=== PATIENT | male | born 1950 | race Caucasian/White ===

== ENCOUNTER → 2016-12-01 | Outpatient (CLI) | payer OTHER ==
[2016-12-01 12:42] LABS: INR 1.1 (0.9-1.1); PARTIAL THROMBOPLASTIN RATIO 1.2; PROTHROMBIN TIME (PATIENT) 11.6 SECONDS (9.0-12.0)
[2016-12-01 12:46] LABS: BLOOD UREA NITROGEN 18 mg/dl (7-18); BUN/CREATININE RATIO 24.2 (10-20); CALCIUM 9.4 mg/dl (8.5-10.1); CARBON DIOXIDE 26 mmol/L (21-32); CHLORIDE 107 mmol/L (98-107); COMPLETE YES; CREATININE 0.76 mg/dl (0.60-1.40); EOS % 2.8 %; GLUCOSE 109 mg/dl (70-99); HEMATOCRIT 41.5 % (42-52); IG% 0.4 %; LYMPH % 29.9 %; LYMPH ABS # 1.52 K/uL (1.2-3.4); MEAN CELL VOLUME 89.8 fL (80-100); MEAN CORPUSCULAR HEMOGLOBIN 29.4 pg (25-34); MEAN CORPUSCULAR HGB CONC 32.8 g/dl (32-36); MEAN PLATELET VOLUME 10.6 fL (7.4-10.4); MONO % 11.8 %; NEUT % 55.1 %; PLATELET COUNT 138 K/uL (130-400); POTASSIUM 4.2 mmol/L (3.5-5.1); RED BLOOD COUNT 4.62 M/uL (4.7-6.1); SODIUM 140 mmol/L (136-145); WHITE BLOOD COUNT 5.09 K/uL (4.8-10.8)
== END | disposition home or self-care (01) ==
LOC: C.LABPBG 07:42
PROVIDERS: ATTEND Internal Medicine Cardiovascular Disease
DX: Z01.818 Encounter for other preprocedural examination (principal); R94.30 Abnormal result of cardiovascular function study, unspecified; R06.02 Shortness of breath; I10 Essential (primary) hypertension; Z79.899 Other long term (current) drug therapy

== ENCOUNTER 2022-09-03 12:51 | Observation (INO) ==
--- NOTE | 2022-09-03 12:57 | Emergency Department Note ---
Impression & Plan Altered mental status, Stroke-like symptoms, Atrial fibrillation with RVR ED Provider Note NAME: YOSI MITTAL AGE: 72 SEX: M ARRIVES VIA: Ambulance INFORMANT: Patient ED PROVIDER(S): Hector Bertrand MD CHIEF COMPLAINT: Confusion PLAN: Disposition: Admit MEDICAL DECISION MAKING: The patient is a pleasant 72-year-old gentleman with a past medical history of CAD, hypertension, hyperlipidemia, atrial fibrillation on Eliquis who presents emergency department via EMS and accompanied by his director of dance for evaluation of symptoms of confusion with concern for possible stroke which the patient had communicated to his director of dance that he thought occurred sometime between last night and this morning. The patient's past reports that he saw the patient last night around 9 PM last night and he was in his normal state of health but when he went to pick him up this morning to go to [facility] he notes that the patient reported that he did not feel well and was not going to go to service today. However he then reports that he then contacted the director of dance again for help and asked him to contact 911 to come to the hospital. He reports that patient could not explain in a detail what he was feeling or what was going on. He simply describes that he did not feel well and thought his left hand was weak and worried he could have a stroke. Per records the patient does have history of alcohol abuse but the patient reports that he no longer drinks alcohol regularly. Additionally, records show that he had requested from his PCP to obtain a medical marijuana card which she was informed of cannot be provided by our office. The patient reports that he is still interested in this but has not smoked marijuana. On arrival the patient is in no acute distress, afebrile with stable vital signs. He appears clinically dry. He exhibits mild confusion with word finding difficulty. He has no dysarthria. He has no focal's objective sensory or motor deficits. EKG demonstrates atrial fibrillation with RVR in the 140s without overt acute ischemia. Chest x-ray negative for acute cardiopulmonary process. WBC, H/H and platelets within normal limits. Chemistry without metabolic acidosis. Electrolytes and LFTs without significant abnormality. High- sensitivity troponin 5.4, within normal limits. TSH within normal limits. UA without evidence of infection. Drug screen was negative. COVID-19 RNA, YRN test negative. CT of the head and CT of the head neck were performed and were negative for acute CVA or ICH. There is note made of carotid artery disease. Upon reevaluation patient did have some improvement following IV fluid hydration and was able to speak more fluently though still with confusion from his baseline. He still reported some numbness and tingling of his left hand but had no focal weakness. Given the persistence of his symptoms we did agree to procee d with admission for further management. Case was discussed with Ming Alvarado, with [facility] who will evaluate the patient for admission. Triage Nursing notes reviewed and agree them. Prior/outside medical records reviewed Vital Signs: reviewed Differential diagnosis: Infection, dehydration, metabolic abnormality, hypo/hyperglycemia, electrolyte disturbance, anemia, hypoxia, cardiac sources, intracerebral event, toxicologic, neurologic, as well as other pathologies. ER treatment provided: See below. Diagnostics interpreted by me: ECG: Atrial fibrillation with RVR, 142 bpm, no ectopy, no overt ST elevation or depression, QTC 446, QRS 76 Cardiac Monitoring: An order for continuous cardiac monitoring was placed and demonstrated Atrial fibrillation with RVR, 142 bpm, no ectopy. Laboratory studies: See below Imaging studies: See below Consultation(s): Case was discussed with Ming Alvarado, with [facility] who will evaluate the patient for admission. HPI: The patient is a pleasant 72-year-old gentleman with a past medical history of CAD, hypertension, hyperlipidemia, atrial fibrillation on Eliquis who presents emergency department via EMS and accompanied by his director of dance for evaluation of symptoms of confusion with concern for possible stroke which the patient had communicated to his director of dance that he thought occurred sometime between last night and this morning. The patient's past reports that he saw the patient last night around 9 PM last night and he was in his normal state of health but when he went to pick him up this morning to go to [facility] he notes that the patient reported that he did not feel well and was not going to go to service today. However he then reports that he then contacted the director of dance again for help and asked him to contact 911 to come to the hospital. He reports that patient could not explain in a detail what he was feeling or what was going on. He simply describes that he did not feel well and thought his left hand was weak and worried he could have a stroke. Per records the patient does have history of alcohol abuse but the patient reports that he no longer drinks alcohol regularly. Additionally, records show that he had requested from his PCP to obtain a medical marijuana card which she was informed of cannot be provided by our office. The patient reports that he is still interested in this but has not smoked marijuana. ROS: See above HPI for pertinent positives & negatives. A total of 10 systems reviewed and were otherwise negative. VITALS:See Below PHYSICAL EXAMINATION: GENERAL: Awake, alert, fatigued-appearing, in no distress HENT: Normocephalic, atraumatic. Oropharynx with dry mucous membranes and otherwise unremarkable. EYES: Normal conjunctiva. Sclera non-icteric. EOMI. No nystamgus. PEARRL. NECK: Supple. No nuchal rigidity. FROM. No JVD. RESPIRATORY: Clear to auscultation. CARDIAC: Tachycardic rate, irregular rhythm. Extremities warm and well perfused. Pulses equal. ABDOMEN: Soft, non-distended. No tenderness to palpation. No rebound or guarding. No masses. RECTAL: Deferred. MUSCULOSKELETAL: Chest examination reveals no tenderness. The back is symmetrical on inspection without obvious abnormality. There is no CVA tenderness to palpation. No joint edema. LOWER EXTREMITIES: Calves are equal size bilaterally and non-tender. No edema. No discoloration. NEURO: Confused. Word finding difficulty. No dysarthria. No sensory or motor deficits noted. 5/5 strength and SILT x 4 extremities. Cerebellar function intact including [id number], alternating palms, [id number]. SKIN: No rash or jaundice noted. ED COURSE: Critical Care: I have personally spent greater than 35 minutes of critical care time in the direct management of this patient. This includes bedside care, interpretation of diagnostic studies, and testing, discussion with consultants, patient, and family members, and other required patient management activities. This 35 minutes is in excess of all separately billable procedures. Hector Bertrand MD Past Med/Surg History Medical History (Updated 09/04/22 @ 01:23 by Hector Bertrand MD) Altered mental status Atrial fibrillation with RVR CAD (coronary artery disease) Depression HTN (hypertension) Stroke-like symptoms Surgical History (Updated 09/03/22 @ 17:52 by MARÍA Huff) No pertinent past surgical history Family History (Updated 09/03/22 @ 17:52 by MARÍA Huff) Other Dyslipidemia Heart disease Social History Smoking Status: Unknown if ever smoked Preferred Language: Mongolian Feels Safe at Home: Yes Allergies Allergies Allergy/AdvReac Type Severity Reaction Status Date / Time vitamin b AdvReac Severe b12 and B6 Uncoded 09/03/22 16:28 makes nose bleed Home Meds Home Medications Medication Instructions Recorded Confirmed apixaban 5 mg tablet (Eliquis) 5 mg PO BID 09/03/22 09/03/22 arginine (L-arginine) 500 mg tablet 1,000 mg PO AMHS 09/03/22 09/03/22 atorvastatin 80 mg tablet 80 mg PO DAILY 09/03/22 09/03/22 duloxetine 30 mg capsule,delayed 30 mg PO DAILY 09/03/22 09/03/22 release metoprolol tartrate 25 mg tablet 25 mg PO BID 09/03/22 09/03/22 saw palmetto 450 mg capsule 1,800 mg PO DAILY 09/03/22 09/03/22 vitamin K2 100 mcg capsule 100 mcg PO DAILY 09/03/22 09/03/22 Results & Data (ED) Vital Signs Vital Signs - 24 hr 09/03/22 12:56 09/03/22 13:03 09/03/22 12:55 Temperature 36.7 C Temperature Source Oral Pulse Rate 146 H 137 H Pulse Rate [Apical] Pulse Rate from SpO2 Sensor Respiratory Rate 20 Respiratory Effort / Characteristics Non-Labored Spontaneous Respiratory Depth Normal Respiratory Pattern Regular Blood Pressure 148/88 H Blood Pressure [Right Arm] Blood Pressure Mean 108 Blood Pressure Mean [Right Arm] Blood Pressure Position Sitting Pulse Oximetry 96 96 Oxygen Delivery Method Room Air Room Air Sepsis Recent Fever Within 48 Hours No Sepsis New/Unexplained Change in Mental Status No Sepsis Action Taken by Nursing No Action Required 09/03/22 13:01 09/03/22 13:52 09/03/22 14:07 Temperature Temperature Source Pulse Rate 129 H 117 H 97 H Pulse Rate [Apical] Pulse Rate from SpO2 Sensor 96 H 89 Respiratory Rate 22 15 20 Respiratory Effort / Characteristics Respiratory Depth Respiratory Pattern Blood Pressure 152/103 H 151/103 H 133/107 H Blood Pressure [Right Arm] Blood Pressure Mean 119 119 115 Blood Pressure Mean [Right Arm] Blood Pressure Position Pulse Oximetry 95 97 Oxygen Delivery Method Sepsis Recent Fever Within 48 Hours Sepsis New/Unexplained Change in Mental Status Sepsis Action Taken by Nursing 09/03/22 14:30 09/03/22 15:33 09/03/22 16:00 Temperature Temperature Source Pulse Rate 93 H 89 Pulse Rate [Apical] 93 H Pulse Rate from SpO2 Sensor 97 H 96 H Respiratory Rate 18 14 14 Respiratory Effort / Characteristics Non-Labored Spontaneous Respiratory Depth Normal Respiratory Pattern Blood Pressure 140/102 H 134/98 Blood Pressure [Right Arm] 149/98 H Blood Pressure Mean 114 110 Blood Pressure Mean [Right Arm] 115 Blood Pressure Position Pulse Oximetry 97 97 96 Oxygen Delivery Method Room Air Sepsis Recent Fever Within 48 Hours Sepsis New/Unexplained Change in Mental Status Sepsis Action Taken by Nursing Laboratory Data Attestation: I reviewed the patient's lab results. 09/03/22 12:55 09/03/22 12:55 Lab Results 09/03/22 09/03/22 09/03/22 Range/Units 12:55 12:55 12:55 WBC 5.53 (4.8-10.8) K/ul RBC 4.89 (4.70-6.10) M/uL Hgb 15.0 (14.0-18.0) g/dl Hct 43.7 (42.0-52.0) % MCV 89.4 (80.0-100.0) fL MCH 30.7 (25.0-34.0) pg MCHC 34.3 (32.0-36.0) g/dL RDW Std Deviation 43.9 (36.4-46.3) fL RDW Coeff of Shayy 13.4 (11.5-14.5) % Plt Count 148 (130-400) K/uL MPV 9.9 (9.4-12.4) fL Immature Gran % (Auto) 0.5 % Neut % (Auto) 55.5 % Lymph % (Auto) 29.7 % Canadian % (Auto) 12.5 % Eos % (Auto) 1.6 % Baso % (Auto) 0.2 % Neut # (Auto) 3.07 (1.40-6.50) K/uL Lymph # (Auto) 1.64 (1.2-3.4) K/uL Canadian # (Auto) 0.69 H (0.11-0.59) K/uL Eos # (Auto) 0.09 (0-0.50) K/uL Baso # (Auto) 0.01 (0-0.2) K/uL Immature Gran # (Auto) 0.03 (0.01-0.20) K/uL PT (9.0-12.0) Seconds INR (0.9-1.1) Sodium 138 (136-145) mmol/L Potassium 4.3 (3.5-5.1) mmol/L Chloride 107 (98-107) mmol/L Carbon Dioxide 22 (21-32) mmol/L Anion Gap 9 (3-11) BUN 13 (6-23) mg/dl Creatinine 0.92 (0.6-1.4) mg/dl Est Cr Clr Drug Dosing 96.1 ml/min Est GFR ( Amer) 94.6 ml/min Est GFR (Non-Af Amer) 81.6 ml/min BUN/Creatinine Ratio 14.1 (10-20) Glucose 114 H (70-99(Fasting)) mg/dl Calcium 9.8 (8.6-10.3) mg/dl Phosphorus 2.7 (2.5-4.9) mg/dl Magnesium 1.7 (1.7-2.4) mg/dl Total Bilirubin 0.7 (0.2-1.0) mg/dl AST 20 (13-39) U/L ALT 12 (7-52) U/L Alkaline Phosphatase 63 (34-104) U/L Troponin I High Sens 5.4 (0-20) pg/ml Total Protein 7.3 (6.0-8.3) gm/dl Albumin 4.2 (3.4-5.0) gm/dl Globulin 3.1 (2.5-4.0) gm/dl Albumin/Globulin Ratio 1.4 (0.9-2) Lipase 7 L (11-82) U/L TSH 1.967 (0.300-4.500) uIu/ml Urine Color Urine Appearance (Clear) Urine pH (4.5-7.5) Ur Specific Bethany (1.000-1.030) Urine Protein (Negative) Urine Glucose (UA) (Negative) Urine Ketones (Negative) Urine Blood (Negative) Urine Nitrite (Negative) Urine Bilirubin (Negative) Urine Urobilinogen (Negative) Ur Leukocyte Esterase (Negative) Urine Opiates Screen (Neg) Ur Methadone, Qual (Neg) Urine Barbiturates (Neg) Ur Phencyclidine (PCP) (Neg) U Amphetamin/Meth Scrn (Neg) MDMA (Ecstasy) Screen (Neg) U Benzodiazepines Scrn (Neg) Ur Cocaine Metabolite (Neg) U Marijuana (THC) Screen (Neg) Ethyl Alcohol mg/dL (<10.0) mg/dl SARS-CoV-2, RNA, NAAT (NEGATIVE) 09/03/22 09/03/22 09/03/22 Range/Units 12:55 13:14 13:53 WBC (4.8-10.8) K/ul RBC (4.70-6.10) M/uL Hgb (14.0-18.0) g/dl Hct (42.0-52.0) % MCV (80.0-100.0) fL MCH (25.0-34.0) pg MCHC (32.0-36.0) g/dL RDW Std Deviation (36.4-46.3) fL RDW Coeff of Shayy (11.5-14.5) % Plt Count (130-400) K/uL MPV (9.4-12.4) fL Immature Gran % (Auto) % Neut % (Auto) % Lymph % (Auto) % Canadian % (Auto) % Eos % (Auto) % Baso % (Auto) % Neut # (Auto) (1.40-6.50) K/uL Lymph # (Auto) (1.2-3.4) K/uL Canadian # (Auto) (0.11-0.59) K/uL Eos # (Auto) (0-0.50) K/uL Baso # (Auto) (0-0.2) K/uL Immature Gran # (Auto) (0.01-0.20) K/uL PT 11.7 (9.0-12.0) Seconds INR 1.1 (0.9-1.1) Sodium (136-145) mmol/L Potassium (3.5-5.1) mmol/L Chloride (98-107) mmol/L Carbon Dioxide (21-32) mmol/L Anion Gap (3-11) BUN (6-23) mg/dl Creatinine (0.6-1.4) mg/dl Est Cr Clr Drug Dosing ml/min Est GFR ( Amer) ml/min Est GFR (Non-Af Amer) ml/min BUN/Creatinine Ratio (10-20) Glucose (70-99(Fasting)) mg/dl Calcium (8.6-10.3) mg/dl Phosphorus (2.5-4.9) mg/dl Magnesium (1.7-2.4) mg/dl Total Bilirubin (0.2-1.0) mg/dl AST (13-39) U/L ALT (7-52) U/L Alkaline Phosphatase (34-104) U/L Troponin I High Sens (0-20) pg/ml Total Protein (6.0-8.3) gm/dl Albumin (3.4-5.0) gm/dl Globulin (2.5-4.0) gm/dl Albumin/Globulin Ratio (0.9-2) Lipase (11-82) U/L TSH (0.300-4.500) uIu/ml Urine Color Urine Appearance (Clear) Urine pH (4.5-7.5) Ur Specific Bethany (1.000-1.030) Urine Protein (Negative) Urine Glucose (UA) (Negative) Urine Ketones (Negative) Urine Blood (Negative) Urine Nitrite (Negative) Urine Bilirubin (Negative) Urine Urobilinogen (Negative) Ur Leukocyte Esterase (Negative) Urine Opiates Screen (Neg) Ur Methadone, Qual (Neg) Urine Barbiturates (Neg) Ur Phencyclidine (PCP) (Neg) U Amphetamin/Meth Scrn (Neg) MDMA (Ecstasy) Screen (Neg) U Benzodiazepines Scrn (Neg) Ur Cocaine Metabolite (Neg) U Marijuana (THC) Screen (Neg) Ethyl Alcohol mg/dL < 10.0 (<10.0) mg/dl SARS-CoV-2, RNA, NAAT NEGATIVE (NEGATIVE) 09/03/22 09/03/22 Range/Units 15:32 15:32 WBC (4.8-10.8) K/ul RBC (4.70-6.10) M/uL Hgb (14.0-18.0) g/dl Hct (42.0-52.0) % MCV (80.0-100.0) fL MCH (25.0-34.0) pg MCHC (32.0-36.0) g/dL RDW Std Deviation (36.4-46.3) fL RDW Coeff of Shayy (11.5-14.5) % Plt Count (130-400) K/uL MPV (9.4-12.4) fL Immature Gran % (Auto) % Neut % (Auto) % Lymph % (Auto) % Canadian % (Auto) % Eos % (Auto) % Baso % (Auto) % Neut # (Auto) (1.40-6.50) K/uL Lymph # (Auto) (1.2-3.4) K/uL Canadian # (Auto) (0.11-0.59) K/uL Eos # (Auto) (0-0.50) K/uL Baso # (Auto) (0-0.2) K/uL Immature Gran # (Auto) (0.01-0.20) K/uL PT (9.0-12.0) Seconds INR (0.9-1.1) Sodium (136-145) mmol/L Potassium (3.5-5.1) mmol/L Chloride (98-107) mmol/L Carbon Dioxide (21-32) mmol/L Anion Gap (3-11) BUN (6-23) mg/dl Creatinine (0.6-1.4) mg/dl Est Cr Clr Drug Dosing ml/min Est GFR ( Amer) ml/min Est GFR (Non-Af Amer) ml/min BUN/Creatinine Ratio (10-20) Glucose (70-99(Fasting)) mg/dl Calcium (8.6-10.3) mg/dl Phosphorus (2.5-4.9) mg/dl Magnesium (1.7-2.4) mg/dl Total Bilirubin (0.2-1.0) mg/dl AST (13-39) U/L ALT (7-52) U/L Alkaline Phosphatase (34-104) U/L Troponin I High Sens (0-20) pg/ml Total Protein (6.0-8.3) gm/dl Albumin (3.4-5.0) gm/dl Globulin (2.5-4.0) gm/dl Albumin/Globulin Ratio (0.9-2) Lipase (11-82) U/L TSH (0.300-4.500) uIu/ml Urine Color Yellow Urine Appearance Clear (Clear) Urine pH 6.5 (4.5-7.5) Ur Specific Bethany > 1.045 H (1.000-1.030) Urine Protein Negative (Negative) Urine Glucose (UA) Negative (Negative) Urine Ketones Negative (Negative) Urine Blood Negative (Negative) Urine Nitrite Negative (Negative) Urine Bilirubin Negative (Negative) Urine Urobilinogen Negative (Negative) Ur Leukocyte Esterase Negative (Negative) Urine Opiates Screen Neg (Neg) Ur Methadone, Qual Neg (Neg) Urine Barbiturates Neg (Neg) Ur Phencyclidine (PCP) Neg (Neg) U Amphetamin/Meth Scrn Neg (Neg) MDMA (Ecstasy) Screen Neg (Neg) U Benzodiazepines Scrn Neg (Neg) Ur Cocaine Metabolite Neg (Neg) U Marijuana (THC) Screen Neg (Neg) Ethyl Alcohol mg/dL (<10.0) mg/dl SARS-CoV-2, RNA, NAAT (NEGATIVE) Administered Medications Apixaban (Apixaban 5 Mg Tablet) 5 mg PO BID LOLIS Stop: 10/03/22 20:59 Last Admin: 09/03/22 21:34 Dose: 5 mg Documented By: EUSEBIO Metoprolol Tartrate (Metoprolol Tartrate 25 Mg Tab) 25 mg PO BID LOLIS Stop: 10/03/22 20:59 Last Admin: 09/03/22 21:34 Dose: 25 mg Documented By: EUSEBIO Discontinued Medications Sodium Chloride (Nss 1000ml) 1,000 mls @ 999 mls/hr IV .Q1H1M ONE Stop: 09/03/22 14:07 Last Infusion: 09/03/22 15:47 Dose: 0 mls/hr Documented By: Admin: 09/03/22 13:12 Dose: 999 mls/hr Documented By: MAYRA Sodium Chloride (Nss 1000ml) 1,000 mls @ 999 mls/hr IV .Q1H1M ONE Stop: 09/03/22 16:53 Last Infusion: 09/03/22 17:21 Dose: 0 mls/hr Documented By: Admin: 09/03/22 16:15 Dose: 999 mls/hr Documented By: ELLY Magnesium Sulfate/Dextrose (Magnesium Sulfate / D5w) 1 gm in 100 mls @ 100 mls/hr IV NOW STA Stop: 09/03/22 16:53 Last Infusion: 09/03/22 17:21 Dose: 0 mls/hr Documented By: Admin: 09/03/22 16:14 Dose: 100 mls/hr Documented By: ELLY Ioversol (Optiray 320 500ml) 117 ml IV ONCE ONE Stop: 09/03/22 13:29 Last Admin: 09/03/22 13:28 Dose: 117 ml Documented By: CYNTHIA Imaging Data Radiologist's Impression: Chest X-Ray 09/03/22 12:55 XR chest 1V portable HISTORY: 72 years-old Male Chest pain, nonspecific acute strokelike symptoms w ith chest pain COMPARISON: None TECHNIQUE: AP view of the chest FINDINGS: Cardiac silhouette is upper limits of normal in size. No pneumothorax, pleural effusion, airspace consolidation or overt pulmonary edema. Mild interstitial coarsening is likely chronic. Degenerative changes of the shoulders and spine. IMPRESSION: No acute process. ACT 112: Negative or not required by law. The above report was generated using voice recognition software. It may contain grammatical, syntax or spelling errors. Electronically signed by: Elijah Puente M.D. 09/03/2022 1:[address] 09/03/22 13:08 CT angio head w con, CT angio neck with con, CT head/brain wo con CLINICAL HISTORY: 72 years-old Male with stroke sx. Acute strokelike symptoms COMPARISON STUDY: None TECHNIQUE: Unenhanced axial CT scan of the brain is performed. Subsequently, following the IV administration of 115 cc of Optiray, CT angiogram of the head and neck was performed from the aortic arch to the skull apex. Images are reviewed in the axial, sagittal, and coronal planes. 3-D MIPS images are created and assessed. IV contrast was administered without complication. All measurements were obtained according to NASCET criteria. A dose lowering bernardo hnique was utilized adhering to the principles of ALARA. CT DOSE: 1681.03 mGy.cm FINDINGS: Motion degraded exam. CT BRAIN: There is no acute intracranial hemorrhage, midline shift, hydrocephalus, intracranial mass, territorial ischemia or abnormal extra-axial collections. No abnormal intra-axial or extra-axial enhancement. Involutional changes with chronic microvascular ischemic disease. Cerebrovascular calcifications. Small right mastoid effusion. No calvarial fracture. Prior bilateral lens repair. Paranasal sinuses are clear. CT ANGIOGRAM OF THE HEAD AND NECK: Mediastinal lymph nodes measure up to 1.6 cm the paratracheal distribution. Three-vessel morphology of the thoracic arch. Patency of the innominate and images including arteries. Common carotid arteries are patent. Atherosclerotic plaque in the left carotid bulb and proximal left ICA results in less than 50% stenosis. Less than 50% stenosis of the proximal right ICA. The bilateral anterior and middle cerebral arteries are also patent. Atherosclerotic plaques in the V4 segment left vertebral artery results in 60% stenosis. The right vertebral artery is widely patent. The basilar and posterior cerebral arteries are patent. There is no aneurysm, high-grade stenosis, or proximal branch occlusion identified. Dural sinuses appear patent. No pneumothorax. Unremarkable soft tissues. Degenerative changes of the cervical spine. IMPRESSION: 1. Motion degraded exam without acute intracranial abnormality identified. 2. Atherosclerotic plaque results in less than 50% stenosis within the right greater than left carotid bulbs. 3. 60% stenosis of the V4 segment left vertebral artery. 4. Mild nonspecific paratracheal lymphadenopathy. ACT 112: Negative or not required by law. The above report was generated using voice recognition software. It may contain grammatical, syntax or spelling errors. Electronically signed by: Elijah Puente M.D. 09/03/2022 2:20 PM Head CTA 09/03/22 13:08 CT angio head w con, CT angio neck with con, CT head/brain wo con CLINICAL HISTORY: 72 years-old Male with stroke sx. Acute strokelike symptoms COMPARISON STUDY: None TECHNIQUE: Unenhanced axial CT scan of the brain is performed. Subsequently, following the IV administration of 115 cc of Optiray, CT angiogram of the head and neck was performed from the aortic arch to the skull apex. Images are reviewed in the axial, sagittal, and coronal planes. 3-D MIPS images are created and assessed. IV contrast was administered without complication. All measurements were obtained according to NASCET criteria. A dose lowering technique was utilized adhering to the principles of ALARA. CT DOSE: 1681.03 mGy.cm FINDINGS: Motion degraded exam. CT BRAIN: There is no acute intracranial hemorrhage, midline shift, hydrocephalus, intracranial mass, territorial ischemia or abnormal extra-axial collections. No abnormal intra-axial or extra-axial enhancement. Involutional changes with chronic microvascular ischemic disease. Cerebrovascular calcifications. Small right mastoid effusion. No calvarial fracture. Prior bilateral lens repair. Paranasal sinuses are clear. CT ANGIOGRAM OF THE HEAD AND NECK: Mediastinal lymph nodes measure up to 1.6 cm the paratracheal distribution. Three-vessel morphology of the thoracic arch. Patency of the innominate and images including arteries. Common carotid arteries are patent. Atherosclerotic plaque in the left carotid bulb and proximal left ICA results in less than 50% s tenosis. Less than 50% stenosis of the proximal right ICA. The bilateral anterior and middle cerebral arteries are also patent. Atherosclerotic plaques in the V4 segment left vertebral artery results in 60% stenosis. The right vertebral artery is widely patent. The basilar and posterior cerebral arteries are patent. There is no aneurysm, high-grade stenosis, or proximal branch occlusion identified. Dural sinuses appear patent. No pneumothorax. Unremarkable soft tissues. Degenerative changes of the cervical spine. IMPRESSION: 1. Motion degraded exam without acute intracranial abnormality identified. 2. Atherosclerotic plaque results in less than 50% stenosis within the right greater than left carotid bulbs. 3. 60% stenosis of the V4 segment left vertebral artery. 4. Mild nonspecific paratracheal lymphadenopathy. ACT 112: Negative or not required by law. The above report was generated using voice recognition software. It may contain grammatical, syntax or spelling errors. Electronically signed by: Elijah Puente M.D. 09/03/2022 2:20 PM Neck CTA 09/03/22 13:08 CT angio head w con, CT angio neck with con, CT head/brain wo con CLINICAL HISTORY: 72 years-old Male with stroke sx. Acute strokelike symptoms COMPARISON STUDY: None TECHNIQUE: Unenhanced axial CT scan of the brain is performed. Subsequently, following the IV administration of 115 cc of Optiray, CT angiogram of the head and neck was performed from the aortic arch to the skull apex. Images are reviewed in the axial, sagittal, and coronal planes. 3-D MIPS images are created and assessed. IV contrast was administered without complication. All measurements were obtained according to NASCET criteria. A dose lowering techniq ue was utilized adhering to the principles of ALARA. CT DOSE: 1681.03 mGy.cm FINDINGS: Motion degraded exam. CT BRAIN: There is no acute intracranial hemorrhage, midline shift, hydrocephalus, intracranial mass, territorial ischemia or abnormal extra-axial collections. No abnormal intra-axial or extra-axial enhancement. Involutional changes with chronic microvascular ischemic disease. Cerebrovascular calcifications. Small right mastoid effusion. No calvarial fracture. Prior bilateral lens repair. Paranasal sinuses are clear. CT ANGIOGRAM OF THE HEAD AND NECK: Mediastinal lymph nodes measure up to 1.6 cm the paratracheal distribution. Three-vessel morphology of the thoracic arch. Patency of the innominate and images including arteries. Common carotid arteries are patent. Atherosclerotic plaque in the left carotid bulb and proximal left ICA results in less than 50% stenosis. Less than 50% stenosis of the proximal right ICA. The bilateral anterior and middle cerebral arteries are also patent. Atherosclerotic plaques in the V4 segment left vertebral artery results in 60% stenosis. The right vertebral artery is widely patent. The basilar and posterior cerebral arteries are patent. There is no aneurysm, high-grade stenosis, or proximal branch occlusion identified. Dural sinuses appear patent. No pneumothorax. Unremarkable soft tissues. Degenerative changes of the cervical spine. IMPRESSION: 1. Motion degraded exam without acute intracranial abnormality identified. 2. Atherosclerotic plaque results in less than 50% stenosis within the right greater than left carotid bulbs. 3. 60% stenosis of the V4 segment left vertebral artery. 4. Mild nonspecific paratracheal lymphadenopathy. ACT 112: Negative or not required by law. The above report was generated using voice recognition software. It may contain grammatical, syntax or spelling errors. Electronically signed by: Elijah Puente M.D. 09/03/2022 2:20 PM Discharge Plan Visit Data Chief Complaint: Altered Mental Status ED Provider: Hector Bertrand Discharge Problem: Altered mental status, Stroke-like symptoms, Atrial fibrillation with RVR Patient Disposition: Admitted As Inpatient Discharge Instructions Interventions: ED Discharge Assessment Last Done: 09/03/22 18:08
[2022-09-03] MEDS ORDERED: SODIUM CHLORIDE 0.9% 1000ML 1,000 ML IV ONE ×2 (13:07→15:53)
[2022-09-03 13:16] LABS: Basophils # (auto) 0.01 K/uL (0-0.2); Basophils % (auto) 0.2 %; Eosinophils # (auto) 0.09 K/uL (0-0.50); Eosinophils % (auto) 1.6 %; Hematocrit (blood only) 43.7 % (42.0-52.0); Immature Granulocytes # (auto) 0.03 K/uL (0.01-0.20); Immature Granulocytes % (auto) 0.5 %; Lymphocytes # (auto) 1.64 K/uL (1.2-3.4); Lymphocytes % (auto) 29.7 %; Mean Corpuscular Hemoglobin 30.7 pg (25.0-34.0); Mean Corpuscular Hgb Conc 34.3 g/dL (32.0-36.0); Mean Corpuscular Volume 89.4 fL (80.0-100.0); Mean Platelet Volume 9.9 fL (9.4-12.4); Monocytes # (auto) 0.69 K/uL (0.11-0.59); Monocytes % (auto) 12.5 %; Neutrophils # (auto) 3.07 K/uL (1.40-6.50); Neutrophils % (auto) 55.5 %; Platelet Count 148 K/uL (130-400); RDW Coefficient of Variation 13.4 % (11.5-14.5); RDW Standard Deviation 43.9 fL (36.4-46.3); Red Blood Count 4.89 M/uL (4.70-6.10); White Blood Count 5.53 K/ul (4.8-10.8)
[2022-09-03] MEDS ORDERED: OPTIRAY 320 500ml IV ONE (13:28)
[2022-09-03 13:34] LABS: Albumin Globulin Ratio 1.4 (0.9-2); Albumin Level 4.2 gm/dl (3.4-5.0); BUN Creatinine Ratio 14.1 (10-20); Bilirubin,Total 0.7 mg/dl (0.2-1.0); Calcium 9.8 mg/dl (8.6-10.3); Creatinine Clr Calc Pharmacy 96.1 ml/min; Est GFR (African American) 94.6 ml/min; Est GFR (Non-African American) 81.6 ml/min; Globulin 3.1 gm/dl (2.5-4.0); Magnesium 1.7 mg/dl (1.7-2.4); Phosphorus 2.7 mg/dl (2.5-4.9); Potassium 4.3 mmol/L (3.5-5.1); Total Protein 7.3 gm/dl (6.0-8.3)
[2022-09-03 13:40] LABS: Troponin I High Sensitivity 5.4 pg/ml (0-20)
--- NOTE | 2022-09-03 13:58 | XRay Report ---
XR chest 1V portable HISTORY: 72 years-old Male Chest pain, nonspecific acute strokelike symptoms with chest pain COMPARISON: None TECHNIQUE: AP view of the chest FINDINGS: Cardiac silhouette is upper limits of normal in size. No pneumothorax, pleural effusion, airspace con solidation or overt pulmonary edema. Mild interstitial coarsening is likely chronic. Degenerative mannie nges of the shoulders and spine. IMPRESSION: No acute process. ACT 112: Negative or not required by law. The above report was generated using voice recognition software. It may contain grammatical, syntax o r spelling errors. Electronically signed by: Elijah Puente M.D. 09/03/2022 1:57 PM
[2022-09-03 14:11] LABS: INR 1.1 (0.9-1.1); Prothrombin Time 11.7 Seconds (9.0-12.0)
--- NOTE | 2022-09-03 14:22 | CT Scan Report ---
CT angio head w con, CT angio neck with con, CT head/brain wo con CLINICAL HISTORY: 72 years-old Male with stroke sx. Acute strokelike symptoms COMPARISON STUDY: None TECHNIQUE: Unenhanced axial CT scan of the brain is performed. Subsequently, following the IV adminis tration of 115 cc of Optiray, CT angiogram of the head and neck was performed from the aortic arch to the skull apex. Images are reviewed in the axial, sagittal, and coronal planes. 3-D MIPS images are created and assessed. IV contrast was administered without complication. All measurements were obtain ed according to NASCET criteria. A dose lowering technique was utilized adhering to the principles of ALARA. CT DOSE: 1681.03 mGy.cm FINDINGS: Motion degraded exam. CT BRAIN: There is no acute intracranial hemorrhage, midline shift, hydrocephalus, intracranial mass, territori al ischemia or abnormal extra-axial collections. No abnormal intra-axial or extra-axial enhancement. Involutional changes with chronic microvascular ischemic disease. Cerebrovascular calcifications. Sm all right mastoid effusion. No calvarial fracture. Prior bilateral lens repair. Paranasal sinuses are clear. CT ANGIOGRAM OF THE HEAD AND NECK: Mediastinal lymph nodes measure up to 1.6 cm the paratracheal distribution. Three-vessel morphology o f the thoracic arch. Patency of the innominate and images including arteries. Common carotid arteries are patent. Atherosclerotic plaque in the left carotid bulb and proximal left ICA results in less th an 50% stenosis. Less than 50% stenosis of the proximal right ICA. The bilateral anterior and middle cerebral arteries are also patent. Atherosclerotic plaques in the V4 segment left vertebral artery re sults in 60% stenosis. The right vertebral artery is widely patent. The basilar and posterior cerebra l arteries are patent. There is no aneurysm, high-grade stenosis, or proximal branch occlusion identi fied. Dural sinuses appear patent. No pneumothorax. Unremarkable soft tissues. Degenerative changes of the cervical spine. IMPRESSION: 1. Motion degraded exam without acute intracranial abnormality identified. 2. Atherosclerotic plaque results in less than 50% stenosis within the right greater than left caroti d bulbs. 3. 60% stenosis of the V4 segment left vertebral artery. 4. Mild nonspecific paratracheal lymphadenopathy. ACT 112: Negative or not required by law. The above report was generated using voice recognition software. It may contain grammatical, syntax o r spelling errors. Electronically signed by: Elijah Puente M.D. 09/03/2022 2:20 PM
[2022-09-03 15:42] LABS: Appearance Urine Clear (Clear); Bilirubin Urine Negative (Negative); Blood Urine Negative (Negative); Color Urine Yellow; Glucose Urine UA Negative (Negative); Ketones Urine Negative (Negative); Leukocyte Esterase Urine Negative (Negative); Nitrite Urine Negative (Negative); Protein Urine Negative (Negative); Specific Gravity Urine > 1.045 (1.000-1.030); Urobilinogen Urine Negative (Negative); pH Urine 6.5 (4.5-7.5)
[2022-09-03] MEDS ORDERED: MAGNESIUM SULFATE / D5W 1 GM/100 ML BAG IV STA (15:54)
--- NOTE | 2022-09-03 15:57 | Electrocardiogram Report ---
Test Reason : Blood Pressure : / mmHG Vent. Rate : 142 BPM Atrial Rate : 000 BPM P-R Int : 000 ms QRS Dur : 076 ms QT Int : 290 ms P-R-T Axes : 000 023 010 degrees QTc Int : 446 ms Atrial fibrillation with rapid ventricular response with premature ventricular or aberrantly conducte d complexes Abnormal ECG No previous ECGs available Confirmed by Skyler Ramos ([id number]) on 09/03/2022 3:57:25 PM Referred By: REFERRED SELF Confirmed By:Ramy Ramos
[2022-09-03] MEDS ORDERED: POLYETHYLENE (MIRALAX) 17 GM PACK PO PRN (16:14)
[2022-09-03] MEDS ORDERED: ALUMINUM/MAGNESIUM SUSP 30 ML UDC PO PRN (16:14)
[2022-09-03] MEDS ORDERED: MAGNESIUM HYDROXIDE SUSP 30 ML UDC PO PRN (16:14)
[2022-09-03] MEDS ORDERED: ONDANSETRON INJ 2 MG/ML 2 ML VIAL IV PRN (16:14)
[2022-09-03 16:20] LABS: Amphetamines+Metham, Urine Neg (Neg); Barbiturates, Urine Neg (Neg); Benzodiazepine, Urine Neg (Neg); Cocaine, Urine Neg (Neg); MDMA (Ecstacy), Urine Neg (Neg); Methadone, Urine Neg (Neg); Opiate, Urine Neg (Neg); Phencyclidine, Urine Neg (Neg)
--- NOTE | 2022-09-03 16:26 | History & Physical Report ---
Date of Service September 03, 2022 Assessment & Plan (1) Stroke-like symptoms: (2) Altered mental status: (3) CAD (coronary artery disease): (4) Atrial fibrillation with RVR: (5) HTN (hypertension): (6) Depression: Plan 72 y/o presents with AMS and AF with RVR and AMS. On Eliquis. Last known well 09/02 @ 2100. Symptoms presented at 09/03/529. Head CT negative for ICH, SDH, or midline shift. Obtain MRI brain for stroke work up. Already on anticoagulation and high dose statin. AF with RVR Dilt 10 mg IV given by EMS. 2 LNSB given and HR now rate controlled. Atrial fibrillation with RVR: 140-170 via EMS: Received 10 mg IV Diltiazem via EMS 2L NSB in ED; HR 90-100 Obtain ECHO; did not find one as outpatient Takes Eliquis and Metoprolol; continue Consider cardiology involvement based on ECHO results or symptoms persist. Stroke like symptoms: Altered mental status: Last known well 09/02 @ [address] negative for ICH, SDH, or midline shift Obtain MRI brain for stroke work up Already on anticoagulation and high dose statin UA negative UDS pending H/O alcohol use; does not appear tremulous PT/OT Dysphagia screening; if cleared, ok for diet Neuro consult placed HLD: Takes Atorvastatin; continue Last lipid panel: 06/27: TG 120, HDL 32, LDL 50 Depression: Takes Cymbalta; continue Disposition: PCP: Dr. Sonal Puckett CODE STATUS: Full code VTE prophylaxis: On Eliquis I spent a total of 87 minutes coordinating, documenting, and providing care for this patient excluding time spent in the performance of separately billed services. All of the aforementioned completed while collaborating with the assigned attending physician for a full treatment plan. Please see their addendum for further details. History of Present Illness Chief Complaint: AMS and AF with RVR Primary Care Provider: Brennan Ro Ms. Castrejon presented to the ED via EMS from home after being observed with AMS. He is last well known last night at 2100. When his salesperson women's hats came to pick him up this morning he was unable to grasp his left hand and felt 'weak'. Per his salesperson women's hats who accompanied him he was having a difficult time with word finding. He has reported falls at home, about 3 over the last calender year. No dysarthria. No prior history of CVA or TIA. Last known well time outside of stroke alert protocol or TNK consideration. HR 140-170 via EMS. Diltiazem given by EMS. EKG AF with RVR. Patient rate responded with 2 L NSB and has remained rate controlled AF since. He did take his medications this morning. Reports being compliant with medications. Chest x-ray negative for acute cardiopulmonary disease. . Head CT negative. Head and Neck CTA revealed atheroplaques less than 50% stenosis and 60% stenosis left vertebral artery. No leukocytosis. Troponin -5.4. TSH 1.9. UA negative for infection. UDS pending. Hemodynamically stable otherwise afebrile. Most recent A1C 5.8 06/27. Outpatient records reviewed. Patient did request a medical marijuana card in July for his arthritis, but has not gotten it yet. Pt does not use tobacco products but does have a history of alcohol abuse. He apparently has not had a drink in over two weeks. Not tremulous on exam. Patient denies headache, dizziness, chest pain, abdominal pain, nausea, vomiting, diarrhea, visual or auditory changes, urinary changes, bowel changes, hematochezia, recent illness, recent falls or trauma. In his hospital room, he is AAOx3 and has returned to his baseline per his salesperson women's hatsHarsh. He is able to follow all commands and answer questions appropriately. NIH 0. CN II-XII intact. He uses a can intermittently at baseline. He is able to complete all of his own ADL's at baseline. He lives alone in an apartment that is accessible by 4 steps and has a handrail. He does not have any close family. Reports having one sister in [place]. Patient will be admitted for further evaluation and management. Please see A/P for further details. Allergies Allergy/AdvReac Type Severity Reaction Status Date / Time vitamin b AdvReac Severe b12 and B6 Uncoded 09/03/22 16:28 makes nose bleed Home Medications Medication Instructions Recorded Confirmed Type apixaban 5 mg tablet (Eliquis) 5 mg PO BID 09/03/22 09/03/22 History arginine (L-arginine) 500 mg tablet 1,000 mg PO AMHS 09/03/22 09/03/22 History atorvastatin 80 mg tablet 80 mg PO DAILY 09/03/22 09/03/22 History duloxetine 30 mg capsule,delayed 30 mg PO DAILY 09/03/22 09/03/22 History release metoprolol tartrate 25 mg tablet 25 mg PO BID 09/03/22 09/03/22 History saw palmetto 450 mg capsule 1,800 mg PO DAILY 09/03/22 09/03/22 History vitamin K2 100 mcg capsule 100 mcg PO DAILY 09/03/22 09/03/22 History Past Med/Surg History Medical History (Updated 09/03/22 @ 18:40 by MARÍA Huff) Altered mental status Atrial fibrillation with RVR CAD (coronary artery disease) Depression HTN (hypertension) Stroke-like symptoms Surgical History (Updated 09/03/22 @ 17:52 by MARÍA Huff) No pertinent past surgical history Family History (Updated 09/03/22 @ 17:52 by MARÍA Huff) Other Dyslipidemia Heart disease Social History Smoking Status: Unknown if ever smoked Preferred Language: Finnish Feels Safe at Home: Yes Review of Systems Review of Systems: Neuro: (-) Falls, trauma, slurred speech HEENT: (-) ESTEVES, dizziness, dysphagia, visual or auditory changes CV: (-) CP, palpitations, swelling Resp: (-) SOB GI: (-) appetite changes, N/V/D, bowel changes : (-) urinary changes Skin: (-) rashes Psych: (-) anxiety, depression Physical Exam Physical Exam: Neuro: AAOx4, PERRLA, no aphagia, memory changes, CNII-XII grossly intact HEENT: head normocephalic, moist mucus membranes CV: S1/S2, (-) M/G/R, (-) edema, cap refill < 3 seconds Resp: Lungs CTA in all [place]. On RA GI: Abdomen S/NT/ND, Ax4 bowel sounds, (-) CVA tenderness Musculoskeletal: 5/5 B/L UE strength, 5/5 B/L LE strength. No gait disturbance. Uses a cane Skin: (-) rashes , (-) erythema. Psych: euthymic mood Results & Data Results & Data Vital Signs (Past 12 Hours) Vital Signs Temp Pulse Pulse Resp BP BP Pulse Ox 09/03/22 15:33 93 H 14 149/98 H 97 09/03/22 14:30 93 H 18 140/102 H 97 09/03/22 14:07 97 H 20 133/107 H 97 09/03/22 13:52 117 H 15 151/103 H 09/03/22 13:01 129 H 22 152/103 H 95 09/03/22 12:55 96 09/03/22 13:03 36.7 C 137 H 20 148/88 H 96 09/03/22 12:56 146 H O2 Del Method 09/03/22 15:33 Room Air 09/03/22 14:30 09/03/22 14:07 09/03/22 13:52 09/03/22 13:01 09/03/22 12:55 Room Air 09/03/22 13:03 Room Air 09/03/22 12:56 Laboratory Results Short CBC 09/03/22 Range/Units 12:55 WBC 5.53 (4.8-10.8) K/ul Hgb 15.0 (14.0-18.0) g/dl Hct 43.7 (42.0-52.0) % Plt Count 148 (130-400) K/uL BMP 09/03/22 12:55 Sodium 138 Potassium 4.3 Chloride 107 Carbon Dioxide 22 BUN 13 Creatinine 0.92 Glucose 114 H Calcium 9.8 Liver Function 09/03/22 Range/Units 12:55 Total Bilirubin 0.7 (0.2-1.0) mg/dl AST 20 (13-39) U/L ALT 12 (7-52) U/L Alkaline Phosphatase 63 (34-104) U/L Albumin 4.2 (3.4-5.0) gm/dl Urine 09/03/22 Range/Units 15:32 Urine Color Yellow Urine Appearance Clear (Clear) Urine pH 6.5 (4.5-7.5) Ur Specific Ranger > 1.045 H (1.000-1.030) Urine Protein Negative (Negative) Urine Glucose (UA) Negative (Negative) Diagnostic Findings Chest X-Ray 09/03/22 12:55 XR chest 1V portable HISTORY: 72 years-old Male Chest pain, nonspecific acute strokelike symptoms with chest pain COMPARISON: None TECHNIQUE: AP view of the chest FINDINGS: Cardiac silhouette is upper limits of normal in size. No pneumothorax, pleural effusion, airspace consolidation or overt pulmonary edema. Mild interstitial coarsening is likely chronic. Degenerative changes of the shoulders and spine. IMPRESSION: No acute process. ACT 112: Negative or not required by law. The above report was generated using voice recognition software. It may contain grammatical, syntax or spelling errors. Electronically signed by: Elijah Puente M.D. 09/03/2022 1:[address] 09/03/22 13:08 CT angio head w con, CT angio neck with con, CT head/brain wo con CLINICAL HISTORY: 72 years-old Male with stroke sx. Acute strokelike symptoms COMPARISON STUDY: None TECHNIQUE: Unenhanced axial CT scan of the brain is performed. Subsequently, following the IV administration of 115 cc of Optiray, CT angiogram of the head and neck was performed from the aortic arch to the skull apex. Images are reviewed in the axial, sagittal, and coronal planes. 3-D MIPS images are created and assessed. IV contrast was administered without complication. All measurements were obtained according to NASCET criteria. A dose lowering technique was utilized adhering to the principles of ALARA. CT DOSE: 1681.03 mGy.cm FINDINGS: Motion degraded exam. CT BRAIN: There is no acute intracranial hemorrhage, midline shift, hydrocephalus, intracranial mass, territorial ischemia or abnormal extra-axial collections. No abnormal intra-axial or extra-axial enhancement. Involutional changes with chronic microvascular ischemic disease. Cerebrovascular calcifications. Small right mastoid effusion. No calvarial fracture. Prior bilateral lens repair. Paranasal sinuses are clear. CT ANGIOGRAM OF THE HEAD AND NECK: Mediastinal lymph nodes measure up to 1.6 cm the paratracheal distribution. Three-vessel morphology of the thoracic arch. Patency of the innominate and images including arteries. Common carotid arteries are patent. Atherosclerotic plaque in the left carotid bulb and proximal left ICA results in less than 50% stenosis. Less than 50% stenosis of the proximal right ICA. The bilateral anterior and middle cerebral arteries are also patent. Atherosclerotic plaques in the V4 segment left vertebral artery results in 60% stenosis. The right vertebral artery is widely patent. The basilar and posterior cerebral arteries are patent. There is no aneurysm, high-grade stenosis, or proximal branch occlusion identified. Dural sinuses appear patent. No pneumothorax. Unremarkable soft tissues. Degenerative changes of the cervical spine. IMPRESSION: 1. Motion degraded exam without acute intracranial abnormality identified. 2. Atherosclerotic plaque results in less than 50% stenosis within the right greater than left carotid bulbs. 3. 60% stenosis of the V4 segment left vertebral artery. 4. Mild nonspecific paratracheal lymphadenopathy. ACT 112: Negative or not required by law. The above report was generated using voice recognition software. It may contain grammatical, syntax or spelling errors. Electronically signed by: Elijah Puente M.D. 09/03/2022 2:20 PM Head CTA 09/03/22 13:08 CT angio head w con, CT angio neck with con, CT head/brain wo con CLINICAL HISTORY: 72 years-old Male with stroke sx. Acute strokelike symptoms COMPARISON STUDY: None TECHNIQUE: Unenhanced axial CT scan of the brain is performed. Subsequently, following the IV administration of 115 cc of Optiray, CT angiogram of the head and neck was performed from the aortic arch to the skull apex. Images are reviewed in the axial, sagittal, and coronal planes. 3-D MIPS images are created and assessed. IV contrast was administered without complication. All measurements were obtained according to NASCET criteria. A dose lowering technique was utilized adhering to the principles of ALARA. CT DOSE: 1681.03 mGy.cm FINDINGS: Motion degraded exam. CT BRAIN: There is no acute intracranial hemorrhage, midline shift, hydrocephalus, intracranial mass, territorial ischemia or abnormal extra-axial collections. No abnormal intra-axial or extra-axial enhancement. Involutional changes with chronic microvascular ischemic disease. Cerebrovascular calcifications. Small right mastoid effusion. No calvarial fracture. Prior bilateral lens repair. Paranasal sinuses are clear. CT ANGIOGRAM OF THE HEAD AND NECK: Mediastinal lymph nodes measure up to 1.6 cm the paratracheal distribution. Three-vessel morphology of the thoracic arch. Patency of the innominate and images including arteries. Common carotid arteries are patent. Atherosclerotic plaque in the left carotid bulb and proximal left ICA results in less than 50% stenosis. Less than 50% stenosis of the proximal right ICA. The bilateral anterior and middle cerebral arteries are also patent. Atherosclerotic plaques in the V4 segment left vertebral artery results in 60% stenosis. The right vertebral artery is widely patent. The basilar and posterior cerebral arteries are patent. There is no aneurysm, high-grade stenosis, or proximal branch occlusion identified. Dural sinuses appear patent. No pneumothorax. Unremarkable soft tissues. Degenerative changes of the cervical spine. IMPRESSION: 1. Motion degraded exam without acute intracranial abnormality identified. 2. Atherosclerotic plaque results in less than 50% stenosis within the right greater than left carotid bulbs. 3. 60% stenosis of the V4 segment left vertebral artery. 4. Mild nonspecific paratracheal lymphadenopathy. ACT 112: Negative or not required by law. The above report was generated using voice recognition software. It may contain grammatical, syntax or spelling errors. Electronically signed by: Elijah Puente M.D. 09/03/2022 2:20 PM Neck CTA 09/03/22 13:08 CT angio head w con, CT angio neck with con, CT head/brain wo con CLINICAL HISTORY: 72 years-old Male with stroke sx. Acute strokelike symptoms COMPARISON STUDY: None TECHNIQUE: Unenhanced axial CT scan of the brain is performed. Subsequently, following the IV administration of 115 cc of Optiray, CT angiogram of the head and neck was performed from the aortic arch to the skull apex. Images are reviewed in the axial, sagittal, and coronal planes. 3-D MIPS images are created and assessed. IV contrast was administered without complication. All measurements were obtained according to NASCET criteria. A dose lowering technique was utilized adhering to the principles of ALARA. CT DOSE: 1681.03 mGy.cm FINDINGS: Motion degraded exam. CT BRAIN: There is no acute intracranial hemorrhage, midline shift, hydrocephalus, intracranial mass, territorial ischemia or abnormal extra-axial collections. No abnormal intra-axial or extra-axial enhancement. Involutional changes with chronic microvascular ischemic disease. Cerebrovascular calcifications. Small right mastoid effusion. No calvarial fracture. Prior bilateral lens repair. Paranasal sinuses are clear. CT ANGIOGRAM OF THE HEAD AND NECK: Mediastinal lymph nodes measure up to 1.6 cm the paratracheal distribution. Three-vessel morphology of the thoracic arch. Patency of the innominate and images including arteries. Common carotid arteries are patent. Atherosclerotic plaque in the left carotid bulb and proximal left ICA results in less than 50% stenosis. Less than 50% stenosis of the proximal right ICA. The bilateral anterior and middle cerebral arteries are also patent. Atherosclerotic plaques in the V4 segment left vertebral artery results in 60% stenosis. The right vertebral artery is widely patent. The basilar and posterior cerebral arteries are patent. There is no aneurysm, high-grade stenosis, or proximal branch occlusion identified. Dural sinuses appear patent. No pneumothorax. Unremarkable soft tissues. Degenerative changes of the cervical spine. IMPRESSION: 1. Motion degraded exam without acute intracranial abnormality identified. 2. Atherosclerotic plaque results in less than 50% stenosis within the right greater than left carotid bulbs. 3. 60% stenosis of the V4 segment left vertebral artery. 4. Mild nonspecific paratracheal lymphadenopathy. ACT 112: Negative or not required by law. The above report was generated using voice recognition software. It may contain grammatical, syntax or spelling errors. Electronically signed by: Elijah Puente M.D. 09/03/2022 2:20 PM Code Status & VTE Plan Code Status Full Code in the event of cardiac or respiratory arrest VTE Prophylaxis Plan VTE Prophylaxis will be ordered: Yes Supervising Physician Co-Signing Physician Notes Pt seen and examined by myself, Alison Palacios MD on the day of service. Care was coordinated with MARÍA Alvarado. Please refer to her note for additional information. 72yo with PMHx significant for atrial fibrillation, compliant with Eliquis anticoagulation who was admitted for stroke work up after having left hand weakness and aphasia. CT head grossly unremarkable, MRI brain pending Neurology consult, speech/dysphagia screen, echo, PT/OT Continue home statin, metoprolol, Eliquis otherwise as above
[2022-09-03] MEDS: METOPROLOL TARTRATE 25 MG TAB PO SCH (21:34)
[2022-09-03] MEDS: APIXABAN 5 MG TABLET PO SCH (21:34)
[2022-09-04 07:19] LABS: Hematocrit (blood only) 42.6 % (42.0-52.0); Hemoglobin 14.4 g/dl (14.0-18.0); Mean Corpuscular Hemoglobin 30.8 pg (25.0-34.0); Mean Corpuscular Hgb Conc 33.8 g/dL (32.0-36.0); Mean Platelet Volume 10.2 fL (9.4-12.4); Platelet Count 144 K/uL (130-400); RDW Coefficient of Variation 13.2 % (11.5-14.5); RDW Standard Deviation 44.1 fL (36.4-46.3); Red Blood Count 4.68 M/uL (4.70-6.10); White Blood Count 5.84 K/ul (4.8-10.8)
[2022-09-04 07:42] LABS: Albumin Globulin Ratio 1.4 (0.9-2); Albumin Level 3.9 gm/dl (3.4-5.0); BUN Creatinine Ratio 17.3 (10-20); Bilirubin,Total 0.6 mg/dl (0.2-1.0); Creatinine Clr Calc Pharmacy 98.2 ml/min; Est GFR (African American) 101.5 ml/min; Est GFR (Non-African American) 87.6 ml/min; Globulin 2.7 gm/dl (2.5-4.0); Magnesium 1.8 mg/dl (1.7-2.4); Phosphorus 3.2 mg/dl (2.5-4.9); Potassium 3.8 mmol/L (3.5-5.1); Total Protein 6.6 gm/dl (6.0-8.3)
[2022-09-04] MEDS: METOPROLOL TARTRATE 25 MG TAB PO SCH ×2 (08:16→21:07)
[2022-09-04] MEDS: APIXABAN 5 MG TABLET PO SCH ×2 (08:16→21:07)
[2022-09-04] MEDS: ATORVASTATIN 40 MG TAB PO SCH (08:16)
[2022-09-04] MEDS: DULoxetine HCL 30 MG CAP PO SCH (08:16)
[2022-09-04] MEDS ORDERED: TAMSULOSIN HCL 0.4 MG CAP PO ONE (08:23)
[2022-09-04] MEDS ORDERED: NON-FORMULARY MEDICATION (Vitamin K2 100 mcg capsule) PO SCH (09:00)
--- NOTE | 2022-09-04 10:43 | Neurology Consultation ---
Date of Consultation September 04, 2022 Assessment & Plan (1) Acute right MCA stroke: 72 yo M with borderzone R hemispheric stroke despite maximal medical therapy for afib with eliquis and lipitor 80. Suspect this is due to the mixed density ulcerated R ICA plaque. Recommend adding 81mg aspirin to his regimen and r eferring to vascular surgery as this is a symptomatic carotid which requires further monitoring. -- Add aspirin 81mg daily -- Continue eliquis 5mg BID and lipitor 80mg daily -- Vascular surgery referral -- Please contact us with any further questions. Telehealth Consultation Telehealth Information Telehealth Information: I performed this visit using a real-time telehealth connection between my location and the patients location ([facility]). After connecting through interactive tele-video, patient was identified by name and date of and/or wristband check.Patient (or authorized healthcare human resources representative) was informed that this was a telemedicine visit and it was being conducted confidentially over secure lines. My office door was closed and no one else was present in the room with me.Patient (or authorized healthcare human resources representative) provided consent to proceed with the visit, expressed an understanding of privacy and security of the telemedicine visit, and gave permission to have a hospital human resources representative in the room in order to assist with the visit and to conduct portions of the visit, as needed. I informed the patient (or authorized healthcare human resources representative) that I reviewed their record and presented the opportunity for them to ask any questions regarding the visit today. The patient agreed to participate. History of Present Illness Reason for Consultation: AMS, L arm numbness Requesting Physician: Dr. Syed Attending Physician: Sha Syed MD History of Present Illness Yair Castrejon is a 72 yo F presenting with altered mental status and left sided numbness. 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 On arrival he was found to be in RVR. He has never had a stroke in the past and feels nearly back to normal currently except for mild numbness of the left hand, which is much better than yesterday. He reports compliance with his eliquis and lipitor and lives alone in an apartment. Allergies Allergy/AdvReac Type Severity Reaction Status Date / Time vitamin b AdvReac Severe b12 and B6 Uncoded 09/03/22 16:28 makes nose bleed Home Medications Medication Instructions Recorded Confirmed Type apixaban 5 mg tablet (Eliquis) 5 mg PO BID 09/03/22 09/03/22 History arginine (L-arginine) 500 mg tablet 1,000 mg PO AMHS 09/03/22 09/03/22 History atorvastatin 80 mg tablet 80 mg PO DAILY 09/03/22 09/03/22 History duloxetine 30 mg capsule,delayed 30 mg PO DAILY 09/03/22 09/03/22 History release metoprolol tartrate 25 mg tablet 25 mg PO BID 09/03/22 09/03/22 History saw palmetto 450 mg capsule 1,800 mg PO DAILY 09/03/22 09/03/22 History vitamin K2 100 mcg capsule 100 mcg PO DAILY 09/03/22 09/03/22 History Patient History Medical History (Updated 09/04/22 @ 10:55 by Manny Loyd MD) Altered mental status Atrial fibrillation with RVR CAD (coronary artery disease) Depression HTN (hypertension) Stroke-like symptoms Surgical History (Updated 09/03/22 @ 17:52 by MARÍA Huff) No pertinent past surgical history Family History (Updated 09/03/22 @ 17:52 by MARÍA Huff) Other Dyslipidemia Heart disease Social History Smoking Status: Unknown if ever smoked Preferred Language: Samoan Feels Safe at Home: Yes Review of Systems +left arm numbness Physical Exam Neurological Examination: Mental Status: Awake and alert. Oriented to person, place, and time. Fluent. Comprehension intact. Affect appropriate. Cranial Nerves: II: Reads NIHSS cards, dunham grossly intact. III/IV/: Versions intact without nystagmus, no gaze preference. VII: Facial expression symmetric VIII: Hearing intact to voice IX/X: Palate elevates symmetrically XI: Shoulder shrug symmetric XII: Tongue midline Motor: Strength was symmetric and antigravity throughout. Pronator drift was absent. There were no abnormal movements. Coordination: Movements were non-ataxic Reflexes: Unable to assess over telemedicine Results & Data Vital Signs (Past 12 Hours) Vital Signs Temp Pulse Pulse Resp BP Pulse Ox O2 Del Method 09/04/22 08:12 36.9 C 79 18 142/84 H 96 Room Air 09/04/22 07:06 89 09/04/22 04:00 36.5 C 65 22 133/84 96 Room Air 06/03/23 23:00 36.7 C 79 20 134/89 94 Room Air Laboratory Results Abnormal lab results 09/03/22 09/03/22 09/03/22 Range/Units 12:55 12:55 15:32 RBC (4.70-6.10) M/uL [place] # (Auto) 0.69 H (0.11-0.59) K/uL Glucose 114 H (70-99(Fasting)) mg/dl Lipase 7 L (11-82) U/L Ur Specific [place] > 1.045 H (1.000-1.030) 09/04/22 Range/Units 06:43 RBC 4.68 L (4.70-6.10) M/uL [place] # (Auto) (0.11-0.59) K/uL Glucose (70-99(Fasting)) mg/dl Lipase (11-82) U/L Ur Specific [place] (1.000-1.030) Diagnostic Findings CTA - mixed density plaque in the bilateral carotid arteries, worse on the R MRI Brain - borderzone territory punctate infarcts in the R hemisphere
--- NOTE | 2022-09-04 10:51 | Magnetic Resonance Report ---
MR brain wo con HISTORY: 72 years-old Male stroke like symptoms acute strokelike symptoms COMPARISON: 09/03/2022 TECHNIQUE: Multiplanar multisequence MRI of the brain was obtained without the use of IV contrast. FINDINGS: Motion degraded exam. There are numerous punctate foci of restricted diffusion present within the sup erior right frontal and parietal lobes which is predominantly involving the subcortical white matter of the centrum semiovale measuring up to 11 mm on image 16 series 6. Additional punctate focus is pre sent within the posterior right temporal lobe on image 12 series 6. No acute or subacute territorial infarct. Visualized midline structures are unremarkable. Partially empty sella. Degenerative changes of the cervical spine. 9 mm focus of pathologic [place] artifact is noted within the periventricular right parietal lobe on image 15 series 7 without correlate on the CT images, possibly hemosiderin. P atient was unable to complete the study. Involutional changes with probable chronic microvascular isc hemic disease. No midline shift or definite acute intracranial hemorrhage. No hydrocephalus is seen. IMPRESSION: 1. Motion degraded exam. The patient was unable to finish the study. 2. The completed diffusion weighted images demonstrate numerous small punctate likely acute lacunar i nfarcts within the right cerebral hemisphere, notably within the superior right frontal and parietal lobes. ACT 112: Negative or not required by law. The above report was generated using voice recognition software. It may contain grammatical, syntax o r spelling errors. Electronically signed by: Elijah Puente M.D. 09/04/2022 10:48 AM
--- NOTE | 2022-09-04 13:34 | Hospitalist Progress Note ---
Date of Service September 04, 2022 Assessment & Plan (1) Stroke-like symptoms: (2) Altered mental status: (3) CAD (coronary artery disease): (4) Atrial fibrillation with RVR: (5) HTN (hypertension): (6) Depression: Plan 72 y/o presents with AMS and AF with RVR and AMS. On Eliquis. Last known well 09/02 @ 2100. Symptoms presented at 09/03/529. Head CT negative for ICH, SDH, or midline shift. AF with RVR Dilt 10 mg IV given by EMS. 2 LNSB given and HR got controlled. He is being managed for the following: Atrial fibrillation with RVR: resolved. 140-170 via EMS: Received 10 mg IV Diltiazem via EMS and 2L NS Bolus at ED --> rate conrolled. Trop neg at presentation. ECHO reviewed - EF of 50-55%, Afib w/ controlled VR. Takes Eliquis and Metoprolol; continue Acute Right MCA Stroke: Metabolic encephalopathy: no signs of infection, UA/CXR/Utox negative. resolved. Last known well 09/02 @ [address] negative for ICH, SDH, or midline shift Admitting CTA head and neck: Atherosclerotic plaque results in less than 50% stenosis within the right greater than left carotid bulbs. 60% stenosis of the V4 segment left vertebral artery. 09/04 Brain MRI: s/o acute lacunar infarcts within the right cerebral hemisphere, notably within the superior right frontal and parietal lobes. Stroke likely 2/2 mixed density ulcerated DUKE plaque. Already on anticoagulation and high dose statin, neuro evaled, will add aspirin. PT/OT, CM to assist w/ DC plan Pt will need OP vascular f/u for monitoring of his Rt carotid bulb atherosclerotic plaque. Pt w/ resolution of his left hand symptoms. HLD: Takes Atorvastatin; continue Last lipid panel: 06/27: TG 120, HDL 32, LDL 50 Depression: Takes Cymbalta; continue Disposition: PCP: Dr. Sonal Puckett CODE STATUS: Full code VTE prophylaxis: Already On Eliquis Admission and Anticipated Discharge Date Admission Date: September 03, 2022 Subjective Patient seen and examined at bedside as a follow-up of stroke, A-fib with RVR, metabolic encephalopathy. Patient was lying in bed, on room air, NAD, reports no new acute event overnight, reports no further numbness or weakness of his left hand, denies head ache or dizziness or chest pain or palpitation, reports eating okay. Has tremors of the extremities. Physical Exam Physical Exam: GENERAL: Alert and oriented x3. NAD, on RA. HEENT: No pallor, no icterus. Pupils equal, round and reactive to light. Oral mucosa moist. NECK: No JVD, no neck masses. HEART: S1 and S2 heard. Regular rate and rhythm. No murmur, no gallop. RESPIRATORY SYSTEM: Normal AP diameter. No accessory muscle use. No wheezing, no crackles. ABDOMEN: Soft, bowel sounds present, nontender, no distention. CENTRAL NERVOUS SYSTEM: No facial droop. Speech is clear. Obeys simple commands. Moves extremities. strenght nl all extremities. EXTREMITIES: No edema, no erythema seen. Tremors + all extremities. Results & Data Results & Data Vital Signs (Past 12 Hours) Vital Signs Temp Pulse Pulse Resp BP Pulse Ox O2 Del Method 09/04/22 11:58 36.6 C 73 18 129/73 97 Room Air 09/04/22 08:12 36.9 C 79 18 142/84 H 96 Room Air 09/04/22 07:06 89 09/04/22 04:00 36.5 C 65 22 133/84 96 Room Air
[2022-09-04] MEDS: ASPIRIN 81 MG ECTAB PO SCH (15:36)
[2022-09-04] MEDS ORDERED: NICOTINE POLACRILEX 2 MG GUM MT PRN (20:25)
[2022-09-05 07:54] LABS: BUN Creatinine Ratio 19.3 (10-20); Calcium 9.3 mg/dl (8.6-10.3); Creatinine Clr Calc Pharmacy 95.9 ml/min; Est GFR (African American) 100.5 ml/min; Est GFR (Non-African American) 86.7 ml/min; Magnesium 1.9 mg/dl (1.7-2.4)
[2022-09-05] MEDS: APIXABAN 5 MG TABLET PO SCH ×2 (09:37→20:59)
[2022-09-05] MEDS: ATORVASTATIN 40 MG TAB PO SCH (09:37)
[2022-09-05] MEDS: ASPIRIN 81 MG ECTAB PO SCH (09:37)
[2022-09-05] MEDS: DULoxetine HCL 30 MG CAP PO SCH (09:37)
[2022-09-05] MEDS: METOPROLOL TARTRATE 25 MG TAB PO SCH ×2 (09:37→20:59)
[2022-09-05] MEDS: ACETAMINOPHEN 325 MG TAB PO PRN (09:39)
--- NOTE | 2022-09-05 14:39 | Hospitalist Progress Note ---
Date of Service September 05, 2022 Assessment & Plan (1) Stroke-like symptoms: (2) Altered mental status: (3) CAD (coronary artery disease): (4) Atrial fibrillation with RVR: (5) HTN (hypertension): (6) Depression: Plan 72 y/o presents with AMS and AF with RVR and AMS. On Eliquis. Last known well 09/02 @ 2100. Symptoms presented at 09/03/529. Head [address] negative for ICH, SDH, or midline shift. AF with RVR Dilt 10 mg IV given by EMS. 2 LNSB given and HR got controlled. He is being managed for the following: Atrial fibrillation with RVR: resolved. 140-170 via EMS: Received 10 mg IV Diltiazem via EMS and 2L NS Bolus at ED --> rate conrolled. Trop neg at presentation. ECHO reviewed - EF of 50-55%, Afib w/ controlled VR. Takes Eliquis and Metoprolol; continue Rate under control. Acute Right MCA Stroke: Metabolic encephalopathy: no signs of infection, UA/CXR/Utox negative. resolved. Last known well 09/02 @ [address] negative for ICH, SDH, or midline shift Admitting CTA head and neck: Atherosclerotic plaque results in less than 50% stenosis within the right greater than left carotid bulbs. 60% stenosis of the V4 segment left vertebral artery. 09/04 Brain MRI: s/o acute lacunar infarcts within the right cerebral hemisphere, notably within the superior right frontal and parietal lobes. Stroke likely 2/2 mixed density ulcerated [place]KE plaque. Already on anticoagulation and high dose statin, neuro evaled, will add aspirin. PT/OT, CM to assist w/ DC plan Pt will need OP vascular f/u for monitoring of his Rt carotid bulb atherosclerotic plaque. Pt w/ resolution of his left hand symptoms. HLD: Takes Atorvastatin; continue Last lipid panel: 06/27: TG 120, HDL 32, LDL 50 Depression: Takes Cymbalta; continue Disposition: PCP: Dr. Sonal Puckett CODE STATUS: Full code VTE prophylaxis: Already On Eliquis Dispo: awaiting placement, med/surg. Admission and Anticipated Discharge Date Admission Date: September 03, 2022 Subjective Patient seen and examined at bedside as a follow-up of stroke, A-fib with RVR, metabolic encephalopathy. Patient was lying in bed, on room air, NAD, reports no new acute event overnight, reports no neurological symptoms, denies headache or dizziness or chest pain or palpitation, reports eating okay. Has tremors of the extremities. He was getting ready to work w/ PT. Physical Exam Physical Exam: GENERAL: Alert and oriented x3. NAD, on RA. HEENT: No pallor, no icterus. Pupils equal, round and reactive to light. Oral mucosa moist. NECK: No JVD, no neck masses. HEART: S1 and S2 heard. Regular rate and rhythm. No murmur, no gallop. RESPIRATORY SYSTEM: Normal AP diameter. No accessory muscle use. No wheezing, no crackles. ABDOMEN: Soft, bowel sounds present, nontender, no distention. CENTRAL NERVOUS SYSTEM: No facial droop. Speech is clear. Obeys simple co mmands. Moves extremities. strenght nl all extremities. EXTREMITIES: No edema, no erythema seen. Tremors + all extremities. Results & Data Results & Data Vital Signs (Past 12 Hours) Vital Signs Temp Pulse Pulse Resp BP BP Pulse Ox 09/05/22 11:07 36.8 C 74 16 122/83 92 09/05/22 09:59 67 09/05/22 07:27 36.6 C 73 18 148/78 H 99 09/05/22 04:54 36.4 C L 86 20 152/87 H 97 O2 Del Method 09/05/22 11:07 Room Air 09/05/22 09:59 09/05/22 07:27 Room Air 09/05/22 04:54 Room Air
[2022-09-06] MEDS: APIXABAN 5 MG TABLET PO SCH ×2 (08:41→19:35)
[2022-09-06] MEDS: DULoxetine HCL 30 MG CAP PO SCH (08:41)
[2022-09-06] MEDS: METOPROLOL TARTRATE 25 MG TAB PO SCH ×2 (08:41→19:35)
[2022-09-06] MEDS: ATORVASTATIN 40 MG TAB PO SCH (08:41)
[2022-09-06] MEDS: ASPIRIN 81 MG ECTAB PO SCH (08:42)
[2022-09-06] MEDS: ACETAMINOPHEN 325 MG TAB PO PRN (08:45)
--- NOTE | 2022-09-06 15:08 | Hospitalist Progress Note ---
Date of Service September 06, 2022 Assessment & Plan (1) Stroke-like symptoms: (2) Altered mental status: (3) CAD (coronary artery disease): (4) Atrial fibrillation with RVR: (5) HTN (hypertension): (6) Depression: Plan 72 y/o presents with AMS and AF with RVR and AMS. On Eliquis. Last known well 09/02 @ 2100. Symptoms presented at 09/03/529. [address] negative for ICH, SDH, or midline shift. AF with RVR Dilt 10 mg IV given by EMS. 2 LNSB given and HR got controlled. He is being managed for the following: Atrial fibrillation with RVR: resolved. 140-170 via EMS: Received 10 mg IV Diltiazem via EMS and 2L NS Bolus at ED --> rate conrolled. Trop neg at presentation. ECHO reviewed - EF of 50-55%, Afib w/ controlled VR. Takes Eliquis and Metoprolol; continue Rate under control. Acute Right MCA Stroke: Metabolic encephalopathy: no signs of infection, UA/CXR/Utox negative. resolved. Last known well 09/02 @ [address] negative for ICH, SDH, or midline shift Admitting CTA head and neck: Atherosclerotic plaque results in less than 50% stenosis within the right greater than left carotid bulbs. 60% stenosis of the V4 segment left vertebral artery. 09/04 Brain MRI: s/o acute lacunar infarcts within the right cerebral hemisphere, notably within the superior right frontal and parietal lobes. Stroke likely 2/2 mixed density ulcerated [place] plaque. Already on anticoagulation and high dose statin, neuro evaled, added aspirin. PT/OT, CM to assist w/ DC plan Pt will need OP vascular f/u for monitoring of his Rt carotid bulb atherosclerotic plaque. Pt w/ resolution of his left hand symptoms. HLD: Takes Atorvastatin; continue Last lipid panel: 06/27: TG 120, HDL 32, LDL 50 Depression: Takes Cymbalta; continue Disposition: PCP: Dr. Sonal Puckett CODE STATUS: Full code VTE prophylaxis: Already On Eliquis Dispo: pt/ot, cm to assist, awaiting placement, med/surg. Admission and Anticipated Discharge Date Admission Date: September 03, 2022 Subjective Patient seen and examined at bedside as a follow-up of stroke, A-fib with RVR, metabolic encephalopathy. Patient was working w/ PT, on room air, NAD, reports no new acute event overnight, reports no neurological symptoms, denies headache or dizziness or chest pain or palpitation, reports eating okay. Has tremors of the extremities. Physical Exam Physical Exam: GENERAL: Alert and oriented x3. NAD, on RA. HEENT: No pallor, no icterus. Pupils equal, round and reactive to light. Oral mucosa moist. NECK: No JVD, no neck masses. HEART: S1 and S2 heard. Regular rate and rhythm. No murmur, no gallop. RESPIRATORY SYSTEM: Normal AP diameter. No accessory muscle use. No wheezing, no crackles. ABDOMEN: Soft, bowel sounds present, nontender, no distention. CENTRAL NERVOUS SYSTEM: No facial droop. Speech is clear. Obeys simple commands. Moves extremities. strenght nl all extremities. EXTREMITIES: No edema, no erythema seen. Tremors + all extremities. Results & Data Results & Data Vital Signs (Past 12 Hours) Vital Signs Temp Pulse Resp BP BP Pulse Ox O2 Del Method 09/06/22 15:05 36.4 C L 89 18 138/64 97 Room Air 09/06/22 08:18 Room Air 09/06/22 07:06 36.6 C 59 L 18 128/84 96 Room Air
[2022-09-07] MEDS: METOPROLOL TARTRATE 25 MG TAB PO SCH (08:23)
[2022-09-07] MEDS: DULoxetine HCL 30 MG CAP PO SCH (08:23)
[2022-09-07] MEDS: ATORVASTATIN 40 MG TAB PO SCH (08:23)
[2022-09-07] MEDS: APIXABAN 5 MG TABLET PO SCH (08:23)
[2022-09-07] MEDS: ASPIRIN 81 MG ECTAB PO SCH (08:23)
[2022-09-07] MEDS: ACETAMINOPHEN 325 MG TAB PO PRN (08:24)
--- NOTE | 2022-09-07 10:29 | Hospitalist Progress Note ---
Date of Service September 07, 2022 Assessment & Plan (1) Stroke-like symptoms: (2) Altered mental status: (3) CAD (coronary artery disease): (4) Atrial fibrillation with RVR: (5) HTN (hypertension): (6) Depression: Plan 72 y/o presents with AMS and AF with RVR and AMS. On Eliquis. Last known well 09/02 @ 2100. Symptoms presented at 09/03/[address]. [address] negative for ICH, SDH, or midline shift. AF with RVR Dilt 10 mg IV given by EMS. 2 LNSB given and HR got controlled. He is being managed for the following: Atrial fibrillation with RVR:. 140-170 via EMS: Received 10 mg IV Diltiazem via EMS and 2L NS Bolus at ED --> rate controlled. Trop neg at presentation. ECHO reviewed - EF of 50-55%, Afib w/ controlled VR. Control Eliquis and Metoprolol Acute Right MCA Stroke: Metabolic encephalopathy: no signs of infection, UA/CXR/Utox negative. resolved. Last known well 09/02/22 @ [address] negative for ICH, SDH, or midline shift Admitting CTA head and neck: Atherosclerotic plaque results in less than 50% stenosis within the right greater than left carotid bulbs.60% stenosis of the V4 segment left vertebral artery. 09/04/22 Brain MRI: s/o acute lacunar infarcts within the right cerebral hemisphere, notably within the superior right frontal and parietal lobes. Stroke likely 2/2 mixed density ulcerated [place] plaque. Already on anticoagulation and high dose statin Neuro eval noted Continue ASA that was added this admission. Continue PT/OT Pt will need Outpatient vascular follow up for his Rt carotid bulb ath erosclerotic plaque. HLD: Takes Atorvastatin; continue Last lipid panel: 06/27: TG 120, HDL 32, LDL 50 Depression: Takes Cymbalta; continue Disposition: PCP: Dr. Sonal Puckett CODE STATUS: Full code VTE prophylaxis: Eliquis Dispo:Patient declined rehab. Once CM confirms date of start of HHPT, will plan to dc close to date Admission and Anticipated Discharge Date Admission Date: September 03, 2022 Subjective Patient seen and examined Reports some Left hand numbness Denied any focal weakness at this time Denied any headache, dizziness, cough, chest pain, SOB Walking with PT Physical Exam Constitutional: + well hydrated; no acute distress Eyes: PERRL, conjunctivae normal, anicteric sclerae ENMT: external ear and nose normal, oropharynx normal Respiratory: normal respiratory effort, lungs clear to auscultation Cardiovascular: Rate/Rhythm: regular rate and regular rhythm S1 S2 Gastrointestinal (Abdomen): normal bowel sounds, soft, nontender, no hepatosplenomegaly Musculoskeletal: No pedal edema Neurologic: PERRL, EOMI, accommodation nl, no face palsy, no dysarthria +tremors in UE (reports this is chronic) Symmetric power Psychiatric: A+Ox3, euthymic affect Results & Data Results & Data Vital Signs (Past 12 Hours) Vital Signs Temp Pulse Resp BP Pulse Ox O2 Del Method 09/07/22 05:02 36.7 C 74 18 111/73 97 Room Air 09/06/22 23:30 36.7 C 64 16 155/82 H 96 Room Air
--- NOTE | 2022-09-07 13:45 | Discharge Summary ---
Date of Service September 07, 2022 Admission HPI Per Admitting Provider Ms. Castrejon presented to the ED via EMS from home after being observed with AMS. He is last well known last night at 2100. When his as400 programmer came to pick him up this morning he was unable to grasp his left hand and felt 'weak'. Per his as400 programmer who accompanied him he was having a difficult time with word finding. He has reported falls at home, about 3 over the last calender year. No dysarthria. No prior history of CVA or TIA. Last known well time outside of stroke alert protocol or TNK consideration. HR 140-170 via EMS. Diltiazem given by EMS. EKG AF with RVR. Patient rate responded with 2 L NSB and has remained rate controlled AF since. He did take his medications this morning. Reports being compliant with medications. Chest x-ray negative for acute cardiopulmonary disease. . Head CT negative. Head and Neck CTA revealed atheroplaques less than 50% stenosis and 60% stenosis left vertebral artery. No leukocytosis. Troponin -5.4. TSH 1.9. UA negative for infection. UDS pending. Hemodynamically stable otherwise afebrile. Most recent A1C 5.8 06/27. Outpatient records reviewed. Patient did request a medical marijuana card in July for his arthritis, but has not gotten it yet. Pt does not use tobacco pr oducts but does have a history of alcohol abuse. He apparently has not had a drink in over two weeks. Not tremulous on exam. Patient denies headache, dizziness, chest pain, abdominal pain, nausea, v omiting, diarrhea, visual or auditory changes, urinary changes, bowel changes, hematochezia, recent illness, recent falls or trauma. In his hospital room, he is AAOx3 and has returned to his baseline per his as400 programmerHarsh. He is able to follow all commands and answer questions appropriately. NIH 0. CN II-XII intact. He uses a can intermittently at baseline. He is able to complete all of his own ADL's at baseline. He lives alone in an apartment that is accessible by 4 steps and has a handrail. He does not have any close family. Reports having one sister in [place]. Patient will be admitted for further evaluation and management. Please see A/P for further details. Admission Exam Per Admitting Provider Neuro: AAOx4, PERRLA, no aphagia, memory changes, CNII-XII grossly intact HEENT: head normocephalic, moist mucus membranes CV: S1/S2, (-) M/G/R, (-) edema, cap refill < 3 seconds Resp: Lungs CTA in all dunham. On RA GI: Abdomen S/NT/ND, Ax4 bowel sounds, (-) CVA tenderness Musculoskeletal: 5/5 B/L UE strength, 5/5 B/L LE strength. No gait disturbance. Uses a cane Skin: (-) rashes , (-) erythema. Psych: euthymic mood Principal Diagnosis Stroke Atrial fibrillation Discharge Exam Constitutional + well hydrated; no acute distress Eyes PERRL, conjunctivae normal, anicteric sclerae ENMT external ear and nose normal, oropharynx normal Respiratory normal respiratory effort, lungs clear to auscultation Cardiovascular Rate/Rhythm: regular rate and regular rhythm S1 S2 Gastrointestinal (Abdomen) normal bowel sounds, soft, nontender, no hepatosplenomegaly Musculoskeletal PERRL, EOMI, accommodation nl, no face palsy, no dysarthria +tremors in UE (reports this is chronic) Symmetric power Neurologic PERRL, EOMI, accommodation nl, no face palsy, no dysarthria Psychiatric A+Ox3, euthymic affect Discharge Data Allergies Allergy/AdvReac Type Severity Reaction Status Date / Time vitamin b AdvReac Severe b12 and B6 Uncoded 09/03/22 16:28 makes nose bleed Consultations 09/03/22 16:11 ED Decision to Admit Stat 09/04/22 08:00 Consult Neurology Routine Ordered Studies 09/03/22 13:08 CT angio head w con Stat CT angio neck with con Stat CT head/brain wo con Stat 09/03/22 17:46 MR brain wo con Routine Hospital Course (1) Stroke-like symptoms: (2) Altered mental status: (3) CAD (coronary artery disease): (4) Atrial fibrillation with RVR: (5) HTN (hypertension): (6) Depression: Plan 72 y/o presents with AMS and AF with RVR and AMS. On Eliquis. Last known well 09/02 @ 2100. Symptoms presented at 09/03/529. Head CT negative for ICH, SDH, or midline shift. AF with RVR Dilt 10 mg IV given by EMS. 2 LNSB given and HR got controlled. He is being managed for the following: Atrial fibrillation with RVR:. 140-170 via EMS: Received 10 mg IV Diltiazem via EMS and 2L NS Bolus at ED --> rate controlled. Trop neg at presentation. ECHO reviewed - EF of 50-55%, Afib w/ controlled VR. Control Eliquis and Metoprolol Acute Right MCA Stroke: Metabolic encephalopathy: no signs of infection, UA/CXR/Utox negative. resolved. Last known well 09/02/22 @ [address] negative for ICH, SDH, or midline shift Admitting CTA head and neck: Atherosclerotic plaque results in less than 50% stenosis within the right greater than left carotid bulbs.60% stenosis of the V4 segment left vertebral artery. 09/04/22 Brain MRI: showed acute lacunar infarcts within the right cerebral hemisphere, notably within the superior right frontal and parietal lobes. Stroke likely 2/2 mixed density ulcerated DUKE plaque. Already on anticoagulation and high dose statin Was evaluated by Neurology Started on ASA 81mg daily I discussed with patient about need for Vascular evaluation. He stated he wants to be discharged home today Pt will need Outpatient vascular follow up for his Rt carotid bulb atherosclerotic plaque. Coordinator Tr to leave message with PCP to ensure Vascular surgery referral PT/OT recommended rehab. Patient declined and wants PT at home. CM arranged HH/PT to start within 24-48h if discharged today Hyperlipidemia Takes Atorvastatin 80mg daily Depression: Takes Cymbalta; continue Total Time Total Time Spent Total Time Spent (In Minutes): 50 Total Time Includes: Examination of the Patient, Discharge Planning, Medication Reconciliation and Other Discharge Plan Discharge Items Patient Disposition: Home - Home Health Services Reason For Visit: AMS Discharge Diagnosis: Stroke Atrial fibrillation Activity: As commented below Activity Comment: As recommended by physical therapist Non-emergency contact: Primary Care Provider Call non-emergency contact if: you have any medication questions Follow-up/Referrals: Berta Benavides MD [Hospitalist] - (Date & Time 09/12/2022 11:20 AM Provider Berat Benavides MD Department Family Medicine [facility] ) Diet: Heart Healthy Addtl Attending Provider Instructions: Mr Castrejon You were brought to the hospital with change in mental status and word finding difficulty. You were extensively evaluated and noted to have a stroke Rehab was recommended which you declined. You are being discharged home with home physical therapy You were started on Aspirin 81mg daily in addition to your eliquis, atorvastatin and your other home medications. Please ensure you follow up with Vascular surgeon outpatient. Please follow up with your Primary Doctor for referral to Vascular surgery It was a pleasure taking care of you. Pending Studies at Discharge: No Stand-Alone Forms: My [facility], Smoking Cessation Medications and DC Order Prescriptions: New aspirin 81 mg Tablet,Delayed Release (Dr/Ec) 81 mg PO QAM Qty: 90 0RF Continued metoprolol tartrate 25 mg tablet 25 mg PO BID duloxetine 30 mg capsule,delayed release(DR/EC) 30 mg PO DAILY Eliquis 5 mg tablet 5 mg PO BID atorvastatin 80 mg tablet 80 mg PO DAILY arginine (L-arginine) 500 mg tablet 1,000 mg PO AMHS saw palmetto 450 mg Capsule 1,800 mg PO DAILY Rx Instructions: give with food (meal/snack) pt is taking 4 tablet dose per [facility] vitamin K2 100 mcg capsule 100 mcg PO DAILY Discharge Orders: Discharge Order (Routine); Ordered 09/07/22 Ordered By: Amber Bolden Admission Data Admit Date/Time: 09/03/22 16:14 Attending Provider: Amber Bolden I. Admit Provider: Alison Palacios Primary Care Provider: Brennan Ro Other Providers: Alison Palacios ; Alex Blackwood [facility] ; Sha Syed Other Interventions: Discharge Summary Assessment (RN) Last Done: 09/07/22 13:45
== END 2022-09-07 14:57 | disposition home health service (06) | DRG 64 ==
LOC: ED 12:51 → 2N 16:14 → INTOOBSV 16:14 → SUATTDRO 16:14 → 2N 18:08

== ENCOUNTER 2022-09-08 23:51 | Observation (INO) ==
--- NOTE | 2022-09-09 00:15 | Emergency Department Note ---
History of Present Illness General Chief complaint: TIA Symptoms Stated complaint: NUMBNESS IN HANDS/FEET,HX STROKE Time Seen by Provider: 09/08/22 23:59 History of Present Illness 72-year-old male presents emergency department reportedly was admitted 3 days ago for a TIA and was started on aspirin. Patient was discharged yesterday at 3 PM and the past 24 hours she started to have tingling described as numbness to the hands and feet bilaterally. Patient denies any slurred speech denies headache states that he is jumpy at times which reportedly started 3 years ago. Patient denies any nausea vomiting diarrhea denies chest pain denies shortness of breath. Patient returns to the emergency department due to increased numbness in the bilateral upper and lower extremities specifically in the hands and feet. Home Medications Medication Instructions Recorded Confirmed Type apixaban 5 mg tablet (Eliquis) 5 mg PO BID 09/03/22 09/09/22 History arginine (L-arginine) 500 mg tablet 1,000 mg PO AMHS 09/03/22 09/09/22 History atorvastatin 80 mg tablet 80 mg PO DAILY 09/03/22 09/09/22 History duloxetine 30 mg capsule,delayed 30 mg PO DAILY 09/03/22 09/09/22 History release metoprolol tartrate 25 mg tablet 25 mg PO BID 09/03/22 09/09/22 History saw palmetto 450 mg capsule 1,800 mg PO DAILY 09/03/22 09/09/22 History aspirin 325 mg tablet 162.5 mg PO DAILY 09/09/22 09/09/22 History Allergies Allergy/AdvReac Type Severity Reaction Status Date / Time vitamin b AdvReac Severe b12 and B6 Uncoded 09/09/22 02:06 makes nose bleed Past Med/Surg History Medical History Altered mental status Atrial fibrillation with RVR CAD (coronary artery disease) Depression HTN (hypertension) Stroke-like symptoms Surgical History No pertinent past surgical history Family History Other Dyslipidemia Heart disease Social History Smoking Status: Never smoker Preferred Language: Macedonian Communication Ability: Impaired Feels Safe at Home: Yes Assistive Devices: Cane Review of Systems A total of 10 systems reviewed and were otherwise negative Neurologic: + tingling Physical Exam Vital Signs Vital Signs - 24 hr 09/08/22 23:55 09/08/22 23:52 09/09/22 00:23 Pulse Rate 100 H 92 H Pulse Rate [Apical] 97 H Pulse Rate from SpO2 Sensor 87 Respiratory Rate 18 19 20 Respiratory Effort / Characteristics Non-Labored Non-Labored Spontaneous Respiratory Depth Normal Normal Blood Pressure 171/98 H Blood Pressure [Right Arm] 163/112 H Blood Pressure Mean 122 Blood Pressure Mean [Right Arm] 129 Pulse Oximetry 97 99 99 Oxygen Delivery Method Room Air Room Air Sepsis Recent Fever Within 48 Hours No Sepsis New/Unexplained Change in Mental Status No Sepsis Action Taken by Nursing No Action Required 09/09/22 00:30 09/09/22 00:40 09/09/22 00:54 Pulse Rate 96 H 96 H 93 H Pulse Rate [Apical] Pulse Rate from SpO2 Sensor 92 H 96 H 92 H Respiratory Rate 19 20 24 Respiratory Effort / Characteristics Respiratory Depth Blood Pressure Blood Pressure [Right Arm] Blood Pressure Mean Blood Pressure Mean [Right Arm] Pulse Oximetry 99 98 98 Oxygen Delivery Method Sepsis Recent Fever Within 48 Hours Sepsis New/Unexplained Change in Mental Status Sepsis Action Taken by Nursing 09/09/22 01:00 09/09/22 01:10 09/09/22 01:20 Pulse Rate 92 H 98 H 95 H Pulse Rate [Apical] Pulse Rate from SpO2 Sensor 93 H 81 Respiratory Rate 20 21 20 Respiratory Effort / Characteristics Respiratory Depth Blood Pressure Blood Pressure [Right Arm] Blood Pressure Mean Blood Pressure Mean [Right Arm] Pulse Oximetry 97 98 98 Oxygen Delivery Method Sepsis Recent Fever Within 48 Hours Sepsis New/Unexplained Change in Mental Status Sepsis Action Taken by Nursing 09/09/22 01:30 09/09/22 01:40 09/09/22 00:25 Pulse Rate 86 88 97 H Pulse Rate [Apical] Pulse Rate from SpO2 Sensor 92 H 90 Respiratory Rate 20 19 Respiratory Effort / Characteristics Respiratory Depth Blood Pressure Blood Pressure [Right Arm] Blood Pressure Mean Blood Pressure Mean [Right Arm] Pulse Oximetry 96 100 Oxygen Delivery Method Sepsis Recent Fever Within 48 Hours Sepsis New/Unexplained Change in Mental Status Sepsis Action Taken by Nursing GENERAL: Patient is awake alert in no acute distress patient is resting comfortably and showing no signs of anxiety EYES: The conjunctivae are clear. The pupils are round and reactive. EARS, NOSE, MOUTH AND THROAT: The nose is without any evidence of any deformity. Mucous membranes are moist. Tongue is midline. NECK: The neck is nontender and supple. RESPIRATORY: Normal respiratory effort is noted there is no evidence of wheezing rhonchi or rales CARDIOVASCULAR: Irregularly irregular, tachycardic noted there no murmurs rubs or gallops normal S1 normal S2. GASTROINTESTINAL: The abdomen is soft. Abdomen is nontender. BACK: No midline tenderness or or step-off noted range of motion in flexion extension as well as rotation no signs of muscle spasm noted MUSCULOSKELETAL/EXTREMITIES: There is no evidence of gross deformity full range of motion is noted in the hips and shoulders. SKIN: There is no obvious evidence of any rash. There are no petechiae, pallor or cyanosis noted. NEUROLOGIC: Patient is awake alert and oriented x3 strength is symmetric; patient has a resting tremor; NIH is 0 Course Reevaluation(s) Reevaluation #1: Patient is resting in no distress on reexamination. Has a NIH of 0. Time: 01:48 Consultations Consultation #1: [facility] Time: 01:48 Medical Decision Making Medical Records Attestation: I reviewed the patient's medical records. Home Medications Current Medication List: was personally reviewed by me Laboratory Data Attestation: I reviewed the patient's lab results. Lab results reviewed by me unremarkable 09/09/22 00:12 09/09/22 00:12 Lab Results 09/09/22 09/09/22 09/09/22 Range/Units 00:12 00:12 00:12 WBC 6.82 (4.8-10.8) K/ul RBC 5.14 (4.70-6.10) M/uL Hgb 15.8 (14.0-18.0) g/dl Hct 46.6 (42.0-52.0) % MCV 90.7 (80.0-100.0) fL MCH 30.7 (25.0-34.0) pg MCHC 33.9 (32.0-36.0) g/dL RDW Std Deviation 44.9 (36.4-46.3) fL RDW Coeff of Shayy 13.5 (11.5-14.5) % Plt Count 165 (130-400) K/uL MPV 10.2 (9.4-12.4) fL Immature Gran % (Auto) 0.7 % Neut % (Auto) 51.2 % Lymph % (Auto) 30.9 % Tripp % (Auto) 14.1 % Eos % (Auto) 2.5 % Baso % (Auto) 0.6 % Neut # (Auto) 3.49 (1.40-6.50) K/uL Lymph # (Auto) 2.11 (1.2-3.4) K/uL Tripp # (Auto) 0.96 H (0.11-0.59) K/uL Eos # (Auto) 0.17 (0-0.50) K/uL Baso # (Auto) 0.04 (0-0.2) K/uL Immature Gran # (Auto) 0.05 (0.01-0.20) K/uL PT 11.7 (9.0-12.0) Seconds INR 1.1 (0.9-1.1) APTT 27.7 (21.0-31.0) Seconds PTT Ratio 1.0 Sodium 139 (136-145) mmol/L Potassium 3.8 (3.5-5.1) mmol/L Chloride 105 (98-107) mmol/L Carbon Dioxide 25 (21-32) mmol/L Anion Gap 9 (3-11) BUN 21 (6-23) mg/dl Creatinine 0.89 (0.6-1.4) mg/dl Est Cr Clr Drug Dosing 95.2 ml/min Est GFR ( Amer) 97.6 ml/min Est GFR (Non-Af Amer) 84.2 ml/min BUN/Creatinine Ratio 23.6 H (10-20) Glucose 107 H (70-99(Fasting)) mg/dl Calcium 10.0 (8.6-10.3) mg/dl Magnesium 1.8 (1.7-2.4) mg/dl Total Bilirubin 0.5 (0.2-1.0) mg/dl AST 27 (13-39) U/L ALT 16 (7-52) U/L Alkaline Phosphatase 82 (34-104) U/L Troponin I High Sens 9.2 (0-20) pg/ml Total Protein 7.7 (6.0-8.3) gm/dl Albumin 4.5 (3.4-5.0) gm/dl Globulin 3.2 (2.5-4.0) gm/dl Albumin/Globulin Ratio 1.4 (0.9-2) SARS-CoV-2, RNA, NAAT (NEGATIVE) 09/09/22 Range/Units 01:06 WBC (4.8-10.8) K/ul RBC (4.70-6.10) M/uL Hgb (14.0-18.0) g/dl Hct (42.0-52.0) % MCV (80.0-100.0) fL MCH (25.0-34.0) pg MCHC (32.0-36.0) g/dL RDW Std Deviation (36.4-46.3) fL RDW Coeff of Shayy (11.5-14.5) % Plt Count (130-400) K/uL MPV (9.4-12.4) fL Immature Gran % (Auto) % Neut % (Auto) % Lymph % (Auto) % Tripp % (Auto) % Eos % (Auto) % Baso % (Auto) % Neut # (Auto) (1.40-6.50) K/uL Lymph # (Auto) (1.2-3.4) K/uL Tripp # (Auto) (0.11-0.59) K/uL Eos # (Auto) (0-0.50) K/uL Baso # (Auto) (0-0.2) K/uL Immature Gran # (Auto) (0.01-0.20) K/uL PT (9.0-12.0) Seconds INR (0.9-1.1) APTT (21.0-31.0) Seconds PTT Ratio Sodium (136-145) mmol/L Potassium (3.5-5.1) mmol/L Chloride (98-107) mmol/L Carbon Dioxide (21-32) mmol/L Anion Gap (3-11) BUN (6-23) mg/dl Creatinine (0.6-1.4) mg/dl Est Cr Clr Drug Dosing ml/min Est GFR ( Amer) ml/min Est GFR (Non-Af Amer) ml/min BUN/Creatinine Ratio (10-20) Glucose (70-99(Fasting)) mg/dl Calcium (8.6-10.3) mg/dl Magnesium (1.7-2.4) mg/dl Total Bilirubin (0.2-1.0) mg/dl AST (13-39) U/L ALT (7-52) U/L Alkaline Phosphatase (34-104) U/L Troponin I High Sens (0-20) pg/ml Total Protein (6.0-8.3) gm/dl Albumin (3.4-5.0) gm/dl Globulin (2.5-4.0) gm/dl Albumin/Globulin Ratio (0.9-2) SARS-CoV-2, RNA, NAAT NEGATIVE (NEGATIVE) Imaging Data Attestation: I personally reviewed and interpreted this imaging study as follows: My Impression: CT of the brain per my interpretation is negative for intracranial hemorrhage ECG Data Attestation: I personally reviewed and interpreted this ECG as follows: Additional Comments: EKG interpreted by me atrial fibrillation rate of 92, normal axis, no obvious ST segment elevation or depression, poor R wave progression the precordium Telemetry was ordered by me, interpreted by me as atrial fibrillation rate of 90 MDM Narrative Medical decision making differential diagnosis includes TIA, neuropathy, electrolyte abnormality, metabolic derangement, hypoglycemia, anxiety Plan is to check labs, CT External medical records of the patient's prior presentation and discharge summary were reviewed by me Family gave me independent history at bedside Patient will be admitted for TIA symptoms of paresthesias in the hands and legs. Patient has an NIH of 0, patient is not currently a tPA candidate. Impression & Plan Paresthesias, Transient cerebral ischemia Discharge Plan Visit Data Chief Complaint: TIA Symptoms Stated Complaint: NUMBNESS IN HANDS/FEET,HX STROKE ED Provider: Nahid Barrera Discharge Problem: Paresthesias, Transient cerebral ischemia Forms Stand Alone Forms: My [facility] Prescriptions Prescriptions: No Action metoprolol tartrate 25 mg tablet 25 mg PO BID duloxetine 30 mg capsule,delayed release(DR/EC) 30 mg PO DAILY Eliquis 5 mg tablet 5 mg PO BID atorvastatin 80 mg tablet 80 mg PO DAILY arginine (L-arginine) 500 mg tablet 1,000 mg PO AMHS saw palmetto 450 mg Capsule 1,800 mg PO DAILY Rx Instructions: give with food (meal/snack) pt is taking 4 tablet dose per brian aspirin 325 mg tablet 162.5 mg PO DAILY Referrals Referrals: Brennan Ro [Outside Practitioners] -
[2022-09-09 00:34] LABS: Basophils # (auto) 0.04 K/uL (0-0.2); Basophils % (auto) 0.6 %; Eosinophils # (auto) 0.17 K/uL (0-0.50); Eosinophils % (auto) 2.5 %; Hematocrit (blood only) 46.6 % (42.0-52.0); Hemoglobin 15.8 g/dl (14.0-18.0); Immature Granulocytes # (auto) 0.05 K/uL (0.01-0.20); Immature Granulocytes % (auto) 0.7 %; Lymphocytes # (auto) 2.11 K/uL (1.2-3.4); Lymphocytes % (auto) 30.9 %; Mean Corpuscular Hemoglobin 30.7 pg (25.0-34.0); Mean Corpuscular Hgb Conc 33.9 g/dL (32.0-36.0); Mean Corpuscular Volume 90.7 fL (80.0-100.0); Mean Platelet Volume 10.2 fL (9.4-12.4); Monocytes # (auto) 0.96 K/uL (0.11-0.59); Monocytes % (auto) 14.1 %; Neutrophils # (auto) 3.49 K/uL (1.40-6.50); Neutrophils % (auto) 51.2 %; Platelet Count 165 K/uL (130-400); RDW Coefficient of Variation 13.5 % (11.5-14.5); RDW Standard Deviation 44.9 fL (36.4-46.3); Red Blood Count 5.14 M/uL (4.70-6.10); White Blood Count 6.82 K/ul (4.8-10.8)
[2022-09-09 00:42] LABS: Albumin Globulin Ratio 1.4 (0.9-2); Albumin Level 4.5 gm/dl (3.4-5.0); BUN Creatinine Ratio 23.6 (10-20); Bilirubin,Total 0.5 mg/dl (0.2-1.0); Creatinine Clr Calc Pharmacy 95.2 ml/min; Est GFR (African American) 97.6 ml/min; Est GFR (Non-African American) 84.2 ml/min; Globulin 3.2 gm/dl (2.5-4.0); Magnesium 1.8 mg/dl (1.7-2.4); Potassium 3.8 mmol/L (3.5-5.1); Total Protein 7.7 gm/dl (6.0-8.3)
[2022-09-09 00:48] LABS: Troponin I High Sensitivity 9.2 pg/ml (0-20)
[2022-09-09 00:57] LABS: INR 1.1 (0.9-1.1); Partial Thromboplastin Time 27.7 Seconds (21.0-31.0); Prothrombin Time 11.7 Seconds (9.0-12.0)
--- NOTE | 2022-09-09 03:07 | CT Scan Report ---
Exam(s): CT HEAD Without Contrast EXAM: CT Head Without Intravenous Contrast CLINICAL HISTORY: Reason for exam: neuro deficit, acute stroke suspected. TECHNIQUE: Axial computed tomography images of the head/brain without intravenous contrast. CTDI is 78.02 mGy and DLP is 1250.21 mGy-cm. Automated exposure control was utilized for the study. A dose lowering technique was utilized adhering to the principles of ALARA. COMPARISON: Comparison made to prior head CT from September 03, 2022. FINDINGS: Brain: Unremarkable. No hemorrhage. Mild to moderate nonspecific white matter changes. No edema. Ventricles: Unremarkable. No ventriculomegaly. Bones/joints: Unremarkable. No acute fracture. Soft tissues: Bilateral lens replacements. Sinuses: Unremarkable as visualized. No acute sinusitis. Mastoid air cells: Unremarkable as visualized. No mastoid effusion. IMPRESSION: No evidence of acute intracranial pathology. Communications: Call Doctor Stroke Electronically signed by: Rose White MD 09/09/22 03:07 AM
--- NOTE | 2022-09-09 03:49 | History and Physical Report ---
DATE OF ADMISSION: 09/09/2022. CHIEF COMPLAINT: Stroke-like symptoms. HISTORY OF PRESENT ILLNESS: This is a 72-year-old male with past medical history significant for atrial fibrillation, hyperlipidemia, depression, recent acute right lacunar stroke, who was discharged on 09/07/2022, comes back with numbness in the hands and feet. The patient says since discharge, since yesterday evening he noticed numbness in his hands and legs, pins and needles. He was not getting better, that is the reason he came here. He denies any other complaints. Currently, very hard of hearing, but able to answer the questions. No facial droop seen. Speech is clear. Denies any headache. Vision is okay. No runny nose, no sore throat, no cough, no fevers. Swallowing okay. No chest pain, no shortness of breath, no nausea, no abdominal pain. Normal bowel and bladder movements. He says he is ambulating okay. Currently, resting comfortably and hemodynamically stable. ALLERGIES: VITAMIN B. PAST MEDICAL HISTORY: As mentioned above. PAST SURGICAL HISTORY: No pertinent surgical history. FAMILY HISTORY: Significant for hyperlipidemia and heart disease. SOCIAL HISTORY: Lives alone at home. Smoking history is unknown. MEDICATIONS: The patient is on arginine 1000 mg p.o. b.i.d., aspirin 162.5 mg p.o. daily, atorvastatin 80 mg p.o. daily, duloxetine 30 mg p.o. daily, Eliquis 5 mg p.o. b.i.d., metoprolol tartrate 25 mg p.o. b.i.d., saw palmetto 1800 mg p.o. daily. REVIEW OF SYSTEMS: As per HPI. Rest of the review of systems is negative. PHYSICAL EXAMINATION: GENERAL: The patient is of moderate build, not in acute distress. VITAL SIGNS: Temperature afebrile, pulse 88, respiratory rate 19, blood pressure 171/98, oxygen 100% on room air. HEENT: Pupils equal, round and reactive to light. Oral mucosa moist. NECK: No JVD, no neck masses. CARDIOVASCULAR: S1 and S2 heard. Regular rate and rhythm. No murmur, no gallop. RESPIRATORY SYSTEM: Normal AP diameter. No accessory muscle use. No wheezing or crackles. ABDOMEN: Soft, bowel sounds present, nontender, no distention. CENTRAL NERVOUS SYSTEM: Alert, awake, and oriented. Speech is clear. No facial droop. Tongue is midline. Able to close his eyes. Power seems to be 5/5 in all extremities. Hand Stonecutter of the hand is good. No pronator drift seen. Sensation is decreased in the bilateral lower extremities. EXTREMITIES: No edema, no erythema seen. LABORATORY DATA: WBC 6.8, hemoglobin 15.8, hematocrit 46.6, platelets 165. PT 11.7, INR 1.1, APTT 27.7. Sodium 139, potassium 3.8, chloride 105, bicarbonate 25, BUN 21, creatinine 0.8, serum glucose 107, calcium 10, magnesium 1.8, total bilirubin 0.5, AST 27, ALT 16, alkaline phosphatase 82. Troponin I high sensitivity 9.2. SARS-CoV-2 rapid test negative. IMAGING DATA: CT of the head, results are pending. EKG: AFib at a rate of 92. ASSESSMENT AND PLAN: This is a 72-year-old male who recently had a stroke, got discharged a couple of days ago, comes back with pins and needles in the hands and feet. 1. Stroke-like symptoms, pins and needles in the hands and feet, and also on exam decreased sensation in the bilateral lower extremities: Recently had a lacunar infarct in the right cerebellar hemisphere within the superior right frontal and parietal lobes. The patient has a history of atrial fibrillation, on aspirin, and Eliquis and high-dose statin. CT of the head, ok , will do full stroke workup with MRI scan and consult neurology in the a.m. Neuro checks per protocol. Monitor in the tele floor. 2. History of hyperlipidemia: Continue statin. 3. History of atrial fibrillation: Currently rate is under control. Continue metoprolol and Eliquis. 4. Depression: Continue Cymbalta. 5. Deep venous thrombosis prophylaxis: On Eliquis. DISPOSITION: Closely monitor in the tele floor. Level 1 full code. PT, OT prior to discharge. Social service to help with discharge planning. Job ID: [id number] [facility]
[2022-09-09] MEDS ORDERED: POLYETHYLENE (MIRALAX) 17 GM PACK PO PRN (04:24)
[2022-09-09] MEDS ORDERED: NITROGLYCERIN SL 0.4 MG/TAB TAB SL PRN (04:24)
[2022-09-09] MEDS ORDERED: PHARMACIST DISCHARGE MED REC CONSULT PRN (04:24)
[2022-09-09] MEDS ORDERED: SODIUM CHLORIDE 0.9% 1000ML 1,000 ML IV SCH (04:24)
[2022-09-09 06:37] LABS: Basophils # (auto) 0.02 K/uL (0-0.2); Basophils % (auto) 0.4 %; Eosinophils # (auto) 0.15 K/uL (0-0.50); Eosinophils % (auto) 2.8 %; Hematocrit (blood only) 41.4 % (42.0-52.0); Hemoglobin 14.6 g/dl (14.0-18.0); Immature Granulocytes # (auto) 0.04 K/uL (0.01-0.20); Immature Granulocytes % (auto) 0.7 %; Lymphocytes # (auto) 1.79 K/uL (1.2-3.4); Lymphocytes % (auto) 32.9 %; Mean Corpuscular Hemoglobin 30.9 pg (25.0-34.0); Mean Corpuscular Hgb Conc 35.3 g/dL (32.0-36.0); Mean Corpuscular Volume 87.5 fL (80.0-100.0); Mean Platelet Volume 10.2 fL (9.4-12.4); Monocytes # (auto) 0.73 K/uL (0.11-0.59); Monocytes % (auto) 13.4 %; Neutrophils # (auto) 2.71 K/uL (1.40-6.50); Neutrophils % (auto) 49.8 %; Platelet Count 144 K/uL (130-400); RDW Coefficient of Variation 13.3 % (11.5-14.5); Red Blood Count 4.73 M/uL (4.70-6.10); White Blood Count 5.44 K/ul (4.8-10.8)
[2022-09-09 06:52] LABS: BUN Creatinine Ratio 25.4 (10-20); Calcium 9.3 mg/dl (8.6-10.3); Creatinine Clr Calc Pharmacy 121.7 ml/min; Est GFR (African American) 109.7 ml/min; Est GFR (Non-African American) 94.7 ml/min; Potassium 3.6 mmol/L (3.5-5.1)
--- NOTE | 2022-09-09 08:38 | Neurology Consultation ---
Date of Consultation September 09, 2022 Assessment & Plan (1) Paresthesias: (2) Startle myoclonus: (3) Tremor: (4) HTN (hypertension): (5) Acute right MCA stroke: (6) Atrial fibrillation with RVR: Plan this patient has had multiple tiny emboli to the right hemisphere (middle cerebral artery distribution ) September 03 resulted transient left upper extremity weakness and word-finding difficulties. These symptoms have resolved. The etiology is either cardiac ( patient has a history of atrial fibrillation but had been on Eliquis ) versus a right internal carotid artery stenosis/ulceration issue. CT angiography did show less than 50 percent stenosis in the internal carotid arteries bilaterally proximally and stenosis in the left V4. He was discharged September 07 in improved condition. September 08 he developed bilaterally symmetrical, distal dysesthesias in the hands and feet of a pins and needle nature. No other new symptoms have developed and the symptoms are persistent. The etiology of the symptoms is not readily apparent but may be toxic, metabolic, or other. They have nothing to do with cerebral vascular disease, TIA, or stroke. Patient has longstanding essential tremor and startle myoclonus. He does not have any evidence of Parkinson's disease or a senile dementia of the Alzheimer's type. Cervical spine issue cannot entirely be excluded although he does not have much in the way of neck pain. the patient is a heavy tobacco user (choose) and a former very heavy alcohol user (now much less alcohol ). Chronic alcoholism could lead to tremor and startle myoclonus also. Recommendations: 1. Continue Eliquis 5 milligrams twice daily 2. Change aspirin to 81 milligrams daily. There is no reason for higher doses of aspirin from a stroke standpoint. 3. Continue atorvastatin 80 milligrams daily. 4. consider Lyme antibody titers, ESR, magnesium, CK 5. Consider MRI of the cervical spine 6. control blood pressure as you are doing 7. The patient needs a PCP for follow-up Overall, I spent a total of 75 minutes with this case including review of records, review of MRI and CT films, direct evaluation the patient at bedside, report generation, and discussion of the case with patient and RN at bedside, and Dr. Bolden including differential diagnosis treatment options. History of Present Illness Reason for Consultation: patient is a 72-year-old, was asked to see the request of Dr. Pelayo for neurologic consultation regarding new onset dysesthesias. Requesting Physician: Dr. Pelayo Attending Physician: Amber Bolden MD History of Present Illness this patient has a history of atrial fibrillation with rapid ventricular rate, coronary artery disease, hypertension, and dyslipidemia. He tells me that he has had tremor in his hands for years and staying about the same. It is worse with activity. He has also had a startle response were will have a sudden myoclonic jerk of either both legs or the arms and legs and a single time, whenever he is startled by touch or noise. This has been unchanged over the years as well. The patient was admitted September 03 with some left upper extremity weakness and word-finding difficulties. CT scan of the head was unremarkable and CT angiography of the head neck revealed 60 percent stenosis of the left V4 and less than 50 percent stenosis of the proximal ICAs bilaterally. Echocardiogram showed mild left ventricular hypertrophy and moderate aortic valve calc ification. An MRI of the brain showed multiple punctate scattered right middle cerebral artery distribution acute strokes. MRI also showed mild generalized atrophy and some old small vessel ischemic change and I reviewed these films. These were likely embolic and probably from the right carotid according to Dr. Loyd, neurologist from [facility] who did a consult on the patient via tele. By the time patient was discharged September 07 he was feeling fine without speech problems or weakness. He was discharged on aspirin, Eliquis, Lipitor, and a vascular surgery consult was recommended. On September 08, he noted the onset of pins and needles in his hands and feet bilaterally and symmetrically that came on and persisted. He had no change in strength and he had no lack of feeling or numbness. He had no confusion or speech problem. He has no cervical spine pain. He arrived to the emergency room September 08 at 23:55 with a pulse of 100, respiratory rate 18, blood pressure 171/98 ( later on 163/112) and O2 saturation 97 percent. Neurologic examination was unremarkable and "NIH stroke scale was 0". CT scan of the head was unremarkable for new events or changes. CBC and Chem profile were unremarkable. This morning he continues to have pins and needles in his hands and feet the same as he did before. He denies any weakness or pain. His tremor and startle response are the same as usual. There are no other new symptoms. Allergies Allergy/AdvReac Type Severity Reaction Status Date / Time vitamin b AdvReac Severe b12 and B6 Uncoded 09/09/22 02:06 makes nose bleed Home Medications Medication Instructions Recorded Confirmed Type apixaban 5 mg tablet (Eliquis) 5 mg PO BID 09/03/22 09/09/22 History arginine (L-arginine) 500 mg tablet 1,000 mg PO AMHS 09/03/22 09/09/22 History atorvastatin 80 mg tablet 80 mg PO DAILY 09/03/22 09/09/22 History duloxetine 30 mg capsule,delayed 30 mg PO DAILY 09/03/22 09/09/22 History release metoprolol tartrate 25 mg tablet 25 mg PO BID 09/03/22 09/09/22 History saw palmetto 450 mg capsule 1,800 mg PO DAILY 09/03/22 09/09/22 History aspirin 325 mg tablet 162.5 mg PO DAILY 09/09/22 09/09/22 History Patient History Medical History (Updated 09/09/22 @ 08:29 by Adalberto Niño MD) Altered mental status Atrial fibrillation with RVR CAD (coronary artery disease) Depression HTN (hypertension) Stroke-like symptoms Surgical History (Updated 09/09/22 @ 08:20 by Adalberto Niño MD) No pertinent past surgical history S/P cataract surgery Family History Mother , date age 93 with memory issues Dementia Father , age 51 of heart disease Heart disease Other Dyslipidemia Social History (Updated 09/09/22 @ 08:24 by Adalberto Niño MD) Smoking Status: Current every day smoker Tobacco Type: Smokeless Tobacco (Dip or Chew) Cigarettes Per Day: patient stop smoking cigarettes in his 30s.; Do You Dip or Chew Tobacco: Yes; Hx Alcohol Use: Yes Alcohol type: hard liquor Alcohol type Comment: 1 bottle or more whiskey per day for many years. 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 Feels Safe at Home: Yes Assistive Devices: Cane, Denture - Upper, Denture - Lower and Walker Review of Systems Constitutional: no fever, no fatigue and no weakness Eyes: no diplopia, no eye pain and no worsening vision Ear, Nose, Mouth, Throat: no ear pain, no tinnitus, no hearing loss, no dizziness, no snoring, no hoarseness and no dysphagia Respiratory: no cough and no dyspnea Cardiovascular: no chest pain, no palpitations and no lightheadedness Gastrointestinal: no abdominal pain, no nausea and no vomiting Musculoskeletal: no back pain, no neck pain, no radicular pain, no joint pain and no myalgia Integumentary: no rash and no lesions Neurologic: + paresthesia and + abnormal movements; no gait abnormality, no localized weakness, no generalized weakness, no tingling, no numbness, no tremor(s), no headache(s), no abnormal speech, no confusion and no memory loss Psychiatric: no depression, no irritability, no anxiety, no difficulty concentrating, no confusion and no hallucinations Endocrine: no fatigue and no flushing Hematologic / Lymphatic: no easy bleeding and no easy bruising Allergy / Immunological: no urticaria and no problem reported Exam (Neuro) Physical Exam: The patient is right-handed. The patient is awake, alert, and attentive. Speech is normal without any aphasia or dysarthria. The patient can name objects, repeat phrases, and has normal spontaneous speech. Mentation and thought processes are intact, with orientation to person, place and time, and normal fund of knowledge. Attention and concentration are normal. Mood and affect are normal and appropriate. General appearance and grooming are normal. although the patient hesitates a little bit before answering the question, Short and long-term memory are intact to conversation. Pupils are 4 mm bilaterally and reactive to light. Extraocular eye muscles are intact without nystagmus. Visual acuity and visual dunham seem normal grossly to confrontation. There are no deficits to sensation in the face in all 3 distributions of the fifth cranial nerve bilaterally. Corneal reflexes are positive bilaterally. Facial strength and symmetry was normal bilaterally. Hearing seems normal bilaterally. Palate moves well without asymmetry. There is normal sternocleidomastoid and trapezius (shoulder shrug) strength bilaterally. Tongue is midline with good strength bilaterally. Neck has a full range of motion without discomfort. There are no cervical bruits bilaterally. There are no cranial or ocular bruits. Heart is without murmur. There is a regular rhythm and rate. Cervical, thoracic, and lumbar spine are nontender to palpation. Gait was not tested, but stance sitting up in bed is. With outstretched arms there is no drift. There are no resting tremors. Patient had mild postural and action tremor bilaterally. There is no ataxia with finger to nose testing. There is good facility in the hands. Interestingly, the patient had whole-body startle type myoclonic jerks when touched or a loud noise startled him. He would either be both legs or all 4 limbs. 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 Motor strength is 5/5 diffusely in the legs bilaterally including hip flexors, quadriceps, hamstrings, gastrocnemius, tibialis anterior, tibialis posterior, and Peroneii muscles. Toe extensors are normal and there is good bulk in the extensor digitorum brevis muscles bilaterally. The limbs have good tone without rigidity or spasticity. There is no atrophy noted in the muscles. Muscle bulk is normal, there is no tenderness to palpation, no myotonia to percussion, and no fasciculations seen. despite his history of dysesthesias, Sensory examination is intact to touch and pin throughout all 4 limbs diffusely. Reflexes are 2/4 in the biceps, triceps, brachioradialis, quadriceps, and Achilles tendons bilaterally. There is no clonus bilaterally. Toes are downgoing with plantar stimulation bilaterally. Peripheral pulses are present and of normal quality distally in all 4 limbs. There is no peripheral edema noted in the limbs. Results & Data Vital Signs (Past 12 Hours) Vital Signs Temp Pulse Pulse Resp BP BP Pulse Ox 09/09/22 08:02 37.2 C 96 H 20 100 09/09/22 04:45 90 09/09/22 05:39 94 H 113/74 98 09/09/22 04:32 37.1 C 92 H 18 183/102 H 99 09/09/22 03:30 95 H 20 150/103 H 96 09/09/22 03:20 95 H 22 98 09/09/22 03:10 90 12 98 09/09/22 03:00 90 17 151/105 H 98 09/09/22 02:50 88 21 96 09/09/22 02:40 92 H 28 H 98 09/09/22 02:30 98 H 29 H 159/113 H 98 09/09/22 02:20 95 H 15 09/09/22 02:10 89 18 93 09/09/22 02:00 94 H 18 146/113 H 99 09/09/22 01:50 97 H 23 98 09/09/22 01:47 94 H 21 138/97 99 09/09/22 03:43 09/09/22 00:25 97 H 09/09/22 01:40 88 19 100 09/09/22 01:30 86 20 96 09/09/22 01:20 95 H 20 98 09/09/22 01:10 98 H 21 98 09/09/22 01:00 92 H 20 97 09/09/22 00:54 93 H 24 98 09/09/22 00:40 96 H 20 98 09/09/22 00:30 96 H 19 99 09/09/22 00:23 92 H 20 99 09/08/22 23:52 97 H 19 163/112 H 99 09/08/22 23:55 100 H 18 171/98 H 97 O2 Del Method 09/09/22 08:02 Room Air 09/09/22 04:45 09/09/22 05:39 Room Air 09/09/22 04:32 Room Air 09/09/22 03:30 09/09/22 03:20 09/09/22 03:10 09/09/22 03:00 09/09/22 02:50 09/09/22 02:40 09/09/22 02:30 09/09/22 02:20 09/09/22 02:10 09/09/22 02:00 09/09/22 01:50 09/09/22 01:47 09/09/22 03:43 Room Air 09/09/22 00:25 09/09/22 01:40 09/09/22 01:30 09/09/22 01:20 09/09/22 01:10 09/09/22 01:00 09/09/22 00:54 09/09/22 00:40 09/09/22 00:30 09/09/22 00:23 09/08/22 23:52 Room Air 09/08/22 23:55 Room Air PG Care Time/CCT Total # of Minutes Spent Total Time Spent with Patient: Total time spent is greater than 50% in coordination of care (as documented) at patient's floor/unit and/or counseling patient: Coding Level of Care Code 97340 INT INP/OBS CARE 375MIN Diagnoses Paresthesias R20.2 Startle myoclonus G25.3 Tremor R25.1 HTN (hypertension) I10 Acute right MCA stroke I63.511 Atrial fibrillation with RVR I48.91
[2022-09-09] MEDS ORDERED: ASPIRIN 81 MG ECTAB PO SCH (09:00)
[2022-09-09] MEDS: ATORVASTATIN 40 MG TAB PO SCH (09:07)
[2022-09-09] MEDS: APIXABAN 5 MG TABLET PO SCH ×2 (09:07→20:04)
[2022-09-09] MEDS: DULoxetine HCL 30 MG CAP PO SCH (09:07)
[2022-09-09] MEDS: METOPROLOL TARTRATE 25 MG TAB PO SCH ×2 (09:07→20:04)
--- NOTE | 2022-09-09 12:21 | Hospitalist Progress Note ---
Date of Service September 09, 2022 Assessment & Plan (1) Paresthesias: Plan CT brain today did not show acute abnormality MRI brain today noted numerous small foci in superior right frontal and parietal lobes, similar in distribution to 09/04/22. Patient does not have a new stroke this time Patient reporting paresthesia Per PCP note, he has DDD, OA of multiple joints, essential tremor He recently discharged on 09/07/22 after management for CVA. He had declined rehab placement at the time. Cervical MRI showed multilevel degenerative changes with up to severe bilateral neuroforaminal stenosis. Patient will benefit from rehab and eventually follow up with Ortho spine. Counselled patient regarding need for rehab considering recent CVA and his neuropathy. He stated he is open to some rehab facility at this time if its not too far from him Provided coordinator with contact no for hot strip finisher and no of sister from RN to update his records/[facility] For recent CVA, continue ASA 81mg, eliquis and atorvastatin. He still needs to follow up with Vasc surgeon for right carotid bulb atherosc lerotic plaque from recent imaging For chronic Afib which is rate controlled, continue metoprolol. Hypertension: Monitor BP and ensure optimal control Continue home duloxetin Get PT/OT eval CM to arrange placement DVT ppx: on eliquis I spent a total of 45 minutes coordinating, documenting and providing care for this patient excluding time spent in performance of separately billed services Admission and Anticipated Discharge Date Admission Date: September 09, 2022 Subjective Patient seen and examined Patient reported to me that he started having bilateral hand paresthesiae some days ago. He had reported to the neurologist that it started yesterday I had seen patient on 09/07/22 and he reported left hand numbness at the time and chronic tremors. When asked about what he recalls about his recent hospital stay from 09/03/22 to 09/07/22 and diagnoses; he stated he was not feeling well and was weak. When I reminded him that he had a stroke and had declined rehab at the time, he stated he does not recall declining rehab. He also stated that he can be quite forgetful sometimes. Per coordinator, patient's contact number in the system is not correct. Patient reported he had his home number changed recently. He stated he does not have the number but gave me his hot strip finisher's number as he stated his hot strip finisher may know it. Coordinator will look into this and updating family's contacts as well. Patient reports he lives alone and has sister who live out of state He reports chronic upper back pain Denied any headache, cough, SOB, nausea, vomiting, abd pain Physical Exam Constitutional: + well hydrated; no acute distress Elderly man Eyes: PERRL, conjunctivae normal, anicteric sclerae ENMT: external ear and nose normal, oropharynx normal Respiratory: normal respiratory effort, lungs clear to auscultation Cardiovascular: Rate/Rhythm: + irregularly irregular S1 S2 Gastrointestinal (Abdomen): normal bowel sounds, soft, nontender, no hepatosplenomegaly Musculoskeletal: Power is equal in both upper and lower extremities No spinal tenderness Neurologic: PERRL, EOMI, accommodation nl, no face palsy, no dysarthria Psychiatric: A+Ox3, euthymic affect Results & Data Results & Data Vital Signs (Past 12 Hours) Vital Signs Temp Pulse Pulse Resp BP BP Pulse Ox 09/09/22 11:38 36.8 C 75 18 166/95 H 100 09/09/22 09:09 165/95 H 09/09/22 08:02 37.2 C 96 H 20 100 09/09/22 07:00 83 09/09/22 07:00 09/09/22 04:45 90 09/09/22 05:39 94 H 113/74 98 09/09/22 04:32 37.1 C 92 H 18 183/102 H 99 09/09/22 03:30 95 H 20 150/103 H 96 09/09/22 03:20 95 H 22 98 09/09/22 03:10 90 12 98 09/09/22 03:00 90 17 151/105 H 98 09/09/22 02:50 88 21 96 09/09/22 02:40 92 H 28 H 98 09/09/22 02:30 98 H 29 H 159/113 H 98 09/09/22 02:20 95 H 15 09/09/22 02:10 89 18 93 09/09/22 02:00 94 H 18 146/113 H 99 09/09/22 01:50 97 H 23 98 09/09/22 01:47 94 H 21 138/97 99 09/09/22 03:43 09/09/22 00:25 97 H 09/09/22 01:40 88 19 100 09/09/22 01:30 86 20 96 09/09/22 01:20 95 H 20 98 09/09/22 01:10 98 H 21 98 09/09/22 01:00 92 H 20 97 09/09/22 00:54 93 H 24 98 09/09/22 00:40 96 H 20 98 09/09/22 00:30 96 H 19 99 09/09/22 00:23 92 H 20 99 O2 Del Method 09/09/22 11:38 Room Air 09/09/22 09:09 09/09/22 08:02 Room Air 09/09/22 07:00 09/09/22 07:00 Room Air 09/09/22 04:45 09/09/22 05:39 Room Air 09/09/22 04:32 Room Air 09/09/22 03:30 09/09/22 03:20 09/09/22 03:10 09/09/22 03:00 09/09/22 02:50 09/09/22 02:40 09/09/22 02:30 09/09/22 02:20 09/09/22 02:10 09/09/22 02:00 09/09/22 01:50 09/09/22 01:47 09/09/22 03:43 Room Air 09/09/22 00:25 09/09/22 01:40 09/09/22 01:30 09/09/22 01:20 09/09/22 01:10 09/09/22 01:00 09/09/22 00:54 09/09/22 00:40 09/09/22 00:30 09/09/22 00:23 Laboratory Results Abnormal lab results 09/09/22 09/09/22 09/09/22 Range/Units 00:12 00:12 06:08 Hct 41.4 L (42.0-52.0) % [place] # (Auto) 0.96 H 0.73 H (0.11-0.59) K/uL Chloride (98-107) mmol/L BUN/Creatinine Ratio 23.6 H (10-20) Glucose 107 H (70-99(Fasting)) mg/dl 09/09/22 Range/Units 06:08 Hct (42.0-52.0) % [place] # (Auto) (0.11-0.59) K/uL Chloride 108 H (98-107) mmol/L BUN/Creatinine Ratio 25.4 H (10-20) Glucose 100 H (70-99(Fasting)) mg/dl
--- NOTE | 2022-09-09 13:17 | Pharmacy Report ---
- Date of Service September 09, 2022 - Pharmacy CVA/TIA Medication Review Medications to Prevent Stroke handout has been added to the patients discharge packet. Antiplatelet(s) * Aspirin 162mg daily - neuro recommending change to only 81mg daily Cholesterol * High intensity statin: atorvastatin 80 mg daily DVT Prophylaxis * On therapeutic anticoagulation Therapeutic Anticoagulation * Hx Afib/Aflutter noted, and patient is currently receiving Apixaban 5mg PO BID Type 2 Diabetes * Patient does not have T2DM
[2022-09-09] MEDS ORDERED: GADOBUTROL 65ML VIAL IV ONE (14:02)
--- NOTE | 2022-09-09 14:30 | Magnetic Resonance Report ---
MRI OF THE BRAIN COMBO CLINICAL HISTORY: Stroke. COMPARISON STUDY: CT of the brain dated 09/09/2022. MRI of the brain dated 09/04/2022. TECHNIQUE: MRI of the brain was performed utilizing various T1 and T2-weighted sequences in the axial , sagittal, and coronal planes. Contrast-enhanced sequences were acquired following the administratio n of 10.5 cc of Gadavist. FINDINGS: Brain parenchyma: Again seen are numerous small foci of restricted diffusion throughout the superior right frontal and parietal lobes consistent with acute to subacute lacunar infarcts. These are simila r in distribution to the 09/04/2022 examination. No new foci of restricted diffusion are clearly identi fied. There is no hemorrhage or mass effect. There is age-related involutional change noting moderate subcortical and periventricular microcatheter pathic disease. A small focus of hemosiderin depositio n in the right periventricular white matter is unchanged. No enhancing mass lesion is identified on t he postcontrast images. No extra-axial fluid collection is seen. The cerebellar tonsils are normal i n configuration. Ventricles, sulci, and cisterns: Prominent secondary to involutional change. Pituitary and sella: Unremarkable. Intracranial vasculature: Normal flow voids are maintained at the skull base. Orbits: The bony orbits are grossly intact. Orbital contents are normal in appearance noting bilatera l ocular lens implants. Sinuses and mastoids: Clear. Calvarium: Unremarkable. Cervical cord: Partially visualized cervical spinal cord is normal in morphology and signal intensity . IMPRESSION: 1. Numerous small foci of restricted diffusion are again seen within the superior right frontal and p arietal lobes. These are similar in distribution to the 09/04/2022 examination and likely represent acu te to subacute lacunar infarcts. The distribution favors an embolic phenomenon. Clinical correlation required. 2. No new foci of restricted diffusion are clearly seen. Acute on subacute ischemia would be impossib le to exclude 3. There is no hemorrhage or mass effect. ACT 112: Negative or not required by law. Electronically signed by: Rodney Garcia M.D. 09/09/2022 2:28 PM
--- NOTE | 2022-09-09 14:33 | Magnetic Resonance Report ---
CLINICAL HISTORY: Workup for bilateral UE paresthesia TECHNIQUE: MRI of the cervical spine is performed utilizing various T1 and T2 sequences in the axial and sagittal planes. IV contrast was not administered for this examination. Comparison: None available at the time of this dictation. FINDINGS: The alignment is anatomical. C2-C3: Unremarkable. C3-C4: Broad-based posterior disc bulge with severe right and moderate left neural foraminal stenosis . Mild canal stenosis is seen. C4-C5: Facet arthropathy results in moderate right and mild left neuroforaminal stenosis. C5-C6: Broad-based posterior disc bulge is seen with severe left and moderate right neuroforaminal st enosis. C6-C7: Broad-based posterior disc bulge with severe left and mild right neural foraminal stenosis. C7-T1: Unremarkable. The spinal ligaments are intact, without evidence of disruption or abnormal signal intensity. The spi nal cord is normal in signal intensity and there is no evidence of cord edema. There is no evidence o f an extradural, intradural, extramedullary or intramedullary lesion. Visualized soft tissues are nor mal. Visualized brain parenchyma is normal. IMPRESSION: Multilevel degenerative changes with up to severe bilateral neuroforaminal stenosis. ACT 112: Negative or not required by law. Electronically signed by: Nguyễn Rodríguez M.D. 09/09/2022 2:32 PM
[2022-09-09] MEDS: ACETAMINOPHEN 325 MG TAB PO PRN (20:06)
[2022-09-10 05:06] LABS: Basophils # (auto) 0.02 K/uL (0-0.2); Basophils % (auto) 0.4 %; Eosinophils # (auto) 0.16 K/uL (0-0.50); Eosinophils % (auto) 3.3 %; Hematocrit (blood only) 43.7 % (42.0-52.0); Hemoglobin 14.7 g/dl (14.0-18.0); Immature Granulocytes # (auto) 0.03 K/uL (0.01-0.20); Immature Granulocytes % (auto) 0.6 %; Lymphocytes # (auto) 1.89 K/uL (1.2-3.4); Lymphocytes % (auto) 39.5 %; Mean Corpuscular Hemoglobin 30.8 pg (25.0-34.0); Mean Corpuscular Hgb Conc 33.6 g/dL (32.0-36.0); Mean Corpuscular Volume 91.6 fL (80.0-100.0); Mean Platelet Volume 10.2 fL (9.4-12.4); Monocytes # (auto) 0.55 K/uL (0.11-0.59); Monocytes % (auto) 11.5 %; Neutrophils # (auto) 2.13 K/uL (1.40-6.50); Neutrophils % (auto) 44.7 %; Platelet Count 141 K/uL (130-400); RDW Coefficient of Variation 13.3 % (11.5-14.5); RDW Standard Deviation 45.3 fL (36.4-46.3); Red Blood Count 4.77 M/uL (4.70-6.10); White Blood Count 4.78 K/ul (4.8-10.8)
[2022-09-10 05:12] LABS: BUN Creatinine Ratio 20.2 (10-20); Calcium 9.3 mg/dl (8.6-10.3); Creatinine Clr Calc Pharmacy 97.1 ml/min; Est GFR (Non-African American) 86.3 ml/min; Potassium 3.9 mmol/L (3.5-5.1)
[2022-09-10] MEDS: METOPROLOL TARTRATE 25 MG TAB PO SCH ×2 (08:38→20:37)
[2022-09-10] MEDS: ASPIRIN 81 MG ECTAB PO SCH (08:38)
[2022-09-10] MEDS: ATORVASTATIN 40 MG TAB PO SCH (08:38)
[2022-09-10] MEDS: DULoxetine HCL 30 MG CAP PO SCH (08:38)
--- NOTE | 2022-09-10 11:40 | Psychiatric Consultation ---
Date of Consultation September 10, 2022 Impression / Recommendations Impression Yair was assessed for decision making capacity given recent right MCA stroke and frequent reversals in his desired treatment/being hospitalized. In terms of decision making capacity it is foremost critical to emphasis that this assessment is task specific, dimensional and DOES NOT REPRESENT NOR CAN IT BE USED A MEANS OF ASSESSING GLOBAL LEGAL COMPETENCY OR NEED FOR GUARDIANSHIP. Assessment of Decision-Making Capacity Criterion (X=present) Patient Task NO Communicates a choice Patient is able to clearly indicate preferred treatment option in a clear and consistent manner NO Understands information provided Patient understands their condition and treatment options NO Appreciates consequences Patient shows appropriately nuanced appreciation for the risks & benefits associated with available treatment options, including no treatment NO Manipulates relevant information Patient able to rationally weigh risks & benefits, as well as offer reasons for their decision It is important to note that a patient's decision can be unwise as long as a rational process was used to arrive at it. Decision making capacity determin ations are decision and time specific. At this time he is not felt to have decision making capacity to refuse rehab, though encouragingly today is in support with his plan, nor does he have decision making capacity to leave AMA given periods of confusion and inability to communicate consistent choices, understand relevant medical information, appreciate consequences nor manipulate relevant information. The patient's decision making capacity could change in the future given that their mental status and various other factors can certainly fluctuate over time. (1) Acute right MCA stroke: (2) Encounter for assessment of decision-making capacity: (3) Impaired decision making: Plan -Currently he wants to remain in the hospital and go to subacute rehab following hospitalization however if this changes he cannot leave AMA as lacks decision making capacity and he cannot refuse subacute rehab as he lacks decision making capacity -Surrogate decision maker per his preference is his sister Tara (her nickname is Skip) Psych History Identifying Data 72 yo man with a history of recent right MCA stroke, depression, afib, HLD admitted medically for worsening numbness and tingling in his hands. Psychiatry consulted for decision making capacity regarding subacute rehab and leaving AMA. Chief Complaint "I'm going to go to rehab". History of Present Illness Yair represented to the hospital with new numbness/tingling in his hands after recent right MCA stroke and after he declined the recommendation for rehab preferring home health. Last evening he was then wanting to leave [facility] and has been changing his mind intermittently raising concern for decision making capacity. He was seen mid-morning just following his assessment by the hospitalist provider who discussed his recent stroke, MRI findings and recommendation for subacute rehab given his recent stroke. Minutes later when I see him he remains in agreement for rehab but cannot tell me about his recent stroke until prompted, is only able to discuss his health issue as "I had a plaque in my hand it wouldn't move well". He recalls missing home last night and wanting to leave but today is focused on rehab. Allergies Allergy/AdvReac Type Severity Reaction Status Date / Time vitamin b AdvReac Severe b12 and B6 Uncoded 09/09/22 02:06 makes nose bleed Home Medications Medication Instructions Recorded Confirmed Type apixaban 5 mg tablet (Eliquis) 5 mg PO BID 09/03/22 09/09/22 History arginine (L-arginine) 500 mg tablet 1,000 mg PO AMHS 09/03/22 09/09/22 History atorvastatin 80 mg tablet 80 mg PO DAILY 09/03/22 09/09/22 History duloxetine 30 mg capsule,delayed 30 mg PO DAILY 09/03/22 09/09/22 History release metoprolol tartrate 25 mg tablet 25 mg PO BID 09/03/22 09/09/22 History saw palmetto 450 mg capsule 1,800 mg PO DAILY 09/03/22 09/09/22 History aspirin 81 mg tablet 81 mg PO DAILY 09/09/22 09/09/22 History Patient History Medical History Altered mental status Atrial fibrillation with RVR CAD (coronary artery disease) Depression HTN (hypertension) Stroke-like symptoms Surgical History No pertinent past surgical history S/P cataract surgery Family History Mother , date age 93 with memory issues Dementia Father , age 51 of heart disease Heart disease Other Dyslipidemia Social History Smoking Status: Current every day smoker Tobacco Type: Smokeless Tobacco (Dip or Chew) Cigarettes Per Day: patient stop smoking cigarettes in his 30s.; Smoking End Date: chews 1 can per day since he was a teenager; Do You Dip or Chew Tobacco: Yes; Hx Alcohol Use: Yes Alcohol type: hard liquor Alcohol type Comment: 1 bottle or more whiskey per day for many years. 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 Other Information That Helps Us Care for You: No Feels Safe at Home: Yes Safety Concerns: Feels Safe At This Time Assistive Devices: Cane Physical Exam Psychiatric: Orientation: alert and oriented x 3 Apperance: appropriately dressed and appropriately groomed Eye Contact: good eye contact Motor Behavior: no abnormal motor movements Speech: normal rate/rhythm/volume of speech Affect: euthymic affect Mood: no depressed mood and no anxious mood Thought Process: linear/logical thought process Thought Content: reality based without delusions Suicidal Thoughts: denies suicidal thoughts Homicidal Thoughts: denies homicidal thoughts Hallucinations: no auditory hallucinations and no visual hallucinations Cognition: remote memory grossly intact, attention grossly intact and language grossly intact; + recent memory not intact Estimated Intelligence: consistent with education level Insight: + limited insight Judgment: + limited judgement Vital Signs (Past 24 Hours): Last Vital Signs Temp 36.6 C 09/10/22 07:50 Pulse 62 09/10/22 07:56 Resp 19 09/10/22 07:50 BP 114/65 09/10/22 07:50 Pulse Ox 97 09/10/22 07:50 O2 Del Method Room Air 09/10/22 07:50 Review of Systems All systems reviewed & are unremarkable except as noted in HPI & below Results & Data (PSY) Medications Administered Acetaminophen (Acetaminophen 325 Mg Tab) 650 mg PO Q4H PRN PRN Reason: Pain or Fever Stop: 10/09/22 04:23 Last Admin: 09/09/22 20:06 Dose: 650 mg Documented By: MERARY Apixaban (Apixaban 5 Mg Tablet) 5 mg PO BID LOLIS Stop: 10/09/22 08:59 Last Admin: 06/09/23 20:04 Dose: 5 mg Documented By: Admin: 09/09/22 09:07 Dose: 5 mg Documented By: DTT Aspirin (Aspirin 81 Mg Ectab) 81 mg PO DAILY LOLIS Stop: 10/10/22 08:59 Last Admin: 09/10/22 08:38 Dose: 81 mg Documented By: DTT Atorvastatin Calcium (Atorvastatin 40 Mg Tab) 80 mg PO DAILY LOLIS Stop: 10/09/22 08:59 Last Admin: 09/10/22 08:38 Dose: 80 mg Documented By: Admin: 09/09/22 09:07 Dose: 80 mg Documented By: DTT Duloxetine HCl (Duloxetine Hcl 30 Mg Cap) 30 mg PO DAILY LOLIS Stop: 10/09/22 08:59 Last Admin: 09/10/22 08:38 Dose: 30 mg Documented By: Admin: 09/09/22 09:07 Dose: 30 mg Documented By: DTT Metoprolol Tartrate (Metoprolol Tartrate 25 Mg Tab) 25 mg PO BID LOLIS Stop: 10/09/22 08:59 Last Admin: 09/10/22 08:38 Dose: 25 mg Documented By: Admin: 09/09/22 20:04 Dose: 25 mg Documented By: Admin: 09/09/22 09:07 Dose: 25 mg Documented By: MARBELLA Coding Level of Care Code 11630 IN/OBS CONSULT LVL 3,45M Diagnoses Acute right MCA stroke I63.511 Encounter for assessment of decision-making capacity Z01.89 Impaired decision making Z78.9 Time Spent (min) 50
--- NOTE | 2022-09-10 12:30 | Hospitalist Progress Note ---
Date of Service September 10, 2022 Assessment & Plan (1) Paresthesias: Plan CT brain did not show acute abnormality MRI brain noted numerous small foci in superior right frontal and parietal lobes, similar in distribution to 09/04/22. Patient does not have a new stroke this time Patient reporting paresthesia Per PCP note, he has DDD, OA of multiple joints, essential tremor He recently discharged on 09/07/22 after management for CVA. He had declined rehab placement at the time. Cervical MRI showed multilevel degenerative changes with up to severe bilateral neuroforaminal stenosis. Patient will benefit from rehab and eventually follow up with Ortho spine. Patient currently lacks capacity based on my evaluation I also appreciate Psych evaluation He requests that his sister be his surrogate decision maker For recent CVA, continue ASA 81mg, eliquis and atorvastatin. He still needs to follow up with Vas surgeon for right carotid bulb atherosclerotic plaque from recent imaging For chronic Afib which is rate controlled, continue metoprolol. Hypertension: Monitor BP and ensure optimal control Continue home duloxetin PT/OT eval CM to arrange placement DVT ppx: on eliquis Sister Vidhya [phone] (Primary) [phone] (Secondary) I called sister and updated her on my evaluation, findings and recommendations. She agrees with rehab placement. I spent a total of 50 minutes coordinating, documenting and providing care for this patient excluding time spent in performance of separately billed services Admission and Anticipated Discharge Date Admission Date: September 09, 2022 Subjective Patient seen and examined Patient was confused yesterday evening and this morning Patient wanted to leave the hospital and was getting agitated. By the time I came evaluate him, he had calmed down. He is AOx3. However, patient has memory deficits. He does not recall our conversations yesterday about his stroke, management and findings. His survey chief Harsh was at bedside. I went over patient recent stroke, imaging and findings with both of them. I explained the need for rehab. Patient currently lacks insight or full understanding of medical problems and m anagement His Assistant Merchandiser agrees with recommendations. His Assistant Merchandiser also spoke with him. He stated he is agreeable to go to rehab now. Currently reports only paresthesia in both hands and feet Denied other complaints in ROS Physical Exam Constitutional: + well hydrated; no acute distress Eyes: PERRL, conjunctivae normal, anicteric sclerae ENMT: external ear and nose normal, oropharynx normal Respiratory: normal respiratory effort, lungs clear to auscultation Cardiovascular: Rate/Rhythm: + irregularly irregular S1 S2 Gastrointestinal (Abdomen): normal bowel sounds, soft, nontender, no hepatosplenomegaly Musculoskeletal: No pedal edema Neurologic: PERRL, EOMI, accommodation nl, no face palsy, no dysarthria Power is equal in both hands Psychiatric: A+Ox3, euthymic affect Poor insight Results & Data Results & Data Vital Signs (Past 12 Hours) Vital Signs Temp Pulse Pulse Resp BP Pulse Ox O2 Del Method 09/10/22 12:16 36.5 C 78 20 139/89 98 Room Air 09/10/22 07:56 62 09/10/22 07:50 36.6 C 72 19 114/65 97 Room Air 09/10/22 04:13 36.9 C 73 16 146/92 H 99 Room Air 09/10/22 02:32 93 H Laboratory Results Abnormal lab results 09/10/22 09/10/22 Range/Units 04:42 04:42 WBC 4.78 L (4.8-10.8) K/ul BUN/Creatinine Ratio 20.2 H (10-20)
[2022-09-10] MEDS: APIXABAN 5 MG TABLET PO SCH ×2 (12:52→20:37)
[2022-09-11 05:19] LABS: Basophils # (auto) 0.02 K/uL (0-0.2); Basophils % (auto) 0.4 %; Eosinophils # (auto) 0.15 K/uL (0-0.50); Eosinophils % (auto) 2.7 %; Hematocrit (blood only) 43.3 % (42.0-52.0); Hemoglobin 14.9 g/dl (14.0-18.0); Immature Granulocytes # (auto) 0.03 K/uL (0.01-0.20); Immature Granulocytes % (auto) 0.5 %; Lymphocytes # (auto) 1.98 K/uL (1.2-3.4); Lymphocytes % (auto) 36.1 %; Mean Corpuscular Hemoglobin 30.7 pg (25.0-34.0); Mean Corpuscular Hgb Conc 34.4 g/dL (32.0-36.0); Mean Corpuscular Volume 89.3 fL (80.0-100.0); Mean Platelet Volume 9.9 fL (9.4-12.4); Monocytes # (auto) 0.69 K/uL (0.11-0.59); Monocytes % (auto) 12.6 %; Neutrophils # (auto) 2.62 K/uL (1.40-6.50); Neutrophils % (auto) 47.7 %; Platelet Count 141 K/uL (130-400); RDW Coefficient of Variation 13.1 % (11.5-14.5); RDW Standard Deviation 43.1 fL (36.4-46.3); Red Blood Count 4.85 M/uL (4.70-6.10); White Blood Count 5.49 K/ul (4.8-10.8)
[2022-09-11 05:36] LABS: Calcium 9.5 mg/dl (8.6-10.3); Creatinine Clr Calc Pharmacy 93.7 ml/min; Est GFR (African American) 98.5 ml/min; Potassium 3.8 mmol/L (3.5-5.1)
--- NOTE | 2022-09-11 05:46 | Electrocardiogram Report ---
Test Reason : Blood Pressure : / mmHG Vent. Rate : 092 BPM Atrial Rate : 000 BPM P-R Int : 000 ms QRS Dur : 080 ms QT Int : 348 ms P-R-T Axes : 000 016 033 degrees QTc Int : 430 ms Atrial fibrillation Abnormal ECG When compared with ECG of 03-SEP-2022 12:54, Vent. rate has decreased BY 50 BPM Confirmed by Kvng Acosta ([id number]) on 09/11/2022 5:45:57 AM Referred By: REFERRED SELF Confirmed By:Kvng Acosta
[2022-09-11] MEDS: ATORVASTATIN 40 MG TAB PO SCH (08:27)
[2022-09-11] MEDS: APIXABAN 5 MG TABLET PO SCH ×2 (08:27→20:16)
[2022-09-11] MEDS: METOPROLOL TARTRATE 25 MG TAB PO SCH ×2 (08:27→20:17)
[2022-09-11] MEDS: DULoxetine HCL 30 MG CAP PO SCH (08:27)
[2022-09-11] MEDS: ASPIRIN 81 MG ECTAB PO SCH (08:27)
[2022-09-11] MEDS: ACETAMINOPHEN 325 MG TAB PO PRN (08:36)
--- NOTE | 2022-09-11 09:46 | Neurology Progress Note ---
Date of Service September 11, 2022 Assessment & Plan (1) Paresthesias: (2) Startle myoclonus: (3) Tremor: (4) HTN (hypertension): (5) Acute right MCA stroke: (6) Atrial fibrillation with RVR: Plan The patient had multiple tiny emboli to the right hemisphere (middle cerebral artery distribution ) September 03, resulting in transient left upper extremity weakness and word-finding difficulties. These symptoms have resolved. The etiology was either cardiac ( patient has a history of atrial fibrillation but had been on Eliquis ) versus a right internal carotid artery stenosis/ulceration issue. CT angiography did show less than 50 percent stenosis in the internal carotid arteries bilaterally proximally and stenosis in the left V4. He was discharged September 07 in improved condition. Although the original history suggests that on September 08 he developed bilaterally symmetrical, distal dysesthesias in the hands and feet, of a pins and needle nature, further history points to the fact that he has had this problem for upwards to a month. It may just have been a little more prominent on September 08. He is currently the same as admission with these symptoms. No other new symptoms have developed and the symptoms are persistent. The etiology of the symptoms is not readily apparent but may be toxic, metabolic, or other. They have nothing to do with cerebral vascular disease, TIA, or stroke. He has significant degenerative changes in cervical spine. Some of the dysesth esias may be secondary to this, particularly in the upper extremities, but the spinal cord seems unaffected and there is no evidence of myelopathy on examination. Patient has longstanding essential tremor and startle myoclonus. He does not have any evidence of Parkinson's disease or a senile dementia of the Alzheimer's type. Cervical spine issue cannot entirely be excluded although he does not have much in the way of neck pain. the patient is a heavy tobacco user (choose) and a former very heavy alcohol user (now much less alcohol ). Chronic alcoholism could lead to tremor and startle myoclonus also. Recommendations: 1. Continue Eliquis 5 milligrams twice daily 2. Change aspirin to 81 milligrams daily. There is no reason for higher doses of aspirin from a stroke standpoint. 3. Continue atorvastatin 80 milligrams daily. 4. Control blood pressure as you are doing. 5. The patient needs a PCP for follow-up 6. EMG nerve conduction studies could be done on the patient, as an outpatient 7. Otherwise I have no further neurologic testing or treatment recommendations to make on this patient at this time. Please contact me if I can be of further assistance. Overall, I spent a total of 35 minutes with this case including review of records, direct evaluation the patient at bedside, report generation, and discussion of the case with patient and RN at bedside, and Dr. Bolden including differential diagnosis treatment options. Admission and Anticipated Discharge Date Admission Date: September 09, 2022 Subjective patient feels about the same with no new issues or changes. He still has numbness and tingling in his hands and feet. He states today that this is been present for several weeks to probably a month (unchanged). MRI of the cervical spine showed diffuse degenerative changes of the significant nature. The cord does not Appear impinged but there is mild spinal stenosis. In addition, there is severe foraminal stenosis diffusely bilaterally Blood pressure is 122/83 is afebrile. CBC and Chem profile were unremarkable. Results & Data Vital Signs (Past 12 Hours) Vital Signs Temp Pulse Pulse Resp BP Pulse Ox O2 Del Method 09/11/22 08:15 36.8 C 85 19 122/83 96 Room Air 09/11/22 08:00 59 L 09/11/22 03:00 36.4 C L 64 18 132/89 100 Room Air 09/10/22 23:00 36.7 C 64 17 136/88 96 Room Air Exam (Neuro) Physical Exam: He is awake and alert. Speech is without aphasia or dysarthria. Mood is quiet but affect is appropriate. He converses fairly well. Extraocular muscles are intact without nystagmus. There is no facial droop. Coordination is normal in the arms without tremor or ataxia. I noticed less startle phenomenon this morning. Strength seems symmetrical the limbs. He is sitting up in bed without difficulty. PG Care Time/CCT Total # of Minutes Spent Total Time Spent with Patient: Total time spent is greater than 50% in coordination of care (as documented) at patient's floor/unit and/or counseling patient: Coding Level of Care Code 11625 SUB INP/OBS CARE 2/35MIN Diagnoses Paresthesias R20.2 Startle myoclonus G25.3 Tremor R25.1 HTN (hypertension) I10 Acute right MCA stroke I63.511 Atrial fibrillation with RVR I48.91
--- NOTE | 2022-09-11 11:58 | Hospitalist Progress Note ---
Date of Service September 11, 2022 Assessment & Plan (1) Paresthesias: Plan CT brain did not show acute abnormality MRI brain noted numerous small foci in superior right frontal and parietal lobes, similar in distribution to 09/04/22. Patient does not have a new stroke this time Patient reporting paresthesia Per PCP note, he has DDD, OA of multiple joints, essential tremor He recently discharged on 09/07/22 after management for CVA. He had declined rehab placement at the time. Cervical MRI showed multilevel degenerative changes with up to severe bilateral neuroforaminal stenosis. Patient will benefit from rehab and eventually follow up with Ortho spine. Psych eval appreciated. Patient lacks capacity to refuse rehab Sister agreed with rehab placement For recent CVA, continue ASA 81mg, eliquis and atorvastatin. He still needs to follow up with Vasc surgeon for right carotid bulb atherosclerotic plaque from recent imaging For chronic Afib which is rate controlled, continue metoprolol. Hypertension: BP is better controlled Continue home duloxetin PT/OT eval CM to arrange placement DVT ppx: on verónicaquis Sister Vidhya [phone] (Primary) [phone] (Secondary) I spent a total of 40 minutes coordinating, documenting and providing care for this patient excluding time spent in performance of separately billed services Admission and Anticipated Discharge Date Admission Date: September 09, 2022 Subjective Patient seen and examined Reports paresthesia in hands and feet Denied any other symptoms Physical Exam Constitutional: + well hydrated; no acute distress Eyes: PERRL, conjunctivae normal, anicteric sclerae ENMT: external ear and nose normal, oropharynx normal Respiratory: normal respiratory effort, lungs clear to auscultation Cardiovascular: Rate/Rhythm: + irregularly irregular S1 S2 Gastrointestinal (Abdomen): normal bowel sounds, soft, nontender, no hepatosplenomegaly Neurologic: PERRL, EOMI, accommodation nl, no face palsy, no dysarthria Psychiatric: A+Ox3, euthymic affect Results & Data Results & Data Vital Signs (Past 12 Hours) Vital Signs Temp Pulse Pulse Resp BP Pulse Ox O2 Del Method 09/11/22 11:49 36.8 C 81 20 117/80 96 Room Air 09/11/22 08:00 Room Air 09/11/22 08:15 36.8 C 85 19 122/83 96 Room Air 09/11/22 08:00 59 L 09/11/22 03:00 36.4 C L 64 18 132/89 100 Room Air Laboratory Results Abnormal lab results 09/11/22 09/11/22 Range/Units 04:49 04:49 [place] # (Auto) 0.69 H (0.11-0.59) K/uL BUN/Creatinine Ratio 23.0 H (10-20)
[2022-09-12] MEDS: DULoxetine HCL 30 MG CAP PO SCH (08:30)
[2022-09-12] MEDS: ATORVASTATIN 40 MG TAB PO SCH (08:30)
[2022-09-12] MEDS: APIXABAN 5 MG TABLET PO SCH ×2 (08:30→20:29)
[2022-09-12] MEDS: ASPIRIN 81 MG ECTAB PO SCH (08:31)
[2022-09-12] MEDS: METOPROLOL TARTRATE 25 MG TAB PO SCH ×2 (09:26→20:29)
--- NOTE | 2022-09-12 16:49 | Hospitalist Progress Note ---
Date of Service September 12, 2022 Assessment & Plan (1) Paresthesias: Plan CT brain did not show acute abnormality MRI brain noted numerous small foci in superior right frontal and parietal lobes, similar in distribution to 09/04/22. Patient does not have a new stroke this time Patient reporting paresthesia Per PCP note, he has DDD, OA of multiple joints, essential tremor He recently discharged on 09/07/22 after management for CVA. He had declined rehab placement at the time. Cervical MRI showed multilevel degenerative changes with up to severe bilateral neuroforaminal stenosis. Patient will benefit from rehab and eventually follow up with Ortho spine. Psych eval appreciated. Patient lacks capacity to refuse rehab Sister agreed with rehab placement For recent CVA, continue ASA 81mg, eliquis and atorvastatin. He still needs to follow up with Vasc surgeon for right carotid bulb atherosclerotic plaque from recent imaging For chronic Afib which is rate controlled, continue metoprolol. Hypertension: BP is better controlled Continue home duloxetin PT/OT eval CM to arrange placement DVT ppx: on irais Kee [phone] (Primary) [phone] (Secondary) I spent a total of 35 minutes coordinating, documenting and providing care for this patient excluding time spent in performance of separately billed services Admission and Anticipated Discharge Date Admission Date: September 09, 2022 Subjective Patient seen and examined Reports paresthesia in hands and feet Has startle myoclonus Physical Exam Constitutional: + well hydrated; no acute distress Eyes: PERRL, conjunctivae normal, anicteric sclerae ENMT: external ear and nose normal, oropharynx normal Respiratory: normal respiratory effort, lungs clear to auscultation Cardiovascular: Rate/Rhythm: + irregularly irregular S1 S2 Gastrointestinal (Abdomen): normal bowel sounds, soft, nontender, no hepatosplenomegaly Musculoskeletal: No pedal edema Neurologic: PERRL, EOMI, accommodation nl, no face palsy, no dysarthria Psychiatric: A+Ox3, euthymic affect Results & Data Results & Data Vital Signs (Past 12 Hours) Vital Signs Temp Pulse Pulse Resp BP Pulse Ox O2 Del Method 09/12/22 16:12 36.2 C L 92 H 21 141/90 H 96 Room Air 09/12/22 14:53 81 09/12/22 12:23 36.6 C 80 20 108/55 L 98 Room Air 09/12/22 08:17 36.7 C 95 H 20 138/81 98 Room Air 09/12/22 07:44 Room Air 09/12/22 07:11 76
[2022-09-13] MEDS: ASPIRIN 81 MG ECTAB PO SCH (09:06)
[2022-09-13] MEDS: METOPROLOL TARTRATE 25 MG TAB PO SCH (09:06)
[2022-09-13] MEDS: ATORVASTATIN 40 MG TAB PO SCH (09:06)
[2022-09-13] MEDS: APIXABAN 5 MG TABLET PO SCH (09:06)
[2022-09-13] MEDS: DULoxetine HCL 30 MG CAP PO SCH (09:06)
--- NOTE | 2022-09-13 13:43 | Hospitalist Progress Note ---
Date of Service September 13, 2022 Assessment & Plan (1) Paresthesias: Plan CT brain did not show acute abnormality MRI brain noted numerous small foci in superior right frontal and parietal lobes, similar in distribution to 09/04/22. Patient does not have a new stroke this time Patient reporting paresthesia Per PCP note, he has DDD, OA of multiple joints, essential tremor He recently discharged on 09/07/22 after management for CVA. He had declined rehab placement at the time. Cervical MRI showed multilevel degenerative changes with up to severe bilateral neuroforaminal stenosis. Patient will benefit from rehab and eventually follow up with Ortho spine. Psych eval appreciated. Patient lacks capacity to refuse rehab Sister agreed with rehab placement For recent CVA, continue ASA 81mg, eliquis and atorvastatin. He still needs to follow up with Vasc surgeon for right carotid bulb atherosclerotic plaque from recent imaging For chronic Afib which is rate controlled, continue metoprolol. Hypertension: BP is better controlled Continue home duloxetin PT/OT eval CM to arrange placement. CM reports patient is accepted but transport is not available till 9pm. Plan for dc tomorrow morning DVT ppx: on eliqukristopher Kee [phone] (Primary) [phone] (Secondary) I spent a total of 30 minutes coordinating, documenting and providing care for this patient excluding time spent in performance of separately billed services Admission and Anticipated Discharge Date Admission Date: September 09, 2022 Subjective Patient seen and examined Reports paresthesia in hands and feet Has startle myoclonus Physical Exam Constitutional: + well hydrated; no acute distress Eyes: PERRL, conjunctivae normal, anicteric sclerae ENMT: external ear and nose normal, oropharynx normal Respiratory: normal respiratory effort, lungs clear to auscultation Cardiovascular: Rate/Rhythm: + irregularly irregular S1 S2 Gastrointestinal (Abdomen): normal bowel sounds, soft, nontender, no hepatosplenomegaly Musculoskeletal: No pedal edema Neurologic: PERRL, EOMI, accommodation nl, no face palsy, no dysarthria Psychiatric: A+Ox3, euthymic affect Results & Data Results & Data Vital Signs (Past 12 Hours) Vital Signs Temp Pulse Resp BP Pulse Ox O2 Del Method 09/13/22 12:45 36.8 C 83 18 108/70 95 09/13/22 11:06 36.8 C 83 18 108/70 95 Room Air 09/13/22 07:54 36.5 C 80 21 153/84 H 98 Room Air 09/13/22 03:00 36.5 C 84 18 141/85 H 96 Room Air
--- NOTE | 2022-09-13 16:31 | Discharge Summary ---
Date of Service September 13, 2022 Admission HPI Per Admitting Provider This is a 72-year-old male with past medical history significant for atrial fibrillation, hyperlipidemia, depression, recent acute right lacunar stroke, who was discharged on 09/07/2022, comes back with numbness in the hands and feet. The patient says since discharge, since yesterday evening he noticed numbness in his hands and legs, pins and needles. He was not getting better, that is the reason he came here. He denies any other complaints. Currently, very hard of hearing, but able to answer the questions. No facial droop seen. Speech is clear. Denies any headache. Vision is okay. No runny nose, no sore throat, no cough, no fevers. Swallowing okay. No chest pain, no shortness of breath, no nausea, no abdominal pain. Normal bowel and bladder movements. He says he is ambulating okay. Currently, resting comfortably and hemodynamically stable. Admission Exam Per Admitting Provider GENERAL: The patient is of moderate build, not in acute distress. VITAL SIGNS: Temperature afebrile, pulse 88, respiratory rate 19, blood pressure 171/98, oxygen 100% on room air. HEENT: Pupils equal, round and reactive to light. Oral mucosa moist. NECK: No JVD, no neck masses. CARDIOVASCULAR: S1 and S2 heard. Regular rate and rhythm. No murmur, no gallop. RESPIRATORY SYSTEM: Normal AP diameter. No accessory muscle use. No wheezing or crackles. ABDOMEN: Soft, bowel sounds present, nontender, no distention. CENTRAL NERVOUS SYSTEM: Alert, awake, and oriented. Speech is clear. No facial droop. Tongue is midline. Able to close his eyes. Power seems to be 5/5 in all extremities. 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 No pronator drift seen. Sensation is decreased in the bilateral lower extremities. EXTREMITIES: No edema, no erythema seen. Principal Diagnosis Paresthesia Recent stroke Cervical degenerative disc disease Discharge Exam Constitutional + well hydrated; no acute distress Eyes PERRL, conjunctivae normal, anicteric sclerae ENMT external ear and nose normal, oropharynx normal Respiratory normal respiratory effort, lungs clear to auscultation Cardiovascular Rate/Rhythm: + irregularly irregular S1 S2 Gastrointestinal (Abdomen) normal bowel sounds, soft, nontender, no hepatosplenomegaly Musculoskeletal No pedal edema Neurologic PERRL, EOMI, accommodation nl, no face palsy, no dysarthria Psychiatric A+Ox3, euthymic affect Discharge Data Allergies Allergy/AdvReac Type Severity Reaction Status Date / Time vitamin b AdvReac Severe b12 and B6 Uncoded 09/09/22 02:06 makes nose bleed Consultations 09/09/22 01:28 ED Decision to Admit Stat 09/09/22 08:00 Consult Neurology Routine 09/10/22 07:54 Consult Psychiatry Routine Ordered Studies 09/09/22 00:06 CT head/brain wo con Stat 09/09/22 04:24 MR brain wo/w con Routine 09/09/22 08:57 MRI Cervical [MR cervical spine wo con] Urgent Hospital Course (1) Paresthesias: Plan Patient was recently hospitalized for a stroke CT brain did not show acute abnormality MRI brain noted numerous small foci in superior right frontal and parietal lobes, similar in distribution to 09/04/22. Patient does not have a new stroke this time Patient reporting paresthesia Per PCP note, he has DDD, OA of multiple joints, essential tremor He recently discharged on 09/07/22 after management for CVA. He had declined rehab placement at the time. Cervical MRI showed multilevel degenerative changes with up to severe bilateral neuroforaminal stenosis. Patient will benefit from rehab and eventually follow up with Ortho spine. He had declined rehab earlier during recent admission for stroke Psych eval appreciated. Patient lacks capacity to refuse rehab Sister agreed with rehab placement For recent CVA, continue ASA 81mg, eliquis and atorvastatin. He still needs to follow up with Vasc surgeon for right carotid bulb atherosclerotic plaque from recent imaging For chronic Afib which is rate controlled, continue metoprolol. Hypertension: BP is better controlled Continue home duloxetin Total Time Total Time Spent Total Time Spent (In Minutes): 35 Total Time Includes: Examination of the Patient, Discharge Planning and Medication Reconciliation Discharge Plan Discharge Items Patient Disposition: Transfer Long Term Fac Reason For Visit: NUMBNESS IN HANDS AND FEET Discharge Diagnosis: Paresthesia Recent stroke Cervical degenerative disc disease Activity: As commented below Activity Comment: As recommended by Physical therapy Non-emergency contact: Primary Care Provider Call non-emergency contact if: you have any medication questions Follow-up/Referrals: PCP,NO [Primary Care Provider] - Diet: Heart Healthy Addtl Attending Provider Instructions: Mr Castrejon. You had come to the hospital for numbness in hands and feet. You had a recent stroke. You were evaluated and you are being discharged to nursing facility for rehab. Please ensure follow up with Vascular surgery outpatient in view of blood vessel findings during last hospital stay for stroke. Please continue Aspirin 81mg daily and eliquis 5mg twice a day. Please continue all meds as prescribed. It was a pleasure taking care of you. Pending Studies at Discharge: No Stand-Alone Forms: My [facility] Skilled Items Patient informed of condition?: Yes DNR: No Discharge Level of Care: Skilled Communicable Disease: No Discharge Prognosis: Stable Lines: None Urinary Catheter: No Medications and DC Order Prescriptions: New aspirin 81 mg Tablet,Delayed Release (Dr/Ec) 81 mg PO DAILY Qty: 30 0RF Continued saw palmetto 450 mg Capsule 1,800 mg PO DAILY Rx Instructions: give with food (meal/snack) pt is taking 4 tablet dose per [facility] atorvastatin 80 mg tablet 80 mg PO DAILY Qty: 30 0RF arginine (L-arginine) 500 mg tablet 1,000 mg PO AMHS Qty: 60 0RF metoprolol tartrate 25 mg tablet 25 mg PO BID Qty: 60 0RF duloxetine 30 mg capsule,delayed release(DR/EC) 30 mg PO DAILY Qty: 30 0RF Eliquis 5 mg tablet 5 mg PO BID Qty: 60 0RF Discontinued aspirin 81 mg Tablet 81 mg PO DAILY Discharge Orders: Discharge Order (Routine); Ordered 09/13/22 Ordered By: Amber Bolden Admission Data Admit Date/Time: 09/09/22 02:43 Attending Provider: Amber Bolden I. Admit Provider: Daniel Pelayo Primary Care Provider: PCP,NO Other Providers: Daniel Pelayo ; Oriana Jeronimo ; Vesna Esparza ; Ousmane Monge Other Interventions: Discharge Summary Assessment (RN) Last Done: 09/13/22 12:45
== END 2022-09-13 17:36 | DRG 92 ==
LOC: ED 23:51 → 4W 09-09 02:43 → INTOOBSV 09-09 02:43 → 4W 09-09 03:43

== ENCOUNTER 2023-02-09 09:15 | Observation (INO) ==
--- NOTE | 2023-02-09 09:43 | Emergency Department Note ---
Impression & Plan Atrial fibrillation with RVR, Acute exacerbation of congestive heart failure, Closed left femoral fracture ED Provider Note NAME: YOSI MITTAL AGE: 72 SEX: M : 1950 ARRIVES VIA: Ambulance INFORMANT: Patient, ED PROVIDER(S): Monty Mccoy MD CHIEF COMPLAINT: Possible fall, inability to get up MEDICAL DECISION MAKING: Patient presents due to concern for possible fall and inability to get up and associated weakness. IV was established blood work was obtained patient was ordered IV fluids sepsis protocols initiated pending blood work prior to any antibiotic administration as the patient does not complain of any infectious symptoms and does not have any fever. Patient was ordered for may have magnesium and fluids for his headache. Patient was ordered his home dose metoprolol and an IV dose of Lopressor given the patient's A-fib with RVR but do believe the patient clinically is dry. Patient's blood work shows a normal white count H&H and platelet count kidney function is unremarkable mild hypomagnesemia. Patient's urinalysis does not show evidence of obvious blood or infection. Alcohol negative. Chest x-ray shows possible concern for volume overload. Fluids were stopped patient was ordered IV Lasix and BiPAP as well as magnesium repleted. The patient did go for CT head cervical spine and abdomen and pelvis. Patient was noted to have a femur fracture on CT abdomen pelvis. CT of the cervical spine negative. Patient tolerated the BiPAP well and seemed improvement in his respiratory status. I did speak with Patricia Alvarado PA-C and the patient was admitted by Dr. Luna. Critical Care: I have personally spent 42 minutes of critical care time in direct management of this patient. This includes bedside care, interpretation of diagnostic studies, and testing, discussion with consultants, patient, and family members, and other require inpatient management activities. This 42 minutes is in excess of all separately billable procedures. Discussion w/ other healthcare providers: Michael Alvarado PA-C and Dr. Luna Prior /Outside records reviewed: I did review an echocardiogram from September 2022. Patient was noted to have A-fib with mild concentric LVH EF of 50 to 55% with no wall motion abnormality no evidence of aortic stenosis and mild mitral regurgitation was present Differential diagnosis: Infection, dehydration, metabolic abnormality, hypo/hyperglycemia, electrolyte imbalance, anemia, UTI, pneumonia, thyroid dysfunction among others were considered. Diagnostics, as interpreted by me: ECG: A-fib with RVR, rate of 124, normal axis no ST elevations. Cardiac monitoring: An order was placed for continuous cardiac monitoring. The monitor shows a rate of 122 with tachycardic and irregular rate rhythm. Patient was placed on pulse oximetry Medical decision rules: None Imaging studies: I informally interpreted the patient's chest x-ray which shows likely pulmonary edema with formal report to follow. HPI: Patient presents due to concern for possible fall and inability to get up. EMS provided some additional history conveyed to nursing that the landlord had found him on the floor. They did notice a small amount of bruising to the right lower back. The patient does take blood thinners. Patient denies any chest pain or neck pain no shortness of breath but the patient did require some supplemental nasal cannula. Patient reportedly does have a known history of Parkinson's. Patient believes that he got up to use a bath around 3 AM and fell and was unable to get up thereafter. The patient does not complain of any upper extremity or right lower extremity pain but does feel decreased range of motion secondary to pain of the left lower extremity. Patient does live by himself. PAST MEDICAL HISTORY: See Below PAST SURGICAL HISTORY: See Below SOCIAL HISTORY: See Below HOME MEDICATIONS: See Below ALLERGIES: See Below VITALS: See Below PHYSICAL EXAMINATION: GENERAL: NAD, non-toxic. EYE EXAM: Normal conjunctiva. PERRL, no anisocoria and EOM's grossly intact w/o pain. OROPHARYNX: Moist mucus membranes, grossly normal dentition. NECK: Supple, no nuchal rigidity, no adenopathy, non-tender. No signs of meningismus. FROM of the neck with good chin to chest and neck extension. No stridor. LUNGS: Clear to auscultation. Normal chest wall mechanics. HEART: Tachycardic and irregularly irregular, no MRG. ABDOMEN: Abdomen soft, non-tender, no masses, no rebound or guarding. BACK: No CVA TTP. SKIN: Bruising noted to the right lower paraspinal lumbar area without abdominal pain or midline TTP UPPER EXTREMITIES: Upper extremities are grossly normal. LOWER EXTREMITIES: No pain to palpation over the bilateral hips, decreased range of motion left lower extremity secondary to pain. NEURO EXAM: A&O x3, cranial nerves II-XII grossly intact, normal speech, moves all 4 extremities. Past Med/Surg History Medical History Stroke-like symptoms CAD (coronary artery disease) Depression Atrial fibrillation with RVR HTN (hypertension) Altered mental status Surgical History S/P cataract surgery No pertinent past surgical history Family History Mother , date age 93 with memory issues Dementia Father , age 51 of heart disease Heart disease Other Dyslipidemia Social History Smoking Status: Never smoker Tobacco Type: Smokeless Tobacco (Dip or Chew) Cigarettes Per Day: patient stop smoking cigarettes in his 30s.; Do You Dip or Chew Tobacco: Yes; Hx Alcohol Use: Yes Alcohol type: beer and wine Alcohol type Comment: 1 bottle or more whiskey per day for many years. 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 Other Information That Helps Us Care for You: No Feels Safe at Home: Yes Safety Concerns: Feels Safe At This Time Assistive Devices: Cane, Denture - Upper, Denture - Lower and Walker Allergies Allergies Allergy/AdvReac Type Severity Reaction Status Date / Time cyanocobalamin (vitamin B12) AdvReac Severe b12 and B6 Verified 02/09/23 13:52 makes nose bleed pyridoxine AdvReac Severe b12 and B6 Verified 02/09/23 13:52 makes nose bleed Home Meds Home Medications Medication Instructions Recorded Confirmed saw palmetto 450 mg capsule 1,800 mg PO DAILY 09/03/22 02/09/23 Previous Rx's Medication Instructions Recorded apixaban 5 mg tablet (Eliquis) 5 mg PO BID #60 tabs 09/13/22 arginine (L-arginine) 500 mg tablet 1,000 mg (2 x 500 mg) PO AMHS #60 09/13/22 tabs aspirin 81 mg tablet,delayed 81 mg PO DAILY #30 tabs 09/13/22 release atorvastatin 80 mg tablet 80 mg PO DAILY #30 tabs 09/13/22 duloxetine 30 mg capsule,delayed 30 mg PO DAILY #30 caps 09/13/22 release metoprolol tartrate 25 mg tablet 25 mg PO BID #60 tabs 09/13/22 Results & Data (ED) Vital Signs Vital Signs - 24 hr 02/09/23 09:30 02/09/23 09:45 02/09/23 10:23 Temperature 36.5 C Temperature Source Oral Pulse Rate 115 H 131 H 118 H Pulse Rate [Apical] Pulse Rate from SpO2 Sensor 110 H Respiratory Rate 30 H 31 H Respiratory Effort / Characteristics Spontaneous Blood Pressure 177/117 H 171/106 H Blood Pressure Mean 137 127 Pulse Oximetry 96 92 Oxygen Delivery Method Room Air Oxygen Flow Rate Fraction of Inspired Oxygen Sepsis Recent Fever Within 48 Hours No Sepsis New/Unexplained Change in Mental Status N/A Sepsis Action Taken by Nursing No Action Required 02/09/23 10:30 02/09/23 10:35 02/09/23 10:50 Temperature Temperature Source Pulse Rate 100 H 93 H Pulse Rate [Apical] 91 H Pulse Rate from SpO2 Sensor 96 H Respiratory Rate 34 H 24 Respiratory Effort / Characteristics Spontaneous Blood Pressure 160/110 H Blood Pressure Mean 126 Pulse Oximetry 91 94 Oxygen Delivery Method Nasal Cannula Oxygen Flow Rate 3 Fraction of Inspired Oxygen Sepsis Recent Fever Within 48 Hours Sepsis New/Unexplained Change in Mental Status Sepsis Action Taken by Nursing 02/09/23 11:00 02/09/23 11:33 02/09/23 11:39 Temperature Temperature Source Pulse Rate 99 H 99 H 97 H Pulse Rate [Apical] Pulse Rate from SpO2 Sensor 93 H 99 H Respiratory Rate 34 H 20 22 Respiratory Effort / Characteristics Blood Pressure 142/117 H 182/114 H Blood Pressure Mean 125 136 Pulse Oximetry 100 94 93 Oxygen Delivery Method Room Air Oxygen Flow Rate Fraction of Inspired Oxygen 30 Sepsis Recent Fever Within 48 Hours Sepsis New/Unexplained Change in Mental Status Sepsis Action Taken by Nursing 02/09/23 12:00 Temperature Temperature Source Pulse Rate 97 H Pulse Rate [Apical] Pulse Rate from SpO2 Sensor 93 H Respiratory Rate 18 Respiratory Effort / Characteristics Blood Pressure 172/121 H Blood Pressure Mean 138 Pulse Oximetry 95 Oxygen Delivery Method Nasal Cannula Oxygen Flow Rate Fraction of Inspired Oxygen Sepsis Recent Fever Within 48 Hours Sepsis New/Unexplained Change in Mental Status Sepsis Action Taken by Jail Medications Current Medication List: was personally reviewed by me Laboratory Data Attestation: I reviewed the patient's lab results. 02/10/23 06:38 02/10/23 06:38 Lab Results 02/09/23 02/09/23 02/09/23 Range/Units 09:34 09:35 10:11 WBC 7.41 (4.8-10.8) K/ul RBC 4.78 (4.70-6.10) M/uL Hgb 14.2 (14.0-18.0) g/dl Hct 43.3 (42.0-52.0) % MCV 90.6 (80.0-100.0) fL MCH 29.7 (25.0-34.0) pg MCHC 32.8 (32.0-36.0) g/dL RDW Std Deviation 46.3 (36.4-46.3) fL RDW Coeff of Shayy 14.1 (11.5-14.5) % Plt Count 120 L (130-400) K/uL MPV 10.1 (9.4-12.4) fL Immature Gran % (Auto) 0.5 % Neut % (Auto) 76.1 % Lymph % (Auto) 12.0 % Gove % (Auto) 9.3 % Eos % (Auto) 1.8 % Baso % (Auto) 0.3 % Neut # (Auto) 5.64 (1.40-6.50) K/uL Lymph # (Auto) 0.89 L (1.20-3.40) K/uL Gove # (Auto) 0.69 H (0.11-0.59) K/uL Eos # (Auto) 0.13 (0.00-0.50) K/uL Baso # (Auto) 0.02 (0.00-0.20) K/uL Immature Gran # (Auto) 0.04 (0.01-0.20) K/uL PT 11.5 (9.0-12.0) Seconds INR 1.1 (0.9-1.1) APTT 27.6 (21.0-31.0) Seconds PTT Ratio 1.0 Sodium 140 (136-145) mmol/L Potassium 4.4 (3.5-5.1) mmol/L Chloride 108 H (98-107) mmol/L Carbon Dioxide 24 (21-32) mmol/L Anion Gap 8 (3-11) BUN 14 (6-23) mg/dl Creatinine 0.87 (0.6-1.4) mg/dl Est Cr Clr Drug Dosing 94.3 ml/min Est GFR ( Amer) 98.5 ml/min Est GFR (Non-Af Amer) 85.0 ml/min BUN/Creatinine Ratio 16.1 (10-20) Glucose 107 H (70-99(Fasting)) mg/dl Lactate (0.4-2.0) mmol/L Calcium 9.5 (8.6-10.3) mg/dl Magnesium 1.6 L (1.7-2.4) mg/dl Total Bilirubin 0.8 (0.2-1.0) mg/dl Direct Bilirubin 0.1 (0-0.2) mg/dl AST 20 (13-39) U/L ALT 12 (7-52) U/L Alkaline Phosphatase 71 (34-104) U/L Troponin I High Sens (0-20) pg/ml B-Natriuretic Peptide (0-100) pg/ml Total Protein 7.1 (6.0-8.3) gm/dl Albumin 4.1 (3.4-5.0) gm/dl Globulin 3.0 (2.5-4.0) gm/dl Albumin/Globulin Ratio 1.4 (0.9-2) Procalcitonin < 0.05 (0-0.5) ng/ml Urine Color Yellow Urine Appearance Cloudy A (Clear) Urine pH 6.0 (4.5-7.5) Ur Specific [place] 1.022 (1.000-1.030) Urine Protein Trace H (Negative) Urine Glucose (UA) Negative (Negative) Urine Ketones Negative (Negative) Urine Blood Negative (Negative) Urine Nitrite Negative (Negative) Urine Bilirubin Negative (Negative) Urine Urobilinogen Negative (Negative) Ur Leukocyte Esterase Negative (Negative) Urine WBC (Auto) 1-5 (0-5) /hpf Urine RBC (Auto) 0-4 (0-4) /hpf U Hyaline Cast (Auto) 1-5 (0-5) /lpf U Epithel Cells (Auto) 10-20 H (0-5) /lpf Urine Bacteria (Auto) Negative (Negative) Ethyl Alcohol mg/dL < 10.0 (<10.0) mg/dl 02/09/23 02/09/23 Range/Units 10:43 11:34 WBC (4.8-10.8) K/ul RBC (4.70-6.10) M/uL Hgb (14.0-18.0) g/dl Hct (42.0-52.0) % MCV (80.0-100.0) fL MCH (25.0-34.0) pg MCHC (32.0-36.0) g/dL RDW Std Deviation (36.4-46.3) fL RDW Coeff of Shayy (11.5-14.5) % Plt Count (130-400) K/uL MPV (9.4-12.4) fL Immature Gran % (Auto) % Neut % (Auto) % Lymph % (Auto) % Gove % (Auto) % Eos % (Auto) % Baso % (Auto) % Neut # (Auto) (1.40-6.50) K/uL Lymph # (Auto) (1.20-3.40) K/uL Gove # (Auto) (0.11-0.59) K/uL Eos # (Auto) (0.00-0.50) K/uL Baso # (Auto) (0.00-0.20) K/uL Immature Gran # (Auto) (0.01-0.20) K/uL PT (9.0-12.0) Seconds INR (0.9-1.1) APTT (21.0-31.0) Seconds PTT Ratio Sodium (136-145) mmol/L Potassium (3.5-5.1) mmol/L Chloride (98-107) mmol/L Carbon Dioxide (21-32) mmol/L Anion Gap (3-11) BUN (6-23) mg/dl Creatinine (0.6-1.4) mg/dl Est Cr Clr Drug Dosing ml/min Est GFR ( Amer) ml/min Est GFR (Non-Af Amer) ml/min BUN/Creatinine Ratio (10-20) Glucose (70-99(Fasting)) mg/dl Lactate 1.4 (0.4-2.0) mmol/L Calcium (8.6-10.3) mg/dl Magnesium (1.7-2.4) mg/dl Total Bilirubin (0.2-1.0) mg/dl Direct Bilirubin (0-0.2) mg/dl AST (13-39) U/L ALT (7-52) U/L Alkaline Phosphatase (34-104) U/L Troponin I High Sens 9.0 (0-20) pg/ml B-Natriuretic Peptide 442 H (0-100) pg/ml Total Protein (6.0-8.3) gm/dl Albumin (3.4-5.0) gm/dl Globulin (2.5-4.0) gm/dl Albumin/Globulin Ratio (0.9-2) Procalcitonin (0-0.5) ng/ml Urine Color Urine Appearance (Clear) Urine pH (4.5-7.5) Ur Specific [place] (1.000-1.030) Urine Protein (Negative) Urine Glucose (UA) (Negative) Urine Ketones (Negative) Urine Blood (Negative) Urine Nitrite (Negative) Urine Bilirubin (Negative) Urine Urobilinogen (Negative) Ur Leukocyte Esterase (Negative) Urine WBC (Auto) (0-5) /hpf Urine RBC (Auto) (0-4) /hpf U Hyaline Cast (Auto) (0-5) /lpf U Epithel Cells (Auto) (0-5) /lpf Urine Bacteria (Auto) (Negative) Ethyl Alcohol mg/dL (<10.0) mg/dl Administered Medications Acetaminophen (Acetaminophen 500 Mg Tab) 1,000 mg PO Q8 [facility] Stop: 03/11/23 18:59 Last Admin: 02/10/23 05:28 Dose: 1,000 mg Documented By: TLElena Admin: 02/09/23 21:16 Dose: 1,000 mg Documented By: TLM Hydromorphone HCl (Hydromorphone Inj 0.5 Mg/0.5 Ml Syr) 0.5 mg IV Q4H PRN PRN Reason: Severe Pain (Scale 7, 8, 9,10) Stop: 02/24/23 06:24 Last Admin: 02/10/23 06:34 Dose: 0.5 mg Documented By: DENISSE Metoprolol Tartrate (Metoprolol Tartrate 25 Mg Tab) 25 mg PO BID [facility] Stop: 03/11/23 20:59 Last Admin: 02/09/23 21:17 Dose: 25 mg Documented By: DENISSE Nitroglycerin (Nitroglycerin 2% Ointment 30gm Tube) 0.5 inch EXT Q6H LOLIS Stop: 03/11/23 16:59 Last Admin: 02/10/23 05:25 Dose: 0.5 inch Documented By: Admin: 02/09/23 23:51 Dose: 0.5 inch Documented By: Admin: 02/09/23 17:59 Dose: 0.5 inch Documented By: RACHELLE Discontinued Medications Furosemide (Furosemide 40 Mg/4 Ml Vial) 60 mg IV ONE ONE Stop: 02/09/23 11:07 Last Admin: 02/09/23 11:26 Dose: 60 mg Documented By: ELLY Hydralazine HCl (Hydralazine Hcl 25 Mg Tab) 25 mg PO NOW STA Stop: 02/09/23 16:36 Last Admin: 02/09/23 17:03 Dose: 25 mg Documented By: RACHELLE Sodium Chloride (Nss) 1,000 mls @ 999 mls/hr IV .Q1H1M ONE Stop: 02/09/23 10:52 Last Infusion: 02/09/23 11:00 Dose: Infused Documented By: Admin: 02/09/23 10:19 Dose: 999 mls/hr Documented By: ELLY Acetaminophen (Ofirmev) 1,000 mg in 100 mls @ 400 mls/hr IV NOW STA Stop: 02/09/23 10:46 Last Infusion: 02/09/23 11:05 Dose: Infused Documented By: Admin: 02/09/23 10:44 Dose: 400 mls/hr Documented By: ELLY Magnesium Sulfate/Dextrose (Magnesium Sulfate / D5w) 1 gm in 100 mls @ 100 mls/hr IV NOW STA Stop: 02/09/23 12:08 Last Infusion: 02/09/23 12:47 Dose: Infused Documented By: Admin: 02/09/23 11:50 Dose: 100 mls/hr Documented By: ELLY Magnesium Sulfate/Dextrose (Magnesium Sulfate / D5w) 1 gm in 100 mls @ 50 mls/hr IV ONE ONE Stop: 02/09/23 15:31 Last Infusion: 02/09/23 16:04 Dose: Infused Documented By: Admin: 02/09/23 14:21 Dose: 50 mls/hr Documented By: TRISH Ioversol (Optiray 320 100ml) 92 ml IV ONCE ONE Stop: 02/09/23 11:31 Last Admin: 02/09/23 11:30 Dose: 92 ml Documented By: KRUPA Ipratropium Normanna (Ipratropium Normanna Neb Soln 0.02% 2.5 Ml Vial) 0.5 mg INH NOW STA Stop: 02/09/23 10:36 Last Admin: 02/09/23 10:50 Dose: 0.5 mg Documented By: NAKUL Levalbuterol HCl (Levalbuterol 1.25 Mg/3 Ml Neb) 1.25 mg INH NOW STA Stop: 02/09/23 10:36 Last Admin: 02/09/23 10:49 Dose: 1.25 mg Documented By: NAKUL Metoprolol Tartrate (Metoprolol Tartrate 1 Mg/Ml Vial) 5 mg IV NOW STA Stop: 02/09/23 09:53 Last Admin: 02/09/23 10:19 Dose: 5 mg Documented By: ELLY Metoprolol Tartrate (Metoprolol Tartrate 25 Mg Tab) 25 mg PO NOW STA Stop: 02/09/23 09:53 Last Admin: 02/09/23 10:20 Dose: 25 mg Documented By: ELLY Miscellaneous (Xopenex/Atrovent 1.25mg/0.5mg Neb Combo) 1 each NEB NOW STA; Protocol Stop: 02/09/23 10:33 Last Admin: 02/09/23 11:39 Dose: Not Given Documented By: ELLY Morphine Sulfate (Morphine Sulfate 4 Mg/Ml 1 Ml Carp\Vial) 4 mg IV NOW STA Stop: 02/09/23 12:57 Last Admin: 02/09/23 13:08 Dose: 4 mg Documented By: ELLY Morphine Sulfate (Morphine Sulfate 4 Mg/Ml 1 Ml Carp\Vial) 4 mg IV NOW STA Stop: 02/09/23 15:36 Last Admin: 02/09/23 17:49 Dose: Not Given Documented By: RACHELLE Tramadol HCl (Tramadol Hcl 50 Mg Tablet) 50 mg PO NOW STA Stop: 02/09/23 15:36 Last Admin: 02/09/23 17:03 Dose: 50 mg Documented By: RACHELLE Imaging Data Radiologist's Impression: Chest X-Ray 02/09/23 09:53 SINGLE VIEW CHEST CLINICAL HISTORY: Sepsis. FINDINGS: 2 AP, portable, upright chest radiographs are compared to study dated 09/03/2022. The examination is degraded by portable technique and patient rotation. The heart is enlarged noting atherosclerotic calcification of the thoracic aorta. There is pulmonary vascular congestion. Scarring/atelectasis is noted at the lung bases. There is no airspace consolidation typical for pneumonia. No large pleural effusion or pneumothorax is seen. The skeletal structures are osteopenic. The bony thorax is grossly intact. IMPRESSION: Cardiomegaly with evidence of congestive failure. ACT 112: Negative or not required by law. Electronically signed by: Rodney Garcia M.D. 02/09/2023 10:32 AM Discharge Plan Visit Data Chief Complaint: Fall ED Provider: Monty Mccoy Discharge Problem: Atrial fibrillation with RVR, Acute exacerbation of congestive heart failure, Closed left femoral fracture Patient Disposition: Admitted As Inpatient Discharge Instructions Interventions: ED Discharge Assessment Last Done: 02/09/23 15:50 Discharge Problem: Acute exacerbation of congestive heart failure Qualifiers: Heart failure type: unspecified Qualified Code(s): I50.9 - Heart failure, unspecified Closed left femoral fracture Qualifiers: Encounter type: initial encounter Femur location: unspecified portion of femur Fracture morphology: unspecified fracture morphology Qualified Code(s): S72.92XA - Unspecified fracture of left femur, initial encounter for closed fracture
[2023-02-09] MEDS ORDERED: SODIUM CHLORIDE 0.9% 1,000 ML IV ONE (09:52)
[2023-02-09] MEDS ORDERED: METOPROLOL TARTRATE 1 MG/ML VIAL IV STA (09:52)
[2023-02-09] MEDS ORDERED: METOPROLOL TARTRATE 25 MG TAB PO STA (09:52)
[2023-02-09 10:05] LABS: Basophils # (auto) 0.02 K/uL (0.00-0.20); Basophils % (auto) 0.3 %; Eosinophils # (auto) 0.13 K/uL (0.00-0.50); Eosinophils % (auto) 1.8 %; Hematocrit (blood only) 43.3 % (42.0-52.0); Hemoglobin 14.2 g/dl (14.0-18.0); Immature Granulocytes # (auto) 0.04 K/uL (0.01-0.20); Immature Granulocytes % (auto) 0.5 %; Lymphocytes # (auto) 0.89 K/uL (1.20-3.40); Mean Corpuscular Hemoglobin 29.7 pg (25.0-34.0); Mean Corpuscular Hgb Conc 32.8 g/dL (32.0-36.0); Mean Corpuscular Volume 90.6 fL (80.0-100.0); Mean Platelet Volume 10.1 fL (9.4-12.4); Monocytes # (auto) 0.69 K/uL (0.11-0.59); Monocytes % (auto) 9.3 %; Neutrophils # (auto) 5.64 K/uL (1.40-6.50); Neutrophils % (auto) 76.1 %; Platelet Count 120 K/uL (130-400); RDW Coefficient of Variation 14.1 % (11.5-14.5); RDW Standard Deviation 46.3 fL (36.4-46.3); Red Blood Count 4.78 M/uL (4.70-6.10); White Blood Count 7.41 K/ul (4.8-10.8)
[2023-02-09 10:15] LABS: Albumin Globulin Ratio 1.4 (0.9-2); Albumin Level 4.1 gm/dl (3.4-5.0); BUN Creatinine Ratio 16.1 (10-20); Bilirubin,Total 0.8 mg/dl (0.2-1.0); Calcium 9.5 mg/dl (8.6-10.3); Creatinine Clr Calc Pharmacy 94.3 ml/min; Est GFR (African American) 98.5 ml/min; Potassium 4.4 mmol/L (3.5-5.1); Total Protein 7.1 gm/dl (6.0-8.3)
[2023-02-09 10:25] LABS: INR 1.1 (0.9-1.1); Partial Thromboplastin Time 27.6 Seconds (21.0-31.0); Prothrombin Time 11.5 Seconds (9.0-12.0)
[2023-02-09 10:31] LABS: Bilirubin Direct 0.1 mg/dl (0-0.2); Magnesium 1.6 mg/dl (1.7-2.4)
[2023-02-09] MEDS ORDERED: XOPENEX/ATROVENT 1.25mg/0.5MG NEB COMBO NEB STA (10:32)
[2023-02-09] MEDS ORDERED: ACETAMINOPHEN 1,000 MG/100 ML VIAL IV STA (10:32)
--- NOTE | 2023-02-09 10:33 | XRay Report ---
SINGLE VIEW CHEST CLINICAL HISTORY: Sepsis. FINDINGS: 2 AP, portable, upright chest radiographs are compared to study dated 09/03/2022. The examina tion is degraded by portable technique and patient rotation. The heart is enlarged noting atheroscle rotic calcification of the thoracic aorta. There is pulmonary vascular congestion. Scarring/atelectas is is noted at the lung bases. There is no airspace consolidation typical for pneumonia. No large ple ural effusion or pneumothorax is seen. The skeletal structures are osteopenic. The bony thorax is mary ssly intact. IMPRESSION: Cardiomegaly with evidence of congestive failure. ACT 112: Negative or not required by law. Electronically signed by: Rodney Garcia M.D. 02/09/2023 10:32 AM
[2023-02-09] MEDS ORDERED: IPRATROPIUM BROMIDE NEB SOLN 0.02% 2.5 ML VIAL INH STA (10:35)
[2023-02-09] MEDS ORDERED: LEVALBUTEROL 1.25 MG/3 ML NEB INH STA (10:35)
[2023-02-09] MEDS ORDERED: FUROSEMIDE 40 MG/4 ML VIAL IV ONE (11:06)
[2023-02-09] MEDS ORDERED: MAGNESIUM SULFATE / D5W 1 GM/100 ML BAG IV STA (11:09)
[2023-02-09 11:15] LABS: Appearance Urine Cloudy (Clear); Bacteria Urine Automated Negative (Negative); Bilirubin Urine Negative (Negative); Blood Urine Negative (Negative); Color Urine Yellow; Glucose Urine UA Negative (Negative); Ketones Urine Negative (Negative); Leukocyte Esterase Urine Negative (Negative); Nitrite Urine Negative (Negative); Protein Urine Trace (Negative); RBC Urine Automated 0-4 /hpf (0-4); Specific Gravity Urine 1.022 (1.000-1.030); Urobilinogen Urine Negative (Negative)
[2023-02-09] MEDS ORDERED: OPTIRAY 320 100ml IV ONE (11:30)
--- NOTE | 2023-02-09 11:40 | CT Scan Report ---
CT head/brain wo con CLINICAL HISTORY: fall Technique: Contiguous axial CT images of the head were acquired from the base of the skull to the norma guillermina without intravenous contrast administration. Images were viewed in brain, subdural and bone [facility]. Automated dose lowering techniques and/or adjustment according to patient size were utilized for this exam. Comparison: Comparison is made to CT head 09/09/2022 Findings: Areas of decreased attenuation are present in the periventricular and subcortical white matter bilate rally consistent with small vessel ischemic disease. Generalized cerebral atrophy with commensurate e nlargement of the ventricles, sulci, and cisterns is also present. There is no acute intracranial hem orrhage or evidence of acute territorial infarction. No shift of the midline structures, mass effect, or extra-axial abnormalities are shown. Atherosclerotic calcifications are present in the intracran ial segments of the internal carotid arteries. Imaged portions of the paranasal sinuses and mastoid air cells are clear. The orbits appear normal. There are no acute fractures of the calvaria or scalp swelling. Impression: No acute intracranial hemorrhage, no evidence of acute territorial infarction or other acute intracra nial disease process. ACT 112: Negative or not required by law. Electronically signed by: Nguyễn Rodríguez M.D. 02/09/2023 11:39 AM
--- NOTE | 2023-02-09 11:46 | CT Scan Report ---
CT cervical spine wo con CLINICAL HISTORY: fall TECHNIQUE: Multidetector row helical CT of the cervical spine was performed without administration of intravenous contrast. Coronal and sagittal reformations were obtained. Automated dose lowering techn iques and/or adjustment according to patient size were utilized for this exam. Comparison: Comparison is made to CTA neck 09/03/2022 FINDINGS: No acute fractures or subluxations are identified. Degenerative changes are seen in the visualized sp ine. Extensive lordosis is noted, unchanged. Soft tissues are unremarkable. IMPRESSION: Degenerative changes without evidence of acute bony injury. ACT 112: Negative or not required by law. Electronically signed by: Nguyễn Rodríguez M.D. 02/09/2023 11:44 AM
--- NOTE | 2023-02-09 12:03 | CT Scan Report ---
CT abd pelvis IV con only CLINICAL HISTORY: R sided lower paraspinal pain and bruising on eliq TECHNIQUE: Helical axial images of the abdomen and pelvis were obtained and displayed. Automated dose lowering techniques and/or adjustment according to patient size were utilized for this exam. This e xam was performed with intravenous contrast. COMPARISON: None available at the time of this dictation. FINDINGS: Lower chest: Small bilateral pleural effusions are seen with underlying atelectasis. Biatrial enlarg ement is seen and there is atherosclerotic disease. Liver: Unremarkable. No focal lesions are seen. Gallbladder and biliary tree: No calcified gallstones. Normal caliber wall. No intra- or extrahepatic biliary ductal dilation. Pancreas: Fatty replacement of the pancreas is seen. Spleen: Unremarkable. Adrenals: Unremarkable. Kidneys and ureters: Exophytic cyst arises from the left kidney. Bladder: Unremarkable. Reproductive organs: Unremarkable. Bowel: Diverticulosis is seen without diverticulitis. The appendix is normal. Lymph nodes Retroperitoneal: Unremarkable. Pelvic: Unremarkable. Mesenteric: Unremarkable. Peritoneum: Normal. Vessels: Atherosclerotic calcifications are seen. Abdominal wall: Unremarkable. Bones: There is an acute fracture of the left femoral neck with overriding and apex lateral angulatio n. Mild surrounding soft tissue stranding is seen. IMPRESSION: Acute fracture of the left femoral neck. No spinal fractures are seen. No acute intra-abdominal injur ies. ACT 112: Negative or not required by law. Electronically signed by: Nguyễn Rodríguez M.D. 02/09/2023 12:01 PM
--- NOTE | 2023-02-09 12:32 | History & Physical Report ---
Date of Service February 09, 2023 Assessment & Plan (1) Left displaced femoral neck fracture: Plan: - Admit to tele - Hip fx order set completed - Consult orthopedics-Dr. Claudio - Holding eliquis, last dose ?? Patient is poor historian and cannot recall last time he took his meds, thinks it was several days ago-if patient is unable to manage his home medications/rehab status post left hip fracture, he may require placement - Pain control with tylenol around the clock, tramadol 50 mg Q4H prn moderate pain, IV morphine 4 mg now for severe pain -Bowel regimen ordered -PT/OT consults (2) Atrial fibrillation with RVR: Plan: -Initially rates are in the 130s on presentation -Patient was given metoprolol 25 mg p.o. x1, Lopressor 5 mg IV x1 with rate improvement into the 90s -Noncompliance with home medication possibly led to A-fib RVR episode, causing pulmonary congestion/volume overload -Echo from September 2022 reviewed without any systolic dysfunction, EF of 50%, recheck -Consult cardiology for preop clearance as well as A-fib control (3) CAD (coronary artery disease): Plan: -History of such, chronic, stable -Check lipid panel and A1c with a.m. labs -Encourage continuation of beta-cierra and rosuvastatin-medication compliance will need to be encouraged upon discharge (4) HTN (hypertension): Plan: - Chronic, BP elevated at 172/121-likely due to not taking medication, metoprolol given as above, improvement of BP well conducting exam at bedside, continue to monitor - Cont Metoprolol 25 mg BID (5) Depression: Plan: -Continue Cymbalta -Chronic, stable (6) Parkinsonism: Plan: -Noted as per [facility] outpatient chart, pill-rolling with the left hand throughout exam -PT OT consults, uses walker/cane at baseline DVT PPx: teds, scds, holding Eliquis Lines 2 PIV FEN/GI: HH diet, n.p.o. at midnight in case of surgical procedure CODE: Full code Dispo: From home, likely to remain in the hospital x 2 days, CM to assist with discharge planning as patient will likely require rehab/permanent SNF History of Present Illness Chief Complaint: Fall Primary Care Provider: NO PCP This is a 72 yo M with PMHx of Paroxysmal atrial fibrillation on Eliquis, Parkinsonism, HTN, HLD, CAD, s/p angioplasty with stent, mitral regurg, prediabetes and osteoarthritis, hx of alcohol abuse who presents to the hospital after acute fall sustained this morning. Pt states his breathing has been bad for a couple of months, and has noticed wheezing and has a nonproductive cough. He denies any chest pain, heaviness, flutter or palpitation. Pt reports that he fell sometimes in the middle of the night, maybe around 3am, and couldnt get up. He uses a walker at baseline and was using it this time. His landlord called 911 after somebody in the apartment building called for him. He was getting up to use the bathroom in the middle of the night. Denies any hitting of his head. He was unable to stand up himself at home. Pt is unable to name his home medications to me, and reports that he was taking Eliquis once per day, and states that the last time he took his meds may have been a few days ago. He admits to chews can of snuff every 2-3 days, and smokes cigarettes maybe 1-2 a day, for his whole life. He admits to drinking alcohol, once every 2 weeks and then may have a bottle of wine in one night and then another the next, but then goes another two weeks without it. CT abd/pelvis was obtained and shows congestive failure with atelectasis in the lungs, as well as a Left femoral neck fracture. In the ER the patient was noted to be tachycardic with HR in the 130s and was administered his home dose of metoprolol 25 mg p.o., and 1 dose of Lopressor 5 mg IV with improvement in the 90s. The patient was initially given a total of 600 mL NSS, but upon imaging results of congestion, was given lasix 60 mg IV in the ER. His urine outs are not nearly 1 L total since Lasix given. He was also initially placed on BiPAP for short period of time and is off of it now on 2L via NC with O2 sats at 96%. Patient does not wear any supplemental O2 at baseline. Magnesium was found to be 1.6 and was replaced with 1 g IV. Allergies Allergy/AdvReac Type Severity Reaction Status Date / Time cyanocobalamin (vitamin B12) AdvReac Severe b12 and B6 Verified 02/09/23 13:52 makes nose bleed pyridoxine AdvReac Severe b12 and B6 Verified 02/09/23 13:52 makes nose bleed Home Medications Medication Instructions Recorded Confirmed Type saw palmetto 450 mg capsule 1,800 mg PO DAILY 09/03/22 02/09/23 History apixaban 5 mg tablet (Eliquis) 5 mg PO BID #60 tabs 09/13/22 02/09/23 Rx arginine (L-arginine) 500 mg tablet 1,000 mg (2 x 500 mg) PO AMHS #60 09/13/22 02/09/23 Rx tabs aspirin 81 mg tablet,delayed 81 mg PO DAILY #30 tabs 09/13/22 02/09/23 Rx release atorvastatin 80 mg tablet 80 mg PO DAILY #30 tabs 09/13/22 02/09/23 Rx duloxetine 30 mg capsule,delayed 30 mg PO DAILY #30 caps 09/13/22 02/09/23 Rx release metoprolol tartrate 25 mg tablet 25 mg PO BID #60 tabs 09/13/22 02/09/23 Rx Past Med/Surg History Medical History Stroke-like symptoms CAD (coronary artery disease) Depression Atrial fibrillation with RVR HTN (hypertension) Altered mental status Surgical History S/P cataract surgery No pertinent past surgical history Family History Mother , date age 93 with memory issues Dementia Father , age 51 of heart disease Heart disease Other Dyslipidemia Social History Smoking Status: Unknown if ever smoked Tobacco Type: Smokeless Tobacco (Dip or Chew) Cigarettes Per Day: patient stop smoking cigarettes in his 30s.; Do You Dip or Chew Tobacco: Yes; Hx Alcohol Use: Yes Alcohol type: hard liquor Alcohol type Comment: 1 bottle or more whiskey per day for many years. 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[employer] Feels Safe at Home: Yes Assistive Devices: Cane Review of Systems Review of Systems: Constitutional: No fever, sweats or chills Eyes: No diplopia, no worsening or blurred vision ENT: normal hearing, no trouble swallowing Respiratory: As per HPI Cardiovascular: No chest pain, tightness or palpitations Abdomen: No pain, nausea, vomiting, diarrhea or constipation Musculoskeletal: Left hip pain, significant, otherwise no joint pain, calf pain, swelling Neurologic: No weakness, numbness/tingling, + uses a walker/cane at baseline, + balance problems Psychiatric: No anxiety or depression Skin: No rash or itch Physical Exam Physical Exam: General: awake, alert, no apparent distress, white male BMI 32.1 Head: Normocephalic, atraumatic ENT: PERRL, EOMI, no pharyngeal exudate, mucous membranes moist Chest: + Crackles present at bases bilaterally, on 2 LPM NC, 96% O2 sat, dry cough Cardiac: Regular rate and rhythm, no murmur, no JVD, normal peripheral pulses, sluggish capillary refill and + skin is cool on the left lower extremity, no mottling Abdominal: NABS x 4 quadrants, soft, nondistended, nontender to palpation, no rebound or guarding Extremities: Left leg externally rotated and shortened, otherwise normal inspection, no peripheral edema or erythema, calfs nontender to palpation Psych: Normal mood and affect Neuro: AAO x 3, has difficulty explaining chronological events of what happened overnight, fair to poor historian, + pill rolling with left hand, strength intact bilaterally and rated 4/5, no motor deficits, speech is clear, no peripheral sensory deficits Results & Data Results & Data Vital Signs (Past 12 Hours) Vital Signs Temp Pulse Pulse Resp BP Pulse Ox O2 Del Method 02/09/23 11:33 99 H 20 94 02/09/23 11:00 99 H 34 H 142/117 H 100 02/09/23 10:50 91 H 24 94 Nasal Cannula 02/09/23 10:35 93 H 02/09/23 10:30 100 H 34 H 160/110 H 91 02/09/23 10:23 118 H 31 H 171/106 H 92 02/09/23 09:45 131 H 02/09/23 09:30 36.5 C 115 H 30 H 177/117 H 96 Room Air O2 Flow Rate FiO2 02/09/23 11:33 30 02/09/23 11:00 02/09/23 10:50 3 02/09/23 10:35 02/09/23 10:30 02/09/23 10:23 02/09/23 09:45 02/09/23 09:30 Laboratory Results 02/09/23 10:44 Aerobic Blood Culture - Pending Blood Anaerobic Blood Culture - Pending 02/09/23 10:43 Aerobic Blood Culture - Pending Blood Anaerobic Blood Culture - Pending 02/09/23 02/09/23 02/09/23 10:43 10:11 09:35 WBC RBC Hgb Hct MCV MCH MCHC RDW Std Deviation RDW Coeff of Shayy Plt Count MPV Immature Gran % (Auto) Neut % (Auto) Lymph % (Auto) Plumas % (Auto) Eos % (Auto) Baso % (Auto) Neut # (Auto) Lymph # (Auto) [place] # (Auto) Eos # (Auto) Baso # (Auto) Immature Gran # (Auto) PT INR APTT PTT Ratio Sodium Potassium Chloride Carbon Dioxide Anion Gap BUN Creatinine Est Cr Clr Drug Dosing Est GFR ( Amer) Est GFR (Non-Af Amer) BUN/Creatinine Ratio Glucose Lactate 1.4 Calcium Magnesium Total Bilirubin Direct Bilirubin AST ALT Alkaline Phosphatase Total Protein Albumin Globulin Albumin/Globulin Ratio Procalcitonin < 0.05 Urine Color Yellow Urine Appearance Cloudy A Urine pH 6.0 Ur Specific Clayton 1.022 Urine Protein Trace H Urine Glucose (UA) Negative Urine Ketones Negative Urine Blood Negative Urine Nitrite Negative Urine Bilirubin Negative Urine Urobilinogen Negative Ur Leukocyte Esterase Negative Urine WBC (Auto) 1-5 Urine RBC (Auto) 0-4 U Hyaline Cast (Auto) 1-5 U Epithel Cells (Auto) 10-20 H Urine Bacteria (Auto) Negative Ethyl Alcohol mg/dL 02/09/23 09:34 WBC 7.41 RBC 4.78 Hgb 14.2 Hct 43.3 MCV 90.6 MCH 29.7 MCHC 32.8 RDW Std Deviation 46.3 RDW Coeff of Shayy 14.1 Plt Count 120 L MPV 10.1 Immature Gran % (Auto) 0.5 Neut % (Auto) 76.1 Lymph % (Auto) 12.0 Plumas % (Auto) 9.3 Eos % (Auto) 1.8 Baso % (Auto) 0.3 Neut # (Auto) 5.64 Lymph # (Auto) 0.89 L [place] # (Auto) 0.69 H Eos # (Auto) 0.13 Baso # (Auto) 0.02 Immature Gran # (Auto) 0.04 PT 11.5 INR 1.1 APTT 27.6 PTT Ratio 1.0 Sodium 140 Potassium 4.4 Chloride 108 H Carbon Dioxide 24 Anion Gap 8 BUN 14 Creatinine 0.87 Est Cr Clr Drug Dosing 94.3 Est GFR ( Amer) 98.5 Est GFR (Non-Af Amer) 85.0 BUN/Creatinine Ratio 16.1 Glucose 107 H Lactate Calcium 9.5 Magnesium 1.6 L Total Bilirubin 0.8 Direct Bilirubin 0.1 AST 20 ALT 12 Alkaline Phosphatase 71 Total Protein 7.1 Albumin 4.1 Globulin 3.0 Albumin/Globulin Ratio 1.4 Procalcitonin Urine Color Urine Appearance Urine pH Ur Specific Clayton Urine Protein Urine Glucose (UA) Urine Ketones Urine Blood Urine Nitrite Urine Bilirubin Urine Urobilinogen Ur Leukocyte Esterase Urine WBC (Auto) Urine RBC (Auto) U Hyaline Cast (Auto) U Epithel Cells (Auto) Urine Bacteria (Auto) Ethyl Alcohol mg/dL < 10.0 Diagnostic Findings Cervical Spine CT 02/09/23 09:52 CT cervical spine wo con CLINICAL HISTORY: fall TECHNIQUE: Multidetector row helical CT of the cervical spine was performed without administration of intravenous contrast. Coronal and sagittal reformations were obtained. Automated dose lowering techniques and/or adjustment according to patient size were utilized for this exam. Comparison: Comparison is made to CTA neck 09/03/2022 FINDINGS: No acute fractures or subluxations are identified. Degenerative changes are seen in the visualized spine. Extensive lordosis is noted, unchanged. Soft tissues are unremarkable. IMPRESSION: Degenerative changes without evidence of acute bony injury. ACT 112: Negative or not required by law. Electronically signed by: Nguyễn Rodríguez M.D. 02/09/2023 11:[address] 02/09/23 09:52 CT head/brain wo con CLINICAL HISTORY: fall Technique: Contiguous axial CT images of the head were acquired from the base of the skull to the vertex without intravenous contrast administration. Images were viewed in brain, subdural and bone windows. Automated dose lowering techniques and/or adjustment according to patient size were utilized for this exam. Comparison: Comparison is made to CT head 09/09/2022 Findings: Areas of decreased attenuation are present in the periventricular and subcortical white matter bilaterally consistent with small vessel ischemic disease. Generalized cerebral atrophy with commensurate enlargement of the ventricles, sulci, and cisterns is also present. There is no acute intracranial hemorrhage or evidence of acute territorial infarction. No shift of the midline structures, mass effect, or extra-axial abnormalities are shown. Atherosclerotic calcifications are present in the intracranial segments of the internal carotid arteries. Imaged portions of the paranasal sinuses and mastoid air cells are clear. The orbits appear normal. There are no acute fractures of the calvaria or scalp swelling. Impression: No acute intracranial hemorrhage, no evidence of acute territorial infarction or other acute intracranial disease process. ACT 112: Negative or not required by law. Electronically signed by: Nguyễn Rodríguez M.D. 02/09/2023 11:39 AM Chest X-Ray 02/09/23 09:53 SINGLE VIEW CHEST CLINICAL HISTORY: Sepsis. FINDINGS: 2 AP, portable, upright chest radiographs are compared to study dated 09/03/2022. The examination is degraded by portable technique and patient rotation. The heart is enlarged noting atherosclerotic calcification of the thoracic aorta. There is pulmonary vascular congestion. Scarring/atelectasis is noted at the lung bases. There is no airspace consolidation typical for pneumonia. No large pleural effusion or pneumothorax is seen. The skeletal structures are osteopenic. The bony thorax is grossly intact. IMPRESSION: Cardiomegaly with evidence of congestive failure. ACT 112: Negative or not required by law. Electronically signed by: Rodney Garcia M.D. 02/09/2023 10:32 AM Abdomen/Pelvis CT 02/09/23 09:54 CT abd pelvis IV con only CLINICAL HISTORY: R sided lower paraspinal pain and bruising on eliq TECHNIQUE: Helical axial images of the abdomen and pelvis were obtained and displayed. Automated dose lowering techniques and/or adjustment according to patient size were utilized for this exam. This exam was performed with intravenous contrast. COMPARISON: None available at the time of this dictation. FINDINGS: Lower chest: Small bilateral pleural effusions are seen with underlying atelectasis. Biatrial enlargement is seen and there is atherosclerotic disease. Liver: Unremarkable. No focal lesions are seen. Gallbladder and biliary tree: No calcified gallstones. Normal caliber wall. No intra- or extrahepatic biliary ductal dilation. Pancreas: Fatty replacement of the pancreas is seen. Spleen: Unremarkable. Adrenals: Unremarkable. Kidneys and ureters: Exophytic cyst arises from the left kidney. Bladder: Unremarkable. Reproductive organs: Unremarkable. Bowel: Diverticulosis is seen without diverticulitis. The appendix is normal. Lymph nodes Retroperitoneal: Unremarkable. Pelvic: Unremarkable. Mesenteric: Unremarkable. Peritoneum: Normal. Vessels: Atherosclerotic calcifications are seen. Abdominal wall: Unremarkable. Bones: There is an acute fracture of the left femoral neck with overriding and apex lateral angulation. Mild surrounding soft tissue stranding is seen. IMPRESSION: Acute fracture of the left femoral neck. No spinal fractures are seen. No acute intra-abdominal injuries. ACT 112: Negative or not required by law. Electronically signed by: Nguyễn Rodríguez M.D. 02/09/2023 12:01 PM Code Status & VTE Plan Code Status Full code-discussed with patient at bedside Supervising Physician Co-Signing Physician Notes Pt seen and examined by me, care coordinated w/ Ashish Alvarado PA-C, pls refer to her note above for further detail. Pt is a 72 yo M w/ hx of Paroxysmal atrial fibrillation on Eliquis, Parkinsonism, HTN, HLD, CAD, s/p angioplasty with stent, mitral regurg, prediabetes and osteoarthritis, hx of alcohol abuse who presents to the hospital after acute fall sustained this morning. Found to have femoral fx. Also found to be in afib w/ RVR in the ED and hypoxic, with some pulmonary vasc. congestion (received fluids on route). Currently laying in bed in NAD. Awake alert able to answer simple questions appropriately. However patient is not clear about how he takes his medications. He says that he lives by himself. At this time it is not clear if anybody is helping him with his medications. We will try to reach out to his family to clarify. Patient is bradycardic, irregular. Faint crackles noted on lung exam no wheezing. Using 2l of suppl. O2. Abdomen soft nondistended, positive bowel shani nds. Seems mildly tender to palpation in the lower quadrants. Patient moves extremities, left lower extremity / left hip not moved due to known fracture, however patient is able to move ankle and toes w/o any difficulty. Orthopedics consulted. Will also discuss w/ cardiology given afib w/ RVR on presentation, and pulm. vasc. congestion. MD Jeremy
--- NOTE | 2023-02-09 12:52 | XRay Report ---
XR hip LT 2V w pelvis CLINICAL HISTORY: femur frx TECHNIQUE: 2 views of the right hip and single frontal view of the pelvis were obtained. Comparison: Comparison is made to CT abdomen pelvis 02/09/2023 FINDINGS: Fracture of the left femoral neck is seen with overriding. There is overriding of fragments. Degenera tive changes are noted. Soft tissue swelling is seen. IMPRESSION: Acute fracture of the left femoral neck with associated soft tissue swelling. ACT 112: Negative or not required by law. Electronically signed by: Nguyễn Rodríguez M.D. 02/09/2023 12:51 PM
[2023-02-09] MEDS ORDERED: MoRPHine SULFATE 4 MG/ML 1 ML CARP\\VIAL IV STA ×2 (12:56→15:35)
--- NOTE | 2023-02-09 13:16 | Electrocardiogram Report ---
Test Reason : Blood Pressure : / mmHG Vent. Rate : 124 BPM Atrial Rate : 000 BPM P-R Int : 000 ms QRS Dur : 066 ms QT Int : 294 ms P-R-T Axes : 000 050 070 degrees QTc Int : 422 ms Atrial fibrillation with rapid ventricular response Septal infarct , age undetermined Abnormal ECG When compared with ECG of 09-SEP-2022 00:21, Septal infarct is now Present Nonspecific T wave abnormality, worse in Inferior leads Nonspecific T wave abnormality now evident in Lateral leads Confirmed by Clay Berger ([id number]) on 02/09/2023 1:15:53 PM Referred By: REFERRED SELF Confirmed By:Clay Berger
[2023-02-09] MEDS ORDERED: MAGNESIUM SULFATE / D5W 1 GM/100 ML BAG IV ONE (13:32)
--- NOTE | 2023-02-09 13:53 | Orthopedic Consultation ---
Date of Consultation February 09, 2023 Assessment & Plan (1) Left displaced femoral neck fracture: Admit to medicine service Plan on left hip demarcus arthroplasty versus total hip arthroplasty with Dr. Sanchez tomorrow afternoon. NPO after midnight Hold Eliquis Case management consult placed. Will need placement. Will obtain consent tomorrow Supervising Physician Co-Signing Physician Notes I saw and examined the patient, reviewed his x-rays, labs, and physician consult notes, and formulated the above plan constituting the substantive portion of the visit. Patient is high risk for post-operative dislocation given his Parki nsonism and history of falls. Reviewed diagnosis and treatment options with patient, risks/benefits of surgery and expected outcomes. He would like to proceed with surgery. Will plan on surgery tomorrow afternoon given his Eliquis medication. NPO after midnight tonight. History of Present Illness Reason for Consultation: Left femoral neck fracture Requesting Physician: Dr. Titi Sanchez History of Present Illness This is a 72 yo M with PMHx of Paroxysmal atrial fibrillation on Eliquis, Parkinsonism, HTN, HLD, CAD, s/p angioplasty with stent, mitral regurg, prediabetes and osteoarthritis, hx of alcohol abuse who presents to the hospital after acute fall sustained this morning. Pt states his breathing has been bad for a couple of months, and has noticed wheezing and has a nonproductive cough. He denies any chest pain, heaviness, flutter or palpitation. Pt reports that he fell sometimes in the middle of the night, maybe around 3am, and couldnt get up. He uses a walker at baseline and was using it this time. His landlord called 911 after somebody in the apartment building called for him. He was getting up to use the bathroom in the middle of the night. Denies any hitting of his head. He was unable to stand up himself at home. Pt is unable to name his home medications to me, and reports that he was taking Eliquis once per day, and states that the last time he took his meds may have been a few days ago. He admits to chews can of snuff every 2-3 days, and smokes cigarettes maybe 1-2 a day, for his whole life. He admits to drinking alcohol, once every 2 weeks and then may have a bottle of wine in one night and then another the next, but then goes another two weeks without it. CT abd/pelvis was obtained and shows congestive failure with atelectasis in the lungs, as well as a Left femoral neck fracture. In the ER the patient was noted to be tachycardic with HR in the 130s and was administered his home dose of metoprolol 25 mg p.o., and 1 dose of Lopressor 5 mg IV with improvement in the 90s. The patient was initially given a total of 600 mL NSS, but upon imaging results of congestion, was given lasix 60 mg IV in the ER. His urine outs are not nearly 1 L total since Lasix given. He was also initially placed on BiPAP for short period of time and is off of it now on 2L via NC with O2 sats at 96%. Patient does not wear any supplemental O2 at baseline. Magnesium was found to be 1.6 and was replaced with 1 g IV. Allergies Allergy/AdvReac Type Severity Reaction Status Date / Time cyanocobalamin (vitamin B12) AdvReac Severe b12 and B6 Verified 02/09/23 13:52 makes nose bleed pyridoxine AdvReac Severe b12 and B6 Verified 02/09/23 13:52 makes nose bleed Home Medications Medication Instructions Recorded Confirmed Type saw palmetto 450 mg capsule 1,800 mg PO DAILY 09/03/22 02/09/23 History apixaban 5 mg tablet (Eliquis) 5 mg PO BID #60 tabs 09/13/22 02/09/23 Rx arginine (L-arginine) 500 mg tablet 1,000 mg (2 x 500 mg) PO AMHS #60 09/13/22 02/09/23 Rx tabs aspirin 81 mg tablet,delayed 81 mg PO DAILY #30 tabs 09/13/22 02/09/23 Rx release atorvastatin 80 mg tablet 80 mg PO DAILY #30 tabs 09/13/22 02/09/23 Rx duloxetine 30 mg capsule,delayed 30 mg PO DAILY #30 caps 09/13/22 02/09/23 Rx release metoprolol tartrate 25 mg tablet 25 mg PO BID #60 tabs 09/13/22 02/09/23 Rx Patient History Medical History Stroke-like symptoms CAD (coronary artery disease) Depression Atrial fibrillation with RVR HTN (hypertension) Altered mental status Surgical History S/P cataract surgery No pertinent past surgical history Family History Mother , date age 93 with memory issues Dementia Father , age 51 of heart disease Heart disease Other Dyslipidemia Social History Smoking Status: Unknown if ever smoked Tobacco Type: Smokeless Tobacco (Dip or Chew) Cigarettes Per Day: patient stop smoking cigarettes in his 30s.; Do You Dip or Chew Tobacco: Yes; Hx Alcohol Use: Yes Alcohol type: hard liquor Alcohol type Comment: 1 bottle or more whiskey per day for many years. 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 Bruising noted in posterolateral hip but no skin abrasion. + log roll. Unalble to SLR. able to actively dorsi/plantar flex foot. Does not tolerated flexion of knee. Shortened and externally rotated. NV intact. Results & Data Vital Signs (Past 12 Hours) Vital Signs Temp Pulse Pulse Resp BP Pulse Ox O2 Del Method 02/09/23 13:00 99 H 24 165/114 H 96 Nasal Cannula 02/09/23 12:46 104 H 23 154/126 H 97 Nasal Cannula 02/09/23 12:00 97 H 18 172/121 H 95 Nasal Cannula 02/09/23 11:39 97 H 22 182/114 H 93 Room Air 02/09/23 11:33 99 H 20 94 02/09/23 11:00 99 H 34 H 142/117 H 100 02/09/23 10:50 91 H 24 94 Nasal Cannula 02/09/23 10:35 93 H 02/09/23 10:30 100 H 34 H 160/110 H 91 02/09/23 10:23 118 H 31 H 171/106 H 92 02/09/23 09:45 131 H 02/09/23 09:30 36.5 C 115 H 30 H 177/117 H 96 Room Air O2 Flow Rate FiO2 02/09/23 13:00 2 02/09/23 12:46 2 02/09/23 12:00 02/09/23 11:39 02/09/23 11:33 30 02/09/23 11:00 02/09/23 10:50 3 02/09/23 10:35 02/09/23 10:30 02/09/23 10:23 02/09/23 09:45 02/09/23 09:30 Diagnostic Findings Laboratory Results WBC 7.41 K/ul (4.8-10.8) 02/09/23 09:34 RBC 4.78 M/uL (4.70-6.10) 02/09/23 09:34 Hgb 14.2 g/dl (14.0-18.0) 02/09/23 09:34 Hct 43.3 % (42.0-52.0) 02/09/23 09:34 MCV 90.6 fL (80.0-100.0) 02/09/23 09:34 MCH 29.7 pg (25.0-34.0) 02/09/23 09:34 MCHC 32.8 g/dL (32.0-36.0) 02/09/23 09:34 RDW Std Deviation 46.3 fL (36.4-46.3) 02/09/23 09:34 RDW Coeff of Shayy 14.1 % (11.5-14.5) 02/09/23 09:34 Plt Count 120 K/uL (130-400) L 02/09/23 09:34 MPV 10.1 fL (9.4-12.4) 02/09/23 09:34 Immature Gran % (Auto) 0.5 % 02/09/23 09:34 Neut % (Auto) 76.1 % 02/09/23 09:34 Lymph % (Auto) 12.0 % 02/09/23 09:34 [place] % (Auto) 9.3 % 02/09/23 09:34 Eos % (Auto) 1.8 % 02/09/23 09:34 Baso % (Auto) 0.3 % 02/09/23 09:34 Neut # (Auto) 5.64 K/uL (1.40-6.50) 02/09/23 09:34 Lymph # (Auto) 0.89 K/uL (1.20-3.40) L 02/09/23 09:34 [place] # (Auto) 0.69 K/uL (0.11-0.59) H 02/09/23 09:34 Eos # (Auto) 0.13 K/uL (0.00-0.50) 02/09/23 09:34 Baso # (Auto) 0.02 K/uL (0.00-0.20) 02/09/23 09:34 Immature Gran # (Auto) 0.04 K/uL (0.01-0.20) 02/09/23 09:34 PT 11.5 Seconds (9.0-12.0) 02/09/23 09:34 INR 1.1 (0.9-1.1) 02/09/23 09:34 APTT 27.6 Seconds (21.0-31.0) 02/09/23 09:34 PTT Ratio 1.0 02/09/23 09:34 Sodium 140 mmol/L (136-145) 02/09/23 09:34 Potassium 4.4 mmol/L (3.5-5.1) 02/09/23 09:34 Chloride 108 mmol/L (98-107) H 02/09/23 09:34 Carbon Dioxide 24 mmol/L (21-32) 02/09/23 09:34 Anion Gap 8 (3-11) 02/09/23 09:34 BUN 14 mg/dl (6-23) 02/09/23 09:34 Creatinine 0.87 mg/dl (0.6-1.4) 02/09/23 09:34 Est Cr Clr Drug Dosing 94.3 ml/min 02/09/23 09:34 Est GFR ( Amer) 98.5 ml/min 02/09/23 09:34 Est GFR (Non-Af Amer) 85.0 ml/min 02/09/23 09:34 BUN/Creatinine Ratio 16.1 (10-20) 02/09/23 09:34 Glucose 107 mg/dl (70-99(Fasting)) H 02/09/23 09:34 Lactate 1.4 mmol/L (0.4-2.0) 02/09/23 10:43 Calcium 9.5 mg/dl (8.6-10.3) 02/09/23 09:34 Magnesium 1.6 mg/dl (1.7-2.4) L 02/09/23 09:34 Total Bilirubin 0.8 mg/dl (0.2-1.0) 02/09/23 09:34 Direct Bilirubin 0.1 mg/dl (0-0.2) 02/09/23 09:34 AST 20 U/L (13-39) 02/09/23 09:34 ALT 12 U/L (7-52) 02/09/23 09:34 Alkaline Phosphatase 71 U/L (34-104) 02/09/23 09:34 Troponin I High Sens 9.0 pg/ml (0-20) 02/09/23 11:34 B-Natriuretic Peptide 442 pg/ml (0-100) H 02/09/23 11:34 Total Protein 7.1 gm/dl (6.0-8.3) 02/09/23 09:34 Albumin 4.1 gm/dl (3.4-5.0) 02/09/23 09:34 Globulin 3.0 gm/dl (2.5-4.0) 02/09/23 09:34 Albumin/Globulin Ratio 1.4 (0.9-2) 02/09/23 09:34 Procalcitonin < 0.05 ng/ml (0-0.5) 02/09/23 09:35 Urine Color Yellow 02/09/23 10:11 Urine Appearance Cloudy (Clear) A 02/09/23 10:11 Urine pH 6.0 (4.5-7.5) 02/09/23 10:11 Ur Specific [place] 1.022 (1.000-1.030) 02/09/23 10:11 Urine Protein Trace (Negative) H 02/09/23 10:11 Urine Glucose (UA) Negative (Negative) 02/09/23 10:11 Urine Ketones Negative (Negative) 02/09/23 10:11 Urine Blood Negative (Negative) 02/09/23 10:11 Urine Nitrite Negative (Negative) 02/09/23 10:11 Urine Bilirubin Negative (Negative) 02/09/23 10:11 Urine Urobilinogen Negative (Negative) 02/09/23 10:11 Ur Leukocyte Esterase Negative (Negative) 02/09/23 10:11 Urine WBC (Auto) 1-5 /hpf (0-5) 02/09/23 10:11 Urine RBC (Auto) 0-4 /hpf (0-4) 02/09/23 10:11 U Hyaline Cast (Auto) 1-5 /lpf (0-5) 02/09/23 10:11 U Epithel Cells (Auto) 10-20 /lpf (0-5) H 02/09/23 10:11 Urine Bacteria (Auto) Negative (Negative) 02/09/23 10:11 Ethyl Alcohol mg/dL < 10.0 mg/dl (<10.0) 02/09/23 09:[address] 02/09/23 09:52 CT cervical spine wo con CLINICAL HISTORY: fall TECHNIQUE: Multidetector row helical CT of the cervical spine was performed without administration of intravenous contrast. Coronal and sagittal reformations were obtained. Automated dose lowering techniques and/or adjustment according to patient size were utilized for this exam. Comparison: Comparison is made to CTA neck 09/03/2022 FINDINGS: No acute fractures or subluxations are identified. Degenerative changes are seen in the visualized spine. Extensive lordosis is noted, unchanged. Soft tissues are unremarkable. IMPRESSION: Degenerative changes without evidence of acute bony injury. ACT 112: Negative or not required by law. Electronically signed by: Nguyễn Rodríguez M.D. 02/09/2023 11:[address] 02/09/23 09:52 CT head/brain wo con CLINICAL HISTORY: fall Technique: Contiguous axial CT images of the head were acquired from the base of the skull to the vertex without intravenous contrast administration. Images were viewed in brain, subdural and bone windows. Automated dose lowering techniques and/or adjustment according to patient size were utilized for this exam. Comparison: Comparison is made to CT head 09/09/2022 Findings: Areas of decreased attenuation are present in the periventricular and subcortical white matter bilaterally consistent with small vessel ischemic disease. Generalized cerebral atrophy with commensurate enlargement of the ventricles, sulci, and cisterns is also present. There is no acute intracranial hemorrhage or evidence of acute territorial infarction. No shift of the midline structures, mass effect, or extra-axial abnormalities are shown. Athe rosclerotic calcifications are present in the intracranial segments of the internal carotid arteries. Imaged portions of the paranasal sinuses and mastoid air cells are clear. The orbits appear normal. There are no acute fractures of the calvaria or scalp swelling. Impression: No acute intracranial hemorrhage, no evidence of acute territorial infarction or other acute intracranial disease process. ACT 112: Negative or not required by law. Electronically signed by: Nguyễn Rodríguez M.D. 02/09/2023 11:39 AM Chest X-Ray 02/09/23 09:53 SINGLE VIEW CHEST CLINICAL HISTORY: Sepsis. FINDINGS: 2 AP, portable, upright chest radiographs are compared to study dated 09/03/2022. The examination is degraded by portable technique and patient rotation. The heart is enlarged noting atherosclerotic calcification of the thoracic aorta. There is pulmonary vascular congestion. Scarring/atelectasis is noted at the lung bases. There is no airspace consolidation typical for pneumonia. No large pleural effusion or pneumothorax is seen. The skeletal structures are osteopenic. The bony thorax is grossly intact. IMPRESSION: Cardiomegaly with evidence of congestive failure. ACT 112: Negative or not required by law. Electronically signed by: Rodney Garcia M.D. 02/09/2023 10:32 AM Abdomen/Pelvis CT 02/09/23 09:54 CT abd pelvis IV con only CLINICAL HISTORY: R sided lower paraspinal pain and bruising on eliq TECHNIQUE: Helical axial images of the abdomen and pelvis were obtained and displayed. Automated dose lowering techniques and/or adjustment according to patient size were utilized for this exam. This exam was performed with intravenous contrast. COMPARISON: None available at the time of this dictation. FINDINGS: Lower chest: Small bilateral pleural effusions are seen with underlying atelectasis. Biatrial enlargement is seen and there is atherosclerotic disease. Liver: Unremarkable. No focal lesions are seen. Gallbladder and biliary tree: No calcified gallstones. Normal caliber wall. No intra- or extrahepatic biliary ductal dilation. Pancreas: Fatty replacement of the pancreas is seen. Spleen: Unremarkable. Adrenals: Unremarkable. Kidneys and ureters: Exophytic cyst arises from the left kidney. Bladder: Unremarkable. Reproductive organs: Unremarkable. Bowel: Diverticulosis is seen without diverticulitis. The appendix is normal. Lymph nodes Retroperitoneal: Unremarkable. Pelvic: Unremarkable. Mesenteric: Unremarkable. Peritoneum: Normal. Vessels: Atherosclerotic calcifications are seen. Abdominal wall: Unremarkable. Bones: There is an acute fracture of the left femoral neck with overriding and apex lateral angulation. Mild surrounding soft tissue stranding is seen. IMPRESSION: Acute fracture of the left femoral neck. No spinal fractures are seen. No acute intra-abdominal injuries. ACT 112: Negative or not required by law. Electronically signed by: Nguyễn Rodríguez M.D. 02/09/2023 12:01 PM Hip/Pelvis X-Ray 02/09/23 12:09 XR hip LT 2V w pelvis CLINICAL HISTORY: femur frx TECHNIQUE: 2 views of the right hip and single frontal view of the pelvis were obtained. Comparison: Comparison is made to CT abdomen pelvis 02/09/2023 FINDINGS: Fracture of the left femoral neck is seen with overriding. There is overriding of fragments. Degenerative changes are noted. Soft tissue swelling is seen. IMPRESSION: Acute fracture of the left femoral neck with associated soft tissue swelling. ACT 112: Negative or not required by law. Electronically signed by: Nguyễn Rodríguez M.D. 02/09/2023 12:51 PM
--- NOTE | 2023-02-09 13:57 | Cardiology Consultation ---
Date of Consultation February 09, 2023 Assessment & Plan (1) Preop cardiovascular exam: (2) Chronic atrial fibrillation with rapid ventricular response: (3) Acute on chronic diastolic heart failure with preserved ejection fraction: (4) HTN (hypertension): (5) Left displaced femoral neck fracture: Plan Patient is a 72 year old male admitted after a fall (likely mechanical) with left femoral neck facture. Will require surgical repair. Preop cardiovascular evaluation requested. Patient with underlying ischemic heart disease, chronic afib, hypertension, prior history of TIA/CVA. Possible non compliance with medications at home. Afib with RVR noted on admission, likely due to pain, possibly non compliance with home medications. HR's improving with resuming home dose oral metoprolol tartrate 25 mg BID. Hold Eliquis in anticipation of surgery tomorrow. Mildly decompensated heart failure noted on admission with hypoxia and pulm congestion on xray. B/L rales noted on exam consistent with volume overload Furosemide 60 mg x1 dose in ER. Diuresed > 2 L thus far. Monitor. Low threshold for repeat dose later this afternoon/evening. Replace potassium and magnesium. Patient hypertensive. Monitor BP since resuming metoprolol and with ongoing diuresis. Consider adding nitrates if needed for additional BP support. Echocardiogram pending. Cardiovascular risks of surgery discussed with patient. Will titrate medications overnight to improve volume status, HR/BP to optimize patient for potential surgery in AM. Case discussed with Dr. Suresh Munson spent a total of 50 minutes on the date of service in preparation, delivery, and documentation of the care provided to this patient, excluding any time spent in the performance of separately billed services. Krystina Cruz PA-C Department of Cardiology, [facility] This chart was completed in part utilizing Speech Voice Recognition Software. Grammatical errors, random word insertions, pronoun errors, and incomplete sentences are an occasional consequence of this system due to software limitations, ambient noise, and hardware issues. Any formal questions or concerns about the content, text, or information contained within the body of this dictation should be directly addressed to the provider for clarification. Supervising Physician Co-Signing Physician Notes Patient was seen and personally examined. Assessment and plan as well outlined above 72-year-old male with known coronary disease prior coronary intervention left anterior descending with chronically occluded right coronary artery, persistent atrial fibrillation who presented to the ER following mechanical fall uncertain timing. Subsequent newly observed left femoral neck fracture. Patient rather poor historian and appears to confabulate on questioning. Definitely remembers fall however notes no loss of consciousness syncope or near syncope. No chest pains or worsening shortness of breath. Uncertain whether the patient has been compliant with medications recently Blood pressure elevated on presentation, atrial fibrillation with rapid ventricular response, chest x-ray with moderate congestive failure Patient now responding to IV diuretics heart rate slowed with pain control and additional metoprolol Echocardiogram reviewed with preliminary findings similar to that of September 2022 with localized apical septal wall motion abnormality mildly reduced ejection fraction. EKG and troponins not suggestive of acute myocardial injury Recommendations as above: IV furosemide for blood pressure and fluid management. Resume oral metoprolol. Hold Eliquis with pending plans for surgical hip repair We will add topical nitrates as necessary for further blood pressure control Ultimate goal prompt surgical repair at increased risk secondary to underlying morbidity We will keep n.p.o. after midnight today and reassess in a.m. History of Present Illness Reason for Consultation: Preop; Hypertension; afib RVR Requesting Physician: Patricia Alvarado PA-C Attending Physician: Dr. Prince History of Present Illness Patient is a 72 year old male admitted to [facility] after fall and left femoral neck fracture. Patient reports falling around 3:00 AM when his cane "slipped". He was found on the ground this morning by his landlord. Patient is a poor historian. He is not sure of his medications or the last time he took his medications. He follows with Dr. Mccormick as an outpatient for cardiology. Upon arrival to the ER, he was found to be mildly hypoxic and tachycardic with afib RVR (known chronic afib). Received IV metoprolol and oral metoprolol 25 mg BID resumed. HR's improving. Eliquis on hold due to potential need for surgery. IV mag supplementation initiated. Furosemide 60 mg IV x1 dose also given with pulm vascular congestion noted on xay and consistent with exam findings. He is hypertensive. Patient denies recent chest pain. No orthopnea, PND or edema. No dizziness. He denies syncope or near syncope contributing to his fall. Mild confusion noted by nurses. Head CT was unremarkable. At time of consult, patient resting comfortably. Diuresed > 2 L since admission with one dose IV lasix. Cardiac history: 1. Coronary heart disease, status post cardiac catheterization 12/02/2016, [place], with findings of a subtotal ulcerated 99% mid LAD stenosis for which the patient underwent PCI and stent, the circumflex was noted to have a 50% mid vessel stenosis, a chronic total occlusion of the right coronary artery was observed. 2. Chronic atrial fibrillation. There is an electrophysiology consultation performed in [place] in 2018 available in his chart. 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 Treatmen t options such as ongoing rate control and anticoagulation versus ablation versus pacemaker implantation in anti rhythmic therapy were discussed. 3. Transesophageal echocardiogram performed [place]2017. LVEF 50-55 %, mild mitral regurgitation, mild tricuspid regurgitation 4. Transthoracic echocardiogram Aug, 2020, severe biatrial enlargement, LVEF 50%, the proximal ascending thoracic aorta was mildly dilated at 4.1 centimeters Other history includes: 1. Hypertension 2. Dyslipidemia 3. Prior CVA Allergies Allergy/AdvReac Type Severity Reaction Status Date / Time cyanocobalamin (vitamin B12) AdvReac Severe b12 and B6 Verified 02/09/23 13:52 makes nose bleed pyridoxine AdvReac Severe b12 and B6 Verified 02/09/23 13:52 makes nose bleed Home Medications Medication Instructions Recorded Confirmed Type saw palmetto 450 mg capsule 1,800 mg PO DAILY 09/03/22 02/09/23 History apixaban 5 mg tablet (Eliquis) 5 mg PO BID #60 tabs 09/13/22 02/09/23 Rx arginine (L-arginine) 500 mg tablet 1,000 mg (2 x 500 mg) PO AMHS #60 09/13/22 02/09/23 Rx tabs aspirin 81 mg tablet,delayed 81 mg PO DAILY #30 tabs 09/13/22 02/09/23 Rx release atorvastatin 80 mg tablet 80 mg PO DAILY #30 tabs 09/13/22 02/09/23 Rx duloxetine 30 mg capsule,delayed 30 mg PO DAILY #30 caps 09/13/22 02/09/23 Rx release metoprolol tartrate 25 mg tablet 25 mg PO BID #60 tabs 09/13/22 02/09/23 Rx Patient History Medical History Stroke-like symptoms CAD (coronary artery disease) Depression Atrial fibrillation with RVR HTN (hypertension) Altered mental status Surgical History S/P cataract surgery No pertinent past surgical history Family History Mother , date age 93 with memory issues Dementia Father , age 51 of heart disease Heart disease Other Dyslipidemia Social History Smoking Status: Unknown if ever smoked Tobacco Type: Smokeless Tobacco (Dip or Chew) Cigarettes Per Day: patient stop smoking cigarettes in his 30s.; Do You Dip or Chew Tobacco: Yes; Hx Alcohol Use: Yes Alcohol type: hard liquor Alcohol type Comment: 1 bottle or more whiskey per day for many years. 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 Feels Safe at Home: Yes Assistive Devices: Cane Review of Systems Review of Systems: All systems reviewed & are unremarkable except as noted in HPI & below Physical Exam Constitutional: WD/WN, vitals as above no acute distress Neck: trachea midline, no thyromegaly Respiratory: no labored breathing Auscultation: + rales (b/l) Cardiovascular: Rate/Rhythm: + irregularly irregular Heart Sounds: + murmur (II/ systolic murmur) Vessels: no JVD Extremities: no edema Gastrointestinal (Abdomen): normal bowel sounds, soft, nontender, no hepatosplenomegaly Neurologic: PERRL, EOMI, accommodation nl, no face palsy, no dysarthria Results & Data Vital Signs (Past 12 Hours) Vital Signs Temp Pulse Pulse Resp BP Pulse Ox O2 Del Method 02/09/23 13:48 115 H 02/09/23 13:00 99 H 24 165/114 H 96 Nasal Cannula 02/09/23 12:46 104 H 23 154/126 H 97 Nasal Cannula 02/09/23 12:00 97 H 18 172/121 H 95 Nasal Cannula 02/09/23 11:39 97 H 22 182/114 H 93 Room Air 02/09/23 11:33 99 H 20 94 02/09/23 11:00 99 H 34 H 142/117 H 100 02/09/23 10:50 91 H 24 94 Nasal Cannula 02/09/23 10:35 93 H 02/09/23 10:30 100 H 34 H 160/110 H 91 02/09/23 10:23 118 H 31 H 171/106 H 92 02/09/23 09:45 131 H 02/09/23 09:30 36.5 C 115 H 30 H 177/117 H 96 Room Air O2 Flow Rate FiO2 02/09/23 13:48 02/09/23 13:00 2 02/09/23 12:46 2 02/09/23 12:00 02/09/23 11:39 02/09/23 11:33 30 02/09/23 11:00 02/09/23 10:50 3 02/09/23 10:35 02/09/23 10:30 02/09/23 10:23 02/09/23 09:45 02/09/23 09:30 Laboratory Results Cardiac Enzymes 02/09/23 02/09/23 Range/Units 09:34 11:34 AST 20 (13-39) U/L Troponin I High Sens 9.0 (0-20) pg/ml B-Natriuretic Peptide 442 H (0-100) pg/ml Coagulation 02/09/23 02/09/23 Range/Units 09:34 11:34 PT 11.5 (9.0-12.0) Seconds APTT 27.6 (21.0-31.0) Seconds B-Natriuretic Peptide 442 H (0-100) pg/ml CBC 02/09/23 Range/Units 09:34 WBC 7.41 (4.8-10.8) K/ul RBC 4.78 (4.70-6.10) M/uL Hgb 14.2 (14.0-18.0) g/dl Hct 43.3 (42.0-52.0) % Plt Count 120 L (130-400) K/uL Neut # (Auto) 5.64 (1.40-6.50) K/uL Lymph # (Auto) 0.89 L (1.20-3.40) K/uL [place] # (Auto) 0.69 H (0.11-0.59) K/uL Eos # (Auto) 0.13 (0.00-0.50) K/uL Baso # (Auto) 0.02 (0.00-0.20) K/uL Comprehensive Metabolic Panel 02/09/23 Range/Units 09:34 Sodium 140 (136-145) mmol/L Potassium 4.4 (3.5-5.1) mmol/L Chloride 108 H (98-107) mmol/L Carbon Dioxide 24 (21-32) mmol/L BUN 14 (6-23) mg/dl Creatinine 0.87 (0.6-1.4) mg/dl Glucose 107 H (70-99(Fasting)) mg/dl Calcium 9.5 (8.6-10.3) mg/dl Direct Bilirubin 0.1 (0-0.2) mg/dl AST 20 (13-39) U/L ALT 12 (7-52) U/L Alkaline Phosphatase 71 (34-104) U/L Total Protein 7.1 (6.0-8.3) gm/dl Albumin 4.1 (3.4-5.0) gm/dl Intake and Output 02/08/23 02/09/23 02/09/23 22:59 06:59 14:59 Intake Total 800 / 800 Output Total 2149 / 2149 Balance -1350 / -1350 Intake: IV 800 / 800 Acetaminophen 1,000 mg In 100 100 / 100 ml @ 400 mls/hr IV NOW STA Rx#: [id number] Magnesium Sulfate / D5w 1 gm In 100 / 100 100 ml @ 100 mls/hr IV NOW STA Rx#:[id number] Sodium Chloride 0.9% 1,000 ml @ 100 / 100 999 mls/hr IV .Q1H1M ONE Rx#: [id number] Left Hand 500 / 500 Output: Urine Amount (Catheter) 2149 [place]/Indwelling 2149 Other: Weight 107.4 kg Weight Measurement Method Built in [facility] Patient Weight 02/10/23 06:59 Weight 107.4 kg Diagnostic Findings Telemetry reviewed: Chronic/persistent atrial fibrillation with elevated ventricular rates on arrival. HR's improving since admission - Currently ventricular rates in the 90's EKG on admission, reviewed: Atrial fibrillation with RVR, possible old septal infarct, non specific ST/T wave abnormality. Echocardiogram pending Prior echo completed September 2022: LVEF normal at 50-55% No wall motion abnormalities Moderate calcification of eric right coronary cusp of the aortic valve. No aortic stenosis Cervical Spine CT 02/09/23 09:52 CT cervical spine wo con CLINICAL HISTORY: fall TECHNIQUE: Multidetector row helical CT of the cervical spine was performed without administration of intravenous contrast. Coronal and sagittal reformations were obtained. Automated dose lowering techniques and/or adjustment according to patient size were utilized for this exam. Comparison: Comparison is made to CTA neck 09/03/2022 FINDINGS: No acute fractures or subluxations are identified. Degenerative changes are seen in the visualized spine. Extensive lordosis is noted, unchanged. Soft tissues are unremarkable. IMPRESSION: Degenerative changes without evidence of acute bony injury. ACT 112: Negative or not required by law. Electronically signed by: Nguyễn Rodríguez M.D. 02/09/2023 11:[address] 02/09/23 09:52 CT head/brain wo con CLINICAL HISTORY: fall Technique: Contiguous axial CT images of the head were acquired from the base of the skull to the vertex without intravenous contrast administration. Images were viewed in brain, subdural and bone windows. Automated dose lowering techniques and/or adjustment according to patient size were utilized for this exam. Comparison: Comparison is made to CT head 09/09/2022 Findings: Areas of decreased attenuation are present in the periventricular and subcortical white matter bilaterally consistent with small vessel ischemic disease. Generalized cerebral atrophy with commensurate enlargement of the ventricles, sulci, and cisterns is also present. There is no acute intracranial hemorrhage or evidence of acute territorial infarction. No shift of the midline structures, mass effect, or extra-axial abnormalities are shown. Atherosclerotic calcifications are present in the intracranial segments of the internal carotid arteries. Imaged portions of the paranasal sinuses and mastoid air cells are clear. The orbits appear normal. There are no acute fractures of the calvaria or scalp swelling. Impression: No acute intracranial hemorrhage, no evidence of acute territorial infarction or other acute intracranial disease process. ACT 112: Negative or not required by law. Electronically signed by: Nguyễn Rodríguez M.D. 02/09/2023 11:39 AM Chest X-Ray 02/09/23 09:53 SINGLE VIEW CHEST CLINICAL HISTORY: Sepsis. FINDINGS: 2 AP, portable, upright chest radiographs are compared to study dated 09/03/2022. The examination is degraded by portable technique and patient rotation. The heart is enlarged noting atherosclerotic calcification of the thoracic aorta. There is pulmonary vascular congestion. Scarring/atelectasis is noted at the lung bases. There is no airspace consolidation typical for pneumonia. No large pleural effusion or pneumothorax is seen. The skeletal structures are osteopenic. The bony thorax is grossly intact. IMPRESSION: Cardiomegaly with evidence of congestive failure. ACT 112: Negative or not required by law. Electronically signed by: Rodney Garcia M.D. 02/09/2023 10:32 AM Abdomen/Pelvis CT 02/09/23 09:54 CT abd pelvis IV con only CLINICAL HISTORY: R sided lower paraspinal pain and bruising on eliq TECHNIQUE: Helical axial images of the abdomen and pelvis were obtained and displayed. Automated dose lowering techniques and/or adjustment according to patient size were utilized for this exam. This exam was performed with intravenous contrast. COMPARISON: None available at the time of this dictation. FINDINGS: Lower chest: Small bilateral pleural effusions are seen with underlying atelectasis. Biatrial enlargement is seen and there is atherosclerotic disease. Liver: Unremarkable. No focal lesions are seen. Gallbladder and biliary tree: No calcified gallstones. Normal caliber wall. No intra- or extrahepatic biliary ductal dilation. Pancreas: Fatty replacement of the pancreas is seen. Spleen: Unremarkable. Adrenals: Unremarkable. Kidneys and ureters: Exophytic cyst arises from the left kidney. Bladder: Unremarkable. Reproductive organs: Unremarkable. Bowel: Diverticulosis is seen without diverticulitis. The appendix is normal. Lymph nodes Retroperitoneal: Unremarkable. Pelvic: Unremarkable. Mesenteric: Unremarkable. Peritoneum: Normal. Vessels: Atherosclerotic calcifications are seen. Abdominal wall: Unremarkable. Bones: There is an acute fracture of the left femoral neck with overriding and apex lateral angulation. Mild surrounding soft tissue stranding is seen. IMPRESSION: Acute fracture of the left femoral neck. No spinal fractures are seen. No acute intra-abdominal injuries. ACT 112: Negative or not required by law. Electronically signed by: Nguyễn Rodríguez M.D. 02/09/2023 12:01 PM Hip/Pelvis X-Ray 02/09/23 12:09 XR hip LT 2V w pelvis CLINICAL HISTORY: femur frx TECHNIQUE: 2 views of the right hip and single frontal view of the pelvis were obtained. Comparison: Comparison is made to CT abdomen pelvis 02/09/2023 FINDINGS: Fracture of the left femoral neck is seen with overriding. There is overriding of fragments. Degenerative changes are noted. Soft tissue swelling is seen. IMPRESSION: Acute fracture of the left femoral neck with associated soft tissue swelling. ACT 112: Negative or not required by law. Electronically signed by: Nguyễn Rodríguez M.D. 02/09/2023 12:51 PM (4) HTN (hypertension) Hypertension type: primary hypertension Qualified Code(s): I10 - Essential (primary) hypertension
[2023-02-09] MEDS ORDERED: traMADol HCL 50 MG TABLET PO STA (15:35)
[2023-02-09] MEDS ORDERED: MAGNESIUM HYDROXIDE SUSP 30 ML UDC PO PRN (16:27)
[2023-02-09] MEDS ORDERED: traMADol HCL 50 MG TABLET PO PRN (16:27)
[2023-02-09] MEDS ORDERED: ONDANSETRON INJ 2 MG/ML 2 ML VIAL IV PRN (16:27)
[2023-02-09] MEDS ORDERED: NALOXONE HCL 0.4 MG/1 ML VIAL/CARP IV PRN (16:27)
[2023-02-09] MEDS ORDERED: bisacodyL 10 MG SUPP PR PRN (16:27)
[2023-02-09] MEDS ORDERED: hydrALAZINE HCL 25 MG TAB PO STA (16:35)
[2023-02-09] MEDS ORDERED: INFLUENZA VACCINE HIGH-DOSE (HD-IIV4) PF 65+ 0.7mL SYR IM ONE (17:48)
[2023-02-09] MEDS: NITROGLYCERIN 2% OINTMENT 30GM TUBE EXT SCH ×2 (17:59→23:51)
[2023-02-09] MEDS: ACETAMINOPHEN 500 MG TAB PO SCH (21:16)
[2023-02-09] MEDS: METOPROLOL TARTRATE 25 MG TAB PO SCH (21:17)
[2023-02-10] MEDS: NITROGLYCERIN 2% OINTMENT 30GM TUBE EXT SCH ×3 (05:25→18:09)
[2023-02-10] MEDS: ACETAMINOPHEN 500 MG TAB PO SCH ×3 (05:28→23:39)
[2023-02-10] MEDS ORDERED: ceFAZolin 2000MG 2,000 MG/15 ML SYR IV SCH ×2 (06:00)
[2023-02-10] MEDS ORDERED: TRANEXAMIC ACID / 0.7% NACL 1,000 MG/100 ML BAG IV SCH (06:00)
[2023-02-10] MEDS ORDERED: HYDROmorphone INJ 0.5 MG/0.5 ML SYR IV PRN (06:25)
[2023-02-10 07:20] LABS: Hematocrit (blood only) 42.6 % (42.0-52.0); Hemoglobin 14.3 g/dl (14.0-18.0); Mean Corpuscular Hemoglobin 29.9 pg (25.0-34.0); Mean Corpuscular Hgb Conc 33.6 g/dL (32.0-36.0); Mean Corpuscular Volume 89.1 fL (80.0-100.0); Mean Platelet Volume 10.6 fL (9.4-12.4); Platelet Count 116 K/uL (130-400); RDW Coefficient of Variation 14.3 % (11.5-14.5); RDW Standard Deviation 46.3 fL (36.4-46.3); Red Blood Count 4.78 M/uL (4.70-6.10); White Blood Count 7.04 K/ul (4.8-10.8)
[2023-02-10 07:34] LABS: BUN Creatinine Ratio 18.9 (10-20); Calcium 9.4 mg/dl (8.6-10.3); Creatinine Clr Calc Pharmacy 86.4 ml/min; Est GFR (Non-African American) 78.5 ml/min; Magnesium 1.9 mg/dl (1.7-2.4); Phosphorus 3.1 mg/dl (2.5-4.9); Potassium 3.6 mmol/L (3.5-5.1)
[2023-02-10 08:19] LABS: Estimated Average Glucose 111 mg/dl; Hemoglobin A1C 5.5 % (4.5-5.6)
[2023-02-10] MEDS: ATORVASTATIN 40 MG TAB PO SCH (09:07)
[2023-02-10] MEDS: ASPIRIN 81 MG ECTAB PO SCH (09:07)
[2023-02-10] MEDS: DULoxetine HCL 30 MG CAP PO SCH (09:07)
[2023-02-10] MEDS: METOPROLOL TARTRATE 25 MG TAB PO SCH ×2 (09:07→18:35)
--- NOTE | 2023-02-10 09:30 | Orthopedic Progress Note ---
Date of Service February 10, 2023 Assessment & Plan (1) Left displaced femoral neck fracture: Plan: Admitted by medicine service Had cardiac clearance (Dr. Prince) will proceed with left hip demarcus arthroplasty versus total hip arthroplasty this afternoon. NPO after midnight Loy held Case management consult placed. Will need placement. Will obtain consent tomorrow Admission and Anticipated Discharge Date Admission Date: February 09, 2023 Subjective This 72-year-old male was seen this morning for follow-up of a left hip femoral neck fracture. He is scheduled to undergo cemented left hip hemiarthroplasty with Dr. Sanchez later this afternoon. Patient states that his pelvic pain is well controlled. He states that he has been n.p.o. since midnight last night. He is still agreeable to have the fracture repaired. Currently he denies chest pain, shortness of breath, fever, chills, sweats, numbness or tingling in his left lower extremity. He also denies nausea, vomiting or diarrhea. He currently has a urinary catheter in place. Review of Systems Review of Systems: All systems reviewed & are unremarkable except as noted in Subjective Physical Exam Physical Exam: Left Hip: TTP in groin and lateral hip. + log roll. Unalble to SLR. able to actively dorsi/plantar flex foot. Does not tolerated flexion of knee. Shortened and externally rotated. NV intact. Results & Data Vital Signs (Past 12 Hours) Vital Signs Temp Pulse Pulse Resp BP BP Pulse Ox 02/10/23 08:11 36.5 C 85 127/83 95 02/10/23 03:02 36.9 C 75 18 125/80 95 02/10/23 01:30 94 H 02/09/23 23:49 36.6 C 93 H 18 139/91 96 O2 Del Method O2 Flow Rate 02/10/23 08:11 Nasal Cannula 2 02/10/23 03:02 Nasal Cannula 2 02/10/23 01:30 02/09/23 23:49 Nasal Cannula 2 Diagnostic Findings Laboratory Results WBC 7.04 K/ul (4.8-10.8) 02/10/23 06:38 RBC 4.78 M/uL (4.70-6.10) 02/10/23 06:38 Hgb 14.3 g/dl (14.0-18.0) 02/10/23 06:38 Hct 42.6 % (42.0-52.0) 02/10/23 06:38 MCV 89.1 fL (80.0-100.0) 02/10/23 06:38 MCH 29.9 pg (25.0-34.0) 02/10/23 06:38 MCHC 33.6 g/dL (32.0-36.0) 02/10/23 06:38 RDW Std Deviation 46.3 fL (36.4-46.3) 02/10/23 06:38 RDW Coeff of Shayy 14.3 % (11.5-14.5) 02/10/23 06:38 Plt Count 116 K/uL (130-400) L 02/10/23 06:38 MPV 10.6 fL (9.4-12.4) 02/10/23 06:38 Immature Gran % (Auto) 0.5 % 02/09/23 09:34 Neut % (Auto) 76.1 % 02/09/23 09:34 Lymph % (Auto) 12.0 % 02/09/23 09:34 Emmons % (Auto) 9.3 % 02/09/23 09:34 Eos % (Auto) 1.8 % 02/09/23 09:34 Baso % (Auto) 0.3 % 02/09/23 09:34 Neut # (Auto) 5.64 K/uL (1.40-6.50) 02/09/23 09:34 Lymph # (Auto) 0.89 K/uL (1.20-3.40) L 02/09/23 09:34 Emmons # (Auto) 0.69 K/uL (0.11-0.59) H 02/09/23 09:34 Eos # (Auto) 0.13 K/uL (0.00-0.50) 02/09/23 09:34 Baso # (Auto) 0.02 K/uL (0.00-0.20) 02/09/23 09:34 Immature Gran # (Auto) 0.04 K/uL (0.01-0.20) 02/09/23 09:34 PT 11.5 Seconds (9.0-12.0) 02/09/23 09:34 INR 1.1 (0.9-1.1) 02/09/23 09:34 APTT 27.6 Seconds (21.0-31.0) 02/09/23 09:34 PTT Ratio 1.0 02/09/23 09:34 Sodium 139 mmol/L (136-145) 02/10/23 06:38 Potassium 3.6 mmol/L (3.5-5.1) 02/10/23 06:38 Chloride 105 mmol/L (98-107) 02/10/23 06:38 Carbon Dioxide 26 mmol/L (21-32) 02/10/23 06:38 Anion Gap 8 (3-11) 02/10/23 06:38 BUN 18 mg/dl (6-23) 02/10/23 06:38 Creatinine 0.95 mg/dl (0.6-1.4) 02/10/23 06:38 Est Cr Clr Drug Dosing 86.4 ml/min 02/10/23 06:38 Est GFR ( Amer) 91.0 ml/min 02/10/23 06:38 Est GFR (Non-Af Amer) 78.5 ml/min 02/10/23 06:38 BUN/Creatinine Ratio 18.9 (10-20) 02/10/23 06:38 Glucose 102 mg/dl (70-99(Fasting)) H 02/10/23 06:38 Estimat Average Glucose 111 mg/dl 02/10/23 06:38 Hemoglobin A1c 5.5 % (4.5-5.6) 02/10/23 06:38 Lactate 1.4 mmol/L (0.4-2.0) 02/09/23 10:43 Calcium 9.4 mg/dl (8.6-10.3) 02/10/23 06:38 Phosphorus 3.1 mg/dl (2.5-4.9) 02/10/23 06:38 Magnesium 1.9 mg/dl (1.7-2.4) 02/10/23 06:38 Total Bilirubin 0.8 mg/dl (0.2-1.0) 02/09/23 09:34 Direct Bilirubin 0.1 mg/dl (0-0.2) 02/09/23 09:34 AST 20 U/L (13-39) 02/09/23 09:34 ALT 12 U/L (7-52) 02/09/23 09:34 Alkaline Phosphatase 71 U/L (34-104) 02/09/23 09:34 Troponin I High Sens 9.0 pg/ml (0-20) 02/09/23 11:34 B-Natriuretic Peptide 442 pg/ml (0-100) H 02/09/23 11:34 Total Protein 7.1 gm/dl (6.0-8.3) 02/09/23 09:34 Albumin 4.1 gm/dl (3.4-5.0) 02/09/23 09:34 Globulin 3.0 gm/dl (2.5-4.0) 02/09/23 09:34 Albumin/Globulin Ratio 1.4 (0.9-2) 02/09/23 09:34 Triglycerides 128 mg/dl (0-150) 02/10/23 06:38 Cholesterol 161 mg/dl (0-200) 02/10/23 06:38 LDL Cholesterol, Calc 103 mg/dl 02/10/23 06:38 VLDL Cholesterol, Calc 26 mg/dl (0-30) 02/10/23 06:38 HDL Cholesterol 32 mg/dl 02/10/23 06:38 Cholesterol/HDL Ratio 5.0 (0-5) 02/10/23 06:38 Procalcitonin < 0.05 ng/ml (0-0.5) 02/09/23 09:35 Urine Color Yellow 02/09/23 10:11 Urine Appearance Cloudy (Clear) A 02/09/23 10:11 Urine pH 6.0 (4.5-7.5) 02/09/23 10:11 Ur Specific [place] 1.022 (1.000-1.030) 02/09/23 10:11 Urine Protein Trace (Negative) H 02/09/23 10:11 Urine Glucose (UA) Negative (Negative) 02/09/23 10:11 Urine Ketones Negative (Negative) 02/09/23 10:11 Urine Blood Negative (Negative) 02/09/23 10:11 Urine Nitrite Negative (Negative) 02/09/23 10:11 Urine Bilirubin Negative (Negative) 02/09/23 10:11 Urine Urobilinogen Negative (Negative) 02/09/23 10:11 Ur Leukocyte Esterase Negative (Negative) 02/09/23 10:11 Urine WBC (Auto) 1-5 /hpf (0-5) 02/09/23 10:11 Urine RBC (Auto) 0-4 /hpf (0-4) 02/09/23 10:11 U Hyaline Cast (Auto) 1-5 /lpf (0-5) 02/09/23 10:11 U Epithel Cells (Auto) 10-20 /lpf (0-5) H 02/09/23 10:11 Urine Bacteria (Auto) Negative (Negative) 02/09/23 10:11 Ethyl Alcohol mg/dL < 10.0 mg/dl (<10.0) 02/09/23 09:34 Blood Type O Positive 02/09/23 16:53 Antibody Screen NEGATIVE 02/09/23 16:[address] 02/09/23 09:52 CT cervical spine wo con CLINICAL HISTORY: fall TECHNIQUE: Multidetector row helical CT of the cervical spine was performed without administration of intravenous contrast. Coronal and sagittal reformations were obtained. Automated dose lowering techniques and/or adjustment according to patient size were utilized for this exam. Comparison: Comparison is made to CTA neck 09/03/2022 FINDINGS: No acute fractures or subluxations are identified. Degenerative changes are seen in the visualized spine. Extensive lordosis is noted, unchanged. Soft tissues are unremarkable. IMPRESSION: Degenerative changes without evidence of acute bony injury. ACT 112: Negative or not required by law. Electronically signed by: Nguyễn Rodríguez M.D. 02/09/2023 11:[address] 02/09/23 09:52 CT head/brain wo con CLINICAL HISTORY: fall Technique: Contiguous axial CT images of the head were acquired from the base of the skull to the vertex without intravenous contrast administration. Images were viewed in brain, subdural and bone windows. Automated dose lowering techniques and/or adjustment according to patient size were utilized for this exam. Comparison: Comparison is made to CT head 09/09/2022 Findings: Areas of decreased attenuation are present in the periventricular and subcortical white matter bilaterally consistent with small vessel ischemic disease. Generalized cerebral atrophy with commensurate enlargement of the ventricles, sulci, and cisterns is also present. There is no acute intracranial hemorrhage or evidence of acute territorial infarction. No shift of the midline structures, mass effect, or extra-axial abnormalities are shown. Atherosclerotic calcifications are present in the intracranial segments of the internal carotid arteries. Imaged portions of the paranasal sinuses and mastoid air cells are clear. The orbits appear normal. There are no acute fractures of the calvaria or scalp swelling. Impression: No acute intracranial hemorrhage, no evidence of acute territorial infarction or other acute intracranial disease process. ACT 112: Negative or not required by law. Electronically signed by: Nguyễn Rodríguez M.D. 02/09/2023 11:39 AM Chest X-Ray 02/09/23 09:53 SINGLE VIEW CHEST CLINICAL HISTORY: Sepsis. FINDINGS: 2 AP, portable, upright chest radiographs are compared to study dated 09/03/2022. The examination is degraded by portable technique and patient rotation. The heart is enlarged noting atherosclerotic calcification of the thoracic aorta. There is pulmonary vascular congestion. Scarring/atelectasis is noted at the lung bases. There is no airspace consolidation typical for pneumonia. No large pleural effusion or pneumothorax is seen. The skeletal structures are osteopenic. The bony thorax is grossly intact. IMPRESSION: Cardiomegaly with evidence of congestive failure. ACT 112: Negative or not required by law. Electronically signed by: Rodney Garcia M.D. 02/09/2023 10:32 AM Abdomen/Pelvis CT 02/09/23 09:54 CT abd pelvis IV con only CLINICAL HISTORY: R sided lower paraspinal pain and bruising on eliq TECHNIQUE: Helical axial images of the abdomen and pelvis were obtained and displayed. Automated dose lowering techniques and/or adjustment according to patient size were utilized for this exam. This exam was performed with intravenous contrast. COMPARISON: None available at the time of this dictation. FINDINGS: Lower chest: Small bilateral pleural effusions are seen with underlying atelectasis. Biatrial enlargement is seen and there is atherosclerotic disease. Liver: Unremarkable. No focal lesions are seen. Gallbladder and biliary tree: No calcified gallstones. Normal caliber wall. No intra- or extrahepatic biliary ductal dilation. Pancreas: Fatty replacement of the pancreas is seen. Spleen: Unremarkable. Adrenals: Unremarkable. Kidneys and ureters: Exophytic cyst arises from the left kidney. Bladder: Unremarkable. Reproductive organs: Unremarkable. Bowel: Diverticulosis is seen without diverticulitis. The appendix is normal. Lymph nodes Retroperitoneal: Unremarkable. Pelvic: Unremarkable. Mesenteric: Unremarkable. Peritoneum: Normal. Vessels: Atherosclerotic calcifications are seen. Abdominal wall: Unremarkable. Bones: There is an acute fracture of the left femoral neck with overriding and apex lateral angulation. Mild surrounding soft tissue stranding is seen. IMPRESSION: Acute fracture of the left femoral neck. No spinal fractures are seen. No acute intra-abdominal injuries. ACT 112: Negative or not required by law. Electronically signed by: Nguyễn Rodríguez M.D. 02/09/2023 12:01 PM Hip/Pelvis X-Ray 02/09/23 12:09 XR hip LT 2V w pelvis CLINICAL HISTORY: femur frx TECHNIQUE: 2 views of the right hip and single frontal view of the pelvis were obtained. Comparison: Comparison is made to CT abdomen pelvis 02/09/2023 FINDINGS: Fracture of the left femoral neck is seen with overriding. There is overriding of fragments. Degenerative changes are noted. Soft tissue swelling is seen. IMPRESSION: Acute fracture of the left femoral neck with associated soft tissue swelling. ACT 112: Negative or not required by law. Electronically signed by: Nguyễn Rodríguez M.D. 02/09/2023 12:51 PM
[2023-02-10] MEDS ORDERED: oxyCODONE HCL IR 5 MG TAB (IMMEDIATE RELEASE) PO PRN ×2 (09:58→17:12)
--- NOTE | 2023-02-10 11:02 | Cardiology Progress Note ---
Date of Service February 10, 2023 Assessment & Plan (1) Preop cardiovascular exam: (2) Chronic atrial fibrillation with rapid ventricular response: (3) Acute on chronic diastolic heart failure with preserved ejection fraction: (4) HTN (hypertension): (5) Left displaced femoral neck fracture: Plan Patient is a 72 year old male admitted after a fall (likely mechanical) with left femoral neck facture. Will require surgical repair. Preop cardiovascular evaluation requested. Patient with underlying ischemic heart disease, chronic afib, hypertension, prior history of TIA/CVA. Possible non compliance with medications at home. Afib with RVR noted on admission, likely due to pain, possibly non compliance with home medications. HR's improving with resuming home dose oral metoprolol tartrate 25 mg BID. Hold Eliquis in anticipation of surgery tomorrow. Mildly decompensated heart failure noted on admission with hypoxia and pulm congestion on xray. B/L rales noted on exam consistent with volume overload Furosemide 60 mg x1 dose in ER. Diuresed > 2 L thus far. Monitor. Low threshold for repeat dose later this afternoon/evening. Replace potassium and magnesium. Patient hypertensive. Monitor BP since resuming metoprolol and with ongoing diuresis. Consider adding nitrates if needed for additional BP support. Echocardiogram pending. Cardiovascular risks of surgery discussed with patient. Will titrate medications overnight to improve volume status, HR/BP to optimize patient for potential surgery in AM. Case discussed with Dr. Suresh Munson spent a total of 50 minutes on the date of service in preparation, delivery, and documentation of the care provided to this patient, excluding any time spent in the performance of separately billed services. Krystina Cruz PA-C Department of Cardiology, [facility] This chart was completed in part utilizing Speech Voice Recognition Software. Grammatical errors, random word insertions, pronoun errors, and incomplete sentences are an occasional consequence of this system due to software limitations, ambient noise, and hardware issues. Any formal questions or concerns about the content, text, or information contained within the body of this dictation should be directly addressed to the provider for clarification. 02/10/2023 Clinically improved overnight. Volume status heart rate and blood pressure now well controlled. History of persistent atrial fibrillation Acute systolic/diastolic heart failure exacerbated by pain, hypertension, tachycardia now compensated Recommend proceed to surgery as planned Continue metoprolol tartrate 25 mg twice per day pre and postoperatively Continue topical nitrates for hypertension control. May be removed if hypotension develops Eliquis on hold resume postop Follow I's and O's closely, may warrant additional diuretic as clinical course progresses Operative risk increased giving underlying morbidities but mandated Admission and Anticipated Discharge Date Admission Date: February 09, 2023 Subjective Patient seen and examined, chart, medications, telemetry reviewed. Patient denies any difficulties or complaints overnight. No chest pains. Respiratory status much improved. No cough or shortness of breath Physical Exam Constitutional: WD/WN, vitals as above no acute distress Neck: trachea midline, no thyromegaly Respiratory: no labored breathing Auscultation: + rales (b/l) Cardiovascular: Rate/Rhythm: + irregularly irregular Heart Sounds: + murmur (II/ systolic murmur) Vessels: no JVD Extremities: no edema Gastrointestinal (Abdomen): normal bowel sounds, soft, nontender, no hepatosplenomegaly Neurologic: PERRL, EOMI, accommodation nl, no face palsy, no dysarthria Results & Data Vital Signs (Past 12 Hours) Vital Signs Temp Pulse Pulse Resp BP BP Pulse Ox 02/10/23 09:00 02/10/23 08:11 36.5 C 85 127/83 95 02/10/23 03:02 36.9 C 75 18 125/80 95 02/10/23 01:30 94 H 02/09/23 23:49 36.6 C 93 H 18 139/91 96 O2 Del Method O2 Flow Rate 02/10/23 09:00 Nasal Cannula 2 02/10/23 08:11 Nasal Cannula 2 02/10/23 03:02 Nasal Cannula 2 02/10/23 01:30 02/09/23 23:49 Nasal Cannula 2 Laboratory Results Laboratory Results - last 24 hr 02/09/23 02/09/23 02/09/23 10:11 10:43 11:34 WBC RBC Hgb Hct MCV MCH MCHC RDW Std Deviation RDW Coeff of Shayy Plt Count MPV Sodium Potassium Chloride Carbon Dioxide Anion Gap BUN Creatinine Est Cr Clr Drug Dosing Est GFR ( Amer) Est GFR (Non-Af Amer) BUN/Creatinine Ratio Glucose Estimat Average Glucose Hemoglobin A1c Lactate 1.4 Calcium Phosphorus Magnesium Troponin I High Sens 9.0 B-Natriuretic Peptide 442 H Triglycerides Cholesterol LDL Cholesterol, Calc VLDL Cholesterol, Calc HDL Cholesterol Cholesterol/HDL Ratio Urine Color Yellow Urine Appearance Cloudy A Urine pH 6.0 Ur Specific [place] 1.022 Urine Protein Trace H Urine Glucose (UA) Negative Urine Ketones Negative Urine Blood Negative Urine Nitrite Negative Urine Bilirubin Negative Urine Urobilinogen Negative Ur Leukocyte Esterase Negative Urine WBC (Auto) 1-5 Urine RBC (Auto) 0-4 U Hyaline Cast (Auto) 1-5 U Epithel Cells (Auto) 10-20 H Urine Bacteria (Auto) Negative Blood Type Antibody Screen 02/09/23 02/10/23 16:53 06:38 WBC 7.04 RBC 4.78 Hgb 14.3 Hct 42.6 MCV 89.1 MCH 29.9 MCHC 33.6 RDW Std Deviation 46.3 RDW Coeff of Shayy 14.3 Plt Count 116 L MPV 10.6 Sodium 139 Potassium 3.6 Chloride 105 Carbon Dioxide 26 Anion Gap 8 BUN 18 Creatinine 0.95 Est Cr Clr Drug Dosing 86.4 Est GFR ( Amer) 91.0 Est GFR (Non-Af Amer) 78.5 BUN/Creatinine Ratio 18.9 Glucose 102 H Estimat Average Glucose 111 Hemoglobin A1c 5.5 Lactate Calcium 9.4 Phosphorus 3.1 Magnesium 1.9 Troponin I High Sens B-Natriuretic Peptide Triglycerides 128 Cholesterol 161 LDL Cholesterol, Calc 103 VLDL Cholesterol, Calc 26 HDL Cholesterol 32 Cholesterol/HDL Ratio 5.0 Urine Color Urine Appearance Urine pH Ur Specific [place] Urine Protein Urine Glucose (UA) Urine Ketones Urine Blood Urine Nitrite Urine Bilirubin Urine Urobilinogen Ur Leukocyte Esterase Urine WBC (Auto) Urine RBC (Auto) U Hyaline Cast (Auto) U Epithel Cells (Auto) Urine Bacteria (Auto) Blood Type O Positive Antibody Screen NEGATIVE Medications Administered Current Medications Aspirin (Aspirin 81 Mg Ectab) 81 mg PO DAILY [facility] Stop: 03/12/23 08:59 Last Admin: 02/10/23 09:07 Dose: 81 mg Atorvastatin Calcium (Atorvastatin 40 Mg Tab) 80 mg PO DAILY [facility] Stop: 03/12/23 08:59 Last Admin: 02/10/23 09:07 Dose: 80 mg Bisacodyl (Bisacodyl 10 Mg Supp) 10 mg HI DAILY PRN PRN Reason: Constipation Stop: 03/11/23 16:26 Duloxetine HCl (Duloxetine Hcl 30 Mg Cap) 30 mg PO DAILY [facility] Stop: 03/12/23 08:59 Last Admin: 02/10/23 09:07 Dose: 30 mg Hydromorphone HCl (Hydromorphone Inj 0.5 Mg/0.5 Ml Syr) 0.5 mg IV Q4H PRN PRN Reason: Severe Pain (Scale 7, 8, 9,10) Stop: 02/24/23 06:24 Last Admin: 02/10/23 06:34 Dose: 0.5 mg Cefazolin Sodium (Ancef 2000mg) 2,000 mg in 15 mls @ 3.75 mls/min IV PREOP [facility]; Protocol Stop: 02/11/23 05:59 Tranexamic Acid (Tranexamic Acid / 0.7% Nacl) 1,000 mg in 100 mls @ 600 mls/hr IV 0600 [facility] Stop: 02/10/23 18:00 Ropivacaine 150 mg/Bupivacaine HCl 20 ml/Epinephrine HCl 0.15 mg/Ketorolac Tromethamine 30 mg/Dexamethasone 4 mg/ Ketamine HCl 10 mg/ Clonidine HCl 100 mcg/ Sodium Chloride 88.35 mls @ 0 mls/hr INFIL TODAY@0600 [facility]; Protocol Stop: 02/10/23 12:01 Acetaminophen (Ofirmev) 1,000 mg in 100 mls @ 400 mls/hr IV Q8H [facility] Stop: 02/13/23 12:59 Magnesium Hydroxide (Magnesium Hydroxide Susp 30 Ml Udc) 30 ml PO DAILY PRN PRN Reason: Constipation Stop: 03/11/23 16:26 Metoprolol Tartrate (Metoprolol Tartrate 25 Mg Tab) 25 mg PO BID [facility] Stop: 03/11/23 20:59 Last Admin: 02/10/23 09:07 Dose: 25 mg Naloxone HCl (Naloxone Hcl 0.4 Mg/1 Ml Vial/Carp) 0.1 mg IV UD PRN PRN Reason: Opiate Overdose Stop: 03/11/23 16:26 Nitroglycerin (Nitroglycerin 2% Ointment 30gm Tube) 0.5 inch EXT Q6H [facility] Stop: 03/11/23 16:59 Last Admin: 02/10/23 05:25 Dose: 0.5 inch Ondansetron HCl (Ondansetron Inj 2 Mg/Ml 2 Ml Vial) 4 mg IV Q4H PRN PRN Reason: Nausea And Vomiting Stop: 03/11/23 16:26 Oxycodone HCl (Oxycodone Hcl Ir 5 Mg Tab (Immediate Release)) 5 mg PO Q6H PRN PRN Reason: Moderate Pain (Scale 4, 5, 6) Stop: 02/24/23 09:57 (4) HTN (hypertension) Hypertension type: primary hypertension Qualified Code(s): I10 - Essential (primary) hypertension
[2023-02-10] MEDS ORDERED: ROPIVACAINE 0.5% HCL/PF 150 MG, BUPIVACAINE 0.75% MPF 20 ML, EPINEPHrine 0.15 MG, Ketor... INFIL SCH (12:00)
--- NOTE | 2023-02-10 12:02 | Hospitalist Progress Note ---
Date of Service February 10, 2023 Assessment & Plan (1) Left displaced femoral neck fracture: Plan: Patient presented to the ED with mechanical fall Hip x-ray personally reviewed; acute fracture of left femoral neck with associated soft tissue swelling Eliquis currently on hold Orthopedics planning for left hip hemiarthroplasty's versus total hip arthroplasty Continue pain control with IV Tylenol [id number], oxycodone and morphine PT OT after surgery We will start on Lovenox after cleared by orthopedic and transition him to on Eliquis (2) Atrial fibrillation with RVR: Plan: History of atrial fibrillation EKG on admission personally reviewed; A-fib with rapid ventricular rate; ventricular rate of 124 -Echo from September 2022 reviewed without any systolic dysfunction, EF of 50%, recheck Cardiology on board for preop optimization Recommended to continue home dose of metoprolol. Hold Eliquis. Received Lasix of 60 mg in ED Might need additional diuretics after surgery (3) Acute exacerbation of congestive heart failure: Plan: History of atrial fibrillation EKG on admission personally reviewed; A-fib with rapid ventricular rate; ventricular rate of 124 -Echo from September 2022 reviewed without any systolic dysfunction, EF of 50%, recheck Cardiology on board for preop optimization Recommended to continue home dose of metoprolol. Hold Eliquis. Received Lasix of 60 mg in ED Might need additional diuretics after surgery (4) CAD (coronary artery disease): Plan: -History of such, chronic, stable A1c of 5.5% Lipid panel reviewed; LDL of 103 Continue rosuvastatin (5) HTN (hypertension): Plan: - Cont Metoprolol 25 mg BID -Pain control (6) Depression: Plan: -Continue Cymbalta -Chronic, stable (7) Parkinsonism: Plan: -Noted as per [facility] outpatient chart, pill-rolling with the left hand throughout exam -PT OT consults, uses walker/cane at baseline DVT PPx: teds, scds, holding Eliquis Lines 2 PIV FEN/GI: HH diet, n.p.o. at midnight in case of surgical procedure CODE: Full code Dispo: Patient from home; lives alone. He is undergoing surgery for left hip fracture. PT OT after surgery. May need placement Time spent evaluating patient, direct bedside care, chart review, placing orders, interpretation of diagnostic studies, discussion with consultants, patient, and family members, as well as other required patient management activities is 60 minutes Please note the above document was generated using voice recognition software. It may contain grammatical, syntax or spelling errors. Any formal questions or concerns about the content, text or information contained within the body of this dictation should be directly addressed to the provider for clarification Admission and Anticipated Discharge Date Admission Date: February 09, 2023 Subjective Since seen and examined at bedside. He is lying on the bed comfortably; not in distress. He reports occasional pain on his left hip Continues to be in atrial fibrillation with ventricular rate in 80s. Review of Systems Review of Systems: All systems reviewed & are unremarkable except as noted in Subjective Physical Exam Physical Exam: General: awake, alert, no apparent distress Head: Normocephalic, atraumatic ENT: PERRL, EOMI, no pharyngeal exudate, mucous membranes moist Chest: Bilateral clear breath sound. Cardiac: Regular rate and rhythm, no murmur, no JVD, normal peripheral pulses, sluggish capillary refill and + skin is cool on the left lower extremity, no mottling Abdominal: NABS x 4 quadrants, soft, nondistended, nontender to palpation, no rebound or guarding Extremities: Left leg externally rotated and shortened, otherwise normal inspection, no peripheral edema or erythema, calfs nontender to palpation Psych: Normal mood and affect Neuro: AAO x 3, grossly intact. Results & Data Results & Data Vital Signs (Past 12 Hours) Vital Signs Temp Pulse Pulse Resp BP BP Pulse Ox 02/10/23 11:30 72 151/88 H 98 02/10/23 09:00 02/10/23 08:11 36.5 C 85 127/83 95 02/10/23 03:02 36.9 C 75 18 125/80 95 02/10/23 01:30 94 H O2 Del Method O2 Flow Rate 02/10/23 11:30 Nasal Cannula 2 02/10/23 09:00 Nasal Cannula 2 02/10/23 08:11 Nasal Cannula 2 02/10/23 03:02 Nasal Cannula 2 02/10/23 01:30 Laboratory Results Laboratory Results WBC 7.04 K/ul (4.8-10.8) 02/10/23 06:38 RBC 4.78 M/uL (4.70-6.10) 02/10/23 06:38 Hgb 14.3 g/dl (14.0-18.0) 02/10/23 06:38 Hct 42.6 % (42.0-52.0) 02/10/23 06:38 MCV 89.1 fL (80.0-100.0) 02/10/23 06:38 MCH 29.9 pg (25.0-34.0) 02/10/23 06:38 MCHC 33.6 g/dL (32.0-36.0) 02/10/23 06:38 RDW Std Deviation 46.3 fL (36.4-46.3) 02/10/23 06:38 RDW Coeff of Shayy 14.3 % (11.5-14.5) 02/10/23 06:38 Plt Count 116 K/uL (130-400) L 02/10/23 06:38 MPV 10.6 fL (9.4-12.4) 02/10/23 06:38 Immature Gran % (Auto) 0.5 % 02/09/23 09:34 Neut % (Auto) 76.1 % 02/09/23 09:34 Lymph % (Auto) 12.0 % 02/09/23 09:34 [place] % (Auto) 9.3 % 02/09/23 09:34 Eos % (Auto) 1.8 % 02/09/23 09:34 Baso % (Auto) 0.3 % 02/09/23 09:34 Neut # (Auto) 5.64 K/uL (1.40-6.50) 02/09/23 09:34 Lymph # (Auto) 0.89 K/uL (1.20-3.40) L 02/09/23 09:34 [place] # (Auto) 0.69 K/uL (0.11-0.59) H 02/09/23 09:34 Eos # (Auto) 0.13 K/uL (0.00-0.50) 02/09/23 09:34 Baso # (Auto) 0.02 K/uL (0.00-0.20) 02/09/23 09:34 Immature Gran # (Auto) 0.04 K/uL (0.01-0.20) 02/09/23 09:34 PT 11.5 Seconds (9.0-12.0) 02/09/23 09:34 INR 1.1 (0.9-1.1) 02/09/23 09:34 APTT 27.6 Seconds (21.0-31.0) 02/09/23 09:34 PTT Ratio 1.0 02/09/23 09:34 Sodium 139 mmol/L (136-145) 02/10/23 06:38 Potassium 3.6 mmol/L (3.5-5.1) 02/10/23 06:38 Chloride 105 mmol/L (98-107) 02/10/23 06:38 Carbon Dioxide 26 mmol/L (21-32) 02/10/23 06:38 Anion Gap 8 (3-11) 02/10/23 06:38 BUN 18 mg/dl (6-23) 02/10/23 06:38 Creatinine 0.95 mg/dl (0.6-1.4) 02/10/23 06:38 Est Cr Clr Drug Dosing 86.4 ml/min 02/10/23 06:38 Est GFR ( Amer) 91.0 ml/min 02/10/23 06:38 Est GFR (Non-Af Amer) 78.5 ml/min 02/10/23 06:38 BUN/Creatinine Ratio 18.9 (10-20) 02/10/23 06:38 Glucose 102 mg/dl (70-99(Fasting)) H 02/10/23 06:38 Estimat Average Glucose 111 mg/dl 02/10/23 06:38 Hemoglobin A1c 5.5 % (4.5-5.6) 02/10/23 06:38 Lactate 1.4 mmol/L (0.4-2.0) 02/09/23 10:43 Calcium 9.4 mg/dl (8.6-10.3) 02/10/23 06:38 Phosphorus 3.1 mg/dl (2.5-4.9) 02/10/23 06:38 Magnesium 1.9 mg/dl (1.7-2.4) 02/10/23 06:38 Total Bilirubin 0.8 mg/dl (0.2-1.0) 02/09/23 09:34 Direct Bilirubin 0.1 mg/dl (0-0.2) 02/09/23 09:34 AST 20 U/L (13-39) 02/09/23 09:34 ALT 12 U/L (7-52) 02/09/23 09:34 Alkaline Phosphatase 71 U/L (34-104) 02/09/23 09:34 Troponin I High Sens 9.0 pg/ml (0-20) 02/09/23 11:34 B-Natriuretic Peptide 442 pg/ml (0-100) H 02/09/23 11:34 Total Protein 7.1 gm/dl (6.0-8.3) 02/09/23 09:34 Albumin 4.1 gm/dl (3.4-5.0) 02/09/23 09:34 Globulin 3.0 gm/dl (2.5-4.0) 02/09/23 09:34 Albumin/Globulin Ratio 1.4 (0.9-2) 02/09/23 09:34 Triglycerides 128 mg/dl (0-150) 02/10/23 06:38 Cholesterol 161 mg/dl (0-200) 02/10/23 06:38 LDL Cholesterol, Calc 103 mg/dl 02/10/23 06:38 VLDL Cholesterol, Calc 26 mg/dl (0-30) 02/10/23 06:38 HDL Cholesterol 32 mg/dl 02/10/23 06:38 Cholesterol/HDL Ratio 5.0 (0-5) 02/10/23 06:38 Procalcitonin < 0.05 ng/ml (0-0.5) 02/09/23 09:35 Urine Color Yellow 02/09/23 10:11 Urine Appearance Cloudy (Clear) A 02/09/23 10:11 Urine pH 6.0 (4.5-7.5) 02/09/23 10:11 Ur Specific [place] 1.022 (1.000-1.030) 02/09/23 10:11 Urine Protein Trace (Negative) H 02/09/23 10:11 Urine Glucose (UA) Negative (Negative) 02/09/23 10:11 Urine Ketones Negative (Negative) 02/09/23 10:11 Urine Blood Negative (Negative) 02/09/23 10:11 Urine Nitrite Negative (Negative) 02/09/23 10:11 Urine Bilirubin Negative (Negative) 02/09/23 10:11 Urine Urobilinogen Negative (Negative) 02/09/23 10:11 Ur Leukocyte Esterase Negative (Negative) 02/09/23 10:11 Urine WBC (Auto) 1-5 /hpf (0-5) 02/09/23 10:11 Urine RBC (Auto) 0-4 /hpf (0-4) 02/09/23 10:11 U Hyaline Cast (Auto) 1-5 /lpf (0-5) 02/09/23 10:11 U Epithel Cells (Auto) 10-20 /lpf (0-5) H 02/09/23 10:11 Urine Bacteria (Auto) Negative (Negative) 02/09/23 10:11 Ethyl Alcohol mg/dL < 10.0 mg/dl (<10.0) 02/09/23 09:34 Blood Type O Positive 02/09/23 16:53 Antibody Screen NEGATIVE 02/09/23 16:[address] 02/09/23 09:52 CT cervical spine wo con CLINICAL HISTORY: fall TECHNIQUE: Multidetector row helical CT of the cervical spine was performed without administration of intravenous contrast. Coronal and sagittal reformations were obtained. Automated dose lowering techniques and/or adjustment according to patient size were utilized for this exam. Comparison: Comparison is made to CTA neck 09/03/2022 FINDINGS: No acute fractures or subluxations are identified. Degenerative changes are seen in the visualized spine. Extensive lordosis is noted, unchanged. Soft tissues are unremarkable. IMPRESSION: Degenerative changes without evidence of acute bony injury. ACT 112: Negative or not required by law. Electronically signed by: Nguyễn Rodríguez M.D. 02/09/2023 11:[address] 02/09/23 09:52 CT head/brain wo con CLINICAL HISTORY: fall Technique: Contiguous axial CT images of the head were acquired from the base of the skull to the vertex without intravenous contrast administration. Images were viewed in brain, subdural and bone windows. Automated dose lowering techniques and/or adjustment according to patient size were utilized for this exam. Comparison: Comparison is made to CT head 09/09/2022 Findings: Areas of decreased attenuation are present in the periventricular and subcortical white matter bilaterally consistent with small vessel ischemic disease. Generalized cerebral atrophy with commensurate enlargement of the ventricles, sulci, and cisterns is also present. There is no acute intracranial hemorrhage or evidence of acute territorial infarction. No shift of the midline structures, mass effect, or extra-axial abnormalities are shown. Atherosclerotic calcifications are present in the intracranial segments of the internal carotid arteries. Imaged portions of the paranasal sinuses and mastoid air cells are clear. The orbits appear normal. There are no acute fractures of the calvaria or scalp swelling. Impression: No acute intracranial hemorrhage, no evidence of acute territorial infarction or other acute intracranial disease process. ACT 112: Negative or not required by law. Electronically signed by: Nguyễn Rodríguez M.D. 02/09/2023 11:39 AM Chest X-Ray 02/09/23 09:53 SINGLE VIEW CHEST CLINICAL HISTORY: Sepsis. FINDINGS: 2 AP, portable, upright chest radiographs are compared to study dated 09/03/2022. The examination is degraded by portable technique and patient rotation. The heart is enlarged noting atherosclerotic calcification of the thoracic aorta. There is pulmonary vascular congestion. Scarring/atelectasis is noted at the lung bases. There is no airspace consolidation typical for pneumonia. No large pleural effusion or pneumothorax is seen. The skeletal structures are osteopenic. The bony thorax is grossly intact. IMPRESSION: Cardiomegaly with evidence of congestive failure. ACT 112: Negative or not required by law. Electronically signed by: Rodney Garcia M.D. 02/09/2023 10:32 AM Abdomen/Pelvis CT 02/09/23 09:54 CT abd pelvis IV con only CLINICAL HISTORY: R sided lower paraspinal pain and bruising on eliq TECHNIQUE: Helical axial images of the abdomen and pelvis were obtained and displayed. Automated dose lowering techniques and/or adjustment according to patient size were utilized for this exam. This exam was performed with intravenous contrast. COMPARISON: None available at the time of this dictation. FINDINGS: Lower chest: Small bilateral pleural effusions are seen with underlying atelectasis. Biatrial enlargement is seen and there is atherosclerotic disease. Liver: Unremarkable. No focal lesions are seen. Gallbladder and biliary tree: No calcified gallstones. Normal caliber wall. No intra- or extrahepatic biliary ductal dilation. Pancreas: Fatty replacement of the pancreas is seen. Spleen: Unremarkable. Adrenals: Unremarkable. Kidneys and ureters: Exophytic cyst arises from the left kidney. Bladder: Unremarkable. Reproductive organs: Unremarkable. Bowel: Diverticulosis is seen without diverticulitis. The appendix is normal. Lymph nodes Retroperitoneal: Unremarkable. Pelvic: Unremarkable. Mesenteric: Unremarkable. Peritoneum: Normal. Vessels: Atherosclerotic calcifications are seen. Abdominal wall: Unremarkable. Bones: There is an acute fracture of the left femoral neck with overriding and apex lateral angulation. Mild surrounding soft tissue stranding is seen. IMPRESSION: Acute fracture of the left femoral neck. No spinal fractures are seen. No acute intra-abdominal injuries. ACT 112: Negative or not required by law. Electronically signed by: Ngyuễn Rodríguez M.D. 02/09/2023 12:01 PM Hip/Pelvis X-Ray 02/09/23 12:09 XR hip LT 2V w pelvis CLINICAL HISTORY: femur frx TECHNIQUE: 2 views of the right hip and single frontal view of the pelvis were obtained. Comparison: Comparison is made to CT abdomen pelvis 02/09/2023 FINDINGS: Fracture of the left femoral neck is seen with overriding. There is overriding of fragments. Degenerative changes are noted. Soft tissue swelling is seen. IMPRESSION: Acute fracture of the left femoral neck with associated soft tissue swelling. ACT 112: Negative or not required by law. Electronically signed by: Nguyễn Rodríguez M.D. 02/09/2023 12:51 PM (3) Acute exacerbation of congestive heart failure Heart failure type: unspecified Qualified Code(s): I50.9 - Heart failure, unspecified (5) HTN (hypertension) Hypertension type: primary hypertension Qualified Code(s): I10 - Essential (primary) hypertension
--- NOTE | 2023-02-10 12:28 | Anesthesiology Consultation ---
Date of Service February 10, 2023 Assessment & Plan (1) Encounter for pre-operative examination: Chart Review Chart Review: Acceptable Risk for Surgery History Surgery Operation Date: 02/10/23 13:30 Proposed Procedures p Left Femoral Neck Hemiarthroplasty Cemented - Titi Sanchez MD Height/Weight Height: 6 ft Weight: 107.4 kg Allergies Allergy/AdvReac Type Severity Reaction Status Date / Time cyanocobalamin (vitamin B12) AdvReac Severe b12 and B6 Verified 02/09/23 13:52 makes nose bleed pyridoxine AdvReac Severe b12 and B6 Verified 02/09/23 13:52 makes nose bleed Medications Home Medications Medication Instructions Recorded Confirmed Last Taken saw palmetto 450 mg capsule 1,800 mg PO DAILY 09/03/22 02/09/23 Unknown apixaban 5 mg tablet (Eliquis) 5 mg PO BID #60 tabs 09/13/22 02/09/23 Unknown arginine (L-arginine) 500 mg tablet 1,000 mg (2 x 500 mg) PO AMHS #60 09/13/22 02/09/23 Unknown tabs aspirin 81 mg tablet,delayed 81 mg PO DAILY #30 tabs 09/13/22 02/09/23 Unknown release atorvastatin 80 mg tablet 80 mg PO DAILY #30 tabs 09/13/22 02/09/23 Unknown duloxetine 30 mg capsule,delayed 30 mg PO DAILY #30 caps 09/13/22 02/09/23 Unknown release metoprolol tartrate 25 mg tablet 25 mg PO BID #60 tabs 09/13/22 02/09/23 Unknown Active Medications Generic Name Dose Route Start Last Admin Trade Name Holger PRN Reason Stop Dose Admin Aspirin 81 mg 02/10/23 09:00 02/10/23 09:07 Aspirin 81 Mg Ectab PO 03/12/23 08:59 81 mg DAILY LOLIS Administration Atorvastatin Calcium 80 mg 02/10/23 09:00 02/10/23 09:07 Atorvastatin 40 Mg Tab PO 03/12/23 08:59 80 mg DAILY LOLIS Administration Duloxetine HCl 30 mg 02/10/23 09:00 02/10/23 09:07 Duloxetine Hcl 30 Mg Cap PO 03/12/23 08:59 30 mg DAILY LOLIS Administration Hydromorphone HCl 0.5 mg 02/10/23 06:25 02/10/23 06:34 Hydromorphone Inj 0.5 Mg/0.5 Ml Syr IV 02/24/23 06:24 0.5 mg Q4H PRN Administration Severe Pain (Scale 7, 8, 9,10) Metoprolol Tartrate 25 mg 02/09/23 21:00 02/10/23 09:07 Metoprolol Tartrate 25 Mg Tab PO 03/11/23 20:59 25 mg BID LOLIS Administration Nitroglycerin 0.5 inch 02/09/23 17:00 02/10/23 05:25 Nitroglycerin 2% Ointment 30gm Tube EXT 03/11/23 16:59 0.5 inch Q6H LOLIS Administration Past Medical History Medical History (Updated 02/10/23 @ 12:28 by Isai Grimes MD) Acute on chronic diastolic heart failure with preserved ejection fraction Parkinsonism Acute right MCA stroke CAD (coronary artery disease) Depression Atrial fibrillation with RVR HTN (hypertension) Altered mental status Past Family History Family History Mother , date age 93 with memory issues Dementia Father , age 51 of heart disease Heart disease Other Dyslipidemia Past Surgical History Surgical History S/P cataract surgery No pertinent past surgical history Social History Smoking Status: Never smoker Smoking cigarettes per day: patient stop smoking cigarettes in his 30s. Do You Dip or Chew Tobacco: Yes Hx Alcohol Use: Yes Alcohol type: beer and wine Hx Substance Use: No substance use type: does not use Physical Exam Vital Signs Last Vital Signs Temp 36.5 C 02/10/23 08:11 Pulse 72 02/10/23 11:30 Resp 18 02/10/23 03:02 BP 151/88 H 02/10/23 11:30 Pulse Ox 98 02/10/23 11:30 O2 Del Method Nasal Cannula 02/10/23 11:30 O2 Flow Rate 2 02/10/23 11:30 FiO2 30 02/09/23 11:33 Testing Laboratory Results 02/10/23 06:38 02/10/23 06:38 PT 11.5 Seconds (9.0-12.0) 02/09/23 09:34 INR 1.1 (0.9-1.1) 02/09/23 09:34 APTT 27.6 Seconds (21.0-31.0) 02/09/23 09:34 Hemoglobin A1c 5.5 % (4.5-5.6) 02/10/23 06:38 Urine Color Yellow 02/09/23 10:11 Urine Appearance Cloudy (Clear) A 02/09/23 10:11 Urine pH 6.0 (4.5-7.5) 02/09/23 10:11 Ur Specific [place] 1.022 (1.000-1.030) 02/09/23 10:11 Urine Protein Trace (Negative) H 02/09/23 10:11 Urine Glucose (UA) Negative (Negative) 02/09/23 10:11 Urine Ketones Negative (Negative) 02/09/23 10:11 Urine Nitrite Negative (Negative) 02/09/23 10:11 Ur Leukocyte Esterase Negative (Negative) 02/09/23 10:11 Urine WBC (Auto) 1-5 /hpf (0-5) 02/09/23 10:11 Urine RBC (Auto) 0-4 /hpf (0-4) 02/09/23 10:11 U Hyaline Cast (Auto) 1-5 /lpf (0-5) 02/09/23 10:11 U Epithel Cells (Auto) 10-20 /lpf (0-5) H 02/09/23 10:11 Urine Bacteria (Auto) Negative (Negative) 02/09/23 10:11 Blood Type O Positive 02/09/23 16:53 Antibody Screen NEGATIVE 02/09/23 16:53 02/09/23 10:44 Aerobic Blood Culture - Preliminary Blood No growth in Aerobic bottle after 24 hours. Anaerobic Blood Culture - Preliminary No growth in Anaerobic bottle after 24 hours. 02/09/23 10:43 Aerobic Blood Culture - Preliminary Blood No growth in Aerobic bottle after 24 hours. Anaerobic Blood Culture - Preliminary No growth in Anaerobic bottle after 24 hours. Electrocardiogram Date: 02/10/23 Findings: + AFIB @ (94) Echocardiogram Date: 02/09/23 EF: 40-45% Valvular Disease: + no significant valvular disease
[2023-02-10] MEDS ORDERED: PROPOFOL IV EMULSION 10 MG/ML 20 ML VIAL IV ONE (12:46)
[2023-02-10] MEDS ORDERED: LIDOCAINE 2% 2 ML VIAL/AMP(20MG/ML) INFIL ONE (12:46)
[2023-02-10] MEDS ORDERED: ROCURONIUM BROMIDE 10 MG/ML 5 ML VIAL IV ONE (12:46)
[2023-02-10] MEDS ORDERED: fentaNYL citrate PF 100 MCG/2 ML VIAL ONE ×2 (12:47→15:30)
[2023-02-10] MEDS ORDERED: ACETAMINOPHEN 1,000 MG/100 ML VIAL IV SCH (13:00)
--- NOTE | 2023-02-10 13:06 | Electrocardiogram Report ---
Test Reason : Blood Pressure : / mmHG Vent. Rate : 094 BPM Atrial Rate : 089 BPM P-R Int : 000 ms QRS Dur : 080 ms QT Int : 378 ms P-R-T Axes : 000 023 049 degrees QTc Int : 472 ms Atrial fibrillation Nonspecific T wave abnormality Prolonged QT Abnormal ECG When compared with ECG of 09-FEB-2023 09:22, Criteria for Septal infarct are no longer Present Nonspecific T wave abnormality, improved in Lateral leads Confirmed by Clay Berger ([id number]) on 02/10/2023 1:05:53 PM Referred By: REFERRED SELF Confirmed By:Clay Berger
[2023-02-10] MEDS ORDERED: LACTATED RINGER'S 1,000 ML IV SCH (13:15)
[2023-02-10] MEDS ORDERED: KETOROLAC 30 MG/ML VIAL IV PRN (13:17)
[2023-02-10] MEDS ORDERED: ONDANSETRON INJ 2 MG/ML 2 ML VIAL IV PRN ×2 (13:17→17:12)
[2023-02-10] MEDS ORDERED: LABETALOL HCL IV 5 MG/ML 20ML IV PRN (13:17)
[2023-02-10] MEDS ORDERED: ATROPINE SULFATE 0.1 MG/ML 10ML SYR IV PRN (13:17)
[2023-02-10] MEDS ORDERED: HYDROmorphone INJ 1 MG/ML SYRINGE IV PRN ×2 (13:17→17:12)
[2023-02-10] MEDS ORDERED: ORTHO JOINT ANESTHETIC ONE (13:31)
[2023-02-10] MEDS ORDERED: THROMBIN FOR SOLN 20000 UNIT KIT ONE (13:31)
[2023-02-10] MEDS ORDERED: SUGAMMADEX SODIUM 200 MG/2 ML VIAL IV ONE (14:07)
[2023-02-10] MEDS ORDERED: ONDANSETRON INJ 2 MG/ML 2 ML VIAL ONE (14:07)
[2023-02-10] MEDS ORDERED: ETOMIDATE 2 MG/ML 20 ML VIAL IV ONE (14:11)
[2023-02-10] MEDS ORDERED: ePHEDrine sulfate 50 MG/5 ML SYR ONE (14:49)
[2023-02-10] MEDS ORDERED: PHENYLEPHRINE HCL 10 MG/ML VIAL ONE (14:49)
[2023-02-10] MEDS ORDERED: PHENYLEPHRINE 100MCG/ML 10ML SYR IV ONE (14:49)
[2023-02-10] MEDS ORDERED: TRANEXAMIC ACID / 0.7% NACL 1,000 MG/100 ML BAG IV ONE (14:51)
--- NOTE | 2023-02-10 15:19 | Operative Report ---
Post Operative Report Pre & Post Diagnosis Operation Date: 02/10/23 13:30 Pre-Op Diagnosis: Left Hip Displaced femoral neck Fracture Post-Op Diagnosis: Left Hip Displaced femoral neck Fracture I identified the patient and participated in the time-out.: Yes Procedure Operation Date: 02/10/23 13:30 Actual Procedures p Left Femoral Neck Hemiarthroplasty, Non-cemented(Left) - Titi Sanchez MD Surgeon Titi Sanchez MD Food Taster Kem Zavala MD. Estimated Blood Loss 100 Findings Consistent with Post-Op Diagnosis Specimens Left femoral head Anesthesia Type General Complications none Disposition Disposition: Recovery Room Indications 72-year-old male with multiple medical comorbidities including congestive heart failure, Parkinson's disease, COPD, arrhythmia on Eliquis, fell yesterday morning at home. He was brought to the emergency room by ambulance. I saw him in the afternoon. He cannot recall when he took his last dose of Eliquis. He complained of left hip pain. X-rays demonstrated a displaced femoral neck fracture. He does have a history of falling. I had a long discussion with him about the diagnosis and treatment options, risks and benefits of his options, and expected outcomes of these options.. He understands that he is a high risk for surgical complication because of his medical history as stated above. After reviewing all of his options he elected to proceed with surgery. All questions were answered. Informed consent was signed. Description of Procedure Patient was identified in the preoperative holding area where his surgical site was marked. He was brought back to the main operating room where he general anesthesia was administered on the hospital bed. He was then carefully moved onto the operating room table. He was then rolled into the lateral decubitus position. Axillary roll was placed. All bony prominences were padded. Perioperative antibiotics and 1 g of IV tranexamic acid were administered. He was then prepped and draped in the usual sterile fashion. Prior to incision multistrand timeout was called. All in the room were in agreement. I began by making a 10 cm incision for posterior approach to the hip. I dissected down through subcutaneous tissues to the level of the fascia. Fascia was incised in line with the incision. Charnley bow was placed. Trochanteric bursa was excised. Piriformis and short external rotators were dissected off the posterior aspect of the hip capsule. A box cut was then made in the hip capsule taking great care to preserve the labrum. Fracture hematoma was encou ntered immediately upon entering the capsule and was suctioned out. The inferior capsule was released off the femoral neck. The and was internally rotated exposing the fractured femoral neck. A new saw cut was made just below the level of the fracture approximately 12 mm above the lesser trochanter. Retractors were then placed to expose the fractured femoral head and the acetabulum. A corkscrew was used to remove the femoral head from the acetabulum. The acetabular was irrigated out and was inspected. Cartilage was in good condition. Labrum was in good condition. Therefore the decision was made to proceed with a hemiarthroplasty. A trial 56 mm head was placed into the acetabulum and we had an excellent suction seal. Next, the femur was reexposed. Box osteotome was used to remove the lateral neck. Intramedullary guide was inserted down the femur. The bone quality was excellent and therefore I decided to do an uncemented technique. The lateralizing reamer was used, followed by sequentially reaming him up to a size 6 femur. I broached up to a size 6. This gave us excellent torsional stability. I then began trialing with a standard offset neck and a +1.5 offset bipolar 56 mm diameter head. Leg lengths were checked and were symmetric. He was stable in extension and external rotation. Stable in the sleeper position. At 90 degrees hip flexion he could be internally rotated 50 degrees prior to levering out of the socket. I was happy with the stability exam. Therefore the hip was atraumatically dislocated. The femoral trial was removed. The femoral canal was irrigated and dried. The real size 6 standard offset [place] femoral stem was opened up. This was impacted into the femur gently. It sat at the same level as the broach. Therefore we opened up the 56 mm bipolar head with a 28 mm ceramic inner head with a +15 offset. Bipolar head was assembled on the back table and was then placed on the trunnion which had been cleaned and dried. The hip was atraumatically reduced. The wound was irrigated out with copious amounts of dilute Betadine solution followed by normal saline. Ropivacaine epinephrine and ketorolac was injected in the subcutaneous tissues for postoperative pain control. We then began to close. The piriformis, short external rotators rotators, and posterior capsular flap were closed using #2 Vicryl through bone tunnels in the posterior aspect of the greater trochanter. Fascia was run with a looped #1 PDS. Subcutaneous layer was closed with running #1 PDS. Deep dermal layer was closed with 2-0 Vicryl. Skin was closed with Dermabond and a Zipline. Silverlon dressing was applied followed by compressive dressing. Patient was then carefully rolled supine, extubated, and transferred to the recovery room in stable condition. Postoperative course: Patient will be readmitted to the internal medicine service. He will be weightbearing as tolerated with posterior hip precautions. He must use a walker for the remainder of his lifetime given his parkinsonism and history of falls. He will be allowed to resume his Eliquis tomorrow for DVT prophylaxis. Follow-up with JAZMIN Barajas 2 weeks after discharge at [facility]. I attest to the content of the Intraoperative Record and any orders documented therein. Any exceptions are noted below.
--- NOTE | 2023-02-10 15:46 | Operative Report ---
Post Operative Report Pre & Post Diagnosis Operation Date: 02/10/23 13:30 Pre-Op Diagnosis: Left Hip Fracture Post-Op Diagnosis: Left Hip Fracture I identified the patient and participated in the time-out.: Yes Procedure Operation Date: 02/10/23 13:30 Actual Procedures p Left Femoral Neck Hemiarthroplasty(Left) - Titi Sanchez MD Surgeon Titi Sanchez MD Claim Clinician Kem Zavala MD. Estimated Blood Loss 100 Findings Consistent with Post-Op Diagnosis Same as postoperative diagnosis. Specimens None. Description of Procedure Please see detailed operative note. I attest to the content of the Intraoperative Record and any orders documented therein. Any exceptions are noted below.
--- NOTE | 2023-02-10 17:05 | XRay Report ---
SINGLE VIEW PELVIS; SINGLE VIEW LEFT HIP CLINICAL HISTORY: Postoperative examination. FINDINGS: An AP portable view of the hips and pelvis with a crosstable lateral portable view of the l eft hip are compared to study dated 02/09/2023. A left hip arthroplasty is in near-anatomic alignment. No acute fracture is identified. Soft tissue swelling and subcutaneous gas overlying the left hip ar e expected postsurgical changes. [id number] arthritic change and joint space narrowing is seen in the right hip. Degenerative sclerosis is noted in the sacroiliac joints and pubic symphysis. There is atherosclerotic calcification of the femoral arteries. A Kimball catheter is in place. IMPRESSION: Expected postoperative findings status post left hip arthroplasty. No acute fracture is s een. ACT 112: Negative or not required by law. Electronically signed by: Rodney Garcia M.D. 02/10/2023 5:03 PM
[2023-02-10] MEDS ORDERED: diphenhydrAMINE 50 MG/ML VIAL IV PRN (17:12)
[2023-02-10] MEDS ORDERED: METOCLOPRAMIDE HCL INJ 5 MG/ML 2 ML VIAL IV PRN (17:12)
[2023-02-10] MEDS ORDERED: ALUMINUM/MAGNESIUM SUSP 30 ML UDC PO PRN (17:12)
[2023-02-10] MEDS ORDERED: MAGNESIUM HYDROXIDE SUSP 30 ML UDC PO PRN (17:12)
[2023-02-10] MEDS ORDERED: NALOXONE HCL 0.4 MG/1 ML VIAL/CARP IV PRN (17:12)
[2023-02-10] MEDS ORDERED: bisacodyL 10 MG SUPP PR PRN (17:12)
[2023-02-10] MEDS ORDERED: TAMSULOSIN HCL 0.4 MG CAP PO PRN (17:12)
[2023-02-10] MEDS ORDERED: traMADol HCL 50 MG TABLET PO PRN (17:12)
--- NOTE | 2023-02-10 17:43 | Anesthesiology Progress Note ---
Date of Service February 10, 2023 Anesthesia Post Procedure Vital Signs Vital Signs: Temp Pulse Pulse Pulse Resp BP BP 02/10/23 17:12 36.8 C 89 18 115/74 02/10/23 16:30 83 15 107/68 02/10/23 16:20 83 16 105/68 02/10/23 16:10 36.7 C 82 21 106/76 02/10/23 16:00 85 20 104/76 02/10/23 15:50 83 20 112/78 02/10/23 15:43 36.1 C L 86 21 119/73 02/10/23 14:00 02/10/23 12:59 36.9 C 89 24 171/102 H 02/10/23 11:30 72 151/88 H 02/10/23 09:00 02/10/23 08:11 36.5 C 85 127/83 02/10/23 03:02 36.9 C 75 18 125/80 02/10/23 01:30 94 H 02/09/23 23:49 36.6 C 93 H 18 139/91 02/09/23 20:00 02/09/23 19:28 36.9 C 93 H 16 147/100 H 02/09/23 18:00 115/70 Pulse Ox O2 Del Method O2 Flow Rate 02/10/23 17:12 92 Nasal Cannula 5 02/10/23 16:30 93 Nasal Cannula 5 02/10/23 16:20 92 Nasal Cannula 5 02/10/23 16:10 97 Oxymask 5 02/10/23 16:00 96 Oxymask 11 02/10/23 15:50 90 Oxymask 11 02/10/23 15:43 85 L Room Air 02/10/23 14:00 2 02/10/23 12:59 95 Nasal Cannula 2 02/10/23 11:30 98 Nasal Cannula 2 02/10/23 09:00 Nasal Cannula 2 02/10/23 08:11 95 Nasal Cannula 2 02/10/23 03:02 95 Nasal Cannula 2 02/10/23 01:30 02/09/23 23:49 96 Nasal Cannula 2 02/09/23 20:00 Nasal Cannula 2 02/09/23 19:28 93 Nasal Cannula 2 02/09/23 18:00 Transfer of Care Handoff Completed per policy Notes Mental Status: alert / awake / arousable Patient Amnestic to Procedure: Yes Nausea / Vomiting: adequately controlled Pain: adequately controlled Airway Patency, RR, SpO2: stable & adequate BP & HR: stable & adequate Hydration State: stable & adequate Neuraxial Anesthesia: was administered and sensory block is resolving Anesthetic Complications: no major complications apparent and Pt Satisfied with anesthetic care
[2023-02-10] MEDS: SODIUM CHLORIDE 0.9% 1,000 ML IV SCH (18:00)
[2023-02-10] MEDS: KETOROLAC TROMETHAMINE 15 MG/ML VIAL IV SCH ×2 (18:34→23:11)
[2023-02-10] MEDS: FERROUS GLUCONATE 324 MG TAB PO SCH (18:34)
[2023-02-10] MEDS: ASCORBIC ACID 500 MG TAB PO SCH (18:34)
[2023-02-10] MEDS ORDERED: ARGININE 500 MG PO SCH (21:00)
[2023-02-10] MEDS: DOCUSATE SODIUM 100 MG CAP PO SCH (21:15)
[2023-02-10] MEDS: SENNA 8.6 MG TAB PO SCH (21:15)
[2023-02-10] MEDS: ceFAZolin 1000MG 1,000 MG/7.5 ML SYR IV SCH (21:20)
[2023-02-11] MEDS: ACETAMINOPHEN 500 MG TAB PO SCH ×4 (00:06→21:31)
[2023-02-11] MEDS: SODIUM CHLORIDE 0.9% 1,000 ML IV SCH (03:57)
[2023-02-11] MEDS: KETOROLAC TROMETHAMINE 15 MG/ML VIAL IV SCH ×2 (06:24→11:30)
[2023-02-11] MEDS: ceFAZolin 1000MG 1,000 MG/7.5 ML SYR IV SCH (06:25)
[2023-02-11 06:47] LABS: Basophils # (auto) 0.01 K/uL (0.00-0.20); Basophils % (auto) 0.1 %; Eosinophils % (auto) 1.1 %; Hematocrit (blood only) 40.1 % (42.0-52.0); Hemoglobin 13.2 g/dl (14.0-18.0); Immature Granulocytes # (auto) 0.05 K/uL (0.01-0.20); Immature Granulocytes % (auto) 0.5 %; Lymphocytes # (auto) 0.79 K/uL (1.20-3.40); Lymphocytes % (auto) 8.5 %; Mean Corpuscular Hemoglobin 29.9 pg (25.0-34.0); Mean Corpuscular Hgb Conc 32.9 g/dL (32.0-36.0); Mean Corpuscular Volume 90.9 fL (80.0-100.0); Mean Platelet Volume 10.3 fL (9.4-12.4); Monocytes # (auto) 0.98 K/uL (0.11-0.59); Monocytes % (auto) 10.5 %; Neutrophils # (auto) 7.38 K/uL (1.40-6.50); Neutrophils % (auto) 79.3 %; Platelet Count 101 K/uL (130-400); RDW Standard Deviation 46.9 fL (36.4-46.3); Red Blood Count 4.41 M/uL (4.70-6.10); White Blood Count 9.31 K/ul (4.8-10.8)
[2023-02-11 07:17] LABS: BUN Creatinine Ratio 26.9 (10-20); Est GFR (Non-African American) 67.3 ml/min; Magnesium 1.9 mg/dl (1.7-2.4); Potassium 4.2 mmol/L (3.5-5.1)
[2023-02-11] MEDS: MULTIVITAMIN TAB PO SCH (08:29)
[2023-02-11] MEDS: DOCUSATE SODIUM 100 MG CAP PO SCH ×2 (08:29→21:30)
[2023-02-11] MEDS: APIXABAN 5 MG TABLET PO SCH ×2 (08:29→21:30)
[2023-02-11] MEDS: ASCORBIC ACID 500 MG TAB PO SCH ×2 (08:30→17:20)
[2023-02-11] MEDS: ASPIRIN 81 MG ECTAB PO SCH (08:30)
[2023-02-11] MEDS: FERROUS GLUCONATE 324 MG TAB PO SCH ×2 (08:30→17:20)
[2023-02-11] MEDS: DULoxetine HCL 30 MG CAP PO SCH (08:30)
[2023-02-11] MEDS: METOPROLOL TARTRATE 25 MG TAB PO SCH ×2 (08:31→21:31)
[2023-02-11] MEDS: ATORVASTATIN 40 MG TAB PO SCH (08:31)
[2023-02-11] MEDS ORDERED: NON-FORMULARY MEDICATION (Saw Palmetto 450 mg Capsule) PO SCH (09:00)
--- NOTE | 2023-02-11 09:48 | Cardiology Progress Note ---
Date of Service February 11, 2023 Assessment & Plan (1) Chronic atrial fibrillation with rapid ventricular response: (2) Acute on chronic diastolic heart failure with preserved ejection fraction: (3) HTN (hypertension): (4) Left displaced femoral neck fracture: Plan Patient is a 72 year old male admitted after a fall (likely mechanical) with left femoral neck facture. s/p left femoral neck hemiarthroplasty ,02/10/23. Patient with underlying ischemic heart disease, chronic afib, hypertension, prior history of TIA/CVA. Possible non compliance with medications at home. Echo 02/09/23: Chronic distal LAD territory wall motion abnormality, LVEF 40-45%, moderate aortic valve sclerosis without stenosis. AF with RVR noted on presentation, rates now improved. Continue metoprolol tartrate 25 mg twice per day Continue Eliquis BP improved. Topical nitrates discontinued. Kimball catheter in place, 4.1 L of urine output noted yesterday. Proceed with furosemide 20 mg x 1 today. Admission and Anticipated Discharge Date Admission Date: February 09, 2023 Subjective Patient seen in follow up. Tolerated surgery yesterday. Still with high oxygen requirement, 5l/m nasal cannula. Physical Exam Constitutional: WD/WN, vitals as above no acute distress Neck: trachea midline, no thyromegaly Respiratory: no labored breathing Auscultation: + rales (b/l) Cardiovascular: Rate/Rhythm: + irregularly irregular Heart Sounds: + murmur (II/ systolic murmur) Vessels: no JVD Extremities: no edema Gastrointestinal (Abdomen): normal bowel sounds, soft, nontender, no hepatosplenomegaly Neurologic: PERRL, EOMI, accommodation nl, no face palsy, no dysarthria Results & Data Vital Signs (Past 12 Hours) Vital Signs Temp Pulse Pulse Resp BP Pulse Ox O2 Del Method 02/11/23 07:59 37.2 C 104 H 138/77 99 Nasal Cannula 02/11/23 03:00 36.7 C 90 19 146/75 H 96 Nasal Cannula 02/11/23 02:16 91 H 02/10/23 23:00 36.8 C 94 H 20 124/80 99 Nasal Cannula O2 Flow Rate 02/11/23 07:59 5 02/11/23 03:00 02/11/23 02:16 02/10/23 23:00 Laboratory Results CBC 02/11/23 Range/Units 06:11 WBC 9.31 (4.8-10.8) K/ul RBC 4.41 L (4.70-6.10) M/uL Hgb 13.2 L (14.0-18.0) g/dl Hct 40.1 L (42.0-52.0) % Plt Count 101 L (130-400) K/uL Neut # (Auto) 7.38 H (1.40-6.50) K/uL Lymph # (Auto) 0.79 L (1.20-3.40) K/uL [place] # (Auto) 0.98 H (0.11-0.59) K/uL Eos # (Auto) 0.10 (0.00-0.50) K/uL Baso # (Auto) 0.01 (0.00-0.20) K/uL Comprehensive Metabolic Panel 02/11/23 Range/Units 06:11 Sodium 137 (136-145) mmol/L Potassium 4.2 (3.5-5.1) mmol/L Chloride 105 (98-107) mmol/L Carbon Dioxide 24 (21-32) mmol/L BUN 29 H (6-23) mg/dl Creatinine 1.08 (0.6-1.4) mg/dl Glucose 110 H (70-99(Fasting)) mg/dl Calcium 9.0 (8.6-10.3) mg/dl Intake and Output 02/10/23 02/11/23 02/11/23 22:59 06:59 14:59 Intake Total 1560 / 2555 995 / 2555 Output Total 450 / 600 150 / 600 Balance 1110 / 1955 845 / 1955 Intake: IV 300 / 1295 995 / 1295 Acetaminophen 1,000 mg In 100 100 / 100 ml @ 400 mls/hr IV Q8H [facility] Rx#: [id number] Sodium Chloride 0.9% 1,000 ml @ 995 / 995 100 mls/hr IV .Q10H [facility] Rx#: [id number] Tranexamic Acid / 0.7% NaCl 1, 200 / 200 000 mg In 100 ml @ 600 mls/hr IV ONCE ONE Rx#:[id number] IV Perioperative 900 / 900 Oral 360 / 360 Output: Estimated Blood Loss 100 / 100 Urine Amount (Catheter) 350 / 500 150 / 500 Kimball/Indwelling 350 / 500 150 / 500 (3) HTN (hypertension) Hypertension type: primary hypertension Qualified Code(s): I10 - Essential (primary) hypertension
[2023-02-11] MEDS ORDERED: POTASSIUM CHLORIDE 10 MEQ TABCR PO STA (09:49)
[2023-02-11] MEDS ORDERED: FUROSEMIDE INJ 20 MG/2 ML VIAL IV ONE (09:49)
[2023-02-11] MEDS ORDERED: HYDROmorphone INJ 0.5 MG/0.5 ML SYR IV PRN (11:35)
--- NOTE | 2023-02-11 11:42 | Hospitalist Progress Note ---
Date of Service February 11, 2023 Assessment & Plan (1) Left displaced femoral neck fracture: Plan: Patient presented to the ED with mechanical fall Hip x-ray personally reviewed; acute fracture of left femoral neck with associated soft tissue swelling status post left femoral neck hemiarthroplasty, noncemented on February 10, 2023 Orthopedics planning for left hip hemiarthroplasty's versus total hip arthroplasty Continue on Tylenol [id number], oxycodone and Dilaudid as needed for pain control We will continue Kimball for today; trial of void tomorrow a.m. after patient is more ambulatory Eliquis is started for DVT prophylaxis PT OT ordered (2) Atrial fibrillation with RVR: Plan: History of atrial fibrillation EKG on admission personally reviewed; A-fib with rapid ventricular rate; ventricular rate of 124 Echocardiogram with EF of 40 to 45%; hypokinesis in the apex and mid anteroseptum. Telemetry showed 3-second pause on February 10, 2023; no events otherwise. Continue on metoprolol at current dose as recommended by cardiology with holding parameter Patient given 1 more dose of Lasix 20 mg IV Continue Eliquis 5 mg twice daily Continue telemetry monitoring (3) Acute exacerbation of congestive heart failure: Plan: History of atrial fibrillation EKG on admission personally reviewed; A-fib with rapid ventricular rate; ventricular rate of 124 Echocardiogram with EF of 40 to 45%; hypokinesis in the apex and mid anteroseptum. Given 1 dose of IV Lasix today Will be receiving Lasix as needed. Patient will benefit from GDMT management given borderline EF. Will defer it to cardiology. (4) CAD (coronary artery disease): Plan: -History of such, chronic, stable A1c of 5.5% Lipid panel reviewed; LDL of 103 Continue rosuvastatin (5) HTN (hypertension): Plan: - Cont Metoprolol 25 mg BID -Pain control (6) Depression: Plan: -Continue Cymbalta -Chronic, stable (7) Parkinsonism: Plan: -Noted as per [facility] outpatient chart, pill-rolling with the left hand throughout exam -PT OT consults, uses walker/cane at baseline DVT PPx: Eliquis Lines 2 PIV FEN/GI: HH diet, n.p.o. at midnight in case of surgical procedure CODE: Full code Dispo: Patient from home; lives alone. Underwent surgery for left hip fracture. PT OT today. will need placement. Time spent evaluating patient, direct bedside care, chart review, placing orders, interpretation of diagnostic studies, discussion with consultants, patient, and family members, as well as other required patient management activities is 60 minutes Please note the above document was generated using voice recognition software. It may contain grammatical, syntax or spelling errors. Any formal questions or concerns about the content, text or information contained within the body of this dictation should be directly addressed to the provider for clarification Admission and Anticipated Discharge Date Admission Date: February 09, 2023 Subjective Patient seen and examined at bedside. He is lying in the bed comfortably; not in distress. Pale well controlled on current regimen Telemetry reviewed; 3-second pause on telemetry at 6:30 PM yesterday. Review of Systems Review of Systems: All systems reviewed & are unremarkable except as noted in Subjective Physical Exam Physical Exam: General: awake, alert, no apparent distress Head: Normocephalic, atraumatic ENT: PERRL, EOMI, no pharyngeal exudate, mucous membranes moist Chest: Bilateral clear breath sound. Cardiac: Regular rate and rhythm, no murmur, no JVD, normal peripheral pulses, sluggish capillary refill Abdominal: NABS x 4 quadrants, soft, nondistended, nontender to palpation, no rebound or guarding Extremities: Dressing intact in left hip; clean and dry. Psych: Normal mood and affect Neuro: AAO x 3, grossly intact. Results & Data Results & Data Vital Signs (Past 12 Hours) Vital Signs Temp Pulse Pulse Resp BP Pulse Ox O2 Del Method 02/11/23 08:00 Nasal Cannula 02/11/23 07:59 37.2 C 104 H 138/77 99 Nasal Cannula 02/11/23 03:00 36.7 C 90 19 146/75 H 96 Nasal Cannula 02/11/23 02:16 91 H O2 Flow Rate 02/11/23 08:00 2 02/11/23 07:59 5 02/11/23 03:00 02/11/23 02:16 Laboratory Results Laboratory Results WBC 9.31 K/ul (4.8-10.8) 02/11/23 06:11 RBC 4.41 M/uL (4.70-6.10) L 02/11/23 06:11 Hgb 13.2 g/dl (14.0-18.0) L 02/11/23 06:11 Hct 40.1 % (42.0-52.0) L 02/11/23 06:11 MCV 90.9 fL (80.0-100.0) 02/11/23 06:11 MCH 29.9 pg (25.0-34.0) 02/11/23 06:11 MCHC 32.9 g/dL (32.0-36.0) 02/11/23 06:11 RDW Std Deviation 46.9 fL (36.4-46.3) H 02/11/23 06:11 RDW Coeff of Shayy 14.0 % (11.5-14.5) 02/11/23 06:11 Plt Count 101 K/uL (130-400) L 02/11/23 06:11 MPV 10.3 fL (9.4-12.4) 02/11/23 06:11 Immature Gran % (Auto) 0.5 % 02/11/23 06:11 Neut % (Auto) 79.3 % 02/11/23 06:11 Lymph % (Auto) 8.5 % 02/11/23 06:11 [place] % (Auto) 10.5 % 02/11/23 06:11 Eos % (Auto) 1.1 % 02/11/23 06:11 Baso % (Auto) 0.1 % 02/11/23 06:11 Neut # (Auto) 7.38 K/uL (1.40-6.50) H 02/11/23 06:11 Lymph # (Auto) 0.79 K/uL (1.20-3.40) L 02/11/23 06:11 [place] # (Auto) 0.98 K/uL (0.11-0.59) H 02/11/23 06:11 Eos # (Auto) 0.10 K/uL (0.00-0.50) 02/11/23 06:11 Baso # (Auto) 0.01 K/uL (0.00-0.20) 02/11/23 06:11 Immature Gran # (Auto) 0.05 K/uL (0.01-0.20) 02/11/23 06:11 PT 11.5 Seconds (9.0-12.0) 02/09/23 09:34 INR 1.1 (0.9-1.1) 02/09/23 09:34 APTT 27.6 Seconds (21.0-31.0) 02/09/23 09:34 PTT Ratio 1.0 02/09/23 09:34 Sodium 137 mmol/L (136-145) 02/11/23 06:11 Potassium 4.2 mmol/L (3.5-5.1) 02/11/23 06:11 Chloride 105 mmol/L (98-107) 02/11/23 06:11 Carbon Dioxide 24 mmol/L (21-32) 02/11/23 06:11 Anion Gap 8 (3-11) 02/11/23 06:11 BUN 29 mg/dl (6-23) H 02/11/23 06:11 Creatinine 1.08 mg/dl (0.6-1.4) 02/11/23 06:11 Est Cr Clr Drug Dosing 76.0 ml/min 02/11/23 06:11 Est GFR ( Amer) 78.0 ml/min 02/11/23 06:11 Est GFR (Non-Af Amer) 67.3 ml/min 02/11/23 06:11 BUN/Creatinine Ratio 26.9 (10-20) H 02/11/23 06:11 Glucose 110 mg/dl (70-99(Fasting)) H 02/11/23 06:11 Estimat Average Glucose 111 mg/dl 02/10/23 06:38 Hemoglobin A1c 5.5 % (4.5-5.6) 02/10/23 06:38 Lactate 1.4 mmol/L (0.4-2.0) 02/09/23 10:43 Calcium 9.0 mg/dl (8.6-10.3) 02/11/23 06:11 Phosphorus 3.1 mg/dl (2.5-4.9) 02/10/23 06:38 Magnesium 1.9 mg/dl (1.7-2.4) 02/11/23 06:11 Total Bilirubin 0.8 mg/dl (0.2-1.0) 02/09/23 09:34 Direct Bilirubin 0.1 mg/dl (0-0.2) 02/09/23 09:34 AST 20 U/L (13-39) 02/09/23 09:34 ALT 12 U/L (7-52) 02/09/23 09:34 Alkaline Phosphatase 71 U/L (34-104) 02/09/23 09:34 Troponin I High Sens 9.0 pg/ml (0-20) 02/09/23 11:34 B-Natriuretic Peptide 442 pg/ml (0-100) H 02/09/23 11:34 Total Protein 7.1 gm/dl (6.0-8.3) 02/09/23 09:34 Albumin 4.1 gm/dl (3.4-5.0) 02/09/23 09:34 Globulin 3.0 gm/dl (2.5-4.0) 02/09/23 09:34 Albumin/Globulin Ratio 1.4 (0.9-2) 02/09/23 09:34 Triglycerides 128 mg/dl (0-150) 02/10/23 06:38 Cholesterol 161 mg/dl (0-200) 02/10/23 06:38 LDL Cholesterol, Calc 103 mg/dl 02/10/23 06:38 VLDL Cholesterol, Calc 26 mg/dl (0-30) 02/10/23 06:38 HDL Cholesterol 32 mg/dl 02/10/23 06:38 Cholesterol/HDL Ratio 5.0 (0-5) 02/10/23 06:38 Procalcitonin < 0.05 ng/ml (0-0.5) 02/09/23 09:35 Urine Color Yellow 02/09/23 10:11 Urine Appearance Cloudy (Clear) A 02/09/23 10:11 Urine pH 6.0 (4.5-7.5) 02/09/23 10:11 Ur Specific [place] 1.022 (1.000-1.030) 02/09/23 10:11 Urine Protein Trace (Negative) H 02/09/23 10:11 Urine Glucose (UA) Negative (Negative) 02/09/23 10:11 Urine Ketones Negative (Negative) 02/09/23 10:11 Urine Blood Negative (Negative) 02/09/23 10:11 Urine Nitrite Negative (Negative) 02/09/23 10:11 Urine Bilirubin Negative (Negative) 02/09/23 10:11 Urine Urobilinogen Negative (Negative) 02/09/23 10:11 Ur Leukocyte Esterase Negative (Negative) 02/09/23 10:11 Urine WBC (Auto) 1-5 /hpf (0-5) 02/09/23 10:11 Urine RBC (Auto) 0-4 /hpf (0-4) 02/09/23 10:11 U Hyaline Cast (Auto) 1-5 /lpf (0-5) 02/09/23 10:11 U Epithel Cells (Auto) 10-20 /lpf (0-5) H 02/09/23 10:11 Urine Bacteria (Auto) Negative (Negative) 02/09/23 10:11 Ethyl Alcohol mg/dL < 10.0 mg/dl (<10.0) 02/09/23 09:34 Blood Type O Positive 02/09/23 16:53 Blood Type Recheck O Positive 02/10/23 06:38 Antibody Screen NEGATIVE 02/09/23 16:[address] 02/09/23 09:52 CT cervical spine wo con CLINICAL HISTORY: fall TECHNIQUE: Multidetector row helical CT of the cervical spine was performed without administration of intravenous contrast. Coronal and sagittal reformations were obtained. Automated dose lowering techniques and/or adjustment according to patient size were utilized for this exam. Comparison: Comparison is made to CTA neck 09/03/2022 FINDINGS: No acute fractures or subluxations are identified. Degenerative changes are seen in the visualized spine. Extensive lordosis is noted, unchanged. Soft tissues are unremarkable. IMPRESSION: Degenerative changes without evidence of acute bony injury. ACT 112: Negative or not required by law. Electronically signed by: Nguyễn Rodríguez M.D. 02/09/2023 11:[address] 02/09/23 09:52 CT head/brain wo con CLINICAL HISTORY: fall Technique: Contiguous axial CT images of the head were acquired from the base of the skull to the vertex without intravenous contrast administration. Images were viewed in brain, subdural and bone windows. Automated dose lowering techniques and/or adjustment according to patient size were utilized for this exam. Comparison: Comparison is made to CT head 09/09/2022 Findings: Areas of decreased attenuation are present in the periventricular and subco rtical white matter bilaterally consistent with small vessel ischemic disease. Generalized cerebral atrophy with commensurate enlargement of the ventricles, sulci, and cisterns is also present. There is no acute intracranial hemorrhage or evidence of acute territorial infarction. No shift of the midline structures, mass effect, or extra-axial abnormalities are shown. Atherosclerotic calcifications are present in the intracranial segments of the internal carotid arteries. Imaged portions of the paranasal sinuses and mastoid air cells are clear. The orbits appear normal. There are no acute fractures of the calvaria or scalp swelling. Impression: No acute intracranial hemorrhage, no evidence of acute territorial infarction or other acute intracranial disease process. ACT 112: Negative or not required by law. Electronically signed by: Nguyễn Rodríguez M.D. 02/09/2023 11:39 AM Chest X-Ray 02/09/23 09:53 SINGLE VIEW CHEST CLINICAL HISTORY: Sepsis. FINDINGS: 2 AP, portable, upright chest radiographs are compared to study dated 09/03/2022. The examination is degraded by portable technique and patient rotation. The heart is enlarged noting atherosclerotic calcification of the thoracic aorta. There is pulmonary vascular congestion. Scarring/atelectasis is noted at the lung bases. There is no airspace consolidation typical for pneumonia. No large pleural effusion or pneumothorax is seen. The skeletal structures are osteopenic. The bony thorax is grossly intact. IMPRESSION: Cardiomegaly with evidence of congestive failure. ACT 112: Negative or not required by law. Electronically signed by: Rodney Garcia M.D. 02/09/2023 10:32 AM Abdomen/Pelvis CT 02/09/23 09:54 CT abd pelvis IV con only CLINICAL HISTORY: R sided lower paraspinal pain and bruising on eliq TECHNIQUE: Helical axial images of the abdomen and pelvis were obtained and displayed. Automated dose lowering techniques and/or adjustment according to patient size were utilized for this exam. This exam was performed with intravenous contrast. COMPARISON: None available at the time of this dictation. FINDINGS: Lower chest: Small bilateral pleural effusions are seen with underlying atelectasis. Biatrial enlargement is seen and there is atherosclerotic disease. Liver: Unremarkable. No focal lesions are seen. Gallbladder and biliary tree: No calcified gallstones. Normal caliber wall. No intra- or extrahepatic biliary ductal dilation. Pancreas: Fatty replacement of the pancreas is seen. Spleen: Unremarkable. Adrenals: Unremarkable. Kidneys and ureters: Exophytic cyst arises from the left kidney. Bladder: Unremarkable. Reproductive organs: Unremarkable. Bowel: Diverticulosis is seen without diverticulitis. The appendix is normal. Lymph nodes Retroperitoneal: Unremarkable. Pelvic: Unremarkable. Mesenteric: Unremarkable. Peritoneum: Normal. Vessels: Atherosclerotic calcifications are seen. Abdominal wall: Unremarkable. Bones: There is an acute fracture of the left femoral neck with overriding and apex lateral angulation. Mild surrounding soft tissue stranding is seen. IMPRESSION: Acute fracture of the left femoral neck. No spinal fractures are seen. No acute intra-abdominal injuries. ACT 112: Negative or not required by law. Electronically signed by: Nguyễn Rodríguez M.D. 02/09/2023 12:01 PM Hip/Pelvis X-Ray 02/10/23 16:05 SINGLE VIEW PELVIS; SINGLE VIEW LEFT HIP CLINICAL HISTORY: Postoperative examination. FINDINGS: An AP portable view of the hips and pelvis with a crosstable lateral portable view of the left hip are compared to study dated 02/09/2023. A left hip arthroplasty is in near-anatomic alignment. No acute fracture is identified. Soft tissue swelling and subcutaneous gas overlying the left hip are expected postsurgical changes. [id number] arthritic change and joint space narrowing is seen in the right hip. Degenerative sclerosis is noted in the sacroiliac joints and pubic symphysis. There is atherosclerotic calcification of the femoral arteries. A Kimball catheter is in place. IMPRESSION: Expected postoperative findings status post left hip arthroplasty. No acute fracture is seen. ACT 112: Negative or not required by law. Electronically signed by: Rodney Garcia M.D. 02/10/2023 5:03 PM (3) Acute exacerbation of congestive heart failure Heart failure type: unspecified Qualified Code(s): I50.9 - Heart failure, unspecified (5) HTN (hypertension) Hypertension type: primary hypertension Qualified Code(s): I10 - Essential (primary) hypertension
[2023-02-11] MEDS ORDERED: LORazepam 0.5 MG in SYRINGE 0.25 ML IV STA (15:27)
[2023-02-11] MEDS ORDERED: LORazepam 2 MG/1 ML VIAL ONE (15:30)
--- NOTE | 2023-02-11 16:09 | Orthopedic Progress Note ---
Date of Service February 11, 2023 Assessment & Plan (1) Left displaced femoral neck fracture: Plan: Physical therapy and Occupational Therapy daily. He is weightbearing as tolerated with posterior hip precautions. Pain control and medical management per the internal medicine team. DVT prophylaxis per the internal medicine team. Patient may shower with the Silverlon dressing in place. Follow-up with orthopedics, JAZMIN Barajas PA-C, 2 weeks after discharge. Any questions feel free to contact orthopedics. Admission and Anticipated Discharge Date Admission Date: February 09, 2023 Subjective Patient seen and examined on afternoon rounds. Per the nurses report he was very combative earlier and had to be given Ativan. High suspicion that he is undergoing withdrawals from alcohol abuse. After the Ativan he is been difficult to arouse. His nurse states however that he got out of bed with his walker and walked out to the hallway. Therefore he is now on one-to-one supervision. Has not yet needed restraints. Physical Exam Physical Exam: On exam he is difficult to arouse. However he appears to be in no acute pain. Left hip exam: Unable to follow commands to assess his neurologic status at the time of my exam. However according to his nurse he was moving his toes and his foot earlier in the day and did get up to walk. Skin is warm and well-perfused. His dressing was removed and his incision is clean dry and intact. A new S ilverlon dressing was applied. Results & Data Vital Signs (Past 12 Hours) Vital Signs Temp Pulse BP Pulse Ox O2 Del Method O2 Flow Rate 02/11/23 11:35 36.7 C 91 H 146/91 H 95 Room Air 02/11/23 08:00 Nasal Cannula 2 02/11/23 07:59 37.2 C 104 H 138/77 99 Nasal Cannula 5
[2023-02-11] MEDS: SENNA 8.6 MG TAB PO SCH (21:31)
[2023-02-12] MEDS: ACETAMINOPHEN 500 MG TAB PO SCH ×3 (06:01→20:50)
[2023-02-12 06:45] LABS: Basophils # (auto) 0.02 K/uL (0.00-0.20); Basophils % (auto) 0.2 %; Eosinophils # (auto) 0.25 K/uL (0.00-0.50); Eosinophils % (auto) 2.5 %; Hematocrit (blood only) 39.3 % (42.0-52.0); Hemoglobin 12.6 g/dl (14.0-18.0); Immature Granulocytes # (auto) 0.07 K/uL (0.01-0.20); Immature Granulocytes % (auto) 0.7 %; Lymphocytes # (auto) 1.41 K/uL (1.20-3.40); Lymphocytes % (auto) 13.8 %; Mean Corpuscular Hemoglobin 29.2 pg (25.0-34.0); Mean Corpuscular Hgb Conc 32.1 g/dL (32.0-36.0); Mean Platelet Volume 10.5 fL (9.4-12.4); Monocytes # (auto) 1.28 K/uL (0.11-0.59); Monocytes % (auto) 12.6 %; Neutrophils # (auto) 7.16 K/uL (1.40-6.50); Neutrophils % (auto) 70.2 %; Platelet Count 105 K/uL (130-400); Red Blood Count 4.32 M/uL (4.70-6.10); White Blood Count 10.19 K/ul (4.8-10.8)
[2023-02-12 07:06] LABS: BUN Creatinine Ratio 37.6 (10-20); Calcium 9.5 mg/dl (8.6-10.3); Creatinine Clr Calc Pharmacy 96.5 ml/min; Est GFR (African American) 99.5 ml/min; Est GFR (Non-African American) 85.8 ml/min; Magnesium 1.9 mg/dl (1.7-2.4); Potassium 4.4 mmol/L (3.5-5.1)
[2023-02-12] MEDS: DOCUSATE SODIUM 100 MG CAP PO SCH ×2 (08:57→20:52)
[2023-02-12] MEDS: APIXABAN 5 MG TABLET PO SCH ×2 (08:57→20:49)
[2023-02-12] MEDS: METOPROLOL TARTRATE 25 MG TAB PO SCH ×2 (08:58→20:52)
[2023-02-12] MEDS: ATORVASTATIN 40 MG TAB PO SCH (08:58)
[2023-02-12] MEDS: FERROUS GLUCONATE 324 MG TAB PO SCH ×2 (08:59→16:38)
[2023-02-12] MEDS: DULoxetine HCL 30 MG CAP PO SCH (08:59)
[2023-02-12] MEDS: MULTIVITAMIN TAB PO SCH (08:59)
[2023-02-12] MEDS: ASPIRIN 81 MG ECTAB PO SCH (09:00)
[2023-02-12] MEDS: ASCORBIC ACID 500 MG TAB PO SCH ×2 (09:00→16:38)
[2023-02-12] MEDS ORDERED: oxyCODONE HCL IR 5 MG TAB (IMMEDIATE RELEASE) PO PRN (10:48)
[2023-02-12] MEDS: POLYETHYLENE (MIRALAX) 17 GM PACK PO SCH (11:25)
[2023-02-12] MEDS: oxyCODONE HCL IR 5 MG TAB (IMMEDIATE RELEASE) PO PRN (13:03)
--- NOTE | 2023-02-12 13:38 | Hospitalist Progress Note ---
Date of Service February 12, 2023 Assessment & Plan (1) Left displaced femoral neck fracture: Plan: Patient presented to the ED with mechanical fall Hip x-ray personally reviewed; acute fracture of left femoral neck with associated soft tissue swelling status post left femoral neck hemiarthroplasty, noncemented on February 10, 2023 Continue on Tylenol [id number], oxycodone and Dilaudid as needed for pain control Trial of void today Eliquis is started for DVT prophylaxis PT OT; will need rehab (2) Atrial fibrillation with RVR: Plan: History of atrial fibrillation EKG on admission personally reviewed; A-fib with rapid ventricular rate; ventricular rate of 124 Echocardiogram with EF of 40 to 45%; hypokinesis in the apex and mid anteroseptum. Telemetry showed 3-second pause on February 10, 2023; no events otherwise. Continue on metoprolol at current dose as recommended by cardiology with holding parameter Continue Eliquis 5 mg twice daily Continue telemetry monitoring (3) Acute exacerbation of congestive heart failure: Plan: History of atrial fibrillation EKG on admission personally reviewed; A-fib with rapid ventricular rate; ventricular rate of 124 Echocardiogram with EF of 40 to 45%; hypokinesis in the apex and mid anteroseptum. Received couple dose of Lasix inpatient. Monitor respiratory status; will order Lasix as needed. Patient will benefit from GDMT management given borderline EF. Will defer it to cardiology. (4) CAD (coronary artery disease): Plan: -History of such, chronic, stable A1c of 5.5% Lipid panel reviewed; LDL of 103 Continue rosuvastatin (5) HTN (hypertension): Plan: - Cont Metoprolol 25 mg BID -Pain control (6) Depression: Plan: -Continue Cymbalta -Chronic, stable (7) Parkinsonism: Plan: -Noted as per epic outpatient chart, pill-rolling with the left hand throughout exam -PT OT consults, uses walker/cane at baseline DVT PPx: Eliquis Lines 2 PIV FEN/GI: HH diet CODE: Full code Dispo: Patient from home; lives alone. Will need rehab. Case management on board Please note the above document was generated using voice recognition software. It may contain grammatical, syntax or spelling errors. Any formal questions or concerns about the content, text or information contained within the body of this dictation should be directly addressed to the provider for clarification Admission and Anticipated Discharge Date Admission Date: February 09, 2023 Subjective Patient seen and examined at bedside. He appears to be more awake and interactive today. Denies hip pain or discomfort. No bowel movements yet. Review of Systems Review of Systems: All systems reviewed & are unremarkable except as noted in Subjective Physical Exam Physical Exam: General: awake, alert, no apparent distress. Requires reorientation Head: Normocephalic, atraumatic ENT: PERRL, EOMI, no pharyngeal exudate, mucous membranes moist Chest: Bilateral clear breath sound. Cardiac: Regular rate and rhythm, no murmur, no JVD, normal peripheral pulses, sluggish capillary refill Abdominal: NABS x 4 quadrants, soft, nondistended, nontender to palpation, no rebound or guarding Extremities: Dressing intact in left hip; clean and dry. Psych: Normal mood and affect Neuro: AAO x 2, grossly intact. Results & Data Results & Data Vital Signs (Past 12 Hours) Vital Signs Temp Pulse Pulse Resp BP Pulse Ox O2 Del Method 02/12/23 11:40 36.5 C 78 20 131/81 99 Room Air 02/12/23 08:00 Nasal Cannula 02/12/23 08:00 80 02/12/23 08:00 36.8 C 63 16 144/89 H 96 Room Air 02/12/23 04:10 78 02/12/23 03:00 36.7 C 59 L 16 144/88 H 97 Room Air O2 Flow Rate 02/12/23 11:40 02/12/23 08:00 2 02/12/23 08:00 02/12/23 08:00 02/12/23 04:10 02/12/23 03:00 Laboratory Results Laboratory Results WBC 10.19 K/ul (4.8-10.8) 02/12/23 06:23 RBC 4.32 M/uL (4.70-6.10) L 02/12/23 06:23 Hgb 12.6 g/dl (14.0-18.0) L 02/12/23 06:23 Hct 39.3 % (42.0-52.0) L 02/12/23 06:23 MCV 91.0 fL (80.0-100.0) 02/12/23 06:23 MCH 29.2 pg (25.0-34.0) 02/12/23 06: MCHC 32.1 g/dL (32.0-36.0) 02/12/23 06: RDW Std Deviation 47.0 fL (36.4-46.3) H 02/12/23 06: RDW Coeff of Shayy 14.0 % (11.5-14.5) 02/12/23 06: Plt Count 105 K/uL (130-400) L 02/12/23 06: MPV 10.5 fL (9.4-12.4) 02/12/23 06: Immature Gran % (Auto) 0.7 % 02/12/23 06: Neut % (Auto) 70.2 % 02/12/23: Lymph % (Auto) 13.8 % 02/12/23 06: [place] % (Auto) 12.6 % 02/12/23 06: Eos % (Auto) 2.5 % 02/12/23 06: Baso % (Auto) 0.2 % 02/12/23 06:23 Neut # (Auto) 7.16 K/uL (1.40-6.50) H 02/12/23 06:23 Lymph # (Auto) 1.41 K/uL (1.20-3.40) 02/12/23 06:23 [place] # (Auto) 1.28 K/uL (0.11-0.59) H 02/12/23 06:23 Eos # (Auto) 0.25 K/uL (0.00-0.50) 02/12/23: Baso # (Auto) 0.02 K/uL (0.00-0.20) 02/12/23 06:23 Immature Gran # (Auto) 0.07 K/uL (0.01-0.20) 02/12/23 06:23 PT 11.5 Seconds (9.0-12.0) 02/09/23 09:34 INR 1.1 (0.9-1.1) 02/09/23 09:34 APTT 27.6 Seconds (21.0-31.0) 02/09/23 09:34 PTT Ratio 1.0 02/09/23 09:34 Sodium 138 mmol/L (136-145) 02/12/23 06:23 Potassium 4.4 mmol/L (3.5-5.1) 02/12/23 06:23 Chloride 107 mmol/L (98-107) 02/12/23 06:23 Carbon Dioxide 25 mmol/L (21-32) 02/12/23 06:23 Anion Gap 6 (3-11) 02/12/23 06:23 BUN 32 mg/dl (6-23) H 02/12/23 06:23 Creatinine 0.85 mg/dl (0.6-1.4) 02/12/23 06:23 Est Cr Clr Drug Dosing 96.5 ml/min 02/12/23 06:23 Est GFR ( Amer) 99.5 ml/min 02/12/23 06:23 Est GFR (Non-Af Amer) 85.8 ml/min 02/12/23 06:23 BUN/Creatinine Ratio 37.6 (10-20) H 02/12/23 06:23 Glucose 99 mg/dl (70-99(Fasting)) 02/12/23 06:23 Estimat Average Glucose 111 mg/dl 02/10/23 06:38 Hemoglobin A1c 5.5 % (4.5-5.6) 02/10/23 06:38 Lactate 1.4 mmol/L (0.4-2.0) 02/09/23 10:43 Calcium 9.5 mg/dl (8.6-10.3) 02/12/23 06:23 Phosphorus 3.1 mg/dl (2.5-4.9) 02/10/23 06:38 Magnesium 1.9 mg/dl (1.7-2.4) 02/12/23 06:23 Total Bilirubin 0.8 mg/dl (0.2-1.0) 02/09/23 09:34 Direct Bilirubin 0.1 mg/dl (0-0.2) 02/09/23 09:34 AST 20 U/L (13-39) 02/09/23 09:34 ALT 12 U/L (7-52) 02/09/23 09:34 Alkaline Phosphatase 71 U/L (34-104) 02/09/23 09:34 Troponin I High Sens 9.0 pg/ml (0-20) 02/09/23 11:34 B-Natriuretic Peptide 442 pg/ml (0-100) H 02/09/23 11:34 Total Protein 7.1 gm/dl (6.0-8.3) 02/09/23 09:34 Albumin 4.1 gm/dl (3.4-5.0) 02/09/23 09:34 Globulin 3.0 gm/dl (2.5-4.0) 02/09/23 09:34 Albumin/Globulin Ratio 1.4 (0.9-2) 02/09/23 09:34 Triglycerides 128 mg/dl (0-150) 02/10/23 06:38 Cholesterol 161 mg/dl (0-200) 02/10/23 06:38 LDL Cholesterol, Calc 103 mg/dl 02/10/23 06:38 VLDL Cholesterol, Calc 26 mg/dl (0-30) 02/10/23 06:38 HDL Cholesterol 32 mg/dl 02/10/23 06:38 Cholesterol/HDL Ratio 5.0 (0-5) 02/10/23 06:38 Procalcitonin < 0.05 ng/ml (0-0.5) 02/09/23 09:35 Urine Color Yellow 02/09/23 10:11 Urine Appearance Cloudy (Clear) A 02/09/23 10:11 Urine pH 6.0 (4.5-7.5) 02/09/23 10:11 Ur Specific [place] 1.022 (1.000-1.030) 02/09/23 10:11 Urine Protein Trace (Negative) H 02/09/23 10:11 Urine Glucose (UA) Negative (Negative) 02/09/23 10:11 Urine Ketones Negative (Negative) 02/09/23 10:11 Urine Blood Negative (Negative) 02/09/23 10:11 Urine Nitrite Negative (Negative) 02/09/23 10:11 Urine Bilirubin Negative (Negative) 02/09/23 10:11 Urine Urobilinogen Negative (Negative) 02/09/23 10:11 Ur Leukocyte Esterase Negative (Negative) 02/09/23 10:11 Urine WBC (Auto) 1-5 /hpf (0-5) 02/09/23 10:11 Urine RBC (Auto) 0-4 /hpf (0-4) 02/09/23 10:11 U Hyaline Cast (Auto) 1-5 /lpf (0-5) 02/09/23 10:11 U Epithel Cells (Auto) 10-20 /lpf (0-5) H 02/09/23 10:11 Urine Bacteria (Auto) Negative (Negative) 02/09/23 10:11 Ethyl Alcohol mg/dL < 10.0 mg/dl (<10.0) 02/09/23 09:34 Blood Type O Positive 02/09/23 16:53 Blood Type Recheck O Positive 02/10/23 06:38 Antibody Screen NEGATIVE 02/09/23 16:[address] 02/09/23 09:52 CT cervical spine wo con CLINICAL HISTORY: fall TECHNIQUE: Multidetector row helical CT of the cervical spine was performed without administration of intravenous contrast. Coronal and sagittal reformations were obtained. Automated dose lowering techniques and/or adjustment according to patient size were utilized for this exam. Comparison: Comparison is made to CTA neck 09/03/2022 FINDINGS: No acute fractures or subluxations are identified. Degenerative changes are seen in the visualized spine. Extensive lordosis is noted, unchanged. Soft tissues are unremarkable. IMPRESSION: Degenerative changes without evidence of acute bony injury. ACT 112: Negative or not required by law. Electronically signed by: Nguyễn Rodríguez M.D. 02/09/2023 11:[address] 02/09/23 09:52 CT head/brain wo con CLINICAL HISTORY: fall Technique: Contiguous axial CT images of the head were acquired from the base of the skull to the vertex without intravenous contrast administration. Images were viewed in brain, subdural and bone windows. Automated dose lowering techniques and/or adjustment according to patient size were utilized for this exam. Comparison: Comparison is made to CT head 09/09/2022 Findings: Areas of decreased attenuation are present in the periventricular and subcortical white matter bilaterally consistent with small vessel ischemic disease. Generalized cerebral atrophy with commensurate enlargement of the ventricles, sulci, and cisterns is also present. There is no acute intracranial hemorrhage or evidence of acute territorial infarction. No shift of the midline structures, mass effect, or extra-axial abnormalities are shown. Atherosclerotic calcifications are present in the intracranial segments of the internal carotid arteries. Imaged portions of the paranasal sinuses and mastoid air cells are clear. The orbits appear normal. There are no acute fractures of the calvaria or scalp swelling. Impression: No acute intracranial hemorrhage, no evidence of acute territorial infarction or other acute intracranial disease process. ACT 112: Negative or not required by law. Electronically signed by: Nguyễn Rodríguez M.D. 02/09/2023 11:39 AM Chest X-Ray 02/09/23 09:53 SINGLE VIEW CHEST CLINICAL HISTORY: Sepsis. FINDINGS: 2 AP, portable, upright chest radiographs are compared to study dated 09/03/2022. The examination is degraded by portable technique and patient rotation. The heart is enlarged noting atherosclerotic calcification of the thoracic aorta. There is pulmonary vascular congestion. Scarring/atelectasis is noted at the lung bases. There is no airspace consolidation typical for pneumonia. No large pleural effusion or pneumothorax is seen. The skeletal structures are osteopenic. The bony thorax is grossly intact. IMPRESSION: Cardiomegaly with evidence of congestive failure. ACT 112: Negative or not required by law. Electronically signed by: Rodney Garcia M.D. 02/09/2023 10:32 AM Abdomen/Pelvis CT 02/09/23 09:54 CT abd pelvis IV con only CLINICAL HISTORY: R sided lower paraspinal pain and bruising on eliq TECHNIQUE: Helical axial images of the abdomen and pelvis were obtained and displayed. Automated dose lowering techniques and/or adjustment according to patient size were utilized for this exam. This exam was performed with intravenous contrast. COMPARISON: None available at the time of this dictation. FINDINGS: Lower chest: Small bilateral pleural effusions are seen with underlying atelectasis. Biatrial enlargement is seen and there is atherosclerotic disease. Liver: Unremarkable. No focal lesions are seen. Gallbladder and biliary tree: No calcified gallstones. Normal caliber wall. No intra- or extrahepatic biliary ductal dilation. Pancreas: Fatty replacement of the pancreas is seen. Spleen: Unremarkable. Adrenals: Unremarkable. Kidneys and ureters: Exophytic cyst arises from the left kidney. Bladder: Unremarkable. Reproductive organs: Unremarkable. Bowel: Diverticulosis is seen without diverticulitis. The appendix is normal. Lymph nodes Retroperitoneal: Unremarkable. Pelvic: Unremarkable. Mesenteric: Unremarkable. Peritoneum: Normal. Vessels: Atherosclerotic calcifications are seen. Abdominal wall: Unremarkable. Bones: There is an acute fracture of the left femoral neck with overriding and apex lateral angulation. Mild surrounding soft tissue stranding is seen. IMPRESSION: Acute fracture of the left femoral neck. No spinal fractures are seen. No acute intra-abdominal injuries. ACT 112: Negative or not required by law. Electronically signed by: Nguyễn Rodríguez M.D. 02/09/2023 12:01 PM Hip/Pelvis X-Ray 02/10/23 16:05 SINGLE VIEW PELVIS; SINGLE VIEW LEFT HIP CLINICAL HISTORY: Postoperative examination. FINDINGS: An AP portable view of the hips and pelvis with a crosstable lateral portable view of the left hip are compared to study dated 02/09/2023. A left hip arthroplasty is in near-anatomic alignment. No acute fracture is identified. Soft tissue swelling and subcutaneous gas overlying the left hip are expected postsurgical changes. [id number] arthritic change and joint space narrowing is seen in the right hip. Degenerative sclerosis is noted in the sacroiliac joints and pubic symphysis. There is atherosclerotic calcification of the femoral arteries. A Kimball catheter is in place. IMPRESSION: Expected postoperative findings status post left hip arthroplasty. No acute fracture is seen. ACT 112: Negative or not required by law. Electronically signed by: Rodney Garcia M.D. 02/10/2023 5:03 PM (3) Acute exacerbation of congestive heart failure Heart failure type: unspecified Qualified Code(s): I50.9 - Heart failure, unspecified (5) HTN (hypertension) Hypertension type: primary hypertension Qualified Code(s): I10 - Essential (primary) hypertension
--- NOTE | 2023-02-12 14:35 | Cardiology Progress Note ---
Date of Service February 12, 2023 Assessment & Plan (1) Chronic atrial fibrillation with rapid ventricular response: (2) Acute on chronic diastolic heart failure with preserved ejection fraction: (3) HTN (hypertension): (4) Left displaced femoral neck fracture: Plan Patient is a 72 year old male admitted after a fall (likely mechanical) with left femoral neck facture. s/p left femoral neck hemiarthroplasty ,02/10/23. Patient with underlying ischemic heart disease, chronic afib, hypertension, prior history of TIA/CVA. Possible non compliance with medications at home. Echo 02/09/23: Chronic distal LAD territory wall motion abnormality, LVEF 40-45%, moderate aortic valve sclerosis without stenosis. AF with RVR noted on presentation, rates now improved. Continue metoprolol tartrate 25 mg twice per day Continue Eliquis Voiding spontaneously in urinal. Furosemide 20 mg x 1 today 02/12/2023, transition to 20 mg daily on 02/13/2023. Noted slight increase in BUN today. Need to follow renal function and clinical volume status. Admission and Anticipated Discharge Date Admission Date: February 09, 2023 Subjective Patient seen in cardiology follow-up. No cardiac complaints today. Telemetry reveals rate controlled atrial fibrillation in the 60s to 70s. Review of Systems Review of Systems: Unobtainable due to cognitive status Physical Exam Constitutional: WD/WN, vitals as above no acute distress Neck: trachea midline, no thyromegaly Respiratory: no labored breathing Auscultation: + rales (b/l) Cardiovascular: Rate/Rhythm: + irregularly irregular Heart Sounds: + murmur (II/ systolic murmur) Vessels: no JVD Extremities: no edema Gastrointestinal (Abdomen): normal bowel sounds, soft, nontender, no hepa tosplenomegaly Neurologic: PERRL, EOMI, accommodation nl, no face palsy, no dysarthria Results & Data Vital Signs (Past 12 Hours) Vital Signs Temp Pulse Pulse Resp BP Pulse Ox O2 Del Method 02/12/23 11:40 36.5 C 78 20 131/81 99 Room Air 02/12/23 08:00 Nasal Cannula 02/12/23 08:00 80 02/12/23 08:00 36.8 C 63 16 144/89 H 96 Room Air 02/12/23 04:10 78 02/12/23 03:00 36.7 C 59 L 16 144/88 H 97 Room Air O2 Flow Rate 02/12/23 11:40 02/12/23 08:00 2 02/12/23 08:00 02/12/23 08:00 02/12/23 04:10 02/12/23 03:00 Laboratory Results CBC 02/12/23 Range/Units 06:23 WBC 10.19 (4.8-10.8) K/ul RBC 4.32 L (4.70-6.10) M/uL Hgb 12.6 L (14.0-18.0) g/dl Hct 39.3 L (42.0-52.0) % Plt Count 105 L (130-400) K/uL Neut # (Auto) 7.16 H (1.40-6.50) K/uL Lymph # (Auto) 1.41 (1.20-3.40) K/uL [place] # (Auto) 1.28 H (0.11-0.59) K/uL Eos # (Auto) 0.25 (0.00-0.50) K/uL Baso # (Auto) 0.02 (0.00-0.20) K/uL Comprehensive Metabolic Panel 02/12/23 Range/Units 06:23 Sodium 138 (136-145) mmol/L Potassium 4.4 (3.5-5.1) mmol/L Chloride 107 (98-107) mmol/L Carbon Dioxide 25 (21-32) mmol/L BUN 32 H (6-23) mg/dl Creatinine 0.85 (0.6-1.4) mg/dl Glucose 99 (70-99(Fasting)) mg/dl Calcium 9.5 (8.6-10.3) mg/dl Intake and Output 02/11/23 02/12/23 02/12/23 22:59 06:59 14:59 Other: # Unmeasured Voids 1 (3) HTN (hypertension) Hypertension type: primary hypertension Qualified Code(s): I10 - Essential (primary) hypertension
[2023-02-12] MEDS ORDERED: FUROSEMIDE INJ 20 MG/2 ML VIAL IV ONE (14:45)
[2023-02-12] MEDS: SENNA 8.6 MG TAB PO SCH (20:50)
[2023-02-13] MEDS ORDERED: LORazepam 0.5 MG TAB PO STA (01:19)
[2023-02-13] MEDS ORDERED: OLANZapine 10 MG/2.1 ML SDV IM STA (02:53)
--- OUTSIDE RECORDS SUMMARY | 2023-02-13 04:51 | External Medical Summary | Summary of Care ---
Author Name Unknown Organization [facility] Address [address] [place] [address] Phone [phone] Care Team Providers Care Collarette Separator Name Role Phone Berta Benavides MD Primary Care Provide r Reason for Visit * Reason Onset Date Comments Health Maintenance 10/06/2022 Encounter Details Date Type Department Care Team Description 10/06/2022 Telephone Family Medicine [address] [place] [address] Berta Benavides MD [address] [place] [address] [place] [id number] Health Maintenance Allergies Active Allergy Reactions Severity Noted Date Comments Vitamin B12 Other (Please comment) 07/30/2018 Pt states that the vitamin B12 and B6 makes his nosebleed documented as of this encounter (statuses as of 10/06/2022) Medications Medication Sig Dispensed Refills Start Date End Date Status Saw [place] 450 MG Capsule Take by mouth. Takes 4 tabs daily 0 Active Menaquinone-7 (VITAMIN K2) 100 MCG CAPS Take by mouth daily. 0 Active Arginine 500 MG Oral Capsule Take 2 Capsules by mouth in the morning and 2 Capsules before bedtime. 0 Active Prostate Oral Tablet Take by mouth 1 Tablet daily . 0 Active DULoxetine HCl 30 MG Oral Capsule Delayed Release Particles (Cymbalta)Indications: DDD (degenerative disc disease), lumbar,Osteoarthritis of multiple joints, unspecified osteoarthritis type TAKE ONE CAPSULE BY MOUTH EVERY DAY DO NOT CUT, CRUSH, OR CHEW 90 Capsule 1 03/04/2022 Active Atorvastatin Calcium 80 MG Oral Tablet (Lipitor) TAKE ONE TABLET BY MOUTH EVERY DAY 90 Tablet 1 03/04/2022 Active Eliquis 5 MG Oral Tablet (Apixaban)Indications: Paroxysmal atrial fibrillation (HCC) TAKE ONE TABLET BY MOUTH TWICE DAILY 180 Tablet 0 07/30/2022 Active Metoprolol Tartrate 25 MG Oral Tablet (Lopressor)Indications :HTN, goal below 140/90 TAKE ONE TABLET BY MOUTH TWICE DAILY 180 Tablet 1 07/30/2022 Active Aspirin 81 MG Oral Tablet Delayed Release Take 1 Tablet by mouth in the morning. 0 Active guaiFENesin ER 600 MG Oral Tablet Extended Release 12 Hour (Mucinex)Indications:R hinorrhea Take 1 Tablet by mouth 2 times a day as needed for Congestion. Take with plenty of water. Do not cut, crush or chew 30 Tablet 0 09/28/2022 Active documented as of this encounter (statuses as of 10/06/2022) Active Problems Problem Noted Date [facility] current use of anticoagulant t herapy 07/20/2022 Parkinsonism 02/18/2022 Mild mitral regurgitation 02/18/2022 Prediabetes 02/18/2022 DDD (degenerative disc disease), lumbar 11/12/2020 Osteoarthritis of multiple joints 2020 Paroxysmal atrial fibrillation History of ETOH abuse 11/12/2020 Essential tremor 11/12/2020 Coronary artery disease involving [place] heart without angina pectoris 11/12/2020 S/P angioplasty with stent 11/12/2020 HTN, goal below 140/90 documented as of this encounter (statuses as of 10/06/2022) Immunizations Name Administration Dates Next Due COVID-19 mRNA, LNP-s, No Pre serve, 2-Dose Series (Pfizer) 03/02/2021 Pneumococcal Conjugate Vaccine, 20-valent (Prevn ar20) 07/20/2022 Seasonal Influenza, Quadrivalent Hd (Fluzone Hd) 02/12/2021 documented as of this encounter Social History Tobacco Use Types Packs/Day Years Used Date Smoking Tobacco: Former Smokeless Tobacco: Current Chew Alcohol Use Standard Drinks/Week Comments Yes 0 (1 standard drink = 0.6 oz pure alcohol) drinks wine about every 6 weeks - used to drink heavily Sex Assigned at Date Recorded Not on file Job Start Date Occupation Industry Not on file Not on file Not on file documented as of this encounter Miscellaneous Notes * Telephone Encounter - Joanne Villalobos LPN - 10/06/2022 1:18 PM EDT Care Gaps Comprehensive Care Outreach Last Office/Telemedicine Visit: 09/28/2022 (in office), Visit date not found (telemedicine) Next Office Visit: 10/19/2022 Hemoglobin AIC Results: Lab Results Component Value Date/Time HEMOGLOBIN A1C - [facility] 5.8 (H) 06/27/2022 09:15 AM HEMOGLOBIN A1C - [facility] 5.9 (H) 05/17/2021 04:16 PM HEMOGLOBIN A1C - [facility] 5.5 02/19/2020 10:05 AM HEMOGLOBIN A1C - [facility] 5.7 (H) 07/26/2019 08:35 AM HEMOGLOBIN A1C - [facility] 5.5 01/03/2018 08:21 AM Reviewed Health Maintenance below: Health Maintenance Topic Date Due Depression Screening, Annual for Pts 12 and Over Never done DTaP,Tdap,and Td Vaccines (1 - Tdap) Never done Colorectal Cancer Screening Never done Zoster Vaccines (1 of 2) Never done ABDOMINAL AORTIC ANEURYSM (AAA) SCREENING Never done COVID-19 Vaccine (2 - Pfizer series) 04/27/2021 Influenza Vaccine (FLU shot) (1) 12/02/2022 Colon aaa Care Gap Outreach Action Taken: unable to reach no vm documented in this encounter Plan of Treatment Upcoming Encounters Date Type Specialty Care Team Description 10/19/2022 Office Visit Berta Jackson MD [address] [place] [address] [place] [id number] 11/11/2022 Office Visit Berta Jackson MD [address] [place] [address] [place] [id number] 12/28/2022 Office Visit Berta Jackson MD [address] [place] [address] [place] [id number] 07/25/2023 Office Visit Cardiology Brennan Mccormick, DO [address] [place] [id number] Health Maintenance Due Date Last Done Comments Depression Screening, Annual for Pts 12 and Over 1960 DTaP,Tdap,and Td Vaccines (1 - Tdap) 06/20/1967 Cologuard 1993 Colonoscopy 1993 Colorectal Cancer Screening 1993 Fecal Occult Blood Test 1993 Sigmoidoscopy 1993 Zoster Vaccines (1 of 2) 1998 ABDOMINAL AORTIC ANEURYSM (AAA) SCREENING 2013 COVID-19 Vaccine (2 - Pfizer series) 04/27/2021 03/02/2021 Influenza Vaccine (FLU shot) (#1) 2022 02/12/2021, 02/13/2002, 03/22/2000 GFR 06/28/2023 06/27/2022, 05/04, 07/29/2020, Additional history exists HbA1c 06/28/2023 06/27/2022, 05/04, 02/19/2020, Additional history exists Albumin/Creatinine Ratio 06/27/2025 06/27/2022, 05/04 Pneumococcal Vaccine: 65+ Years Completed 07/20/2022 GARDASIL-HPV IMMUNIZATION SERIES Aged Out No longer eligible based on patient's age to complete this topic Hepatitis B Aged Out No longer eligi ble based on patient's age to complete this topic MENINGOCOCCAL (MENACTRA/MENVEO) Aged Out No longer eligible based on patient's age to complete this topic documented as of this encounter Medical Devices Not on filedocumented as of this encounter Care Teams Collarette Separator Relationship Specialty Start Date End Date Berta Benavides MD [address] [place] [address] [place] [id number] PCP - General Family Medicine 11/12/20 documented as of this encounter
--- OUTSIDE RECORDS SUMMARY | 2023-02-13 04:51 | External Medical Summary | Summary of Care ---
Author Name Unknown Organization [facility] Address [address] [place] [address] Phone [phone] Care Team Providers Care Electric Motor Repairing Supervisor Name Role Phone eBrta Benavides MD Primary Care Provide r Reason for Visit * Reason Comments eRx-Medication Refill Encounter Details Date Type Department Care Team Description 11/01/2022 Refill Family Medicine [address] [address] Shira Sage MD [address] [place] [address] [place] [address] Paroxysmal atrial fibrillation (HCC) Allergies Active Allergy Reactions Severity Noted Date Comments Vitamin B12 Other (Please comment) 07/30/2018 Pt states that the vitamin B12 and B6 makes his nosebleed documented as of this encounter (statuses as of 11/03/2022) Medications Medication Sig Dispensed Refills Start Date End Date Status Saw [place] 450 MG Capsule Take by mouth. Takes [...] 30 MG Oral Capsule Delayed Release Particles (Cymbalta)Indicatio ns:DDD (degenerative disc disease), lumbar,Osteoarthrit is of multiple joints, unspecified osteoarthritis type TAKE ONE CAPSULE BY MOUTH EVERY DAY DO NOT CUT, CRUSH, OR CHEW 90 Capsule 1 03/04/2022 Active Atorvastatin Calcium 80 MG Oral Tablet (Lipitor) TAKE ONE TABLET BY MOUTH EVERY DAY 90 Tablet 1 03/04/2022 Active Metoprolol Tartrate 25 MG Oral Tablet (Lopressor)Indicati ons:HTN, goal below 140/90 TAKE ONE TABLET BY MOUTH TWICE DAILY 180 Tablet 1 07/30/2022 Active Aspirin 81 MG Oral Tablet Delayed Release Take 1 Tablet by mouth in the morning. 0 Active guaiFENesin ER 600 MG Oral Tablet Extended Release 12 Hour (Mucinex)Indication s:Rhinorrhea Take 1 Tablet by mouth 2 times a day as needed for Congestion. Take with plenty of water. Do not cut, crush or chew 30 Tablet 0 09/28/2022 Active Eliquis 5 MG Oral Tablet (Apixaban)Indicatio ns:Paroxysmal atrial fibrillation (HCC) TAKE ONE TABLET BY MOUTH TWICE DAILY 180 Tablet 0 11/02/2022 Active Eliquis 5 MG Oral Tablet (Apixaban)Indicatio ns:Paroxysmal atrial fibrillation (HCC) TAKE ONE TABLET BY MOUTH TWICE DAILY 180 Tablet 0 07/30/2022 3 Discontinued documented as of this encounter (statuses as of 11/03/2022) Active Problems Problem Noted Date skilled nursing current use of anticoagulant t herapy 07/20/2022 Parkinsonism 02/18/2022 Mild mitral regurgitation 02/18/2022 Prediabetes 02/18/2022 DDD (degenerative disc disease), lumbar 11/12/2020 Osteoarthritis of multiple joints 2020 Paroxysmal atrial fibrillation History of ETOH abuse 11/12/2020 Essential tremor 11/12/2020 Coronary artery disease involving [place] heart without angina pectoris 11/12/2020 S/P angioplasty with stent 11/12/2020 HTN, goal below 140/90 documented as of this encounter (statuses as of 11/03/2022) Immunizations Name Administration Dates Next Due COVID-19 mRNA, LNP-s, No Pre serve, 2-Dose Series ([employer]) 03/02/2021 Pneumococcal Conjugate Vaccine, 20-valent (Prevn ar20) [...] encounter Miscellaneous Notes * Telephone Encounter - Sonia Manuel LPN - 11/03/2022 8:37 AM EDT Provider to address: Pharmacist Reason for Call: eRx-Medication Refill Contact: Letter Contact Type: Orders Outcome: Letter sent to Patient Total Time including non face to face (minutes): 10 * Telephone Encounter - MICHAELA ySkes Tech - 11/02/2022 9:29 AM EDT Received message from [facility] regarding patient needing labs. Placed call to patient to advise. Unable to reach pt, as there was no answer and no VM available to leave message. Letter created, please send out to patient to advise. Thank you, Karen Treviño Price Changer [facility] 11/02/2022, 9:29 AM * Telephone Encounter - Yun Cook RPh - 11/02/2022 8:13 AM EDTSigned Prescriptions: Disp Refills Eliquis 5 MG Oral Tablet (Apixaban) 180 Ta*0 Sig: TAKE ONE TABLET BY MOUTH TWICE DAILY Authorizing Provider: BERTA BENAVIDES Ordering User: YUN COOK * Telephone Encounter - Yunmaikol Atkins Ej Cook - 11/02/2022 8:13 AM EDT Provided 90 days supply with 0 refill(s). Per refill protocol patient should have CBC on file within past year. Reviewed AMP report, Care Gaps/Health Maintenance, medications list, and for any routine labs typically ordered for this patient. Lab orders placed. Please contact patient to advise of labs ordered for blood draw. Fasting is not required. Advise toobtain labs before his scheduled office visit 11/11/2022. Thank you, Yun Cook PharmD Clinical Pharmacist [facility] [phone] 11/02/2022, 8:13 AM documented in this encounter Plan of Treatment Upcoming Encounters Date Type Specialty Care Team Description 11/11/2022 Office Visit Family Medicine Berta Benavides MD [address] [place] [address] [place] [address] 12/28/2022 Office Visit Family Medicine Berta Benavides MD [address] [place] [address] [place] [address] 07/25/2023 Office Visit Cardiology Brennan Mccormick, DO [address] [place] [address] Health Maintenance Due Date Last Done Comments Depression Screening, Annual for Pts 12 and Over 1960 DTaP,Tdap,and Td Vaccines (1 - Tdap) 06/20/1967 Cologuard 1993 Colonoscopy 1993 Colorectal Cancer Screening 1993 Fecal Occult Blood Test 1993 Sigmoidoscopy 1993 Zoster Vaccines (1 of 2) 1998 AAA Screening 2013 COVID-19 Vaccine (2 - Pfizer series) [...] Not on filedocumented as of this encounter Visit Diagnoses Diagnosis Paroxysmal atrial fibrillation (HCC) Atrial fibrillation documented in this encounter Care Teams Electric Motor Repairing Supervisor Relationship Specialty Start Date End Date Berta Benavides MD [address] [place] [address] [place] [address] PCP - General Family Medicine 11/12/20 documented as of this encounter
--- OUTSIDE RECORDS SUMMARY | 2023-02-13 04:52 | External Medical Summary | Summary of Care ---
Author Name Unknown Organization [facility] Address [address] [facility] [place] [address] Phone [phone] Care Team Providers Care Local Company Hazmat Driver Name Role Phone Berta Benavides MD Primary Care Provide r Reason for Visit * Reason Onset Date Comments Hospital Follow-Up 09/08/[address] [facility] Encounter Details Date Type Department Care Team Description 09/08/2022 Telephone Ancillary [address] [place] [address] Liz Andrade RN Hospital Follow-Up ([facility] at [facility]/) Allergies Active Allergy Reactions Severity Noted Date Comments Vitamin B12 Other (Please comment) 07/30/2018 Pt states that the vitamin B12 and B6 makes his nosebleed documented as of this encounter (statuses as of 09/09/2022) Medications Medication Sig Dispensed Refills Start Date End Date Status Saw [place] 450 MG Capsule Take by mouth. 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 07/20/2022 Parkinsonism 02/18/2022 Mild mitral regurgitation 02/18/2022 Prediabetes 02/18/2022 DDD (degenerative disc disease), lumbar 11/12/2020 Osteoarthritis of multiple joints 2020 Paroxysmal atrial fibrillation History of ETOH abuse 11/12/2020 Essential tremor 11/12/2020 Coronary artery disease involving [place] heart without angina pectoris 11/12/2020 S/P angioplasty with stent 11/12/2020 HTN, goal below 140/90 documented as of this encounter (statuses as of 09/09/2022) Immunizations Name Administration Dates Next Due COVID-19 mRNA, LNP-s, No Pre serve, 2-Dose Series (Pfizer) 03/02/2021 Influenza, Whole Virus 03/22/2000 Pneumococcal Conjugate Vaccine, 20-valent (Prevn ar20) 07/20/2022 Seasonal Influenza, Quadrivalent Hd (Fluzone Hd) 02/12/2021 Seasonal Influenza, Split, IIV3, With Preserve, Inj 02/13/2002 documented as of this encounter Social History [...] encounter Miscellaneous Notes * Telephone Encounter - Liz Andrade RN - 09/09/2022 11:39 AM EDT Just got a message from Hemalatha who is the nurse coordinator for the hospitalist at [facility], she states she did see pt was currently readmitted and she did inform the CM about the situation and theywill discuss it. * Telephone Encounter - Liz Andrade RN - 09/09/2022 11:22 AM EDT Hospital did have one more # to try, but that gentleman called me back today and he is not familiarwith pt and he is not JEP. I did message Dee to update his chart when and if he comes in for his hospital discharge. He did refuse rehab and I know [facility] was to go in, but if they can't reach him either that will not happen. I will message Berta Benavides MD to make him aware. * Telephone Encounter - Liz Andrade RN - 09/08/2022 4:59 PM EDT Tried to call multiple phone numbers and contacts without any success. I did leave a message on Harsh's phone (unsure of relation to pt) to call me back tomorrow or have Yair call me. * Telephone Encounter - Liz Andrade RN - 09/08/2022 11:59 AM EDT Transitions of Care Note Reason for Referral:Recent Admission Phone visit for follow up: PAUL Admitted to: [facility], Date: 09.03.22 Discharged to: home, Date: 09.07.22 Diagnosis driving hospitalization: Stroke Atrial fibrillation Tried to call multiple number home # was not correct , gentleman told me he gets multiple calls forthe pt. He would like it removed. I did message Tr for another # in [facility] records and both of them were incorrect too. Pt does not have myG I did call his EC and he is not related to pt, and he doesn't see him on a regular basis and its probably been over a mth at that time he did not have a phone and he was suppose to get one. Liz Andrade RN documented in this encounter Plan of Treatment Upcoming Encounters Date Type Specialty Care Team Description 09/12/2022 Office Visit Family Medicine Berta Benavides MD [address] [place] [address] [place] [address] 10/19/2022 Office Visit Family Medicine Berta Benavides MD [address] [place] [address] [place] [address] 12/28/2022 Office Visit Family Medicine Berta Benavides MD [address] [place] [address] [place] [address] 07/25/2023 Office Visit Cardiology Brennan Mccormick, DO [address] [place] [address] Health Maintenance Due Date Last Done Comments Depression Screening, Annual for Pts 12 and Over 1960 DTaP,Tdap,and Td Vaccines (1 - Tdap) 06/20/1967 Cologuard 1993 Colonoscopy 1993 Colorectal Cancer Screening 1993 Fecal Occult Blood Test 1993 Sigmoidoscopy 1993 Zoster Vaccines (1 of 2) 1998 ABDOMINAL AORTIC ANEURYSM (AAA) SCREENING 2013 COVID-19 Vaccine (2 - Pfizer series) 04/27/2021 03/02/2021 Influenza Vaccine (FLU shot) (Season Ended) 2022 02/12/2021, 02/13/2002, 03/22/2000 GFR 06/28/2023 06/27/2022, [...] filedocumented as of this encounter Care Teams Local Company Hazmat Driver Relationship Specialty Start Date End Date Berta Benavides MD [address] [place] [address] [place] [address] PCP - General Family Medicine 11/12/20 documented as of this encounter
--- OUTSIDE RECORDS SUMMARY | 2023-02-13 04:52 | External Medical Summary | Summary of Care ---
Author Name Unknown Organization [facility] Address [address] [facility] [place] [address] Phone [phone] Care Team Providers Care It Program Engagement Director Name Role Phone Berta Benavides MD Primary Care Provide r Reason for Visit * Reason Onset Date Comments Hospital Follow-Up 09/07/2022 Encounter Details Date Type Department Care Team Description 09/07/2022 Telephone General Internal Medicine [facility] [place] [address] [facility] [place] [address] Berta Benavides MD [address] [place] [address] [place] [id number] Hospital Follow-Up Allergies Active Allergy Reactions Severity Noted Date Comments Vitamin B12 Other (Please comment) 07/30/2018 Pt states that the vitamin B12 and B6 makes his nosebleed documented as of this encounter (statuses as of 09/07/2022) Medications Medication Sig Dispensed Refills Start Date End Date Status Saw [place] 450 MG Capsule Take by mouth. 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 07/20/2022 Parkinsonism 02/18/2022 Mild mitral regurgitation 02/18/2022 Prediabetes 02/18/2022 DDD (degenerative disc disease), lumbar 11/12/2020 Osteoarthritis of multiple joints 2020 Paroxysmal atrial fibrillation History of ETOH abuse 11/12/2020 Essential tremor 11/12/2020 Coronary artery disease involving [place] heart without angina pectoris 11/12/2020 S/P angioplasty with stent 11/12/2020 HTN, goal below 140/90 documented as of this encounter (statuses as of 09/07/2022) Immunizations Name Administration Dates Next Due COVID-19 [...] encounter Miscellaneous Notes * Telephone Encounter - Berta Benavides MD - 09/07/2022 12:42 PM EDT Noted and thank you * Telephone Encounter - Tr Conley RN - 09/07/2022 11:51 AM EDT Patient discharged from [facility] today to home after treatment for CVA. PT recommends rehab, although patient declined to go. Patient does agree to [facility]. It is recommended that patient have vascular follow up for Rt carotid bulb atherosclerotic plaque as this is a symptomatic carotid which requires further monitoring. Thank you documented in this encounter Plan of Treatment Upcoming Encounters Date Type Specialty Care Team Description 09/12/2022 Office Visit Family Medicine Berta Benavides MD [address] [place] [address] [place] [address] 10/19/2022 Office Visit Family Medicine Berta Benavides MD [address] [place] [address] [place] [address] 12/28/2022 Office Visit Family Berta Londono MD [address] [place] [address] [place] [address] 07/25/2023 Office Visit Cardiology Brennan Mccormick, DO [address] [place] [address] Health Maintenance Due Date Last Done Comments [...] filedocumented as of this encounter Care Teams It Program Engagement Director Relationship Specialty Start Date End Date Berta Benavides MD [address] [place] [address] [place] [address] PCP - General Family Medicine 11/12/20 documented as of this encounter
--- OUTSIDE RECORDS SUMMARY | 2023-02-13 04:52 | External Medical Summary | Summary of Care ---
Author Name Unknown Organization [facility] Address [address] [place] [address] Phone [phone] Care Team Providers Care Building Maintenance Engineer Name Role Phone Berta Benavides MD Primary Care Provide r Reason for Visit * Reason Onset Date Comments FYI 09/27/2022 Encounter Details Date Type Department Care Team Description 09/27/2022 Telephone Family Medicine [address] [place] [address] Berta Benavides MD [address] [place] [address] [place] [address] FYI Allergies Active Allergy Reactions Severity Noted Date Comments Vitamin B12 Other (Please comment) 07/30/2018 Pt states that the vitamin B12 and B6 makes his nosebleed documented as of this encounter (statuses as of 09/28/2022) Medications Medication Sig Dispensed Refills Start Date End Date Status Saw [place] 450 MG Capsule Take by mouth. Takes [...] as of this encounter (statuses as of 09/28/2022) Active Problems Problem Noted Date snf current use of anticoagulant t herapy 07/20/2022 Parkinsonism 02/18/2022 Mild mitral regurgitation 02/18/2022 Prediabetes 02/18/2022 DDD (degenerative disc disease), lumbar 11/12/2020 Osteoarthritis of multiple joints 2020 Paroxysmal atrial fibrillation History of ETOH abuse 11/12/2020 Essential tremor 11/12/2020 Coronary artery disease involving [place] heart without angina pectoris 11/12/2020 S/P angioplasty with stent 11/12/2020 HTN, goal below 140/90 documented as of this encounter (statuses as of 09/28/2022) Immunizations Name Administration Dates Next Due COVID-19 mRNA, LNP-s, No Pre serve, 2-Dose Series ([employer]) 03/02/2021 Influenza, Whole Virus 03/22/2000 Pneumococcal Conjugate [...] Telephone Encounter - Berta Benavides MD - 09/28/2022 12:08 PM EDT Noted * Telephone Encounter - Janki Rubin LPN - 09/28/2022 12:06 PM EDT Noted Pt scheduled to see Dr. Benavides today FYI to Dr. Benavides - pt refusing home health Provider to address: PCP Reason for Call: FYI Contact: Telephone Call Contact Type: Follow-up Outcome: see above Total Time including non face to face (minutes): 5 * Telephone Encounter - ADELE Forde - 09/27/2022 1:14 PM EDT Will Anderson calling, states she went to home to evaluate this patient and he is refusing services. Just an FYI documented in this encounter Plan of Treatment Upcoming Encounters Date Type Specialty Care Team Description 09/28/2022 Office Visit Family Berta Londono MD [address] [place] [address] [place] [address] 10/19/2022 Office Visit Family Berta Londono MD [address] [place] [address] [place] [address] 12/28/2022 Office Visit Family Berta Londono MD [address] [place] [address] [place] [address] 07/25/2023 Office Visit Cardiology Brennan Mccormick, DO [address] [place] [address] Health Maintenance Due Date Last Done Comments [...] filedocumented as of this encounter Care Teams Building Maintenance Engineer Relationship Specialty Start Date End Date Berta Benavides MD [address] [place] [address] [place] [address] PCP - General Family Medicine 11/12/20 documented as of this encounter
--- OUTSIDE RECORDS SUMMARY | 2023-02-13 04:52 | External Medical Summary | Summary of Care ---
Author Name Unknown Organization [facility] Address [address] [facility] [place] [address] Phone [phone] Care Team Providers Care Application Support Technician Name Role Phone Berta Benavides MD Primary Care Provide r Reason for Visit * Reason Onset Date Comments Hospital Follow-Up 09/08/2022 PA[facility] at [facility] Encounter Details Date Type Department Care Team Description 09/08/2022 Telephone Ancillary [address] [place] [address] Liz Andrade RN Hospital Follow-Up ([facility] at [facility]/) Allergies Active Allergy Reactions Severity Noted Date Comments Vitamin B12 Other (Please comment) 07/30/2018 Pt states that the vitamin B12 and B6 makes his nosebleed documented as of this encounter (statuses as of 09/09/2022) Medications Medication Sig Dispensed Refills Start Date End Date Status Saw [place] 450 MG Capsule Take by mouth. 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 Reason for Call: Hospital Follow-Up (PAUL at [facility]/) Contact: Telephone Call Contact Type: Follow-up Outcome: see above Face to face time spent with Patient (minutes): 0 Total Time including non face to face (minutes): 20 * Telephone Encounter - Liz Andrade RN - 09/09/2022 11:22 AM EDT Hospital did have one more # to try, but that gentleman called me back today and he is not familiarwith pt and he is not JEP. I did message Dee to update his chart when and if he comes in for his hospital discharge. He did refuse rehab and I know [facility] was to go in, but if they [...] visit for follow up: PAUL Admitted to: [facility], Date: 09.03.22 Discharged to: home, Date: 09.07.22 Diagnosis driving hospitalization: Stroke Atrial fibrillation Tried to call multiple number home # was not correct , gentleman told me he gets multiple calls forthe pt. He would like it removed. I did message Tr for another # in [facility] records and both of them were incorrect [...] Office Visit Family Medicine Berta Benavides MD [address] [place] [address] [place] [address] 10/19/2022 Office Visit Family Medicine Berta Benavides MD [address] [place] [address] [place] [address] 12/28/2022 Office Visit Family Medicine Berta Benavides MD [address] [place] [address] [place] [address] 07/25/2023 Office Visit Cardiology Brennan Mccormick, DO [address] [place] [address] Health Maintenance Due Date Last Done Comments [...] filedocumented as of this encounter Care Teams Application Support Technician Relationship Specialty Start Date End Date Berta Benavides MD [address] [place] [address] [place] [address] PCP - General Family Medicine 11/12/20 documented as of this encounter
--- OUTSIDE RECORDS SUMMARY | 2023-02-13 04:52 | External Medical Summary | Summary of Care ---
Author Name Unknown Organization [facility] Address [address] [facility] [place] [address] Phone [phone] Care Team Providers Care Senior Consultant Name Role Phone Berta Benavides MD Primary Care Provide r Reason for Visit * Reason Onset Date Comments Hospital Follow-Up 09/08/2022 [facility] at [facility] Encounter Details Date Type Department Care Team Description 09/08/2022 Telephone Ancillary [address] [place] [address] Liz Andrade RN Hospital Follow-Up ([facility] at [facility]/) Allergies Active Allergy Reactions Severity Noted Date Comments Vitamin B12 Other (Please comment) 07/30/2018 Pt states that the vitamin B12 and B6 makes his nosebleed documented as of this encounter (statuses as of 09/09/2022) Medications Medication Sig Dispensed Refills Start Date End Date Status Saw [place] 450 MG Capsule Take by mouth. 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 Reason for Call: Hospital Follow-Up ([facility]UL at [facility]/) Contact: Telephone Call Contact Type: Follow-up Outcome: [...] He did refuse rehab and I know [facility] was to go in, but if they [...] visit for follow up: PAUL Admitted to: [facility], Date: 09.03.22 Discharged to: home, Date: 09.07.22 Diagnosis driving hospitalization: Stroke Atrial fibrillation Tried to call multiple number home # was not correct , gentleman told me he gets multiple calls forthe pt. He would like it removed. I did message Tr for another # in [facility] records and both of them were incorrect [...] Office Visit Family Medicine Berta Benavides MD [address] [place] [address] [place] [address] 10/19/2022 Office Visit Family Medicine Berta Benavides MD [address] [place] [address] [place] [address] 12/28/2022 Office Visit Family Medicine Berta Benavides MD [address] [place] [address] [place] [address] 07/25/2023 Office Visit Cardiology Brennan Mccormick, DO [address] [place] [address] Health Maintenance Due Date Last Done Comments [...] filedocumented as of this encounter Care Teams Senior Consultant Relationship Specialty Start Date End Date Berta Benavides MD [address] [place] [address] [place] [address] PCP - General Family Medicine 11/12/20 documented as of this encounter
--- OUTSIDE RECORDS SUMMARY | 2023-02-13 04:52 | External Medical Summary | Summary of Care ---
Author Name Unknown Organization [facility] Address [address] [place] [address] Phone [phone] Care Team Providers Care Black Studies Professor Name Role Phone Berta Benavides MD Primary Care Provide r Reason for Referral * Evaluate & Treat - Unlimited Visits (Within 10 days (routine)) - Pending Review Specialty Diagnoses / Procedures Referred By Criss cervantes Referred To Contact HOME CARE / Home Care Diagnoses Lacunar stroke (HCC) Memory problem Berta Benavides MD [address] [place] [address] [place] [address] Referral ID Status Reason Start Date Expiration Date Visits Requested Visits Authorized [id number] Pending Review Specialty Services Required 09/28/2022 999 999 Question Answer Referral Priority Within 10 days (routine) Comments Documentation of Dlto-po-Ihhu Encounter Addendum Patient Name: Yair Castrejon I certify that this patient is under my care and that I, or a nurse practitioner or physician's office assistant receptionist working with me, had a [id number] encounter that meets the physician lrle-sh-vxlj encounter requirements with this patient on: 09/28 The encounter with the patient was in whole, or in part, for the following medical condition, which is the primary reason for home health care (List medical condition): Medication management I certify that, based on my findings, the following services are medically necessary home health services: Nursing To provide the following care/treatments: (All hospitalists not following the patient after discharge should complete this section): Help pt with resources and to see whether he would benefit/qualify for home health aid Primary Care Physician to follow home care plan of care after discharge: My clinical findings support the need for the above services because: Mild dementia with multiple medical conditions Further, I certify that my clinical findings support that this patient is homebound (i.e. Absences from home require considerable and taxing effort and are for medical reasons or rastafari services or infrequently or of short duration when for other reason) because: Physician Signature: Date of Signature: Physician Printed Name: Berta Benavides MD Reason for Visit * Reason Onset Date Comments Hospital Follow-Up Hospital Follow-Up 09/28/2022 Encounter Details Date Type Department Care Team Description 09/28/2022 Office Visit Family Medicine [address] [place] [phone] Berta Benavides MD [address] [place] [address] [place] [id number] Hospital discharge follow-up*; Lacunar stroke (HCC); Numbness and tingling in both hands; Memory problem; Rhinorrhea Allergies Active Allergy Reactions Severity Noted Date Comments Vitamin B12 Other (Please comment) 07/30/2018 Pt states that the vitamin B12 and B6 makes his nosebleed documented as of this encounter (statuses as of 09/28/2022) Medications Medication Sig Dispensed Refills Start Date End Date Status Saw [place] 450 MG Capsule Take by mouth. Takes [...] 30 MG Oral Capsule Delayed Release Particles (Cymbalta)Indication s:DDD (degenerative disc disease), lumbar,Osteoarthriti s of multiple joints, unspecified osteoarthritis type TAKE ONE CAPSULE BY MOUTH EVERY DAY DO NOT CUT, CRUSH, OR CHEW 90 Capsule 1 03/04/2022 Active Atorvastatin Calcium 80 MG Oral Tablet (Lipitor) TAKE ONE TABLET BY MOUTH EVERY DAY 90 Tablet 1 03/04/2022 Active Eliquis 5 MG Oral Tablet (Apixaban)Indication s:Paroxysmal atrial fibrillation (HCC) TAKE ONE TABLET BY MOUTH TWICE DAILY 180 Tablet 0 07/30/2022 Active Metoprolol Tartrate 25 MG Oral Tablet (Lopressor)Indicatio ns:HTN, goal below 140/90 TAKE ONE TABLET BY MOUTH TWICE DAILY 180 Tablet 1 07/30/2022 Active Aspirin 81 MG Oral Tablet Delayed Release Take 1 Tablet by mouth in the morning. 0 Active Fluticasone Propionate 50 MCG/ACT Nasal Suspension (Flonase)Indications :Rhinorrhea Administer 1 Mifflin into each nostril in the morning and 1 Mifflin in the evening. Do all this for 5 days. 18.2 mL 0 09/28/2022 10/03/2022 Active guaiFENesin ER 600 MG Oral Tablet Extended Release 12 Hour (Mucinex)Indications :Rhinorrhea Take 1 Tablet by mouth 2 times a day as needed for Congestion. Take with plenty of water. 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 07/20/2022 Parkinsonism 02/18/2022 Mild mitral regurgitation 02/18/2022 Prediabetes 02/18/2022 DDD (degenerative disc disease), lumbar 11/12/2020 Osteoarthritis of multiple joints 2020 Paroxysmal atrial fibrillation History of ETOH abuse 11/12/2020 Essential tremor 11/12/2020 Coronary artery disease involving [place] heart without angina pectoris 11/12/2020 S/P angioplasty [...] Smoking Tobacco: Former Smokeless Tobacco: Current Chew Tobacco Cessation:Ready to Q uit: No; Counseling Given: Yes Alcohol Use Standard Drinks/Week Comments Yes 0 (1 standard drink = 0.6 oz pure alcohol) drinks wine about every 6 weeks - used to drink heavily Sex Assigned at Date Recorded Not on file Job Start Date Occupation Industry Not on file Not on file Not on file documented as of this encounter Last Filed Vital Signs Vital Sign Reading Time Taken Comments Blood Pressure 142/88 09/28/2022 1:49 PM EDT Pulse 52 09/28/2022 1:49 PM EDT Temperature 36.8 C (98.3 F) 09/28/2022 1:49 PM ED T Respiratory Rate 16 09/28/2022 1:49 PM EDT Oxygen Saturation 93% 09/28/2022 1:49 PM EDT Inhaled Oxygen Concentration - - Weight 108.4 kg (239 lb) 09/28/2022 1:49 PM EDT Height 172.7 cm (5' 8") 09/28/2022 1:49 PM EDT Body Mass Index 36.34 09/28/2022 1:49 PM EDT documented in this encounter Progress Notes * Berta Benavides MD - 09/28/2022 1:50 PM EDT Subjective: HPI: Yair Castrejon is a 72 year old male with hx of Afib on eliquis,CAD s/p stent,Essential tremor,parkinsonism,memory problem, Hx of ETOHabuse, DJD, DDD, Mild mitral regurgitation, prediabetes, recent dx of R Lacunar strokeseen for Pt was admitted to the hospital from 09/09-09/13 -pt was recently dx with R lacunar stroke 1. Paresthesia: - CT head: no acute findings - Cervical MRI: DDD with b/l neuroforaminal stenosis - sent to [facility] Today: Pt is here with his tank setter Pt was able to walk 3 miles today with a cane - denied any recent fall or syncope - overall pt is doing well - pt currently lives by himself ---- does his own cooking and cleaning ---- sister lives in [place] Had 2 episodes of gagging in last 2 days - denied any difficulty swallowing or drinking water - pt is experiencing increased rhinorrhea - denied any fever, chills or facial pressure Patient Active Problem List Diagnosis Code HTN, goal below 140/90 I10 DDD (degenerative disc disease), lumbar M51.36 Osteoarthritis of multiple joints M15.9 Paroxysmal atrial fibrillation (HCC) I48.0 History of ETOH abuse F10.11 Essential tremor G25.0 Coronary artery disease involving [place] heart without angina pectoris I25.10 S/P angioplasty with stent Z95.820 Parkinsonism (HCC) G20 Mild mitral regurgitation I34.0 Prediabetes R73.03 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 Takes 4 tabs daily Menaquinone-7 (VITAMIN K2) 100 MCG CAPS Take by mouth daily. Arginine 500 MG Oral Capsule Take 2 Capsules by mouth in the morning and 2 Capsules before bedtime. Prostate Oral Tablet Take by mouth 1 Tablet daily . DULoxetine HCl 30 MG Oral Capsule Delayed Release Particles (Cymbalta) TAKE ONE CAPSULE BY MOUTH EVERY DAY DO NOT CUT, CRUSH, OR CHEW 90 Capsule 1 Atorvastatin Calcium 80 MG Oral Tablet (Lipitor) TAKE ONE TABLET BY MOUTH EVERY DAY 90 Tablet 1 Eliquis 5 MG Oral Tablet (Apixaban) TAKE ONE TABLET BY MOUTH TWICE DAILY 180 Tablet 0 Metoprolol Tartrate 25 MG Oral Tablet (Lopressor) TAKE ONE TABLET BY MOUTH TWICE DAILY 180 Tablet 1 Aspirin 81 MG Oral Tablet Delayed Release Take 1 Tablet by mouth in the morning. No current facility-administered medications for this visit. No past medical history on file. No past surgical history on file. Review of patient's allergies indicates: Allergen Reactions Vitamin B12 Other (Please comment) Pt states that the vitamin B12 and B6 makes his nosebleed Family History Problem Relation Age of Onset Heart Disorder Father CAD s/p several bypass surgeries, started in his late 30's Social History Tobacco Use Smoking status: Former Smokeless tobacco: Current Types: Chew Substance Use Topics Alcohol use: Yes Comment: drinks wine about every 6 weeks - used to drink heavily Vaping/E-Cigarette Use Vaping/E-Cigarette Use Never User Vaping/E-Cigarette Substances Vaping/E-Cigarette Devices RECENT LABS: Results for orders placed or performed in visit on 02/18/22 HEMOGLOBIN A1C Result Value Ref Range Hemoglobin A1C 5.8 (H) 4.0 - 5.6 % Estimated Average Glucose 120 <126 mg/dL BASIC METABOLIC PANEL Result Value Ref Range BUN 18 6 - 20 mg/dL Creatinine 1.2 0.6 - 1.2 mg/dL Estimated Glomerular Filtration Rate 67 >=60 mL/min Sodium 143 135 - 146 mmol/L Potassium 4.7 3.5 - 5.1 mmol/L Chloride 107 98 - 107 mmol/L CO2 25 22 - 32 mmol/L Anion Gap 11 7 - 15 mmol/L Glucose 88 70 - 120 mg/dL Calcium 9.2 8.4 - 10.2 mg/dL ALBUMIN / CREATININE RATIO, URINE Result Value Ref Range Albumin, Random Urine <1.20 mg/dL Creatinine, Random Urine 182 mg/dL Albumin / Creatinine Ratio, Urine <7 <30 mg/g Creat LIPID PANEL WITHOUT DIRECT LDL Result Value Ref Range Triglycerides 120 <=174 mg/dL Cholesterol 106 <200 mg/dL HDL Cholesterol 32 (L) >39 mg/dL Non-HDL Cholesterol 74 <=159 mg/dL LDL Cholesterol 50 <=129 mg/dL ROS: -Per HPI OBJECTIVE: BP 142/88 | Pulse 52 | Temp 36.8 C (98.3 F) (Tympanic) | Resp 16 | Ht 1.727 m (5' 8") | Wt 108.4 kg (239 lb) | SpO2 93% | BMI 36.34 kg/m | BSA 2.28 m PHYSICAL EXAM: Vitals are reviewed General:. NAD, well developed HEENT:. Normal Conjunctiva, EOMI Cardiac:in afib Lungs:. CTA, no wheezing or crackles MSK:. Walks with cane Psych:. AAOx3, normal affect ASSESSMENT/PLAN: Pt lives alone - Pt would benefit form home nurse evaluation to see whether pt would benefit from any resources "Gagging" is likely 2/2 excess mucus production - flonase and mucinex sent Hospital discharge follow-up (Primary) - DISCH MED RECON CUR MED LIS Lacunar stroke (HCC) - pt is ambulating better - on statin and aspirin Numbness and tingling in both hands - 2/2 DDD Berta Benavides MD Family medicine[address] [address] documented in this encounter Nursing Notes * Janki Rubin LPN - 09/28/2022 1:48 PM EDT Pt here for hospital follow up Pt's friend states pt started with gagging last night - is happening today documented in this encounter Plan of Treatment Upcoming Encounters Date Type Specialty Care Team Description 10/19/2022 Office Visit Family Medicine Berta Benavides MD [address] [place] [address] [place] [id number] 11/11/2022 Office Visit Family Berta Londono MD [address] [place] [address] [place] [address] 12/28/2022 Office Visit Family Berta Londono MD [address] [place] [address] [place] [address] 07/25/2023 Office Visit Cardiology Brennan Mccormick, DO [address] [place] [address] Scheduled Referrals Name Type Priority Associated Diagnoses Orde r Schedule HOME HEALTH REFERRAL OP Referral Within 10 days (routine) Lacunar stroke (HCC) Memory problem Ordered: 09/28/2022 Health Maintenance Due Date Last Done Comments [...] as of this encounter Visit Diagnoses Diagnosis Hospital discharge follow-up- Primary Other follow-up examination Lacunar stroke (HCC) Unspecified cerebral artery occlusion with cerebral infarction Numbness and tingling in both hands Memory problem Memory loss Rhinorrhea Other diseases of nasal cavity and sinuses documented in this encounter Care Teams Black Studies Professor Relationship Specialty Start Date End Date Berta Benavides MD [address] [place] [address] [place] [address] PCP - General Family Medicine 11/12/20 documented as of this encounter
--- OUTSIDE RECORDS SUMMARY | 2023-02-13 04:52 | External Medical Summary | Summary of Care ---
Author Name Unknown Organization [facility] Address [address] [place] [address] Phone [phone] Care Team Providers Care Pizza Driver Name Role Phone Berta Benavides MD Primary Care Provide r Reason for Visit * Reason Onset Date Comments FYI 09/27/2022 Encounter Details Date Type Department Care Team Description 09/27/2022 Telephone Family Medicine [address] [place] [phone] Berta Benavides MD [address] [place] [address] [place] [address] FYI Allergies Active Allergy Reactions Severity Noted Date Comments Vitamin B12 Other (Please comment) 07/30/2018 Pt states that the vitamin B12 and B6 makes his nosebleed documented as of this encounter (statuses as of 09/28/2022) Medications Medication Sig Dispensed Refills Start Date End Date Status Saw [place] 450 MG Capsule Take by mouth. Takes [...] of 09/28/2022) Active Problems Problem Noted Date [facility] current use of anticoagulant t herapy 07/20/2022 Parkinsonism 02/18/2022 Mild mitral regurgitation 02/18/2022 Prediabetes 02/18/2022 DDD (degenerative disc disease), lumbar 11/12/2020 Osteoarthritis of multiple joints 2020 Paroxysmal atrial fibrillation History of ETOH abuse 11/12/2020 Essential tremor 11/12/2020 Coronary artery disease involving [place] heart without angina pectoris 11/12/2020 S/P angioplasty with stent 11/12/2020 HTN, goal below 140/90 documented as of this encounter (statuses as of 09/28/2022) Immunizations Name Administration Dates Next Due COVID-19 mRNA, LNP-s, No Pre serve, 2-Dose Series (tolingo) 03/02/2021 Influenza, Whole Virus 03/22/2000 Pneumococcal Conjugate [...] 09/28/2022 Office Visit Family Berta Londono MD [address] [place] [address] [place] [address] 10/19/2022 Office Visit Family Berta Londono MD [address] [place] [address] [place] [address] 12/28/2022 Office Visit Family Berta Londono MD [address] [place] [address] [place] [address] 07/25/2023 Office Visit Cardiology Brennan Mccormick, DO [address] [place] [address] Health Maintenance Due Date Last Done Comments [...] filedocumented as of this encounter Care Teams Pizza Driver Relationship Specialty Start Date End Date Berta Benavides MD [address] [place] [address] [place] [address] PCP - General Family Medicine 11/12/20 documented as of this encounter
--- OUTSIDE RECORDS SUMMARY | 2023-02-13 04:52 | External Medical Summary | Summary of Care ---
Author Name Unknown Organization [facility] Address [address] [facility] [place] [address] Phone [phone] Care Team Providers Care Forklift Wheel Loader Name Role Phone Berta Benavidse MD Primary Care Provide r Reason for Visit * Reason Onset Date Comments Hospital Follow-Up 09/08/2022 [facility] at [facility] Encounter Details Date Type Department Care Team Description 09/08/2022 Telephone Ancillary [address] [place] [address] Liz Andrade RN Hospital Follow-Up (PAUL at [facility]/) Allergies Active Allergy Reactions Severity Noted Date Comments Vitamin B12 Other (Please comment) 07/30/2018 Pt states that the vitamin B12 and B6 makes his nosebleed documented as of this encounter (statuses as of 09/09/2022) Medications Medication Sig Dispensed Refills Start Date End Date Status Saw [place] 450 MG Capsule Take by mouth. 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 07/20/2022 Parkinsonism 02/18/2022 Mild mitral regurgitation 02/18/2022 Prediabetes 02/18/2022 DDD (degenerative disc disease), lumbar 11/12/2020 Osteoarthritis of multiple joints 2020 Paroxysmal atrial fibrillation History of ETOH abuse 11/12/2020 Essential tremor 11/12/2020 Coronary artery disease involving [place] heart without angina pectoris 11/12/2020 S/P angioplasty with stent 11/12/2020 HTN, goal below 140/90 documented as of this encounter (statuses as of 09/09/2022) Immunizations Name Administration Dates Next Due COVID-19 mRNA, LNP-s, No Pre serve, 2-Dose Series ([employer]) 03/02/2021 Pneumococcal Conjugate Vaccine, 20-valent (Prevn ar20) [...] He did refuse rehab and I know [facility] was to go in, but if they [...] follow up: PAUL Admitted to: [facility], Date: 09.03.22 Discharged to: home, Date: 09.07.22 Diagnosis driving hospitalization: Stroke Atrial fibrillation Tried to call multiple number home # was not correct , gentleman told me he gets multiple calls forthe pt. He would like it removed. I did message Tr for another # in [facility] records and both of them were [...] Care Team Description 09/12/2022 Office Visit Family Berta Londono MD [address] [place] [address] [place] [address] 10/19/2022 Office Visit Family Berta Londono MD [address] [place] [address] [place] [address] 12/28/2022 Office Visit Family Medicine Berta Benavides MD [address] [place] [address] [place] [address] 07/25/2023 Office Visit Cardiology Brennan Mccormick, DO [address] [place] [address] Health Maintenance Due Date Last Done Comments [...] filedocumented as of this encounter Care Teams Forklift Wheel Loader Relationship Specialty Start Date End Date Berta Benavides MD [address] [place] [address] [place] [address] PCP - General Family Medicine 11/12/20 documented as of this encounter
[2023-02-13] MEDS: ACETAMINOPHEN 500 MG TAB PO SCH ×3 (06:04→20:27)
[2023-02-13] MEDS: POLYETHYLENE (MIRALAX) 17 GM PACK PO SCH (08:23)
[2023-02-13] MEDS: ASPIRIN 81 MG ECTAB PO SCH (08:24)
[2023-02-13] MEDS: ATORVASTATIN 40 MG TAB PO SCH (08:24)
[2023-02-13] MEDS: ASCORBIC ACID 500 MG TAB PO SCH ×2 (08:24→16:54)
[2023-02-13] MEDS: FERROUS GLUCONATE 324 MG TAB PO SCH ×2 (08:24→16:54)
[2023-02-13] MEDS: APIXABAN 5 MG TABLET PO SCH ×2 (08:24→20:30)
[2023-02-13] MEDS: MULTIVITAMIN TAB PO SCH (08:25)
[2023-02-13] MEDS: DULoxetine HCL 30 MG CAP PO SCH (08:25)
[2023-02-13] MEDS: DOCUSATE SODIUM 100 MG CAP PO SCH ×2 (08:25→20:29)
[2023-02-13] MEDS: METOPROLOL TARTRATE 25 MG TAB PO SCH ×2 (08:25→20:29)
[2023-02-13 09:00] LABS: Basophils # (auto) 0.02 K/uL (0.00-0.20); Basophils % (auto) 0.2 %; Eosinophils # (auto) 0.48 K/uL (0.00-0.50); Eosinophils % (auto) 4.8 %; Hematocrit (blood only) 36.6 % (42.0-52.0); Hemoglobin 12.4 g/dl (14.0-18.0); Lymphocytes % (auto) 19.2 %; Mean Corpuscular Hemoglobin 29.7 pg (25.0-34.0); Mean Corpuscular Hgb Conc 33.9 g/dL (32.0-36.0); Mean Corpuscular Volume 87.8 fL (80.0-100.0); Mean Platelet Volume 10.6 fL (9.4-12.4); Monocytes # (auto) 1.37 K/uL (0.11-0.59); Monocytes % (auto) 13.8 %; Neutrophils # (auto) 6.03 K/uL (1.40-6.50); Platelet Count 166 K/uL (130-400); RDW Standard Deviation 44.8 fL (36.4-46.3); Red Blood Count 4.17 M/uL (4.70-6.10)
[2023-02-13] MEDS ORDERED: FUROSEMIDE 20 MG TAB PO SCH (09:00)
[2023-02-13 09:32] LABS: BUN Creatinine Ratio 69.7 (10-20); Calcium 9.1 mg/dl (8.6-10.3); Creatinine Clr Calc Pharmacy 106.2 ml/min; Est GFR (African American) 104.2 ml/min; Est GFR (Non-African American) 89.9 ml/min; Magnesium 1.7 mg/dl (1.7-2.4)
--- NOTE | 2023-02-13 10:17 | Orthopedic Progress Note ---
Date of Service February 13, 2023 Assessment & Plan (1) Left displaced femoral neck fracture: Plan: Physical therapy and Occupational Therapy daily. He is weightbearing as tolerated with posterior hip precautions. Pain control and medical management per the internal medicine team. DVT prophylaxis per the internal medicine team. Patient may shower with the Silverlon dressing in place. Follow-up as scheduled with orthopedics, JAZMIN Barajas PA-C, 2 weeks after disc harge. Any questions feel free to contact orthopedics. Admission and Anticipated Discharge Date Admission Date: February 09, 2023 Subjective Yair is sleeping upon entering the room. It is very difficult to arouse him. When asked if he is having any pain he briefly mumbles now. He does not respond to any other verbal questioning Physical Exam Physical Exam: Patient is sleeping upon entering the room. Not able to be aroused. His dressing is intact and not saturated. He is able to wiggle his toes. That is the only verbal commands he responds to. Results & Data Vital Signs (Past 12 Hours) Vital Signs Temp Pulse Pulse Resp BP BP Pulse Ox 02/13/23 07:09 36.6 C 94 H 19 127/81 98 02/13/23 02:45 36.6 C 98 H 20 153/91 H 92 02/13/23 00:56 104 H 02/12/23 22:22 36.5 C 107 H 20 153/76 H 97 O2 Del Method O2 Flow Rate 02/13/23 07:09 Nasal Cannula 2 02/13/23 02:45 Room Air 02/13/23 00:56 02/12/23 22:22 Room Air
[2023-02-13] MEDS: PANTOprazole 40 MG in SYRINGE 0 ML IV SCH ×2 (11:08→20:28)
--- NOTE | 2023-02-13 14:35 | Cardiology Progress Note ---
Date of Service February 13, 2023 Assessment & Plan (1) Chronic atrial fibrillation with rapid ventricular response: (2) Acute on chronic diastolic heart failure with preserved ejection fraction: (3) HTN (hypertension): (4) Left displaced femoral neck fracture: Plan Patient is a 72 year old male admitted after a fall (likely mechanical) with left femoral neck facture, status post left femoral neck hemiarthroplasty on 02/10/23. Underlying ischemic heart disease, chronic atrial fibrillation, hypertension, dyslipidemia, history of TIA/CVA, noncompliance with medications at home Cardiac catheterization on 12/02/2016, in [place], revealed a subtotal ulcerated 99% mid LAD stenosis status post PCI and stent. LCX noted to have a 50% midvessel stenosis. RCA with a [employer]ERAL PRE ARRANGEMENT SPECIALIST Echo this admission with chronic distal LAD territory wall motion abnormality, LVEF 40-45%, moderate aortic valve sclerosis without stenosis. Atrial fibrillation with RVR noted on presentation, improved. RECOMMENDATIONS: 1. Hold oral furosemide 2. Change metoprolol tartrate 25 mg BID to Toprol XL 50 mg once a day 3. Continue Eliquis anticoagulation. Admission and Anticipated Discharge Date Admission Date: February 09, 2023 Supervising Physician Co-Signing Physician Notes Attending Staff: Pt seen and examined with [facility] staff Concur with observations and plans This is for services on 02/14/2023 Plans to: * Hold Lasix * Consolidate short-acting beta blockers - Toprol 50 mg po per day * Continue DOAC Jorge Swanson Subjective Patient seen and examined. Chart, medications, and telemetry reviewed. Combative overnight, receiving Zyprexa around 0300 Code Purple around 0900 today. SBP 70's. Recevied NSS bolus and increased oxygen supplementation with improvement. Evaluated in the bedside chair. Chest pain. No palpitations. No difficulty breathing. No dizziness. No subjective fevers or chills Telemetry: Atrial fibrillation with heart rates predominantly in the 90s to 100 bpm range. Echo on February 09, 2023: Technically difficult. Normal LV size, mild concentric LVH, hypokinesis of the apex and mid anterior septum, EF 40 to 45%. Moderate aortic valve sclerosis without significant stenosis. Moderate focal calcification of the right coronary cusp of the aortic valve. In comparison to prior study of September 04, 2022, apical wall motion abnormalities previously present but less pronounced, no other change Review of Systems 2 Review of Systems: Complete review of systems is otherwise as stated above, negative, noncontributory Physical Exam Physical Exam: General: Somnolent. Easily arousable. No acute distress. HENT: Normocephalic. Atraumatic. Eyes: PER. Conjunctiva pink, sclera clear. Neck: No JVD. Heart: Irregularly irregular around 90 bpm. Soft systolic ejection murmur. No diastolic murmur. No rub. Lungs: Clear to auscultation. No wheeze. Abdomen: +BS. Soft. Nontender. No masses or organomegaly. Kimball catheter in place Extremities: No significant edema. No clubbing. No cyanosis. Limited neurological examination is without focal deficits. Results & Data Vital Signs (Past 12 Hours) Vital Signs Temp Pulse Resp BP BP Pulse Ox O2 Del Method 02/13/23 11:13 36.4 C L 97 H 19 119/75 98 Nasal Cannula 02/13/23 07:09 36.6 C 94 H 19 127/81 98 Nasal Cannula 02/13/23 02:45 36.6 C 98 H 20 153/91 H 92 Room Air O2 Flow Rate 02/13/23 11:13 2 02/13/23 07:09 2 02/13/23 02:45 Laboratory Results CBC 02/13/23 Range/Units 08:34 WBC 9.90 (4.8-10.8) K/ul RBC 4.17 L (4.70-6.10) M/uL Hgb 12.4 L (14.0-18.0) g/dl Hct 36.6 L (42.0-52.0) % Plt Count 166 D (130-400) K/uL Neut # (Auto) 6.03 (1.40-6.50) K/uL Lymph # (Auto) 1.90 (1.20-3.40) K/uL Garvin # (Auto) 1.37 H (0.11-0.59) K/uL Eos # (Auto) 0.48 (0.00-0.50) K/uL Baso # (Auto) 0.02 (0.00-0.20) K/uL Comprehensive Metabolic Panel 02/13/23 Range/Units 08:34 Sodium 138 (136-145) mmol/L Potassium 4.0 (3.5-5.1) mmol/L Chloride 107 (98-107) mmol/L Carbon Dioxide 23 (21-32) mmol/L BUN 53 H D (6-23) mg/dl Creatinine 0.76 (0.6-1.4) mg/dl Glucose 108 H (70-99(Fasting)) mg/dl Calcium 9.1 (8.6-10.3) mg/dl Intake and Output 02/12/23 02/13/23 02/13/23 22:59 06:59 14:59 Intake Total 400 / 1000 Output Total 251 / 901 650 / 901 950 / 950 Balance 149 / 99 -650 / 99 -950 / -950 Intake: Oral 400 / 1000 Output: Urine Amount (Catheter) 250 / 900 650 / 900 950 / 950 Kimball/Indwelling 250 / 900 650 / 900 950 / 950 # Bowel Movements Other: Weight 103.8 kg Weight Measurement Method Built in [facility] (3) HTN (hypertension) Hypertension type: primary hypertension Qualified Code(s): I10 - Essential (primary) hypertension
--- NOTE | 2023-02-13 14:51 | Hospitalist Progress Note ---
Date of Service February 13, 2023 Assessment & Plan (1) Left displaced femoral neck fracture: Plan: Patient presented to the ED with mechanical fall Hip x-ray personally reviewed; acute fracture of left femoral neck with associated soft tissue swelling status post left femoral neck hemiarthroplasty, noncemented on February 10, 2023 Continue on Tylenol [id number], oxycodone and Dilaudid as needed for pain control Trial of void was unsuccessful; Kimball placed back again. Eliquis is started for DVT prophylaxis Continue PT OT Delirium Likely secondary to pain and unfamiliar environment Zyprexa as needed Acute urinary retention Post-op Trial of void was unsuccessful on February 12; Kimball placed back again. Trial of void in 1 week (2) Atrial fibrillation with RVR: Plan: History of atrial fibrillation EKG on admission personally reviewed; A-fib with rapid ventricular rate; ventricular rate of 124 Echocardiogram with EF of 40 to 45%; hypokinesis in the apex and mid anteroseptum. Telemetry showed 3-second pause on February 10, 2023; no events otherwise. Continue on metoprolol at current dose as recommended by cardiology with holding parameter Continue Eliquis 5 mg twice daily Continue telemetry monitoring (3) Acute exacerbation of congestive heart failure: Plan: History of atrial fibrillation EKG on admission personally reviewed; A-fib with rapid ventricular rate; ventricular rate of 124 Echocardiogram with EF of 40 to 45%; hypokinesis in the apex and mid anteroseptum. Received couple dose of Lasix inpatient. Monitor respiratory status; will order Lasix as needed. Patient will benefit from GDMT management given borderline EF. Will defer it to cardiology. (4) CAD (coronary artery disease): Plan: -History of such, chronic, stable A1c of 5.5% Lipid panel reviewed; LDL of 103 Continue rosuvastatin (5) HTN (hypertension): Plan: - Cont Metoprolol 25 mg BID -Pain control (6) Depression: Plan: -Continue Cymbalta -Chronic, stable (7) Parkinsonism: Plan: -Noted as per [facility] outpatient chart, pill-rolling with the left hand throughout exam -PT OT consults, uses walker/cane at baseline DVT PPx: Eliquis Lines 2 PIV FEN/GI: HH diet CODE: Full code Dispo: Patient from home; lives alone. Will need rehab. Case management on board. Patient has delirium requiring IM Zyprexa. He also had Code purplel today due to hypotension. He needs to be monitored closely patient for couple of days to ensure clinical stability. Time spent evaluating patient, direct bedside care, chart review, placing orders, interpretation of diagnostic studies, discussion with consultants, patient, and family members, as well as other required patient management activities is 60 minutes Please note the above document was generated using voice recognition software. It may contain grammatical, syntax or spelling errors. Any formal questions or concerns about the content, text or information contained within the body of this dictation should be directly addressed to the provider for clarification Admission and Anticipated Discharge Date Admission Date: February 09, 2023 Subjective Patient combative overnight; required IM Zyprexa. Also developed urinary retention for which Kimball was placed again. Code purple in the a.m. due to hypotension; responded to IV fluids. Review of Systems Review of Systems: All systems reviewed & are unremarkable except as noted in Subjective Physical Exam Physical Exam: General: Awake, alert, oriented to self and place. Not in any distress. Head: Normocephalic, atraumatic ENT: PERRL, EOMI, no pharyngeal exudate, mucous membranes moist Chest: Bilateral clear breath sound. Cardiac: Regular rate and rhythm, no murmur, no JVD, normal peripheral pulses, sluggish capillary refill Abdominal: NABS x 4 quadrants, soft, nondistended, nontender to palpation, no rebound or guarding Extremities: Dressing intact in left hip; clean and dry. Psych: Normal mood and affect Neuro: AAO x 2, grossly intact. Results & Data Results & Data Vital Signs (Past 12 Hours) Vital Signs Temp Pulse Resp BP BP Pulse Ox O2 Del Method 02/13/23 11:13 36.4 C L 97 H 19 119/75 98 Nasal Cannula 02/13/23 07:09 36.6 C 94 H 19 127/81 98 Nasal Cannula O2 Flow Rate 02/13/23 11:13 2 02/13/23 07:09 2 Laboratory Results Laboratory Results WBC 9.90 K/ul (4.8-10.8) 02/13/23 08:34 RBC 4.17 M/uL (4.70-6.10) L 02/13/23 08:34 Hgb 12.4 g/dl (14.0-18.0) L 02/13/23 08:34 Hct 36.6 % (42.0-52.0) L 02/13/23 08:34 MCV 87.8 fL (80.0-100.0) 02/13/23 08:34 MCH 29.7 pg (25.0-34.0) 02/13/23 08:34 MCHC 33.9 g/dL (32.0-36.0) 02/13/23 08:34 RDW Std Deviation 44.8 fL (36.4-46.3) 02/13/23 08:34 RDW Coeff of Shayy 14.0 % (11.5-14.5) 02/13/23 08:34 Plt Count 166 K/uL (130-400) D 02/13/23 08:34 MPV 10.6 fL (9.4-12.4) 02/13/23 08:34 Immature Gran % (Auto) 1.0 % 02/13/23 08:34 Neut % (Auto) 61.0 % 02/13/23 08:34 Lymph % (Auto) 19.2 % 02/13/23 08:34 [place] % (Auto) 13.8 % 02/13/23 08:34 Eos % (Auto) 4.8 % 02/13/23 08:34 Baso % (Auto) 0.2 % 02/13/23 08:34 Neut # (Auto) 6.03 K/uL (1.40-6.50) 02/13/23 08:34 Lymph # (Auto) 1.90 K/uL (1.20-3.40) 02/13/23 08:34 [place] # (Auto) 1.37 K/uL (0.11-0.59) H 02/13/23 08:34 Eos # (Auto) 0.48 K/uL (0.00-0.50) 02/13/23 08:34 Baso # (Auto) 0.02 K/uL (0.00-0.20) 02/13/23 08:34 Immature Gran # (Auto) 0.10 K/uL (0.01-0.20) 02/13/23 08:34 PT 11.5 Seconds (9.0-12.0) 02/09/23 09:34 INR 1.1 (0.9-1.1) 02/09/23 09:34 APTT 27.6 Seconds (21.0-31.0) 02/09/23 09:34 PTT Ratio 1.0 02/09/23 09:34 Sodium 138 mmol/L (136-145) 02/13/23 08:34 Potassium 4.0 mmol/L (3.5-5.1) 02/13/23 08:34 Chloride 107 mmol/L (98-107) 02/13/23 08:34 Carbon Dioxide 23 mmol/L (21-32) 02/13/23 08:34 Anion Gap 8 (3-11) 02/13/23 08:34 BUN 53 mg/dl (6-23) H D 02/13/23 08:34 Creatinine 0.76 mg/dl (0.6-1.4) 02/13/23 08:34 Est Cr Clr Drug Dosing 106.2 ml/min 02/13/23 08:34 Est GFR ( Amer) 104.2 ml/min 02/13/23 08:34 Est GFR (Non-Af Amer) 89.9 ml/min 02/13/23 08:34 BUN/Creatinine Ratio 69.7 (10-20) H 02/13/23 08:34 Glucose 108 mg/dl (70-99(Fasting)) H 02/13/23 08:34 POC Glucose 118 mg/dl (70-99) H 02/13/23 09:21 Estimat Average Glucose 111 mg/dl 02/10/23 06:38 Hemoglobin A1c 5.5 % (4.5-5.6) 02/10/23 06:38 Lactate 1.4 mmol/L (0.4-2.0) 02/09/23 10:43 Calcium 9.1 mg/dl (8.6-10.3) 02/13/23 08:34 Phosphorus 3.1 mg/dl (2.5-4.9) 02/10/23 06:38 Magnesium 1.7 mg/dl (1.7-2.4) 02/13/23 08:34 Total Bilirubin 0.8 mg/dl (0.2-1.0) 02/09/23 09:34 Direct Bilirubin 0.1 mg/dl (0-0.2) 02/09/23 09:34 AST 20 U/L (13-39) 02/09/23 09:34 ALT 12 U/L (7-52) 02/09/23 09:34 Alkaline Phosphatase 71 U/L (34-104) 02/09/23 09:34 Troponin I High Sens 9.0 pg/ml (0-20) 02/09/23 11:34 B-Natriuretic Peptide 442 pg/ml (0-100) H 02/09/23 11:34 Total Protein 7.1 gm/dl (6.0-8.3) 02/09/23 09:34 Albumin 4.1 gm/dl (3.4-5.0) 02/09/23 09:34 Globulin 3.0 gm/dl (2.5-4.0) 02/09/23 09:34 Albumin/Globulin Ratio 1.4 (0.9-2) 02/09/23 09:34 Triglycerides 128 mg/dl (0-150) 02/10/23 06:38 Cholesterol 161 mg/dl (0-200) 02/10/23 06:38 LDL Cholesterol, Calc 103 mg/dl 02/10/23 06:38 VLDL Cholesterol, Calc 26 mg/dl (0-30) 02/10/23 06:38 HDL Cholesterol 32 mg/dl 02/10/23 06:38 Cholesterol/HDL Ratio 5.0 (0-5) 02/10/23 06:38 Procalcitonin < 0.05 ng/ml (0-0.5) 02/09/23 09:35 Urine Color Yellow 02/09/23 10:11 Urine Appearance Cloudy (Clear) A 02/09/23 10:11 Urine pH 6.0 (4.5-7.5) 02/09/23 10:11 Ur Specific [place] 1.022 (1.000-1.030) 02/09/23 10:11 Urine Protein Trace (Negative) H 02/09/23 10:11 Urine Glucose (UA) Negative (Negative) 02/09/23 10:11 Urine Ketones Negative (Negative) 02/09/23 10:11 Urine Blood Negative (Negative) 02/09/23 10:11 Urine Nitrite Negative (Negative) 02/09/23 10:11 Urine Bilirubin Negative (Negative) 02/09/23 10:11 Urine Urobilinogen Negative (Negative) 02/09/23 10:11 Ur Leukocyte Esterase Negative (Negative) 02/09/23 10:11 Urine WBC (Auto) 1-5 /hpf (0-5) 02/09/23 10:11 Urine RBC (Auto) 0-4 /hpf (0-4) 02/09/23 10:11 U Hyaline Cast (Auto) 1-5 /lpf (0-5) 02/09/23 10:11 U Epithel Cells (Auto) 10-20 /lpf (0-5) H 02/09/23 10:11 Urine Bacteria (Auto) Negative (Negative) 02/09/23 10:11 Ethyl Alcohol mg/dL < 10.0 mg/dl (<10.0) 02/09/23 09:34 Blood Type O Positive 02/09/23 16:53 Blood Type Recheck O Positive 02/10/23 06:38 Antibody Screen NEGATIVE 02/09/23 16:[address] 02/09/23 09:52 CT cervical spine wo con CLINICAL HISTORY: fall TECHNIQUE: Multidetector row helical CT of the cervical spine was performed without administration of intravenous contrast. Coronal and sagittal reformations were obtained. Automated dose lowering techniques and/or adjustment according to patient size were utilized for this exam. Comparison: Comparison is made to CTA neck 09/03/2022 FINDINGS: No acute fractures or subluxations are identified. Degenerative changes are seen in the visualized spine. Extensive lordosis is noted, unchanged. Soft tissues are unremarkable. IMPRESSION: Degenerative changes without evidence of acute bony injury. ACT 112: Negative or not required by law. Electronically signed by: Nguyễn Rodríguez M.D. 02/09/2023 11:[address] 02/09/23 09:52 CT head/brain wo con CLINICAL HISTORY: fall Technique: Contiguous axial CT images of the head were acquired from the base of the skull to the vertex without intravenous contrast administration. Images were viewed in brain, subdural and bone windows. Automated dose lowering techniques and/or adjustment according to patient size were utilized for this exam. Comparison: Comparison is made to CT head 09/09/2022 Findings: Areas of decreased attenuation are present in the periventricular and subcortical white matter bilaterally consistent with small vessel ischemic disease. Generalized cerebral atrophy with commensurate enlargement of the ventricles, sulci, and cisterns is also present. There is no acute intracranial hemorrhage or evidence of acute territorial infarction. No shift of the midline structures, mass effect, or extra-axial abnormalities are shown. Atherosclerotic calcifications are present in the intracranial segments of the internal carotid arteries. Imaged portions of the paranasal sinuses and mastoid air cells are clear. The orbits appear normal. There are no acute fractures of the calvaria or scalp swelling. Impression: No acute intracranial hemorrhage, no evidence of acute territorial infarction or other acute intracranial disease process. ACT 112: Negative or not required by law. Electronically signed by: Nguyễn Rodríguez M.D. 02/09/2023 11:39 AM Chest X-Ray 02/09/23 09:53 SINGLE VIEW CHEST CLINICAL HISTORY: Sepsis. FINDINGS: 2 AP, portable, upright chest radiographs are compared to study dated 09/03/2022. The examination is degraded by portable technique and patient rotation. The heart is enlarged noting atherosclerotic calcification of the thoracic aorta. There is pulmonary vascular congestion. Scarring/atelectasis is noted at the lung bases. There is no airspace consolidation typical for pneumonia. No large pleural effusion or pneumothorax is seen. The skeletal structures are osteopenic. The bony thorax is grossly intact. IMPRESSION: Cardiomegaly with evidence of congestive failure. ACT 112: Negative or not required by law. Electronically signed by: Rodney Garcia M.D. 02/09/2023 10:32 AM Abdomen/Pelvis CT 02/09/23 09:54 CT abd pelvis IV con only CLINICAL HISTORY: R sided lower paraspinal pain and bruising on eliq TECHNIQUE: Helical axial images of the abdomen and pelvis were obtained and displayed. Automated dose lowering techniques and/or adjustment according to patient size were utilized for this exam. This exam was performed with intravenous contrast. COMPARISON: None available at the time of this dictation. FINDINGS: Lower chest: Small bilateral pleural effusions are seen with underlying atelectasis. Biatrial enlargement is seen and there is atherosclerotic disease. Liver: Unremarkable. No focal lesions are seen. Gallbladder and biliary tree: No calcified gallstones. Normal caliber wall. No intra- or extrahepatic biliary ductal dilation. Pancreas: Fatty replacement of the pancreas is seen. Spleen: Unremarkable. Adrenals: Unremarkable. Kidneys and ureters: Exophytic cyst arises from the left kidney. Bladder: Unremarkable. Reproductive organs: Unremarkable. Bowel: Diverticulosis is seen without diverticulitis. The appendix is normal. Lymph nodes Retroperitoneal: Unremarkable. Pelvic: Unremarkable. Mesenteric: Unremarkable. Peritoneum: Normal. Vessels: Atherosclerotic calcifications are seen. Abdominal wall: Unremarkable. Bones: There is an acute fracture of the left femoral neck with overriding and apex lateral angulation. Mild surrounding soft tissue stranding is seen. IMPRESSION: Acute fracture of the left femoral neck. No spinal fractures are seen. No acute intra-abdominal injuries. ACT 112: Negative or not required by law. Electronically signed by: Nguyễn Rodríguez M.D. 02/09/2023 12:01 PM Hip/Pelvis X-Ray 02/10/23 16:05 SINGLE VIEW PELVIS; SINGLE VIEW LEFT HIP CLINICAL HISTORY: Postoperative examination. FINDINGS: An AP portable view of the hips and pelvis with a crosstable lateral portable view of the left hip are compared to study dated 02/09/2023. A left hip arthroplasty is in near-anatomic alignment. No acute fracture is identified. Soft tissue swelling and subcutaneous gas overlying the left hip are expected postsurgical changes. [id number] arthritic change and joint space narrowing is seen in the right hip. Degenerative sclerosis is noted in the sacroiliac joints and pubic symphysis. There is atherosclerotic calcification of the femoral arteries. A Kimball catheter is in place. IMPRESSION: Expected postoperative findings status post left hip arthroplasty. No acute fracture is seen. ACT 112: Negative or not required by law. Electronically signed by: Rodney Garcia M.D. 02/10/2023 5:03 PM (3) Acute exacerbation of congestive heart failure Heart failure type: unspecified Qualified Code(s): I50.9 - Heart failure, unspecified (5) HTN (hypertension) Hypertension type: primary hypertension Qualified Code(s): I10 - Essential (primary) hypertension
[2023-02-13] MEDS ORDERED: METOPROLOL TARTRATE 25 MG TAB PO STA (15:46)
[2023-02-13] MEDS: SODIUM CHLORIDE 0.9% 500 ML IV SCH (15:58)
[2023-02-13] MEDS: SENNA 8.6 MG TAB PO SCH (20:28)
[2023-02-14 06:44] LABS: Basophils # (auto) 0.03 K/uL (0.00-0.20); Basophils % (auto) 0.4 %; Eosinophils # (auto) 0.45 K/uL (0.00-0.50); Eosinophils % (auto) 5.3 %; Hematocrit (blood only) 33.5 % (42.0-52.0); Hemoglobin 10.9 g/dl (14.0-18.0); Immature Granulocytes % (auto) 2.4 %; Lymphocytes % (auto) 23.7 %; Mean Corpuscular Hemoglobin 29.1 pg (25.0-34.0); Mean Corpuscular Hgb Conc 32.5 g/dL (32.0-36.0); Mean Corpuscular Volume 89.6 fL (80.0-100.0); Mean Platelet Volume 10.4 fL (9.4-12.4); Monocytes # (auto) 1.13 K/uL (0.11-0.59); Monocytes % (auto) 13.4 %; Neutrophils # (auto) 4.64 K/uL (1.40-6.50); Neutrophils % (auto) 54.8 %; Platelet Count 166 K/uL (130-400); RDW Coefficient of Variation 14.1 % (11.5-14.5); RDW Standard Deviation 46.3 fL (36.4-46.3); Red Blood Count 3.74 M/uL (4.70-6.10); White Blood Count 8.45 K/ul (4.8-10.8)
[2023-02-14 07:02] LABS: BUN Creatinine Ratio 48.9 (10-20); Creatinine Clr Calc Pharmacy 89.7 ml/min; Est GFR (African American) 97.2 ml/min; Est GFR (Non-African American) 83.8 ml/min; Magnesium 1.7 mg/dl (1.7-2.4); Potassium 3.8 mmol/L (3.5-5.1)
[2023-02-14] MEDS: ACETAMINOPHEN 500 MG TAB PO SCH ×3 (07:58→19:51)
[2023-02-14] MEDS: FERROUS GLUCONATE 324 MG TAB PO SCH ×2 (07:59→16:51)
[2023-02-14] MEDS: ASCORBIC ACID 500 MG TAB PO SCH ×2 (07:59→16:51)
[2023-02-14] MEDS: ATORVASTATIN 40 MG TAB PO SCH (08:00)
[2023-02-14] MEDS: DULoxetine HCL 30 MG CAP PO SCH (08:00)
[2023-02-14] MEDS: ASPIRIN 81 MG ECTAB PO SCH (08:00)
[2023-02-14] MEDS: DOCUSATE SODIUM 100 MG CAP PO SCH ×2 (08:01→19:49)
[2023-02-14] MEDS: METOPROLOL SUCC 50MG EXT REL TAB PO SCH (08:01)
[2023-02-14] MEDS: MULTIVITAMIN TAB PO SCH (08:01)
[2023-02-14] MEDS: APIXABAN 5 MG TABLET PO SCH (08:01)
[2023-02-14] MEDS: POLYETHYLENE (MIRALAX) 17 GM PACK PO SCH (08:01)
[2023-02-14] MEDS: PANTOprazole 40 MG in SYRINGE 0 ML IV SCH ×2 (08:01→19:50)
--- NOTE | 2023-02-14 10:01 | Orthopedic Progress Note ---
Date of Service February 14, 2023 Assessment & Plan (1) Left displaced femoral neck fracture: Plan: Physical therapy and Occupational Therapy daily. He is weightbearing as tolerated with posterior hip precautions. Pain control and medical management per the internal medicine team. DVT prophylaxis per the internal medicine team. Patient may shower with the Silverlon dressing in place. Follow-up as scheduled with orthopedics, JAZMIN Barajas PA-C, 2 weeks after disc harge. Any questions feel free to contact orthopedics. Admission and Anticipated Discharge Date Admission Date: February 09, 2023 Subjective This 72-year-old male is day 4 status post left hip hemiarthroplasty. He is awake and alert this morning. Apparently he was a code purple last evening but after receiving Ativan his symptoms improved. Patient states that he has no pain in his left hip today. Nursing states that he was able to take a few steps with physical therapy yesterday. Patient states that he has discussed placement with case management. Nursing states that the patient had a elevated heart rate while doing therapy. They also noted atrial fibrillation. Cardiology was consulted and patient was switched from metoprolol to Toprol-XL. He is on Eliquis for atrial fibrillation. Currently he denies chest pain, shortness of breath, fever, chills, sweats, numbness or tingling in his left lower extremity. He states that he still not able to lift the leg off of the bed without assistance. Review of Systems Review of Systems: All systems reviewed & are unremarkable except as noted in Subjective Physical Exam Physical Exam: Left Hip: No longer had TTP in lateral hip or groin. Silverlon is intact with small amount of saturation distally but not leaking. Negative log roll. Un able to SLR. Quad strength 3/5. Easily able to actively dorsi/plantar flex foot. Tolerates flexion of the hip near 90 degrees. Has no pain with light passive external rotation. Experiences tensile pain with light passive internal rotation. NV intact. Results & Data Vital Signs (Past 12 Hours) Vital Signs Temp Pulse Pulse Resp BP BP Pulse Ox 02/14/23 07:45 36.6 C 97 H 18 147/81 H 95 02/14/23 02:21 36.8 C 97 H 18 108/68 96 02/14/23 01:15 89 02/13/23 23:18 36.6 C 81 18 116/81 99 O2 Del Method O2 Flow Rate 02/14/23 07:45 Nasal Cannula 1 02/14/23 02:21 Nasal Cannula 2 02/14/23 01:15 02/13/23 23:18 Nasal Cannula 2 Medications Administered Laboratory Results WBC 8.45 K/ul (4.8-10.8) 02/14/23 06:17 RBC 3.74 M/uL (4.70-6.10) L 02/14/23 06:17 Hgb 10.9 g/dl (14.0-18.0) L 02/14/23 06:17 Hct 33.5 % (42.0-52.0) L 02/14/23 06:17 MCV 89.6 fL (80.0-100.0) 02/14/23 06:17 MCH 29.1 pg (25.0-34.0) 02/14/23 06:17 MCHC 32.5 g/dL (32.0-36.0) 02/14/23 06:17 RDW Std Deviation 46.3 fL (36.4-46.3) 02/14/23 06:17 RDW Coeff of Shayy 14.1 % (11.5-14.5) 02/14/23 06:17 Plt Count 166 K/uL (130-400) 02/14/23 06:17 MPV 10.4 fL (9.4-12.4) 02/14/23 06:17 Immature Gran % (Auto) 2.4 % 02/14/23 06:17 Neut % (Auto) 54.8 % 02/14/23 06:17 Lymph % (Auto) 23.7 % 02/14/23 06:17 [place] % (Auto) 13.4 % 02/14/23 06:17 Eos % (Auto) 5.3 % 02/14/23 06:17 Baso % (Auto) 0.4 % 02/14/23 06:17 Neut # (Auto) 4.64 K/uL (1.40-6.50) 02/14/23 06:17 Lymph # (Auto) 2.00 K/uL (1.20-3.40) 02/14/23 06:17 Dundy # (Auto) 1.13 K/uL (0.11-0.59) H 02/14/23 06:17 Eos # (Auto) 0.45 K/uL (0.00-0.50) 02/14/23 06:17 Baso # (Auto) 0.03 K/uL (0.00-0.20) 02/14/23 06:17 Immature Gran # (Auto) 0.20 K/uL (0.01-0.20) 02/14/23 06:17 PT 11.5 Seconds (9.0-12.0) 02/09/23 09:34 INR 1.1 (0.9-1.1) 02/09/23 09:34 APTT 27.6 Seconds (21.0-31.0) 02/09/23 09:34 PTT Ratio 1.0 02/09/23 09:34 Sodium 141 mmol/L (136-145) 02/14/23 06:17 Potassium 3.8 mmol/L (3.5-5.1) 02/14/23 06:17 Chloride 111 mmol/L (98-107) H 02/14/23 06:17 Carbon Dioxide 22 mmol/L (21-32) 02/14/23 06:17 Anion Gap 8 (3-11) 02/14/23 06:17 BUN 44 mg/dl (6-23) H 02/14/23 06:17 Creatinine 0.90 mg/dl (0.6-1.4) 02/14/23 06:17 Est Cr Clr Drug Dosing 89.7 ml/min 02/14/23 06:17 Est GFR ( Amer) 97.2 ml/min 02/14/23 06:17 Est GFR (Non-Af Amer) 83.8 ml/min 02/14/23 06:17 BUN/Creatinine Ratio 48.9 (10-20) H 02/14/23 06:17 Glucose 113 mg/dl (70-99(Fasting)) H 02/14/23 06:17 POC Glucose 118 mg/dl (70-99) H 02/13/23 09:21 Estimat Average Glucose 111 mg/dl 02/10/23 06:38 Hemoglobin A1c 5.5 % (4.5-5.6) 02/10/23 06:38 Lactate 1.4 mmol/L (0.4-2.0) 02/09/23 10:43 Calcium 9.0 mg/dl (8.6-10.3) 02/14/23 06:17 Phosphorus 3.1 mg/dl (2.5-4.9) 02/10/23 06:38 Magnesium 1.7 mg/dl (1.7-2.4) 02/14/23 06:17 Total Bilirubin 0.8 mg/dl (0.2-1.0) 02/09/23 09:34 Direct Bilirubin 0.1 mg/dl (0-0.2) 02/09/23 09:34 AST 20 U/L (13-39) 02/09/23 09:34 ALT 12 U/L (7-52) 02/09/23 09:34 Alkaline Phosphatase 71 U/L (34-104) 02/09/23 09:34 Troponin I High Sens 9.0 pg/ml (0-20) 02/09/23 11:34 B-Natriuretic Peptide 442 pg/ml (0-100) H 02/09/23 11:34 Total Protein 7.1 gm/dl (6.0-8.3) 02/09/23 09:34 Albumin 4.1 gm/dl (3.4-5.0) 02/09/23 09:34 Globulin 3.0 gm/dl (2.5-4.0) 02/09/23 09:34 Albumin/Globulin Ratio 1.4 (0.9-2) 02/09/23 09:34 Triglycerides 128 mg/dl (0-150) 02/10/23 06:38 Cholesterol 161 mg/dl (0-200) 02/10/23 06:38 LDL Cholesterol, Calc 103 mg/dl 02/10/23 06:38 VLDL Cholesterol, Calc 26 mg/dl (0-30) 02/10/23 06:38 HDL Cholesterol 32 mg/dl 02/10/23 06:38 Cholesterol/HDL Ratio 5.0 (0-5) 02/10/23 06:38 Procalcitonin < 0.05 ng/ml (0-0.5) 02/09/23 09:35 Urine Color Yellow 02/09/23 10:11 Urine Appearance Cloudy (Clear) A 02/09/23 10:11 Urine pH 6.0 (4.5-7.5) 02/09/23 10:11 Ur Specific [place] 1.022 (1.000-1.030) 02/09/23 10:11 Urine Protein Trace (Negative) H 02/09/23 10:11 Urine Glucose (UA) Negative (Negative) 02/09/23 10:11 Urine Ketones Negative (Negative) 02/09/23 10:11 Urine Blood Negative (Negative) 02/09/23 10:11 Urine Nitrite Negative (Negative) 02/09/23 10:11 Urine Bilirubin Negative (Negative) 02/09/23 10:11 Urine Urobilinogen Negative (Negative) 02/09/23 10:11 Ur Leukocyte Esterase Negative (Negative) 02/09/23 10:11 Urine WBC (Auto) 1-5 /hpf (0-5) 02/09/23 10:11 Urine RBC (Auto) 0-4 /hpf (0-4) 02/09/23 10:11 U Hyaline Cast (Auto) 1-5 /lpf (0-5) 02/09/23 10:11 U Epithel Cells (Auto) 10-20 /lpf (0-5) H 02/09/23 10:11 Urine Bacteria (Auto) Negative (Negative) 02/09/23 10:11 Ethyl Alcohol mg/dL < 10.0 mg/dl (<10.0) 02/09/23 09:34 Blood Type O Positive 02/09/23 16:53 Blood Type Recheck O Positive 02/10/23 06:38 Antibody Screen NEGATIVE 02/09/23 16:[address] 02/09/23 09:52 CT cervical spine wo con CLINICAL HISTORY: fall TECHNIQUE: Multidetector row helical CT of the cervical spine was performed without administration of intravenous contrast. Coronal and sagittal reformations were obtained. Automated dose lowering techniques and/or adjustment according to patient size were utilized for this exam. Comparison: Comparison is made to CTA neck 09/03/2022 FINDINGS: No acute fractures or subluxations are identified. Degenerative changes are seen in the visualized spine. Extensive lordosis is noted, unchanged. Soft tissues are unremarkable. IMPRESSION: Degenerative changes without evidence of acute bony injury. ACT 112: Negative or not required by law. Electronically signed by: Nguyễn Rodríguez M.D. 02/09/2023 11:[address] 02/09/23 09:52 CT head/brain wo con CLINICAL HISTORY: fall Technique: Contiguous axial CT images of the head were acquired from the base of the skull to the vertex without intravenous contrast administration. Images were viewed in brain, subdural and bone windows. Automated dose lowering techniques and/or adjustment according to patient size were utilized for this exam. Comparison: Comparison is made to CT head 09/09/2022 Findings: Areas of decreased attenuation are present in the periventricular and subcortical white matter bilaterally consistent with small vessel ischemic disease. Generalized cerebral atrophy with commensurate enlargement of the ventricles, sulci, and cisterns is also present. There is no acute intracranial hemorrhage or evidence of acute territorial infarction. No shift of the midline structures, mass effect, or extra-axial abnormalities are shown. Atherosclerotic calcifications are present in the intracranial segments of the internal carotid arteries. Imaged portions of the paranasal sinuses and mastoid air cells are clear. The orbits appear normal. There are no acute fractures of the calvaria or scalp swelling. Impression: No acute intracranial hemorrhage, no evidence of acute territorial infarction or other acute intracranial disease process. ACT 112: Negative or not required by law. Electronically signed by: Nguyễn Rodríguez M.D. 02/09/2023 11:39 AM Chest X-Ray 02/09/23 09:53 SINGLE VIEW CHEST CLINICAL HISTORY: Sepsis. FINDINGS: 2 AP, portable, upright chest radiographs are compared to study dated 09/03/2022. The examination is degraded by portable technique and patient rotation. The heart is enlarged noting atherosclerotic calcification of the thoracic aorta. There is pulmonary vascular congestion. Scarring/atelectasis is noted at the lung bases. There is no airspace consolidation typical for pneumonia. No large pleural effusion or pneumothorax is seen. The skeletal structures are osteopenic. The bony thorax is grossly intact. IMPRESSION: Cardiomegaly with evidence of congestive failure. ACT 112: Negative or not required by law. Electronically signed by: Rodney Garcia M.D. 02/09/2023 10:32 AM Abdomen/Pelvis CT 02/09/23 09:54 CT abd pelvis IV con only CLINICAL HISTORY: R sided lower paraspinal pain and bruising on eliq TECHNIQUE: Helical axial images of the abdomen and pelvis were obtained and displayed. Automated dose lowering techniques and/or adjustment according to patient size were utilized for this exam. This exam was performed with intravenous contrast. COMPARISON: None available at the time of this dictation. FINDINGS: Lower chest: Small bilateral pleural effusions are seen with underlying atelectasis. Biatrial enlargement is seen and there is atherosclerotic disease. Liver: Unremarkable. No focal lesions are seen. Gallbladder and biliary tree: No calcified gallstones. Normal caliber wall. No intra- or extrahepatic biliary ductal dilation. Pancreas: Fatty replacement of the pancreas is seen. Spleen: Unremarkable. Adrenals: Unremarkable. Kidneys and ureters: Exophytic cyst arises from the left kidney. Bladder: Unremarkable. Reproductive organs: Unremarkable. Bowel: Diverticulosis is seen without diverticulitis. The appendix is normal. Lymph nodes Retroperitoneal: Unremarkable. Pelvic: Unremarkable. Mesenteric: Unremarkable. Peritoneum: Normal. Vessels: Atherosclerotic calcifications are seen. Abdominal wall: Unremarkable. Bones: There is an acute fracture of the left femoral neck with overriding and apex lateral angulation. Mild surrounding soft tissue stranding is seen. IMPRESSION: Acute fracture of the left femoral neck. No spinal fractures are seen. No acute intra-abdominal injuries. ACT 112: Negative or not required by law. Electronically signed by: Nguyễn Rodríguez M.D. 02/09/2023 12:01 PM Hip/Pelvis X-Ray 02/10/23 16:05 SINGLE VIEW PELVIS; SINGLE VIEW LEFT HIP CLINICAL HISTORY: Postoperative examination. FINDINGS: An AP portable view of the hips and pelvis with a crosstable lateral portable view of the left hip are compared to study dated 02/09/2023. A left hip arthroplasty is in near-anatomic alignment. No acute fracture is identified. Soft tissue swelling and subcutaneous gas overlying the left hip are expected postsurgical changes. [id number] arthritic change and joint space narrowing is seen in the right hip. Degenerative sclerosis is noted in the sacroiliac joints and pubic symphysis. There is atherosclerotic calcification of the femoral arteries. A Kimball catheter is in place. IMPRESSION: Expected postoperative findings status post left hip arthroplasty. No acute fracture is seen. ACT 112: Negative or not required by law. Electronically signed by: Rodney Garcia M.D. 02/10/2023 5:03 PM
[2023-02-14] MEDS: SODIUM CHLORIDE 0.9% 500 ML IV SCH ×3 (11:01→23:11)
[2023-02-14] MEDS: oxyCODONE HCL IR 5 MG TAB (IMMEDIATE RELEASE) PO PRN ×2 (11:27→18:41)
--- NOTE | 2023-02-14 12:06 | Gastrointestinal Consultation ---
Date of Consultation February 14, 2023 Assessment & Plan (1) Anemia: 72 year old male w/ history of atrial fibrillation on Eliquis, Parkinsonism, HTN, HLD, CAD, s/p angioplasty with stent, mitral regurg, prediabetes, AO, ETOH use admitted w/ a fall, POD 4 left hip hemiarthroplasty - GI asked to evaluate for anemia, heme positive stools. + ASA + Advil + Eliquis daily. DDX discussed including PUD, gastritis, esopahgitis etc NPO after 2400 EGD in the AM Hold ASA and eliqius No NSAIDs IV PPI bolus/drip Trend H&H Monitor and document GI output Transfuse PRN primary team We appreciate assistance in the management of any serological abnormality and corrections to include: hemoglobin >7, INR <2, platelets >50,000, potassium levels >3.5 but <5.3, and sodium levels within 5 points of the reference range prior to endoscopic evaluation. Thank you for allowing us to participate in the care of this patient. Please call with any acute changes, questions or concerns. Please see addendum below with additional recommendation from my supervising physician. Supervising Physician Co-Signing Physician Notes I saw and evaluated the patient. The patient presented. Complications related to a fracture, he recently underwent surgical intervention for this. We were consulted for questionably positive stool addition to a standard a modest drop in his hemoglobin hematocrit. The patient does have intermittent medication prescribed as well that she is doing a lot of ongoing for many years. He has never undergone an upper endoscopy or colonoscopy before. The patient denies dark sticky stool hematemesis or coffee-ground emesis. Impression patient likely with a blood count as result of recent surgical intervention. Given that he is also slowly extremely happy to provide further evaluation with upper endoscopy, if this is negative the patient will need to be scheduled for outpatient colonoscopy. Please call with any additional questions or concerns upper endoscopy planned For Monday as the patient was eating a meal on Monday during the consult evaluation History of Present Illness Reason for Consultation: ?UGI bleed Requesting Physician: Flower Attending Physician: Errol Crenshaw MD History of Present Illness 72 year old male w/ history of atrial fibrillation on Eliquis, Parkinsonism, HTN, HLD, CAD, s/p angioplasty with stent, mitral regurg, prediabetes, AO, ETOH use admitted w/ a fall, POD 4 left hip hemiarthroplasty - GI asked to evaluate for anemia, heme positive stools. Pt was seen and evaluated, chart reviewed. He is OOB in chair eating lunch. Notes he is feeling well. Real abd pain. No nausea, vomiting. Tolerating PO intake. No GERD or dysphagia. Denies black or bloody stools. + ETOH use, a few times a week + NSAIDs, 4-6 advil 1-2 times a daily + ASA + Elqiuis + heme positive stools HGB 14 --> 10.9 BUN 44 EGD: none Colonoscopy: years ago by a surgeon around [facility] Allergies Allergy/AdvReac Type Severity Reaction Status Date / Time cyanocobalamin (vitamin B12) AdvReac Severe b12 and B6 Verified 02/15/23 09:09 makes nose bleed pyridoxine AdvReac Severe b12 and B6 Verified 02/15/23 09:09 makes nose bleed Home Medications Medication Instructions Recorded Confirmed Type saw palmetto 450 mg capsule 1,800 mg PO DAILY 09/03/22 02/09/23 History apixaban 5 mg tablet (Eliquis) 5 mg PO BID #60 tabs 09/13/22 02/09/23 Rx arginine (L-arginine) 500 mg tablet 1,000 mg (2 x 500 mg) PO [facility] #60 09/13/22 02/09/23 Rx tabs aspirin 81 mg tablet,delayed 81 mg PO DAILY #30 tabs 09/13/22 02/09/23 Rx release atorvastatin 80 mg tablet 80 mg PO DAILY #30 tabs 09/13/22 02/09/23 Rx duloxetine 30 mg capsule,delayed 30 mg PO DAILY #30 caps 09/13/22 02/09/23 Rx release metoprolol tartrate 25 mg tablet 25 mg PO BID #60 tabs 09/13/22 02/09/23 Rx Patient History Medical History (Updated 02/14/23 @ 12:04 by MARÍA Lui) Acute on chronic diastolic heart failure with preserved ejection fraction Parkinsonism Acute right MCA stroke CAD (coronary artery disease) Depression Atrial fibrillation with RVR HTN (hypertension) Altered mental status Surgical History S/P cataract surgery No pertinent past surgical history Family History Mother , date age 93 with memory issues Dementia Father , age 51 of heart disease Heart disease Other Dyslipidemia Social History Smoking Status: Never smoker Tobacco Type: Smokeless Tobacco (Dip or Chew) Cigarettes Per Day: patient stop smoking cigarettes in his 30s.; Do You Dip or Chew Tobacco: Yes; Hx Alcohol Use: Yes Alcohol type: beer and wine Alcohol type Comment: 1 bottle or more whiskey per day for many years. 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 Other Information That Helps Us Care for You: No Feels Safe at Home: Yes Safety Concerns: Feels Safe At This Time Assistive Devices: Cane Review of Systems Review of Systems: All systems reviewed & are unremarkable except as noted in HPI & below Physical Exam Constitutional: WD/WN, vitals as above Respiratory: normal respiratory effort, lungs clear to auscultation Cardiovascular: Rate/Rhythm: regular rate Gastrointestinal (Abdomen): normal bowel sounds, soft, nontender, no hepatosplenomegaly Skin: no rashes, warm and dry Results & Data Vital Signs (Past 12 Hours) Vital Signs Temp Pulse Pulse Resp BP BP Pulse Ox 02/14/23 08:00 02/14/23 07:45 36.6 C 97 H 18 147/81 H 95 02/14/23 02:21 36.8 C 97 H 18 108/68 96 02/14/23 01:15 89 O2 Del Method O2 Flow Rate 02/14/23 08:00 Room Air 02/14/23 07:45 Nasal Cannula 1 02/14/23 02:21 Nasal Cannula 2 02/14/23 01:15 Laboratory Results 02/14/23 02/14/23 Range/Units 10:10 06:17 WBC 8.45 (4.8-10.8) K/ul RBC 3.74 L (4.70-6.10) M/uL Hgb 10.9 L (14.0-18.0) g/dl Hct 33.5 L (42.0-52.0) % MCV 89.6 (80.0-100.0) fL MCH 29.1 (25.0-34.0) pg MCHC 32.5 (32.0-36.0) g/dL RDW Std Deviation 46.3 (36.4-46.3) fL RDW Coeff of Shayy 14.1 (11.5-14.5) % Plt Count 166 (130-400) K/uL MPV 10.4 (9.4-12.4) fL Immature Gran % (Auto) 2.4 % Neut % (Auto) 54.8 % Lymph % (Auto) 23.7 % [place] % (Auto) 13.4 % Eos % (Auto) 5.3 % Baso % (Auto) 0.4 % Neut # (Auto) 4.64 (1.40-6.50) K/uL Lymph # (Auto) 2.00 (1.20-3.40) K/uL [place] # (Auto) 1.13 H (0.11-0.59) K/uL Eos # (Auto) 0.45 (0.00-0.50) K/uL Baso # (Auto) 0.03 (0.00-0.20) K/uL Immature Gran # (Auto) 0.20 (0.01-0.20) K/uL Sodium 141 (136-145) mmol/L Potassium 3.8 (3.5-5.1) mmol/L Chloride 111 H (98-107) mmol/L Carbon Dioxide 22 (21-32) mmol/L Anion Gap 8 (3-11) BUN 44 H (6-23) mg/dl Creatinine 0.90 (0.6-1.4) mg/dl Est Cr Clr Drug Dosing 89.7 ml/min Est GFR ( Amer) 97.2 ml/min Est GFR (Non-Af Amer) 83.8 ml/min BUN/Creatinine Ratio 48.9 H (10-20) Glucose 113 H (70-99(Fasting)) mg/dl Calcium 9.0 (8.6-10.3) mg/dl Magnesium 1.7 (1.7-2.4) mg/dl Stool Occult Bld Scrn Positive A (Negative)
--- NOTE | 2023-02-14 13:33 | Hospitalist Progress Note ---
Date of Service February 14, 2023 Assessment & Plan (1) Left displaced femoral neck fracture: Plan: Patient presented to the ED with mechanical fall Hip x-ray personally reviewed; acute fracture of left femoral neck with associated soft tissue swelling status post left femoral neck hemiarthroplasty, noncemented on February 10, 2023 Continue on Tylenol [id number], oxycodone and Dilaudid as needed for pain control Trial of void was unsuccessful; Kimball placed back again. Eliquis is started for DVT prophylaxis: Currently on hold. Continue PT OT Acute blood loss anemia Upper GI bleed Patient's hemoglobin dropped from 14.3 on admission to 10.9 today The blood loss likely due to operative loss and possible upper GI bleed. BUN noted to be on the higher side Fecal occult positive Discussed with GI; plan for endoscopy tomorrow. On Protonix twice daily. Hold Eliquis and aspirin for now Resumption of anticoagulation based on EGD results. Delirium Likely secondary to pain and unfamiliar environment Zyprexa as needed Acute urinary retention Post-op Trial of void was unsuccessful on February 12; Kimball placed back again. Trial of void in 1 week (2) Atrial fibrillation with RVR: Plan: History of atrial fibrillation EKG on admission personally reviewed; A-fib with rapid ventricular rate; ventricular rate of 124 Echocardiogram with EF of 40 to 45%; hypokinesis in the apex and mid anteroseptum. Telemetry showed 3-second pause on February 10, 2023; no events otherwise. Continue on metoprolol at current dose as recommended by cardiology with holding parameter Continue Eliquis 5 mg twice daily Continue telemetry monitoring (3) Acute exacerbation of congestive heart failure: Plan: History of atrial fibrillation EKG on admission personally reviewed; A-fib with rapid ventricular rate; ventricular rate of 124 Echocardiogram with EF of 40 to 45%; hypokinesis in the apex and mid anteroseptum. Received couple dose of Lasix inpatient. Monitor respiratory status; will order Lasix as needed. Patient will benefit from GDMT management given borderline EF. Will defer it to cardiology. (4) CAD (coronary artery disease): Plan: -History of such, chronic, stable A1c of 5.5% Lipid panel reviewed; LDL of 103 Continue rosuvastatin (5) HTN (hypertension): Plan: -Metoprolol succinate 50 mg once daily -Pain control (6) Depression: Plan: -Continue Cymbalta -Chronic, stable (7) Parkinsonism: Plan: -Noted as per [facility] outpatient chart, pill-rolling with the left hand throughout exam -PT OT consults, uses walker/cane at baseline DVT PPx: Eliquis Lines 2 PIV FEN/GI: HH diet CODE: Full code Dispo: Patient continues to be hospitalized due to multiple issues. He has possible upper GI bleed for which he will undergo endoscopy tomorrow AM. Time spent evaluating patient, direct bedside care, chart review, placing orders, interpretation of diagnostic studies, discussion with consultants, patient, and family members, as well as other required patient management activities is 50 minutes Please note the above document was generated using voice recognition software. It may contain grammatical, syntax or spelling errors. Any formal questions or concerns about the content, text or information contained within the body of this dictation should be directly addressed to the provider for clarification Admission and Anticipated Discharge Date Admission Date: February 09, 2023 Subjective Patient seen and examined at bedside. His heart rate increased to 180s while working with PT OT. Other vitals are stable. He reports that pain is well controlled on current medications Review of Systems Review of Systems: All systems reviewed & are unremarkable except as noted in Subjective Physical Exam Physical Exam: General: Awake, alert, oriented to self and place. Not in any distress. Head: Normocephalic, atraumatic ENT: PERRL, EOMI, no pharyngeal exudate, mucous membranes moist Chest: Bilateral clear breath sound. Cardiac: Regular rate and rhythm, no murmur, no JVD, normal peripheral pulses, sluggish capillary refill Abdominal: NABS x 4 quadrants, soft, nondistended, nontender to palpation, no rebound or guarding Extremities: Dressing intact in left hip; clean and dry. Psych: Normal mood and affect Neuro: AAO x 2, grossly intact. Results & Data Results & Data Vital Signs (Past 12 Hours) Vital Signs Temp Pulse Resp BP BP Pulse Ox O2 Del Method 02/14/23 11:44 36.3 C L 99 H 19 138/84 99 Room Air 02/14/23 08:00 Room Air 02/14/23 07:45 36.6 C 97 H 18 147/81 H 95 Nasal Cannula 02/14/23 02:21 36.8 C 97 H 18 108/68 96 Nasal Cannula O2 Flow Rate 11/14/23 11:44 02/14/23 08:00 02/14/23 07:45 1 02/14/23 02:21 2 Laboratory Results Laboratory Results WBC 8.45 K/ul (4.8-10.8) 02/14/23 06:17 RBC 3.74 M/uL (4.70-6.10) L 02/14/23 06:17 Hgb 10.9 g/dl (14.0-18.0) L 02/14/23 06:17 Hct 33.5 % (42.0-52.0) L 02/14/23 06:17 MCV 89.6 fL (80.0-100.0) 02/14/23 06:17 MCH 29.1 pg (25.0-34.0) 02/14/23 06:17 MCHC 32.5 g/dL (32.0-36.0) 02/14/23 06:17 RDW Std Deviation 46.3 fL (36.4-46.3) 02/14/23 06:17 RDW Coeff of Shayy 14.1 % (11.5-14.5) 02/14/23 06:17 Plt Count 166 K/uL (130-400) 02/14/23 06:17 MPV 10.4 fL (9.4-12.4) 02/14/23 06:17 Immature Gran % (Auto) 2.4 % 02/14/23 06:17 Neut % (Auto) 54.8 % 02/14/23 06:17 Lymph % (Auto) 23.7 % 02/14/23 06:17 Lyon % (Auto) 13.4 % 02/14/23 06:17 Eos % (Auto) 5.3 % 02/14/23 06:17 Baso % (Auto) 0.4 % 02/14/23 06:17 Neut # (Auto) 4.64 K/uL (1.40-6.50) 02/14/23 06:17 Lymph # (Auto) 2.00 K/uL (1.20-3.40) 02/14/23 06:17 Lyon # (Auto) 1.13 K/uL (0.11-0.59) H 02/14/23 06:17 Eos # (Auto) 0.45 K/uL (0.00-0.50) 02/14/23 06:17 Baso # (Auto) 0.03 K/uL (0.00-0.20) 02/14/23 06:17 Immature Gran # (Auto) 0.20 K/uL (0.01-0.20) 02/14/23 06:17 PT 11.5 Seconds (9.0-12.0) 02/09/23 09:34 INR 1.1 (0.9-1.1) 02/09/23 09:34 APTT 27.6 Seconds (21.0-31.0) 02/09/23 09:34 PTT Ratio 1.0 02/09/23 09:34 Sodium 141 mmol/L (136-145) 02/14/23 06:17 Potassium 3.8 mmol/L (3.5-5.1) 02/14/23 06:17 Chloride 111 mmol/L (98-107) H 02/14/23 06:17 Carbon Dioxide 22 mmol/L (21-32) 02/14/23 06:17 Anion Gap 8 (3-11) 02/14/23 06:17 BUN 44 mg/dl (6-23) H 02/14/23 06:17 Creatinine 0.90 mg/dl (0.6-1.4) 02/14/23 06:17 Est Cr Clr Drug Dosing 89.7 ml/min 02/14/23 06:17 Est GFR ( Amer) 97.2 ml/min 02/14/23 06:17 Est GFR (Non-Af Amer) 83.8 ml/min 02/14/23 06:17 BUN/Creatinine Ratio 48.9 (10-20) H 02/14/23 06:17 Glucose 113 mg/dl (70-99(Fasting)) H 02/14/23 06:17 POC Glucose 118 mg/dl (70-99) H 02/13/23 09:21 Estimat Average Glucose 111 mg/dl 02/10/23 06:38 Hemoglobin A1c 5.5 % (4.5-5.6) 02/10/23 06:38 Lactate 1.4 mmol/L (0.4-2.0) 02/09/23 10:43 Calcium 9.0 mg/dl (8.6-10.3) 02/14/23 06:17 Phosphorus 3.1 mg/dl (2.5-4.9) 02/10/23 06:38 Magnesium 1.7 mg/dl (1.7-2.4) 02/14/23 06:17 Total Bilirubin 0.8 mg/dl (0.2-1.0) 02/09/23 09:34 Direct Bilirubin 0.1 mg/dl (0-0.2) 02/09/23 09:34 AST 20 U/L (13-39) 02/09/23 09:34 ALT 12 U/L (7-52) 02/09/23 09:34 Alkaline Phosphatase 71 U/L (34-104) 02/09/23 09:34 Troponin I High Sens 9.0 pg/ml (0-20) 02/09/23 11:34 B-Natriuretic Peptide 442 pg/ml (0-100) H 02/09/23 11:34 Total Protein 7.1 gm/dl (6.0-8.3) 02/09/23 09:34 Albumin 4.1 gm/dl (3.4-5.0) 02/09/23 09:34 Globulin 3.0 gm/dl (2.5-4.0) 02/09/23 09:34 Albumin/Globulin Ratio 1.4 (0.9-2) 02/09/23 09:34 Triglycerides 128 mg/dl (0-150) 02/10/23 06:38 Cholesterol 161 mg/dl (0-200) 02/10/23 06:38 LDL Cholesterol, Calc 103 mg/dl 02/10/23 06:38 VLDL Cholesterol, Calc 26 mg/dl (0-30) 02/10/23 06:38 HDL Cholesterol 32 mg/dl 02/10/23 06:38 Cholesterol/HDL Ratio 5.0 (0-5) 02/10/23 06:38 Procalcitonin < 0.05 ng/ml (0-0.5) 02/09/23 09:35 Urine Color Yellow 02/09/23 10:11 Urine Appearance Cloudy (Clear) A 02/09/23 10:11 Urine pH 6.0 (4.5-7.5) 02/09/23 10:11 Ur Specific [place] 1.022 (1.000-1.030) 02/09/23 10:11 Urine Protein Trace (Negative) H 02/09/23 10:11 Urine Glucose (UA) Negative (Negative) 02/09/23 10:11 Urine Ketones Negative (Negative) 02/09/23 10:11 Urine Blood Negative (Negative) 02/09/23 10:11 Urine Nitrite Negative (Negative) 02/09/23 10:11 Urine Bilirubin Negative (Negative) 02/09/23 10:11 Urine Urobilinogen Negative (Negative) 02/09/23 10:11 Ur Leukocyte Esterase Negative (Negative) 02/09/23 10:11 Urine WBC (Auto) 1-5 /hpf (0-5) 02/09/23 10:11 Urine RBC (Auto) 0-4 /hpf (0-4) 02/09/23 10:11 U Hyaline Cast (Auto) 1-5 /lpf (0-5) 02/09/23 10:11 U Epithel Cells (Auto) 10-20 /lpf (0-5) H 02/09/23 10:11 Urine Bacteria (Auto) Negative (Negative) 02/09/23 10:11 Stool Occult Bld Scrn Positive (Negative) A 02/14/23 10:10 Ethyl Alcohol mg/dL < 10.0 mg/dl (<10.0) 02/09/23 09:34 Blood Type O Positive 02/09/23 16:53 Blood Type Recheck O Positive 02/10/23 06:38 Antibody Screen NEGATIVE 02/09/23 16:[address] 02/09/23 09:52 CT cervical spine wo con CLINICAL HISTORY: fall TECHNIQUE: Multidetector row helical CT of the cervical spine was performed without administration of intravenous contrast. Coronal and sagittal reformatio ns were obtained. Automated dose lowering techniques and/or adjustment according to patient size were utilized for this exam. Comparison: Comparison is made to CTA neck 09/03/2022 FINDINGS: No acute fractures or subluxations are identified. Degenerative changes are seen in the visualized spine. Extensive lordosis is noted, unchanged. Soft tissues are unremarkable. IMPRESSION: Degenerative changes without evidence of acute bony injury. ACT 112: Negative or not required by law. Electronically signed by: Nguyễn Rodríguez M.D. 02/09/2023 11:[address] 02/09/23 09:52 CT head/brain wo con CLINICAL HISTORY: fall Technique: Contiguous axial CT images of the head were acquired from the base of the skull to the vertex without intravenous contrast administration. Images were viewed in brain, subdural and bone windows. Automated dose lowering techniques and/or adjustment according to patient size were utilized for this exam. Comparison: Comparison is made to CT head 09/09/2022 Findings: Areas of decreased attenuation are present in the periventricular and subcortical white matter bilaterally consistent with small vessel ischemic disease. Generalized cerebral atrophy with commensurate enlargement of the ventricles, sulci, and cisterns is also present. There is no acute intracranial hemorrhage or evidence of acute territorial infarction. No shift of the midline structures, mass effect, or extra-axial abnormalities are shown. Atherosclerotic calcifications are present in the intracranial segments of the internal carotid arteries. Imaged portions of the paranasal sinuses and mastoid air cells are clear. The orbits appear normal. There are no acute fractures of the calvaria or scalp swelling. Impression: No acute intracranial hemorrhage, no evidence of acute territorial infarction or other acute intracranial disease process. ACT 112: Negative or not required by law. Electronically signed by: Nguyễn Rodríguez M.D. 02/09/2023 11:39 AM Chest X-Ray 02/09/23 09:53 SINGLE VIEW CHEST CLINICAL HISTORY: Sepsis. FINDINGS: 2 AP, portable, upright chest radiographs are compared to study dated 09/03/2022. The examination is degraded by portable technique and patient rotation. The heart is enlarged noting atherosclerotic calcification of the thoracic aorta. There is pulmonary vascular congestion. Scarring/atelectasis is noted at the lung bases. There is no airspace consolidation typical for pneumonia. No large pleural effusion or pneumothorax is seen. The skeletal structures are osteopenic. The bony thorax is grossly intact. IMPRESSION: Cardiomegaly with evidence of congestive failure. ACT 112: Negative or not required by law. Electronically signed by: Rodney Garcia M.D. 02/09/2023 10:32 AM Abdomen/Pelvis CT 02/09/23 09:54 CT abd pelvis IV con only CLINICAL HISTORY: R sided lower paraspinal pain and bruising on eliq TECHNIQUE: Helical axial images of the abdomen and pelvis were obtained and displayed. Automated dose lowering techniques and/or adjustment according to patient size were utilized for this exam. This exam was performed with intravenous contrast. COMPARISON: None available at the time of this dictation. FINDINGS: Lower chest: Small bilateral pleural effusions are seen with underlying atelectasis. Biatrial enlargement is seen and there is atherosclerotic disease. Liver: Unremarkable. No focal lesions are seen. Gallbladder and biliary tree: No calcified gallstones. Normal caliber wall. No intra- or extrahepatic biliary ductal dilation. Pancreas: Fatty replacement of the pancreas is seen. Spleen: Unremarkable. Adrenals: Unremarkable. Kidneys and ureters: Exophytic cyst arises from the left kidney. Bladder: Unremarkable. Reproductive organs: Unremarkable. Bowel: Diverticulosis is seen without diverticulitis. The appendix is normal. Lymph nodes Retroperitoneal: Unremarkable. Pelvic: Unremarkable. Mesenteric: Unremarkable. Peritoneum: Normal. Vessels: Atherosclerotic calcifications are seen. Abdominal wall: Unremarkable. Bones: There is an acute fracture of the left femoral neck with overriding and apex lateral angulation. Mild surrounding soft tissue stranding is seen. IMPRESSION: Acute fracture of the left femoral neck. No spinal fractures are seen. No acute intra-abdominal injuries. ACT 112: Negative or not required by law. Electronically signed by: Nguyễn Rodríguez M.D. 02/09/2023 12:01 PM Hip/Pelvis X-Ray 02/10/23 16:05 SINGLE VIEW PELVIS; SINGLE VIEW LEFT HIP CLINICAL HISTORY: Postoperative examination. FINDINGS: An AP portable view of the hips and pelvis with a crosstable lateral portable view of the left hip are compared to study dated 02/09/2023. A left hip arthroplasty is in near-anatomic alignment. No acute fracture is identified. Soft tissue swelling and subcutaneous gas overlying the left hip are expected postsurgical changes. [id number] arthritic change and joint space narrowing is seen in the right hip. Degenerative sclerosis is noted in the sacroiliac joints and pubic symphysis. There is atherosclerotic calcification of the femoral arteries. A Kimball catheter is in place. IMPRESSION: Expected postoperative findings status post left hip arthroplasty. No acute fracture is seen. ACT 112: Negative or not required by law. Electronically signed by: Rodney Garcia M.D. 02/10/2023 5:03 PM (3) Acute exacerbation of congestive heart failure Heart failure type: unspecified Qualified Code(s): I50.9 - Heart failure, unspecified (5) HTN (hypertension) Hypertension type: primary hypertension Qualified Code(s): I10 - Essential (primary) hypertension
--- NOTE | 2023-02-14 13:53 | Cardiology Progress Note ---
Date of Service February 14, 2023 Assessment & Plan Admission and Anticipated Discharge Date Admission Date: February 09, 2023 Supervising Physician Co-Signing Physician Notes Attending Staff: Pt seen and examined with [facility] staff Concur with observations and plans 72 yo man Chronic Afib on DOAC Mechanical Fall - Hip Fx S/P Repair Plans to: * LVEF 40-45% - apical WMA * If SBP is consistently above 120 mmHg, may consider low-dose WOLFGANG or ARB (lisinopril 2.5 mg po per day or losartan 25 mg po per day) * Patient appears euvolemic on exam * Pt off diuretics (lasix discontinued) - follow daily weights to see if diuretics are needed * Replete K+ * k+ goal 4.5-5 * Mag goal >2 * HR trend - afib with HR just above 100 BPM * Increase Toprol to 75 mg po per day - goal HR 75-100 BPM * Continue DOAC * [facility] * Please call with any additional questions Jorge Swanson Subjective Events overnight: Afib - ventricular rates in the 90s to low 100's Subjective: No complaints Review of Systems Review of Systems: All systems reviewed & are unremarkable except as noted in HPI & below Physical Exam Physical Exam: No elevation in JVP S1S2 2/6 systolic murmur CTA - B No C/C/E - + Harry Hose - warm and well perfused Urinary catheter in place Results & Data Vital Signs (Past 12 Hours) Vital Signs Temp Pulse Resp BP BP Pulse Ox O2 Del Method 02/14/23 11:44 36.3 C L 99 H 19 138/84 99 Room Air 02/14/23 08:00 Room Air 02/14/23 07:45 36.6 C 97 H 18 147/81 H 95 Nasal Cannula 02/14/23 02:21 36.8 C 97 H 18 108/68 96 Nasal Cannula O2 Flow Rate 02/14/23 11:44 02/14/23 08:00 02/14/23 07:45 1 02/14/23 02:21 2 Laboratory Results CBC 02/14/23 Range/Units 06:17 WBC 8.45 (4.8-10.8) K/ul RBC 3.74 L (4.70-6.10) M/uL Hgb 10.9 L (14.0-18.0) g/dl Hct 33.5 L (42.0-52.0) % Plt Count 166 (130-400) K/uL Neut # (Auto) 4.64 (1.40-6.50) K/uL Lymph # (Auto) 2.00 (1.20-3.40) K/uL [place] # (Auto) 1.13 H (0.11-0.59) K/uL Eos # (Auto) 0.45 (0.00-0.50) K/uL Baso # (Auto) 0.03 (0.00-0.20) K/uL Comprehensive Metabolic Panel 02/14/23 Range/Units 06:17 Sodium 141 (136-145) mmol/L Potassium 3.8 (3.5-5.1) mmol/L Chloride 111 H (98-107) mmol/L Carbon Dioxide 22 (21-32) mmol/L BUN 44 H (6-23) mg/dl Creatinine 0.90 (0.6-1.4) mg/dl Glucose 113 H (70-99(Fasting)) mg/dl Calcium 9.0 (8.6-10.3) mg/dl Intake and Output 02/13/23 02/14/23 02/14/23 22:59 06:59 14:59 Intake Total 590 / 890 300 / 890 479.167 / 479.167 Output Total 1000 / 2550 600 / 2550 Balance -410 / -1660 -300 / -1660 478.167 / 478.167 Intake: IV 0 / 0 479.167 / 479.167 Sodium Chloride 0.9% 500 ml @ 0 / 0 479.167 / 479.167 50 mls/hr IV .Q10H [facility] Rx#: [id number] Oral 590 / 890 300 / 890 Output: Urine Amount (Catheter) 1000 / 2550 600 / 2550 Kimball/Indwelling 1000 / 2550 600 / 2550 # Bowel Movements Other: Weight 103.8 kg Weight Measurement Method Built in [facility] Medications Administered Current Inpatient Medications Acetaminophen (Acetaminophen 500 Mg Tab) 1,000 mg PO Q8 LOLIS Stop: 03/12/23 21:59 Last Admin: 02/14/23 07:58 Dose: 1,000 mg Al Hydrox/Mg Hydrox/Simethicone (Aluminum/Magnesium Susp 30 Ml Udc) 15 ml PO Q4H PRN PRN Reason: Heartburn Stop: 03/12/23 17:11 Apixaban (Apixaban 5 Mg Tablet) 5 mg PO BID LOLIS Stop: 03/13/23 08:59 Last Admin: 02/14/23 08:01 Dose: 5 mg Ascorbic Acid (Ascorbic Acid 500 Mg Tab) 500 mg PO BIDM LOLIS Stop: 03/12/23 17:44 Last Admin: 02/14/23 07:59 Dose: 500 mg Aspirin (Aspirin 81 Mg Ectab) 81 mg PO DAILY LOLIS Stop: 03/12/23 08:59 Last Admin: 02/14/23 08:00 Dose: 81 mg Atorvastatin Calcium (Atorvastatin 40 Mg Tab) 80 mg PO DAILY LOLIS Stop: 03/12/23 08:59 Last Admin: 02/14/23 08:00 Dose: 80 mg Bisacodyl (Bisacodyl 10 Mg Supp) 10 mg MS DAILY PRN PRN Reason: Constipation Stop: 03/12/23 17:11 Docusate Sodium (Docusate Sodium 100 Mg Cap) 100 mg PO BID LOLIS Stop: 03/12/23 20:59 Last Admin: 02/14/23 08:01 Dose: 100 mg Duloxetine HCl (Duloxetine Hcl 30 Mg Cap) 30 mg PO DAILY [facility] Stop: 03/12/23 08:59 Last Admin: 02/14/23 08:00 Dose: 30 mg Ferrous Gluconate (Ferrous Gluconate 324 Mg Tab) 324 mg PO BIDM [facility] Stop: 03/12/23 17:44 Last Admin: 02/14/23 07:59 Dose: 324 mg Hydromorphone HCl (Hydromorphone Inj 0.5 Mg/0.5 Ml Syr) 0.5 mg IV Q6H PRN PRN Reason: Pain Stop: 02/25/23 11:34 Last Admin: 02/11/23 12:28 Dose: 0.5 mg Pantoprazole Sodium 40 mg/ (Syringe) 10 mls @ 5 mls/min IV BID LOLIS Stop: 03/15/23 10:59 Last Admin: 02/14/23 08:01 Dose: 5 mls/min Sodium Chloride (Nss) 500 mls @ 50 mls/hr IV .Q10H LOLIS Stop: 03/15/23 15:59 Last Admin: 02/14/23 11:01 Dose: 50 mls/hr Magnesium Hydroxide (Magnesium Hydroxide Susp 30 Ml Udc) 30 ml PO Q6H PRN PRN Reason: Constipation Stop: 03/12/23 17:11 Metoclopramide HCl (Metoclopramide Hcl Inj 5 Mg/Ml 2 Ml Vial) 10 mg IV Q6H PRN PRN Reason: Nausea And Vomiting Stop: 03/12/23 17:11 Metoprolol Succinate (Metoprolol Succ 50mg Ext Rel Tab) 50 mg PO QAM [facility] Stop: 03/16/23 08:59 Last Admin: 02/14/23 08:01 Dose: 50 mg Multivitamins (Multivitamin Tab) 1 tab PO QAM LOLIS Stop: 03/13/23 08:59 Last Admin: 02/14/23 08:01 Dose: 1 tab Naloxone HCl (Naloxone Hcl 0.4 Mg/1 Ml Vial/Carp) 0.1 mg IV Q5M PRN PRN Reason: Oversedation/Resp Depression Stop: 03/12/23 17:11 Ondansetron HCl (Ondansetron Inj 2 Mg/Ml 2 Ml Vial) 4 mg IV Q6H PRN PRN Reason: Nausea And Vomiting Stop: 03/12/23 17:11 Oxycodone HCl (Oxycodone Hcl Ir 5 Mg Tab (Immediate Release)) 5 mg PO Q4H PRN PRN Reason: Pain or Pre PT Stop: 02/26/23 10:58 Last Admin: 02/14/23 11:27 Dose: 5 mg Polyethylene Glycol (Polyethylene (Miralax) 17 Gm Pack) 17 gm PO DAILY LOLIS Stop: 03/14/23 10:59 Last Admin: 02/14/23 08:01 Dose: 17 gm Sennosides (Senna 8.6 Mg Tab) 17.2 mg PO HS LOLIS Stop: 03/12/23 20:59 Last Admin: 02/13/23 20:28 Dose: 17.2 mg Tamsulosin HCl (Tamsulosin Hcl 0.4 Mg Cap) 0.4 mg PO QAM PRN PRN Reason: UNABLE to void Stop: 03/12/23 17:11
[2023-02-14] MEDS: SENNA 8.6 MG TAB PO SCH (19:50)
[2023-02-15] MEDS: ACETAMINOPHEN 500 MG TAB PO SCH ×3 (05:57→21:34)
[2023-02-15 07:12] LABS: Basophils # (auto) 0.04 K/uL (0.00-0.20); Basophils % (auto) 0.5 %; Eosinophils # (auto) 0.36 K/uL (0.00-0.50); Eosinophils % (auto) 4.2 %; Hematocrit (blood only) 30.1 % (42.0-52.0); Hemoglobin 10.1 g/dl (14.0-18.0); Immature Granulocytes # (auto) 0.15 K/uL (0.01-0.20); Immature Granulocytes % (auto) 1.8 %; Lymphocytes # (auto) 1.54 K/uL (1.20-3.40); Mean Corpuscular Hemoglobin 29.9 pg (25.0-34.0); Mean Corpuscular Hgb Conc 33.6 g/dL (32.0-36.0); Mean Corpuscular Volume 89.1 fL (80.0-100.0); Mean Platelet Volume 10.1 fL (9.4-12.4); Monocytes # (auto) 1.24 K/uL (0.11-0.59); Monocytes % (auto) 14.5 %; Neutrophils # (auto) 5.24 K/uL (1.40-6.50); Platelet Count 161 K/uL (130-400); RDW Coefficient of Variation 14.2 % (11.5-14.5); RDW Standard Deviation 45.9 fL (36.4-46.3); Red Blood Count 3.38 M/uL (4.70-6.10); White Blood Count 8.57 K/ul (4.8-10.8)
[2023-02-15] MEDS: oxyCODONE HCL IR 5 MG TAB (IMMEDIATE RELEASE) PO PRN ×2 (07:50→15:07)
[2023-02-15] MEDS: ATORVASTATIN 40 MG TAB PO SCH (07:55)
[2023-02-15] MEDS: MULTIVITAMIN TAB PO SCH (07:56)
[2023-02-15] MEDS: FERROUS GLUCONATE 324 MG TAB PO SCH ×2 (07:56→16:51)
[2023-02-15] MEDS: PANTOprazole 40 MG in SYRINGE 0 ML IV SCH (07:56)
[2023-02-15] MEDS: DOCUSATE SODIUM 100 MG CAP PO SCH ×2 (07:56→20:34)
[2023-02-15] MEDS: ASCORBIC ACID 500 MG TAB PO SCH ×2 (07:56→16:51)
[2023-02-15] MEDS: METOPROLOL SUCC 50MG EXT REL TAB PO SCH (07:57)
[2023-02-15] MEDS: DULoxetine HCL 30 MG CAP PO SCH (07:57)
[2023-02-15] MEDS: POLYETHYLENE (MIRALAX) 17 GM PACK PO SCH (07:58)
[2023-02-15] MEDS: SODIUM CHLORIDE 0.9% 500 ML IV SCH ×2 (07:58→16:49)
--- NOTE | 2023-02-15 08:02 | Anesthesiology Consultation ---
Date of Service February 15, 2023 Assessment & Plan (1) Encounter for pre-operative examination: Chart Review Chart Review: Acceptable Risk for Surgery and Patient NOT seen in Pre Admission Testing Consults Requested none History Surgery Operation Date: 02/10/23 13:30 Proposed Procedures p Left Femoral Neck Hemiarthroplasty Cemented - Titi Sanchez MD Operation Date: 02/15/23 16:30 Proposed Procedures p Esophagogastroduodenoscopy Dr Harris - James Harris, Height/Weight Height: 6 ft Weight: 103.6 kg Allergies Allergy/AdvReac Type Severity Reaction Status Date / Time cyanocobalamin (vitamin B12) AdvReac Severe b12 and B6 Verified 02/09/23 13:52 makes nose bleed pyridoxine AdvReac Severe b12 and B6 Verified 02/09/23 13:52 makes nose bleed Medications Home Medications Medication Instructions Recorded Confirmed Last Taken saw palmetto 450 mg capsule 1,800 mg PO DAILY 09/03/22 02/09/23 Unknown apixaban 5 mg tablet (Eliquis) 5 mg PO BID #60 tabs 09/13/22 02/09/23 Unknown arginine (L-arginine) 500 mg tablet 1,000 mg (2 x 500 mg) PO [facility] #60 09/13/22 02/09/23 Unknown tabs aspirin 81 mg tablet,delayed 81 mg PO DAILY #30 tabs 09/13/22 02/09/23 Unknown release atorvastatin 80 mg tablet 80 mg PO DAILY #30 tabs 09/13/22 02/09/23 Unknown duloxetine 30 mg capsule,delayed 30 mg PO DAILY #30 caps 09/13/22 02/09/23 Unknown release metoprolol tartrate 25 mg tablet 25 mg PO BID #60 tabs 09/13/22 02/09/23 Unknown Active Medications Generic Name Dose Route Start Last Admin Trade Name Freq PRN Reason Stop Dose Admin Acetaminophen 1,000 mg 02/10/23 22:00 02/15/23 05:57 Acetaminophen 500 Mg Tab PO 03/12/23 21:59 Not Given Q8 LOLIS Apixaban 5 mg 02/11/23 09:00 02/14/23 08:01 Apixaban 5 Mg Tablet PO 03/13/23 08:59 5 mg BID LOLIS Administration Ascorbic Acid 500 mg 02/10/23 17:45 02/15/23 07:56 Ascorbic Acid 500 Mg Tab PO 03/12/23 17:44 500 mg BIDM LOLIS Administration Aspirin 81 mg 02/10/23 09:00 02/14/23 08:00 Aspirin 81 Mg Ectab PO 03/12/23 08:59 81 mg DAILY LOLIS Administration Atorvastatin Calcium 80 mg 02/10/23 09:00 02/15/23 07:55 Atorvastatin 40 Mg Tab PO 03/12/23 08:59 80 mg DAILY LOLIS Administration Docusate Sodium 100 mg 02/10/23 21:00 02/15/23 07:56 Docusate Sodium 100 Mg Cap PO 03/12/23 20:59 100 mg BID LOLIS Administration Duloxetine HCl 30 mg 02/10/23 09:00 02/15/23 07:57 Duloxetine Hcl 30 Mg Cap PO 03/12/23 08:59 30 mg DAILY LOLIS Administration Ferrous Gluconate 324 mg 02/10/23 17:45 02/15/23 07:56 Ferrous Gluconate 324 Mg Tab PO 03/12/23 17:44 324 mg BIDM LOLIS Administration Hydromorphone HCl 0.5 mg 02/11/23 11:35 02/11/23 12:28 Hydromorphone Inj 0.5 Mg/0.5 Ml Syr IV 02/25/23 11:34 0.5 mg Q6H PRN Administration Pain Pantoprazole Sodium 40 mg/ 10 mls @ 5 mls/min 02/13/23 11:00 02/15/23 07:56 Syringe IV 03/15/23 10:59 5 mls/min BID LOLIS Administration Sodium Chloride 500 mls @ 50 mls/hr 02/13/23 16:00 02/15/23 07:58 Nss IV 03/15/23 15:59 50 mls/hr .Q10H LOLIS Administration Metoprolol Succinate 50 mg 02/14/23 09:00 02/15/23 07:57 Metoprolol Succ 50mg Ext Rel Tab PO 03/16/23 08:59 50 mg QAM LOLIS Administration Multivitamins 1 tab 02/11/23 09:00 02/15/23 07:56 Multivitamin Tab PO 03/13/23 08:59 1 tab QAM LOLIS Administration Oxycodone HCl 5 mg 02/12/23 10:59 02/15/23 07:50 Oxycodone Hcl Ir 5 Mg Tab (Immediate Release) PO 02/26/23 10:58 5 mg Q4H PRN Administration Pain or Pre PT Polyethylene Glycol 17 gm 02/12/23 11:00 02/15/23 07:58 Polyethylene (Miralax) 17 Gm Pack PO 03/14/23 10:59 17 gm DAILY LOLIS Administration Sennosides 17.2 mg 02/10/23 21:00 02/14/23 19:50 Senna 8.6 Mg Tab PO 03/12/23 20:59 Not Given HS LOLIS NPO Date Last Intake of Fluids: 02/09/23 Time Last Intake of Fluids: 20:00 Last Intake of Fluids Comment: sip with meds today Date Last Intake of Solids: 02/09/23 Time Last Intake of Solids: 18:30 Past Medical History Medical History (Updated 02/14/23 @ 12:04 by MARÍA Lui) Acute on chronic diastolic heart failure with preserved ejection fraction Parkinsonism Acute right MCA stroke CAD (coronary artery disease) Depression Atrial fibrillation with RVR HTN (hypertension) Altered mental status Past Family History Family History Mother , date age 93 with memory issues Dementia Father , age 51 of heart disease Heart disease Other Dyslipidemia Past Surgical History Surgical History S/P cataract surgery No pertinent past surgical history Social History Smoking Status: Never smoker Smoking cigarettes per day: patient stop smoking cigarettes in his 30s. Do You Dip or Chew Tobacco: Yes Hx Alcohol Use: Yes Alcohol type: beer and wine Hx Substance Use: No substance use type: does not use Physical Exam Vital Signs Last Vital Signs Temp 97.5 F L 02/15/23 02:34 Pulse 96 H 02/15/23 02:34 Resp 18 02/15/23 02:34 BP 119/72 02/15/23 02:34 Pulse Ox 97 02/15/23 02:34 O2 Del Method Nasal Cannula 02/15/23 02:34 O2 Flow Rate 5 02/15/23 02:34 FiO2 30 02/09/23 11:33 Testing Laboratory Results 02/15/23 06:35 PT 11.5 Seconds (9.0-12.0) 02/09/23 09:34 INR 1.1 (0.9-1.1) 02/09/23 09:34 APTT 27.6 Seconds (21.0-31.0) 02/09/23 09:34 Hemoglobin A1c 5.5 % (4.5-5.6) 02/10/23 06:38 Urine Color Yellow 02/09/23 10:11 Urine Appearance Cloudy (Clear) A 02/09/23 10:11 Urine pH 6.0 (4.5-7.5) 02/09/23 10:11 Ur Specific [place]ing 1.022 (1.000-1.030) 02/09/23 10:11 Urine Protein Trace (Negative) H 02/09/23 10:11 Urine Glucose (UA) Negative (Negative) 02/09/23 10:11 Urine Ketones Negative (Negative) 02/09/23 10:11 Urine Nitrite Negative (Negative) 02/09/23 10:11 Ur Leukocyte Esterase Negative (Negative) 02/09/23 10:11 Urine WBC (Auto) 1-5 /hpf (0-5) 02/09/23 10:11 Urine RBC (Auto) 0-4 /hpf (0-4) 02/09/23 10:11 U Hyaline Cast (Auto) 1-5 /lpf (0-5) 02/09/23 10:11 U Epithel Cells (Auto) 10-20 /lpf (0-5) H 02/09/23 10:11 Urine Bacteria (Auto) Negative (Negative) 02/09/23 10:11 Blood Type O Positive 02/09/23 16:53 Antibody Screen NEGATIVE 02/09/23 16:53 02/09/23 10:43 Aerobic Blood Culture - Final Blood No growth in Aerobic bottle after 5 days. Anaerobic Blood Culture - Final No growth in Anaerobic bottle after 5 days. 02/09/23 10:44 Aerobic Blood Culture - Final Blood No growth in Aerobic bottle after 5 days. Anaerobic Blood Culture - Final No growth in Anaerobic bottle after 5 days. Electrocardiogram Date: 02/10/23 Findings: + AFIB @ (94) Echocardiogram Date: 02/09/23 EF: 40-45% Valvular Disease: + no significant valvular disease
--- NOTE | 2023-02-15 08:28 | Communication Note ---
Date of Service: February 15, 2023 Pt was seen and evaluated, chart reviewed. Remains NPO for EGD evaluation today. No black or bloody stools reported. Some GERD. 72 year old male w/ history of atrial fibrillation on Eliquis, Parkinsonism, HTN, HLD, CAD, s/p angioplasty with stent, mitral regurg, prediabetes, AO, ETOH use admitted w/ a fall, POD 4 left hip hemiarthroplasty - GI asked to evaluate for anemia, heme positive stools. + ASA + Advil + Eliquis daily. DDX discussed including PUD, gastritis, esophagitis etc/ Maintain NPO status. Hold ASA, eliquis and NSAIDs. EGD today. Trend H&H. Monitor and document GI output. Transfuse PRN primary team We appreciate assistance in the management of any serological abnormality and corrections to include: hemoglobin >7, INR <2, platelets >50,000, potassium levels >3.5 but <5.3, and sodium levels within 5 points of the reference range prior to endoscopic evaluation. Thank you for allowing us to participate in the care of this patient. Please call with any acute changes, questions or concerns. Please see addendum below with additional recommendation from my supervising physician.
[2023-02-15 09:10] LABS: BUN Creatinine Ratio 30.2 (10-20); Calcium 8.7 mg/dl (8.6-10.3); Est GFR (African American) 89.9 ml/min; Est GFR (Non-African American) 77.6 ml/min; Potassium 3.9 mmol/L (3.5-5.1)
--- NOTE | 2023-02-15 09:37 | History & Physical Bridge Note ---
Date of Service February 15, 2023 History & Physical Bridge Note I have examined the patient, reviewed the History & Physical and in the interval since the performance of the History & Physical I have noted the following changes of clinical significance: no changes noted Upper endoscopy planned for today to evaluate the patient's history of patient does not have a history of melena but does note having intermittent hematochezia described as. Given the I would recommend an outpatient colonoscopy.
--- NOTE | 2023-02-15 09:55 | Communication Note ---
Date of Service: February 15, 2023 The patient underwent upper endoscopy today. He was found to have a several strictures in the gastric antrum. Biopsies were taken from the stomach to evaluate for evidence of H pylori infection. Recomenations: advance diet as tolerated Omeprazole or Protonix 40 mg per day for 3 months Carafate 1 gm qid x 10 days avoid NSAIDS for 1 week please repeat EGD in 3 months to ensure healing Patient will need an OP colonoscopy as well Please call with questions, GI to sign off.
--- NOTE | 2023-02-15 09:59 | Orthopedic Progress Note ---
Date of Service February 15, 2023 Assessment & Plan (1) Left displaced femoral neck fracture: Plan: Physical therapy and Occupational Therapy daily. He is weightbearing as tolerated with posterior hip precautions. Abduction pillow while in bed Pain control and medical management per the internal medicine team. DVT prophylaxis per the internal medicine team. Leave dressing in place Patient may shower with the Silverlon dressing in place. Follow-up as scheduled with orthopedics, JAZMIN Barajas PA-C, 2 weeks after discharge. Any questions feel free to contact orthopedics. Admission and Anticipated Discharge Date Admission Date: February 09, 2023 Subjective Patient was seen and examined bedside. Who is sitting up in bed watching TV, aw delbert. He says that he is having pain. When asked if he could rate his pain he said "hurt, hurt, hurt". He has no other questions or concerns. Physical Exam Physical Exam: General: Patient is sitting up watching TV awake Left hip: Dressing is intact and not saturated. Will leave in place. Reinforce as needed. He has some bruising noted about his hip is tender to palpate. Able to wiggle his toes and slightly dorsiflex and plantarflex. He is able to bend his knee and do a straight leg raise. I am able to passively abduct and slightly flex him and he is able to tolerate this. NVI. Calf supple. Results & Data Vital Signs (Past 12 Hours) Vital Signs Temp Pulse Pulse Resp BP Pulse Ox O2 Del Method 02/15/23 09:12 36.5 C 102 H 16 134/89 99 Nasal Cannula 02/15/23 07:42 36.7 C 88 18 143/84 H 100 Nasal Cannula 02/15/23 02:34 36.4 C L 96 H 18 119/72 97 Nasal Cannula 02/15/23 01:59 98 H 02/14/23 22:56 36.6 C 97 H 18 129/82 98 Nasal Cannula O2 Flow Rate 02/15/23 09:12 2 02/15/23 07:42 2 02/15/23 02:34 5 02/15/23 01:59 02/14/23 22:56 4
--- NOTE | 2023-02-15 10:00 | GI REPORT ---
Patient Name: Yair Castrejon Procedure Date: 02/15/2023 9:42 AM Date of : 1950 Admit Type: Inpatient Age: 72 Gender: Male Attending MD: James Harris DO, Procedure: Upper GI endoscopy Providers: James Harris DO Referring MD: Daren Bauman Md Indications: Suspected upper gastrointestinal bleeding Medicines: General Anesthesia Complications: No immediate complications. Estimated blood loss: Minimal. Estimated Blood Loss: Estimated blood loss was minimal. Procedure: Pre-Anesthesia Assessment: - Prior to the procedure, a History and Physical was performed, and patient medications, allergies and sensitivities were reviewed. The patient's tolerance of previous anesthesia was reviewed. - The risks and benefits of the procedure and the sedation options and risks were discussed with the patient. All questions were answered and informed consent was obtained. - Patient identification and proposed procedure were verified prior to the procedure by the physician, the nurse and the solutions architect. The procedure was verified in the procedure room. - Pre-procedure physical examination revealed no contraindications to sedation. - ASA Grade Assessment: IV - A patient with severe systemic disease that is a constant threat to life. - After reviewing the risks and benefits, the patient was deemed in satisfactory condition to undergo the procedure. - The anesthesia plan was to use monitored anesthesia care (MAC). - Immediately prior to administration of medications, the patient was re-assessed for adequacy to receive sedatives. - The heart rate, respiratory rate, oxygen saturations, blood pressure, adequacy of pulmonary ventilation, and response to care were monitored throughout the procedure. - The physical status of the patient was re-assessed after the procedure. After obtaining informed consent, the endoscope was passed under direct vision. Throughout the procedure, the patient's blood pressure, pulse, and oxygen saturations were monitored continuously. The Endoscope was introduced through the mouth, and advanced to the third part of duodenum. The upper GI endoscopy was accomplished without difficulty. The patient tolerated the procedure well. Findings: The examined esophagus was normal. The Z-line was regular and was found 39 cm from the incisors. The gastric fundus and gastric body were normal. Four non-obstructing clean based cratered gastric ulcers of moderate severity with no stigmata of bleeding were found in the gastric antrum. The largest lesion was 6 mm in largest dimension. Biopsies were taken with a cold forceps for histology. The pathology specimen was placed into Bottle A. Estimated blood loss was minimal. The examined duodenum was normal. Impression: - Normal esophagus. - Z-line regular, 39 cm from the incisors. - Normal gastric fundus and gastric body. - Non-obstructing non-bleeding gastric ulcers with no stigmata of bleeding. Biopsied. - Normal examined duodenum. Recommendation: - Return patient to [facility] for [facility] care. - Advance diet as tolerated today. - Await pathology results. - Repeat upper endoscopy in 3 months to check healing. - Use Prilosec (omeprazole) 40 mg PO daily for 3 months. - Use sucralfate tablets 1 gram PO QID for 10 days. James Harris D.O. James Harris, 02/15/2023 9:59:19 AM This report has been signed electronically. Note Initiated On: 02/15/2023 9:42 AM Number of Addenda: 0 I attest to the content of the Intraoperative Record and orders documented therein, exceptions below {[id number]}
[2023-02-15] MEDS ORDERED: PHENYLEPHRINE 100MCG/ML 5ML SYR ONE (10:03)
[2023-02-15] MEDS ORDERED: PROPOFOL IV EMULSION 10 MG/ML 20 ML VIAL IV ONE (10:03)
[2023-02-15] MEDS ORDERED: LIDOCAINE 2% 2 ML VIAL/AMP(20MG/ML) INFIL ONE (10:03)
--- NOTE | 2023-02-15 10:19 | Anesthesiology Progress Note ---
Date of Service February 15, 2023 Anesthesia Post Procedure Vital Signs Vital Signs: Temp Pulse Pulse Resp BP BP Pulse Ox 02/15/23 10:02 95 H 18 120/80 99 02/15/23 09:12 97.7 F 102 H 16 134/89 99 02/15/23 07:42 98.1 F 88 18 143/84 H 100 02/15/23 02:34 97.5 F L 96 H 18 119/72 97 02/15/23 01:59 98 H 02/14/23 22:56 97.9 F 97 H 18 129/82 98 02/14/23 20:20 02/14/23 19:18 97.7 F 101 H 19 124/87 97 02/14/23 16:07 97.9 F 94 H 19 121/81 95 02/14/23 11:44 97.3 F L 99 H 19 138/84 99 O2 Del Method O2 Flow Rate 02/15/23 10:02 Oxymask 4 02/15/23 09:12 Nasal Cannula 2 02/15/23 07:42 Nasal Cannula 2 02/15/23 02:34 Nasal Cannula 5 02/15/23 01:59 02/14/23 22:56 Nasal Cannula 4 02/14/23 20:20 Nasal Cannula 2 02/14/23 19:18 Room Air 02/14/23 16:07 Room Air 02/14/23 11:44 Room Air Pain Intensity Left Hip: Pain Intensity: 6 Transfer of Care Handoff Completed per policy Notes Mental Status: alert / awake / arousable and participated in evaluation Patient Amnestic to Procedure: Yes Nausea / Vomiting: adequately controlled Pain: adequately controlled Airway Patency, RR, SpO2: stable & adequate BP & HR: stable & adequate Hydration State: stable & adequate Anesthetic Complications: no major complications apparent and Pt Satisfied with anesthetic care
[2023-02-15] MEDS: SUCRALFATE 1 GM TAB PO SCH ×2 (16:49→20:29)
--- NOTE | 2023-02-15 17:35 | Hospitalist Progress Note ---
Date of Service February 15, 2023 Assessment & Plan (1) Left displaced femoral neck fracture: Plan: Left hip fracture --Hip x-ray personally reviewed; acute fracture of left femoral neck with associated soft tissue swelling --S/P left femoral neck hemiarthroplasty, noncemented on February 10, [address] Sanchez Weightbearing as tolerated with posterior hip precautions Abduction pillow while in bed Pain control Appreciate orthopedics input Continue wound care Needs follow-up with orthopedics in 2 weeks after discharge Eliquis is started for DVT prophylaxis: Currently on hold--resume as able Continue PT OT Acute blood loss anemia Upper GI bleed S/P EGD:Normal esophagus. Z-line regular, 39 cm from the incisors. Normal gastric fundus and gastric body. Non-obstructing non-bleeding gastric ulcers with no stigmata of bleeding. Biopsied. Normal examined duodenum. Pathology pending Will need repeat endoscopy in 3 months Appreciate GI input Continue PPI 40 mg daily for 3 months Started on Carafate for 10 days Monitor H&H Avoid NSAIDs for 1 week Will also need outpatient colonoscopy Plan to discuss with GI appropriate timing to resume Eliquis Delirium Likely secondary to pain and unfamiliar environment Zyprexa as needed Acute urinary retention Post-op Trial of void was unsuccessful on February 12; Kimball placed back again. Trial of void in 1 week Continue Kimball for now (2) Atrial fibrillation with RVR: Plan: H/O Atrial fibrillation EKG on admission personally reviewed; A-fib with rapid ventricular rate; ventricular rate of 124 Echocardiogram with EF of 40 to 45%; hypokinesis in the apex and mid anteroseptum. Telemetry showed 3-second pause on February 10, 2023; no events otherwise. Metoprolol dose increased to 75 mg daily as recommended by cardiology Appreciate cardiology input Resume Eliquis as able for anticoagulation Monitor and replace electrolytes as needed Needs follow-up with cardiology upon discharge (3) Acute exacerbation of congestive heart failure: Plan: Received couple dose of Lasix inpatient. Monitor volume status; Lasix as needed. If BP stable, consider adding lisinopril/losartan Appreciate cardiology input (4) CAD (coronary artery disease): Plan: -History of such, chronic, stable A1c of 5.5% Lipid panel reviewed; LDL of 103 Continue rosuvastatin (5) HTN (hypertension): Plan: -Continue metoprolol as above Monitor BP (6) Depression: Plan: -Continue Cymbalta -Chronic, stable (7) Parkinsonism: Plan: -Noted as per [facility] outpatient chart, pill-rolling with the left hand -PT OT consults, uses walker/cane at baseline DVT Px: Resume Eliquis as able SCDs for now CODE STATUS: Full code Admission and Anticipated Discharge Date Admission Date: February 09, 2023 Subjective Patient is seen and examined at bedside Left hip pain is controlled No bleeding issues today Had EGD earlier today Patient denies any chest pain, dyspnea, dizziness, nausea, vomiting, abdominal pain Review of Systems Review of Systems: All systems reviewed & are unremarkable except as noted in Subjective Physical Exam Physical Exam: Physical Exam: Vitals signs as noted above General Appearance:Moderately built and nourished, no apparent distress Head: normocephalic, Atraumatic Eyes: normal inspection, EOMI Neck: supple, Trachea midline Respiratory/Chest: Normal breath sounds, CTA, No accessory muscle use Cardiovascular: Irregularly irregular, No murmur Abdomen/GI:Soft, Non tender, Bowel sounds present Extremities/Musculoskeletal:normal inspection, no edema, L hip in dressing Neurologic/Psych:AAOX3, grossly no focal neurological deficits Skin: normal color, warm Results & Data Results & Data Vital Signs (Past 12 Hours) Vital Signs Temp Pulse Pulse Resp BP BP Pulse Ox 02/15/23 15:41 36.6 C 104 H 18 134/74 96 02/15/23 11:32 37.2 C 98 H 18 125/81 95 02/15/23 10:32 99 H 18 127/87 97 02/15/23 10:17 94 H 18 126/87 100 02/15/23 10:02 95 H 18 117/80 99 02/15/23 09:12 36.5 C 102 H 16 134/89 99 02/15/23 08:00 02/15/23 08:00 96 H 02/15/23 07:42 36.7 C 88 18 143/84 H 100 O2 Del Method O2 Flow Rate 02/15/23 15:41 Room Air 02/15/23 11:32 Nasal Cannula 2 02/15/23 10:32 Oxymask 2 02/15/23 10:17 Oxymask 2 02/15/23 10:02 Oxymask 4 02/15/23 09:12 Nasal Cannula 2 02/15/23 08:00 Nasal Cannula 2 02/15/23 08:00 02/15/23 07:42 Nasal Cannula 2 Laboratory Results Short CBC 02/15/23 Range/Units 06:35 WBC 8.57 (4.8-10.8) K/ul Hgb 10.1 L (14.0-18.0) g/dl Hct 30.1 L (42.0-52.0) % Plt Count 161 (130-400) K/uL BMP 02/15/23 06:35 Sodium 139 Potassium 3.9 Chloride 109 H Carbon Dioxide 25 BUN 29 H Creatinine 0.96 Glucose 107 H Calcium 8.7 (3) Acute exacerbation of congestive heart failure Heart failure type: unspecified Qualified Code(s): I50.9 - Heart failure, unspecified (5) HTN (hypertension) Hypertension type: primary hypertension Qualified Code(s): I10 - Essential (primary) hypertension
[2023-02-15] MEDS: PANTOprazole 40 MG TAB PO SCH (20:32)
[2023-02-15] MEDS: SENNA 8.6 MG TAB PO SCH (20:33)
[2023-02-16] MEDS: oxyCODONE HCL IR 5 MG TAB (IMMEDIATE RELEASE) PO PRN (01:41)
[2023-02-16] MEDS: ACETAMINOPHEN 500 MG TAB PO SCH ×2 (06:29→12:56)
[2023-02-16 06:46] LABS: Basophils # (auto) 0.02 K/uL (0.00-0.20); Basophils % (auto) 0.3 %; Eosinophils % (auto) 4.3 %; Hematocrit (blood only) 30.2 % (42.0-52.0); Hemoglobin 9.9 g/dl (14.0-18.0); Immature Granulocytes % (auto) 1.4 %; Lymphocytes # (auto) 1.66 K/uL (1.20-3.40); Lymphocytes % (auto) 23.6 %; Mean Corpuscular Hemoglobin 29.6 pg (25.0-34.0); Mean Corpuscular Hgb Conc 32.8 g/dL (32.0-36.0); Mean Corpuscular Volume 90.1 fL (80.0-100.0); Mean Platelet Volume 9.8 fL (9.4-12.4); Monocytes # (auto) 0.89 K/uL (0.11-0.59); Monocytes % (auto) 12.6 %; Neutrophils # (auto) 4.07 K/uL (1.40-6.50); Neutrophils % (auto) 57.8 %; Platelet Count 152 K/uL (130-400); RDW Coefficient of Variation 13.7 % (11.5-14.5); RDW Standard Deviation 45.2 fL (36.4-46.3); Red Blood Count 3.35 M/uL (4.70-6.10); White Blood Count 7.04 K/ul (4.8-10.8)
[2023-02-16 07:02] LABS: BUN Creatinine Ratio 24.4 (10-20); Creatinine Clr Calc Pharmacy 92.9 ml/min; Est GFR (Non-African American) 85.4 ml/min
[2023-02-16] MEDS: PANTOprazole 40 MG TAB PO SCH (08:50)
[2023-02-16] MEDS: DULoxetine HCL 30 MG CAP PO SCH (08:51)
[2023-02-16] MEDS: SUCRALFATE 1 GM TAB PO SCH ×3 (08:51→16:12)
[2023-02-16] MEDS: ASCORBIC ACID 500 MG TAB PO SCH ×2 (08:51→16:12)
[2023-02-16] MEDS: ATORVASTATIN 40 MG TAB PO SCH (08:51)
[2023-02-16] MEDS: FERROUS GLUCONATE 324 MG TAB PO SCH ×2 (08:51→16:12)
[2023-02-16] MEDS: MULTIVITAMIN TAB PO SCH (08:51)
[2023-02-16] MEDS: DOCUSATE SODIUM 100 MG CAP PO SCH (08:52)
[2023-02-16] MEDS: POLYETHYLENE (MIRALAX) 17 GM PACK PO SCH (08:53)
[2023-02-16] MEDS ORDERED: METOPROLOL SUCC 25MG EXT REL TAB PO SCH (09:00)
--- NOTE | 2023-02-16 12:50 | Orthopedic Progress Note ---
Date of Service February 16, 2023 Assessment & Plan (1) Left displaced femoral neck fracture: Plan: The patient was educated regarding today's findings. Conservative care measures were discussed. I did speak with his therapist. He has been participating in therapy and is doing fairly well. He does require some redirection at times. He is waiting for transfer to a rehab or group home facility. I will speak with case management regarding the current status of his transfer. The patient states he would like to leave the hospital. He was reassured that this will occur as soon as a facility and bed can be found. His Silverlon dressing can be left in place. Continue PT/OT until his time of discharge. Weight-bear as tolerated. Continue DVT prophylaxis with aspirin and Eliquis. Follow-up in the office in approximately 1 week for staple removal. Written discharge instructions will be provided. Admission and Anticipated Discharge Date Admission Date: February 09, 2023 Subjective This 72-year-old male is seen today in his room. He is 6 days status post left hip hemiarthroplasty. He is sitting in a bedside chair. He states his left hip is sore. He has been participating in physical therapy. He is wondering when he will be discharged in the hospital. No other complaints at this point. Physical Exam Physical Exam: General: Well-developed, well-nourished, elderly male, in no acute distress. Sitting at bedside chair. Alert and oriented. Skin: Warm and dry with good turgor. No rashes. He has a Silverlon dressing in place over the left hip. There is dried blood distally but no active drainage currently. He is developing ecchymosis around the surgical site. No appreciable edema. Musculoskeletal: The patient has intact motor function of his hip, knee, and ankle. He is able to actively flex his hip, flex and extend the knee, and dorsiflex and plantarflex the ankle. He has complaints of soreness with passive internal and external rotation of the hip. There is also tenderness with palpation over the lateral aspect of his hip. Neurologic: Gross sensation is intact across both lower extremities by soft touch. Peripheral pulses are 2+. Results & Data Vital Signs (Past 12 Hours) Vital Signs Temp Pulse Resp BP Pulse Ox O2 Del Method 02/16/23 11:23 36.9 C 95 H 20 113/76 99 Room Air 02/16/23 08:00 Room Air 02/16/23 07:35 36.8 C 81 18 119/70 99 Room Air 02/16/23 02:26 36.5 C 99 H 18 138/89 97 Room Air Laboratory Results CBC obtained this morning shows a white count of 7.04. H&H of 9.9 and 30.2. Platelets are normal at 152,000. PRP shows sodium 138, potassium 4.0, chloride 108, CO2 25, anion gap normal at 5. BUN of 21 and creatinine of 0.86. Glucose this morning is 99.
--- NOTE | 2023-02-16 13:40 | Hospitalist Progress Note ---
Date of Service February 16, 2023 Assessment & Plan (1) Left displaced femoral neck fracture: Plan: Left hip fracture --Hip x-ray personally reviewed; acute fracture of left femoral neck with associated soft tissue swelling --S/P left femoral neck hemiarthroplasty, noncemented on February 10, [address] Sanchez Weightbearing as tolerated with posterior hip precautions Abduction pillow while in bed Pain control Appreciate orthopedics input Continue wound care Needs follow-up with orthopedics in 2 weeks after discharge Eliquis is started for DVT prophylaxis: Currently on hold--resume as able Continue PT OT Plan to discharge to rehab facility today Acute blood loss anemia Upper GI bleed S/P EGD:Normal esophagus. Z-line regular, 39 cm from the incisors. Normal gastric fundus and gastric body. Non-obstructing non-bleeding gastric ulcers with no stigmata of bleeding. Biopsied. Normal examined duodenum. Pathology pending Will need repeat endoscopy in 3 months Appreciate GI input Continue PPI 40 mg daily for 3 months Started on Carafate for 10 days Monitor H&H Avoid NSAIDs for 1 week Will also need outpatient colonoscopy Discussed with Dr. Harris on 02/16/2023: Can resume Eliquis after 3 days, resume aspirin after 1 week. Hb stable Delirium Likely secondary to pain and unfamiliar environment Zyprexa as needed Acute urinary retention Post-op Trial of void was unsuccessful on February 12; Kimball placed back again. Trial of void in 1 week as outpatient Continue Kimball for now (2) Atrial fibrillation with RVR: Plan: H/O Atrial fibrillation EKG on admission personally reviewed; A-fib with rapid ventricular rate; ventricular rate of 124 Echocardiogram with EF of 40 to 45%; hypokinesis in the apex and mid anteroseptum. Telemetry showed 3-second pause on February 10, 2023; no events otherwise. Metoprolol dose increased to 75 mg daily as recommended by cardiology Appreciate cardiology input Resume Eliquis as able for anticoagulation Monitor and replace electrolytes as needed Needs follow-up with cardiology upon discharge (3) Acute exacerbation of congestive heart failure: Plan: Received couple dose of Lasix inpatient. Monitor volume status; Lasix as needed. If BP stable, consider adding lisinopril/losartan Appreciate cardiology input (4) CAD (coronary artery disease): Plan: -History of such, chronic, stable A1c of 5.5% Lipid panel reviewed; LDL of 103 Continue rosuvastatin (5) HTN (hypertension): Plan: -Continue metoprolol as above Monitor BP (6) Depression: Plan: -Continue Cymbalta -Chronic, stable (7) Parkinsonism: Plan: -Noted as per [facility] outpatient chart, pill-rolling with the left hand -PT OT consults, uses walker/cane at baseline DVT Px: Resume Eliquis as able SCDs for now CODE STATUS: Full code Disposition SNF today Admission and Anticipated Discharge Date Admission Date: February 09, 2023 Subjective Patient is seen and examined at bedside Reports minimal hip pain at surgical site No recurrence of bleeding issues Discussed with gastroenterology today Patient offers no other complaints Patient denies any chest pain, dyspnea, dizziness, nausea, vomiting, abdominal pain Plan to discharge to rehab facility today Review of Systems Review of Systems: All systems reviewed & are unremarkable except as noted in Subjective Physical Exam Physical Exam: Physical Exam: Vitals signs as noted above General Appearance:Moderately built and nourished, no apparent distress Head: normocephalic, Atraumatic Eyes: normal inspection, EOMI Neck: supple, Trachea midline Respiratory/Chest: Normal breath sounds, CTA, No accessory muscle use Cardiovascular: Irregularly irregular, No murmur Abdomen/GI:Soft, Non tender, Bowel sounds present Extremities/Musculoskeletal:normal inspection, no edema, L hip in dressing Neurologic/Psych:AAOX3, grossly no focal neurological deficits Skin: normal color, warm Results & Data Results & Data Vital Signs (Past 12 Hours) Vital Signs Temp Pulse Resp BP Pulse Ox O2 Del Method 02/16/23 11: 36.9 C 95 H 20 113/76 99 Room Air 02/16/23 08:00 Room Air 02/16/23 07:35 36.8 C 81 18 119/70 99 Room Air 02/16/23 02:26 36.5 C 99 H 18 138/89 97 Room Air Laboratory Results Short CBC 02/16/23 Range/Units 06:20 WBC 7.04 (4.8-10.8) K/ul Hgb 9.9 L (14.0-18.0) g/dl Hct 30.2 L (42.0-52.0) % Plt Count 152 (130-400) K/uL BMP 02/16/23 06:20 Sodium 138 Potassium 4.0 Chloride 108 H Carbon Dioxide 25 BUN 21 Creatinine 0.86 Glucose 99 Calcium 9.0 (3) Acute exacerbation of congestive heart failure Heart failure type: unspecified Qualified Code(s): I50.9 - Heart failure, unspecified (5) HTN (hypertension) Hypertension type: primary hypertension Qualified Code(s): I10 - Essential (primary) hypertension
--- NOTE | 2023-02-16 14:02 | Discharge Summary ---
Date of Service February 16, 2023 Admission HPI Per Admitting Provider This is a 72 yo M with PMHx of Paroxysmal atrial fibrillation on Eliquis, Parkinsonism, HTN, HLD, CAD, s/p angioplasty with stent, mitral regurg, prediabetes and osteoarthritis, hx of alcohol abuse who presents to the hospital after acute fall sustained this morning. Pt states his breathing has been bad for a couple of months, and has noticed wheezing and has a nonproductive cough. He denies any chest pain, heaviness, flutter or palpitation. Pt reports that he fell sometimes in the middle of the night, maybe around 3am, and couldnt get up. He uses a walker at baseline and was using it this time. His landlord called 911 after somebody in the apartment building called for him. He was getting up to use the bathroom in the middle of the night. Denies any hitting of his head. He was unable to stand up himself at home. Pt is unable to name his home medications to me, and reports that he was taking Eliquis once per day, and states that the last time he took his meds may have been a few days ago. He admits to chews can of snuff every 2-3 days, and smokes cigarettes maybe 1-2 a day, for his whole life. He admits to drinking alcohol, once every 2 weeks and then may have a bottle of wine in one night and then another the next, but then goes another two weeks without it. CT abd/pelvis was obtained and shows congestive failure with atelectasis in the lungs, as well as a Left femoral neck fracture. In the ER the patient was noted to be tachycardic with HR in the 130s and was administered his home dose of metoprolol 25 mg p.o., and 1 dose of Lopressor 5 mg IV with improvement in the 90s. The patient was initially given a total of 600 mL NSS, but upon imaging results of congestion, was given lasix 60 mg IV in the ER. His urine outs are not nearly 1 L total since Lasix given. He was also initially placed on BiPAP for short period of time and is off of it now on 2L via NC with O2 sats at 96%. Patient does not wear any supplemental O2 at baseline. Magnesium was found to be 1.6 and was replaced with 1 g IV. Admission Exam Per Admitting Provider General: awake, alert, no apparent distress, white male BMI 32.1 Head: Normocephalic, atraumatic ENT: PERRL, EOMI, no pharyngeal exudate, mucous membranes moist Chest: + Crackles present at bases bilaterally, on 2 LPM NC, 96% O2 sat, dry cough Cardiac: Regular rate and rhythm, no murmur, no JVD, normal peripheral pulses, sluggish capillary refill and + skin is cool on the left lower extremity, no mottling Abdominal: NABS x 4 quadrants, soft, nondistended, nontender to palpation, no rebound or guarding Extremities: Left leg externally rotated and shortened, otherwise normal inspection, no peripheral edema or erythema, calfs nontender to palpation Psych: Normal mood and affect Neuro: AAO x 3, has difficulty explaining chronological events of what happened overnight, fair to poor historian, + pill rolling with left hand, strength intact bilaterally and rated 4/5, no motor deficits, speech is clear, no peripheral sensory deficits Principal Diagnosis Left hip s/p hemiarthroplasty Acute blood loss anemia Upper GI bleed Acute urinary retention Atrial fibrillation with RVR Discharge Data Allergies Allergy/AdvReac Type Severity Reaction Status Date / Time cyanocobalamin (vitamin B12) AdvReac Severe b12 and B6 Verified 02/15/23 09:09 makes nose bleed pyridoxine AdvReac Severe b12 and B6 Verified 02/15/23 09:09 makes nose bleed Consultations 02/09/23 12:23 ED Decision to Admit Stat 02/09/23 13:27 Consult Cardiology Routine 02/14/23 11:45 Consult Gastroenterology Routine Procedures Performed Operation Date: 02/15/23 16:30 Actual Procedures p EGD Biopsy Cytology - James Harris DO Laboratory Results WBC 7.04 K/ul (4.8-10.8) 02/16/23 06:20 RBC 3.35 M/uL (4.70-6.10) L 02/16/23 06:20 Hgb 9.9 g/dl (14.0-18.0) L 02/16/23 06:20 Hct 30.2 % (42.0-52.0) L 02/16/23 06:20 MCV 90.1 fL (80.0-100.0) 02/16/23 06:20 MCH 29.6 pg (25.0-34.0) 02/16/23 06:20 MCHC 32.8 g/dL (32.0-36.0) 02/16/23 06:20 RDW Std Deviation 45.2 fL (36.4-46.3) 02/16/23 06:20 RDW Coeff of Shayy 13.7 % (11.5-14.5) 02/16/23 06:20 Plt Count 152 K/uL (130-400) 02/16/23 06:20 MPV 9.8 fL (9.4-12.4) 02/16/23 06:20 Immature Gran % (Auto) 1.4 % 02/16/23 06:20 Neut % (Auto) 57.8 % 02/16/23 06:20 Lymph % (Auto) 23.6 % 02/16/23 06:20 [place] % (Auto) 12.6 % 02/16/23 06:20 Eos % (Auto) 4.3 % 02/16/23 06:20 Baso % (Auto) 0.3 % 02/16/23 06:20 Neut # (Auto) 4.07 K/uL (1.40-6.50) 02/16/23 06:20 Lymph # (Auto) 1.66 K/uL (1.20-3.40) 02/16/23 06:20 [place] # (Auto) 0.89 K/uL (0.11-0.59) H 02/16/23 06:20 Eos # (Auto) 0.30 K/uL (0.00-0.50) 02/16/23 06:20 Baso # (Auto) 0.02 K/uL (0.00-0.20) 02/16/23 06:20 Immature Gran # (Auto) 0.10 K/uL (0.01-0.20) 02/16/23 06:20 PT 11.5 Seconds (9.0-12.0) 02/09/23 09:34 INR 1.1 (0.9-1.1) 02/09/23 09:34 APTT 27.6 Seconds (21.0-31.0) 02/09/23 09:34 PTT Ratio 1.0 02/09/23 09:34 Sodium 138 mmol/L (136-145) 02/16/23 06:20 Potassium 4.0 mmol/L (3.5-5.1) 02/16/23 06:20 Chloride 108 mmol/L (98-107) H 02/16/23 06:20 Carbon Dioxide 25 mmol/L (21-32) 02/16/23 06:20 Anion Gap 5 (3-11) 02/16/23 06:20 BUN 21 mg/dl (6-23) 02/16/23 06:20 Creatinine 0.86 mg/dl (0.6-1.4) 02/16/23 06:20 Est Cr Clr Drug Dosing 92.9 ml/min 02/16/23 06:20 Est GFR ( Amer) 99.0 ml/min 02/16/23 06:20 Est GFR (Non-Af Amer) 85.4 ml/min 02/16/23 06:20 BUN/Creatinine Ratio 24.4 (10-20) H 02/16/23 06:20 Glucose 99 mg/dl (70-99(Fasting)) 02/16/23 06:20 POC Glucose 118 mg/dl (70-99) H 02/13/23 09:21 Estimat Average Glucose 111 mg/dl 02/10/23 06:38 Hemoglobin A1c 5.5 % (4.5-5.6) 02/10/23 06:38 Lactate 1.4 mmol/L (0.4-2.0) 02/09/23 10:43 Calcium 9.0 mg/dl (8.6-10.3) 02/16/23 06:20 Phosphorus 3.1 mg/dl (2.5-4.9) 02/10/23 06:38 Magnesium 1.7 mg/dl (1.7-2.4) 02/14/23 06:17 Total Bilirubin 0.8 mg/dl (0.2-1.0) 02/09/23 09:34 Direct Bilirubin 0.1 mg/dl (0-0.2) 02/09/23 09:34 AST 20 U/L (13-39) 02/09/23 09:34 ALT 12 U/L (7-52) 02/09/23 09:34 Alkaline Phosphatase 71 U/L (34-104) 02/09/23 09:34 Troponin I High Sens 9.0 pg/ml (0-20) 02/09/23 11:34 B-Natriuretic Peptide 442 pg/ml (0-100) H 02/09/23 11:34 Total Protein 7.1 gm/dl (6.0-8.3) 02/09/23 09:34 Albumin 4.1 gm/dl (3.4-5.0) 02/09/23 09:34 Globulin 3.0 gm/dl (2.5-4.0) 02/09/23 09:34 Albumin/Globulin Ratio 1.4 (0.9-2) 02/09/23 09:34 Triglycerides 128 mg/dl (0-150) 02/10/23 06:38 Cholesterol 161 mg/dl (0-200) 02/10/23 06:38 LDL Cholesterol, Calc 103 mg/dl 02/10/23 06:38 VLDL Cholesterol, Calc 26 mg/dl (0-30) 02/10/23 06:38 HDL Cholesterol 32 mg/dl 02/10/23 06:38 Cholesterol/HDL Ratio 5.0 (0-5) 02/10/23 06:38 Procalcitonin < 0.05 ng/ml (0-0.5) 02/09/23 09:35 Urine Color Yellow 02/09/23 10:11 Urine Appearance Cloudy (Clear) A 02/09/23 10:11 Urine pH 6.0 (4.5-7.5) 02/09/23 10:11 Ur Specific [place] 1.022 (1.000-1.030) 02/09/23 10:11 Urine Protein Trace (Negative) H 02/09/23 10:11 Urine Glucose (UA) Negative (Negative) 02/09/23 10:11 Urine Ketones Negative (Negative) 02/09/23 10:11 Urine Blood Negative (Negative) 02/09/23 10:11 Urine Nitrite Negative (Negative) 02/09/23 10:11 Urine Bilirubin Negative (Negative) 02/09/23 10:11 Urine Urobilinogen Negative (Negative) 02/09/23 10:11 Ur Leukocyte Esterase Negative (Negative) 02/09/23 10:11 Urine WBC (Auto) 1-5 /hpf (0-5) 02/09/23 10:11 Urine RBC (Auto) 0-4 /hpf (0-4) 02/09/23 10:11 U Hyaline Cast (Auto) 1-5 /lpf (0-5) 02/09/23 10:11 U Epithel Cells (Auto) 10-20 /lpf (0-5) H 02/09/23 10:11 Urine Bacteria (Auto) Negative (Negative) 02/09/23 10:11 Stool Occult Bld Scrn Positive (Negative) A 02/14/23 10:10 Ethyl Alcohol mg/dL < 10.0 mg/dl (<10.0) 02/09/23 09:34 Blood Type O Positive 02/09/23 16:53 Blood Type Recheck O Positive 02/10/23 06:38 Antibody Screen NEGATIVE 02/09/23 16:[address] 02/09/23 09:52 CT cervical spine wo con CLINICAL HISTORY: fall TECHNIQUE: Multidetector row helical CT of the cervical spine was performed without administration of intravenous contrast. Coronal and sagittal refor mations were obtained. Automated dose lowering techniques and/or adjustment according to patient size were utilized for this exam. Comparison: Comparison is made to CTA neck 09/03/2022 FINDINGS: No acute fractures or subluxations are identified. Degenerative changes are seen in the visualized spine. Extensive lordosis is noted, unchanged. Soft tissues are unremarkable. IMPRESSION: Degenerative changes without evidence of acute bony injury. ACT 112: Negative or not required by law. Electronically signed by: Nguyễn Rodríguez M.D. 02/09/2023 11:[address] 02/09/23 09:52 CT head/brain wo con CLINICAL HISTORY: fall Technique: Contiguous axial CT images of the head were acquired from the base of the skull to the vertex without intravenous contrast administration. Images were viewed in brain, subdural and bone windows. Automated dose lowering techniques and/or adjustment according to patient size were utilized for this exam. Comparison: Comparison is made to CT head 09/09/2022 Findings: Areas of decreased attenuation are present in the periventricular and subcortical white matter bilaterally consistent with small vessel ischemic dise ase. Generalized cerebral atrophy with commensurate enlargement of the ventricles, sulci, and cisterns is also present. There is no acute intracranial hemorrhage or evidence of acute territorial infarction. No shift of the midline structures, mass effect, or extra-axial abnormalities are shown. Atherosclerotic calcifications are present in the intracranial segments of the internal carotid arteries. Imaged portions of the paranasal sinuses and mastoid air cells are clear. The orbits appear normal. There are no acute fractures of the calvaria or scalp swelling. Impression: No acute intracranial hemorrhage, no evidence of acute territorial infarction or other acute intracranial disease process. ACT 112: Negative or not required by law. Electronically signed by: Nguyễn Rodríguez M.D. 02/09/2023 11:39 AM Chest X-Ray 02/09/23 09:53 SINGLE VIEW CHEST CLINICAL HISTORY: Sepsis. FINDINGS: 2 AP, portable, upright chest radiographs are compared to study dated 09/03/2022. The examination is degraded by portable technique and patient rotation. The heart is enlarged noting atherosclerotic calcification of the thoracic aorta. There is pulmonary vascular congestion. Scarring/atelectasis is noted at the lung bases. There is no airspace consolidation typical for pneumonia. No large pleural effusion or pneumothorax is seen. The skeletal structures are osteopenic. The bony thorax is grossly intact. IMPRESSION: Cardiomegaly with evidence of congestive failure. ACT 112: Negative or not required by law. Electronically signed by: Rodney Garcia M.D. 02/09/2023 10:32 AM Abdomen/Pelvis CT 02/09/23 09:54 CT abd pelvis IV con only CLINICAL HISTORY: R sided lower paraspinal pain and bruising on eliq TECHNIQUE: Helical axial images of the abdomen and pelvis were obtained and displayed. Automated dose lowering techniques and/or adjustment according to patient size were utilized for this exam. This exam was performed with intravenous contrast. COMPARISON: None available at the time of this dictation. FINDINGS: Lower chest: Small bilateral pleural effusions are seen with underlying atelectasis. Biatrial enlargement is seen and there is atherosclerotic disease. Liver: Unremarkable. No focal lesions are seen. Gallbladder and biliary tree: No calcified gallstones. Normal caliber wall. No intra- or extrahepatic biliary ductal dilation. Pancreas: Fatty replacement of the pancreas is seen. Spleen: Unremarkable. Adrenals: Unremarkable. Kidneys and ureters: Exophytic cyst arises from the left kidney. Bladder: Unremarkable. Reproductive organs: Unremarkable. Bowel: Diverticulosis is seen without diverticulitis. The appendix is normal. Lymph nodes Retroperitoneal: Unremarkable. Pelvic: Unremarkable. Mesenteric: Unremarkable. Peritoneum: Normal. Vessels: Atherosclerotic calcifications are seen. Abdominal wall: Unremarkable. Bones: There is an acute fracture of the left femoral neck with overriding and apex lateral angulation. Mild surrounding soft tissue stranding is seen. IMPRESSION: Acute fracture of the left femoral neck. No spinal fractures are seen. No acute intra-abdominal injuries. ACT 112: Negative or not required by law. Electronically signed by: Nguyễn Rodríguez M.D. 02/09/2023 12:01 PM Hip/Pelvis X-Ray 02/10/23 16:05 SINGLE VIEW PELVIS; SINGLE VIEW LEFT HIP CLINICAL HISTORY: Postoperative examination. FINDINGS: An AP portable view of the hips and pelvis with a crosstable lateral portable view of the left hip are compared to study dated 02/09/2023. A left hip arthroplasty is in near-anatomic alignment. No acute fracture is identified. Soft tissue swelling and subcutaneous gas overlying the left hip are expected postsurgical changes. [id number] arthritic change and joint space narrowing is seen in the right hip. Degenerative sclerosis is noted in the sacroiliac joints and pubic symphysis. There is atherosclerotic calcification of the femoral arteries. A Kimball catheter is in place. IMPRESSION: Expected postoperative findings status post left hip arthroplasty. No acute fracture is seen. ACT 112: Negative or not required by law. Electronically signed by: Rodney Garcia M.D. 02/10/2023 5:03 PM Ordered Studies 02/09/23 09:52 CT cervical spine wo con Stat CT head/brain wo con Stat 02/09/23 09:54 CT abd pelvis IV con only Stat Hospital Course (1) Left displaced femoral neck fracture: Left hip fracture --Hip x-ray personally reviewed; acute fracture of left femoral neck with associated soft tissue swelling --S/P left femoral neck hemiarthroplasty, noncemented on February 10, [address] Sanchez Weightbearing as tolerated with posterior hip precautions Abduction pillow while in bed Pain control Appreciate orthopedics input Continue wound care Needs follow-up with orthopedics in 2 weeks after discharge Eliquis is started for DVT prophylaxis: Currently on hold--resume as able Continue PT OT Plan to discharge to rehab facility today Acute blood loss anemia Upper GI bleed S/P EGD:Normal esophagus. Z-line regular, 39 cm from the incisors. Normal gastric fundus and gastric body. Non-obstructing non-bleeding gastric ulcers with no stigmata of bleeding. Biopsied. Normal examined duodenum. Pathology pending Will need repeat endoscopy in 3 months Appreciate GI input Continue PPI 40 mg daily for 3 months Started on Carafate for 10 days Monitor H&H Avoid NSAIDs for 1 week Will also need outpatient colonoscopy Discussed with Dr. Harris on 02/16/2023: Can resume Eliquis after 3 days, resume aspirin after 1 week. Hb stable Delirium Likely secondary to pain and unfamiliar environment Zyprexa as needed Acute urinary retention Post-op Trial of void was unsuccessful on February 12; Kimball placed back again. Trial of void in 1 week as outpatient Continue Kimball for now (2) Atrial fibrillation with RVR: H/O Atrial fibrillation EKG on admission personally reviewed; A-fib with rapid ventricular rate; ventricular rate of 124 Echocardiogram with EF of 40 to 45%; hypokinesis in the apex and mid anteroseptum. Telemetry showed 3-second pause on February 10, 2023; no events otherwise. Metoprolol dose increased to 75 mg daily as recommended by cardiology Appreciate cardiology input Resume Eliquis as able for anticoagulation Monitor and replace electrolytes as needed Needs follow-up with cardiology upon discharge (3) Acute exacerbation of congestive heart failure: Received couple dose of Lasix inpatient. Monitor volume status; Lasix as needed. If BP stable, consider adding lisinopril/losartan Appreciate cardiology input (4) CAD (coronary artery disease): -History of such, chronic, stable A1c of 5.5% Lipid panel reviewed; LDL of 103 Continue rosuvastatin (5) HTN (hypertension): -Continue metoprolol as above Monitor BP (6) Depression: -Continue Cymbalta -Chronic, stable (7) Parkinsonism: -Noted as per [facility] outpatient chart, pill-rolling with the left hand -PT OT consults, uses walker/cane at baseline DVT Px: Resume Eliquis as able SCDs for now CODE STATUS: Full code Disposition SNF today Total Time Total Time Spent Total Time Spent (In Minutes): 55 minutes Discharge Plan Discharge Items Patient Disposition: Transfer Group Home Fac Reason For Visit: AFIB RVR, LEFT HIP FRACTURE Discharge Diagnosis: Left hip s/p hemiarthroplasty Acute blood loss anemia Upper GI bleed Acute urinary retention Atrial fibrillation with RVR Activity: Per Instructions section Lifting: Wait until after follow-up appointment Bathing: Keep incision dry Exercise/Sports: Wait until after follow-up appointment Weightbearing: Full weightbearing Non-emergency contact: Primary Care Provider, Surgeon, Refrigerating Machine Operator and Bilingual Instructor Call non-emergency contact if: you have any medication questions, your pain is not controlled, your temperature is above 101, your wound has increased redness, your wound has increased drainage and your wound pain has increased Follow-up/Referrals: Brandon Barajas PA-C [Physician Fur Storage Clerk] - 02/28/23 1:00 pm Berta Benavides MD [Primary Care Provider] - Diet: Heart Healthy Addtl Attending Provider Instructions: "VERY IMPORTANT TO READ AND REVIEW" Blood Clots and Blood Thinning Medicine: * You are given Eliquis during the immediate post-operative period to lessen the risk of blood clots forming in your legs and/or lungs. It is usually given for six weeks after surgery. Pain: * The immediate post-operative period after hip replacement surgery is often quite painful. * You are given a prescription for pain medicine. You should take it, as directed, when you need it, especially before physical therapy and before going to bed. Pain that interferes with sleep is very common and can last several months. * You will likely need pain medicine for the first two to four weeks. It will not stop all of the pain. The pain will lessen and as you feel better, you may change to milder pain medicine such as Tylenol. * The most common side effects of pain medicine are nausea and constipation, so don't take more than you need. Physical Therapy: * Follow the "Hip Precautions Instructions." * In some cases, the social media intern at the hospital will arrange to have a therapist come to your house for the first couple of weeks to help you learn these skills. * You need to practice on your own or with the help of a family member as needed. * When you learn these skills, most of the therapy can be done on your own. Home Exercise: * You were shown a series of exercises in the hospital. Do these exercises three to four times each day including the exercises you were shown in physical therapy. Walking: * Get up and walk several times each day. For the first four weeks, try not to stand or walk for more than one hour at a time. If you do stand or walk for more than one hour, you will not hurt anything, but your leg will likely swell. * As you feel comfortable, you may change from the walker or crutches to a cane and then to independent walking. SELF CARE INSTRUCTIONS AFTER TOTAL HIP REPLACEMENT Until the incision and soft tissues around your hip have healed, there is a possibility that the hip prosthesis could dislocate. A. Observe the following precautions to prevent dislocation: 1. Don't bend your hip greater than 90 degrees. 2. Avoid crossing your legs or ankles while standing or lying. 3. Sit with your feet placed 6 inches apart. 4. When sitting, keep your knees below your hips. Sit on a firm surface, avoid deep, soft chairs and couches. Use an elevated toilet seat in the bathroom. 5. Don't bend over at the waist. Use a long handled shoehorn and a sock aid to help you put on your shoes and socks. A antenna engineer can help you forklift picker objects that are too high or too low to reach. 6. Keep car riding to a minimum for at least one month after surgery. B. Your balance may be shaky for a while. Use crutches or a walker until directed by your doctor. C. Use hand rails when walking on stairs. D. Wear low heeled shoes with non-slip soles. E. Be sure that your floors are free of things that could trip you - throw rugs, electrical cords, small objects. Avoid wet and waxed floors, especially with crutches and canes. F. Try to walk several times a day with rest periods between. G. Continue with all the exercises taught to you in the hospital. Again, make walking a part of your daily routine. VERY IMPORTANT TO READ AND REVIEW A. There are a few signs you need to watch for after you are home. If you notice any of the followin. Increased severe hip pain. Some pain is expected especially when you exercise. 2. Increased swelling in your leg or knee; pain or swelling of the calf muscle in either lower leg. 3. Any fluid drainage from the incision. 4. Shortness of breath or chest pain. TEDs/Elastic Stockings: * The white elastic stockings help limit swelling and prevent blood clots from forming in your legs. The more you wear them, the more they work. * Wear them for six weeks. Prevention of Infection: * Take antibiotics one hour before any dental cleaning, dental work, urological procedure, gastrointestinal procedure or any invasive surgery in order to prevent your new joint from getting infected. * You may get the antibiotics from the doctor performing the procedure or we will call in a prescription to the pharmacy of your choice. Call the office for a prescription at least 2 days prior to your appointment. Things to Watch For: * Drainage from the incision site that occurs more than one week after your surgery. * Severely increased leg pain or swelling. * Increased redness at the incision site. * Fever above 101 degrees Fahrenheit. * Unusual chest pain or shortness of breath. * Unusual pain or burning with urination. Continue with Eliquis twice daily. Follow-up in the office in 12 days as scheduled with Karl LARRY. [facility] Oil Cooler Operator Provider Instructions: Follow-up with your primary care physician in 1 week upon discharge from your facility Follow-up with your orthopedic surgeon Brandon Barajas PA-C on 02/28/2023 at 1 pm as scheduled Follow-up with your script artist for repeat endoscopy in 3 months. Follow-up with your foster care case manager in 3 to 4 weeks as advised --- You can resume aspirin 81 mg daily after 1 week You can resume Eliquis 5 mg twice a day after 3 days Recommendations from your script artist Dr. Harris --- Start taking Protonix 40 mg daily for 3 months ---Complete Carafate 1gm 4 times a day for 10 days --- Avoid NSAIDs for 1 week --- You will need to repeat endoscopy in 3 months as well as colonoscopy as outpatient. --- Continue Kimball catheter for 1 more week. Can do voiding trial as outpatient. Consider following with your urologist if needed. Seek immediate medical attention if your symptoms reoccur or worsen Please take all medications as instructed on discharge list below. Please call if you have any questions or problems. You can reach a [facility] hospitalist on duty at [facility] 24 hours a day by calling [phone] Pending Studies at Discharge: No Stand-Alone Forms: My [facility] Skilled Items Patient informed of condition?: Yes DNR: No Discharge Level of Care: Skilled Communicable Disease: No Discharge Prognosis: Stable Lines: None Urinary Catheter: Yes Medications and DC Order Prescriptions: New tamsulosin 0.4 mg Capsule 0.4 mg PO QAM Qty: 30 0RF ferrous gluconate 324 mg (38 mg iron) Tablet 324 mg PO DAILY Qty: 30 0RF metoprolol succinate 50 mg tablet extended release 24 hr 75 mg PO QAM Qty: 45 0RF polyethylene glycol 3350 [Miralax] 17 gram Powder In Packet 17 g PO DAILY PRN (Reason: Constipation) Qty: 30 0RF sucralfate 1 gram Tablet 1 g PO QID 10 Days Qty: 40 0RF pantoprazole 40 mg Tablet,Delayed Release (Dr/Ec) 40 mg PO DAILY Qty: 30 2RF docusate sodium 100 mg Capsule 100 mg PO BID PRN (Reason: Constipation) Qty: 30 0RF oxycodone 5 mg Tablet 5 mg PO Q8H PRN (Reason: pain) Qty: 10 0RF Continued saw palmetto 450 mg Capsule 1,800 mg PO DAILY Rx Instructions: give with food (meal/snack) pt is taking 4 tablet dose per [facility] atorvastatin 80 mg tablet 80 mg PO DAILY Qty: 30 0RF arginine (L-arginine) 500 mg tablet 1,000 mg PO AMHS Qty: 60 0RF duloxetine 30 mg capsule,delayed release(DR/EC) 30 mg PO DAILY Qty: 30 0RF Held aspirin 81 mg Tablet,Delayed Release (Dr/Ec) 81 mg PO DAILY Qty: 30 0RF Hold Instructions: Resume on 02/23/23. Eliquis 5 mg tablet 5 mg PO BID Qty: 60 0RF Hold Instructions: Resume on 02/19/23. Discontinued metoprolol tartrate 25 mg tablet 25 mg PO BID Qty: 60 0RF Discharge Orders: Discharge Order (Routine); Ordered 02/16/23 Ordered By: aDren Bauman Admission Data Admit Date/Time: 02/09/23 12:35 Attending Provider: Daren Bauman Admit Provider: Sumit Luna Primary Care Provider: Berta Benavides Other Providers: [facility]; Sumit Luna; Krystyna Crespo; Tayo Domingo; Feli Phillips; Raina Hanson; Nallely Ingram; Nicci Alvarenga; Parvez,Darius; Clement Dyer; James Harris; Kb Mchugh; Marissa Gaspar; Yonathan Andrade; Alondra Jules; Rose Marie Stahl; Renita Mark; Aranza Huang; Jeanna Motley; Jason Us; Kodi Owen; Louise Kiser; Morenita Gibbs Jr
== END 2023-02-16 16:38 | DRG 521 ==
LOC: ED 09:15 → INTOOBSV 12:35 → 2S 12:35 → SUATTDRO 12:35 → 2S 15:50